=== PATIENT | male | born 1940 | race Caucasian/White ===

== ENCOUNTER 2017-06-02 14:05 | Inpatient (IN) | payer MEDICARE, BC ==
[2017-06-02] MEDS ORDERED: IPRATROPIUM-ALBUTEROL 3 ML NEB INHALATION STA (14:31)
--- NOTE | 2017-06-02 14:36 | ED ---
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 He is also noted have a blood pressure 226 /102 upon arrival. Chest tightness exertional dyspnea he does have a history of an additional COPD A. fib. Complaint: chest pain, other - Related Data Home Medications Medication Instructions Recorded Confirmed Albuterol Inhaler [Ventolin Hfa 2 puff INHALATION RT-QID PRN 06/02/17 06/02/17 Inhaler] Aspirin 81 mg PO DAILY 06/02/17 06/02/17 Budesonide-Formot 160-4.5 Mcg 2 puff INHALATION RT-BID 06/02/17 06/02/17 [Symbicort 160-4.5 Mcg Inhaler] Cholecalciferol (Vitamin D3) 2,000 unit PO DAILY 06/02/17 06/02/17 [Vitamin D3] Furosemide [Lasix] 20 mg PO DAILY 06/02/17 06/02/17 HYDROcodone/APAP 5-325MG [[place] 1 tab PO Q6HR PRN 06/02/17 06/02/17 5-325] Ipratropium-Albuterol Nebulize 3 ml INHALATION RT-TID 06/02/17 06/02/17 [Duoneb 0.5 mg-3 mg/3 ml Soln] Meclizine [Antivert] 12.5 mg PO TID PRN 06/02/17 06/02/17 Metoprolol Tartrate [Lopressor] 50 mg PO BID 06/02/17 06/02/17 Multivit-Min/FA/Lycopen/Lutein 1 tab PO DAILY 06/02/17 06/02/17 [Centrum Silver Tablet] Potassium Chloride [Klor-Con 10] 10 meq PO BID 06/02/17 06/02/17 Ranitidine HCl [Zantac] 150 mg PO BID 06/02/17 06/02/17 Simvastatin [Zocor] 10 mg PO HS 06/02/17 06/02/17 Tamsulosin [Flomax] 0.4 mg PO DAILY 06/02/17 06/02/17 Warfarin [Coumadin] 2 mg PO HS 06/02/17 06/02/17 Allergies Allergy/AdvReac Type Severity Reaction Status Date / Time codeine Allergy Rash/Hives Verified 06/02/17 14:50 Review of Systems ROS Statement: Those systems with pertinent positive or pertinent negative responses have been documented in the HPI. ROS Other: All systems not noted in ROS Statement are negative. Past Medical History Past Medical History: Atrial Fibrillation, COPD, Hyperlipidemia, Hypertension History of Any Multi-Drug Resistant Organisms: None Reported Past Surgical History: Coronary Bypass/CABG, Joint Replacement Additional Past Surgical History / Comment(s): AAA repair Past Psychological History: No Psychological Hx Reported Smoking Status: Former smoker Past Alcohol Use History: None Reported Past Drug Use History: None Reported General Exam - General Exam Comments Initial Comments: This is a well-developed well-nourished awake alert oriented 3 male Limitations: no limitations General appearance: alert, in no apparent distress Head exam: Present: atraumatic, normocephalic, normal inspection Eye exam: Present: normal appearance, PERRL, EOMI. Absent: scleral icterus, conjunctival injection, periorbital swelling ENT exam: Present: normal exam, mucous membranes moist Neck exam: Present: normal inspection. Absent: tenderness, meningismus, lymphadenopathy Respiratory exam: Present: wheezes, decreased breath sounds. Absent: respiratory distress, rales, rhonchi, stridor Cardiovascular Exam: Present: regular rate, normal rhythm, normal heart sounds. Absent: systolic murmur, diastolic murmur, rubs, gallop, clicks GI/Abdominal exam: Present: soft, normal bowel sounds. Absent: distended, tenderness, guarding, rebound, rigid Extremities exam: Present: normal inspection, full ROM, normal capillary refill. Absent: tenderness, pedal edema, joint swelling, calf tenderness Back exam: Present: normal inspection Neurological exam: Present: alert, oriented X3, CN II-XII intact Psychiatric exam: Present: normal affect, normal mood Skin exam: Present: warm, dry, intact, normal color. Absent: rash Course Vital Signs 06/02/17 06/02/17 14:07 14:54 Temperature 97.5 F L Pulse Rate 77 Respiratory 20 16 Rate Blood Pressure 176/86 O2 Sat by Pulse 97 Oximetry - Reevaluation(s) Reevaluation #1: 06/02/17 16:36 Patient is feeling somewhat better. He still is dyspneic however Chest Pain MDM - MDM I did review the imaging no definite acute findings. I did discuss findings with patient family and Dr. Watkins who did come see the patient patient will be admitted for COPD/bronchitis exacerbation. Disposition Clinical Impression: Chronic obstructive pulmonary disease (COPD), Bronchitis Disposition: ADMITTED IP TO THIS HOSP Condition: Stable Referrals: Rashmi Cruz MD [Primary Care Provider] - 1-2 days
[2017-06-02 14:56] LABS: Basophils % (A) 0 %; Eosinophils # (A) 0.1 k/uL (0-0.7); Eosinophils % (A) 2 %; HCT 38.2 % (39.0-53.0); HGB 12.6 gm/dL (13.0-17.5); Lymphocytes # (A) 0.7 k/uL (1.0-4.8); Lymphocytes % (A) 13 %; MCH 33.1 pg (25.0-35.0); MCV 100.4 fL (80.0-100.0); Mean Platelet Volume 7.4; Monocytes # (A) 0.3 k/uL (0-1.0); Monocytes % (A) 5 %; Neutrophils # (A) 4.2 k/uL (1.3-7.7); Neutrophils % (A) 78 %; Platelet Count 165 k/uL (150-450); RDW 13.3 % (11.5-15.5); WBC 5.5 k/uL (3.8-10.6)
[2017-06-02 15:03] LABS: ALT 43 U/L (21-72); AST 27 U/L (17-59); Albumin 3.7 g/dL (3.5-5.0); Alkaline Phosphatase 35 U/L (38-126); Amylase 46 U/L (30-110); Anion Gap 9 mmol/L; Blood Urea Nitrogen 26 mg/dL (9-20); Calcium 9.4 mg/dL (8.4-10.2); Carbon Dioxide 29 mmol/L (22-30); Chloride 104 mmol/L (98-107); Glucose 134 mg/dL (74-99); Lipase 55 U/L (23-300); Magnesium 1.8 mg/dL (1.6-2.3); Potassium 3.9 mmol/L (3.5-5.1); Sodium 142 mmol/L (137-145); Total Bilirubin 0.4 mg/dL (0.2-1.3)
[2017-06-02 15:08] LABS: D-Dimer 0.6 mg/L FEU (<0.60); Partial Thromboplastin Time 28.6 sec (22.0-30.0)
[2017-06-02 15:27] LABS: Creatine Kinase MB 2.1 ng/mL (0.0-2.4); Troponin I 0.013 ng/mL (0.000-0.034)
[2017-06-02] MEDS ORDERED: HYDROcodone/APAP 5-325MG 1 EACH TAB PO PRN (16:41)
[2017-06-02] MEDS ORDERED: MECLIZINE 12.5 MG TAB PO PRN (16:41)
[2017-06-02] MEDS: SODIUM CHLORIDE 0.9% 1,000 ML IV STA ×3 (17:23→18:11)
--- NOTE | 2017-06-02 17:43 | HP ---
HISTORY AND PHYSICAL DATE OF ADMISSION: June 02, 2017. PRESENTING COMPLAINT: Short of breath cough. HISTORY OF PRESENTING COMPLAINT: A very pleasant 77-year-old patient of Dr. Cruz. Chronic stable medical conditions include atrial fibrillation, hypertension, hyperlipidemia. The patient also has a known history of COPD and coronary artery disease, with prior bypass. For a few days patient has been worsening wheezing, short of breath. Decreased appetite, cough, yellow phlegm, also feeling chills, cold and the patient also having some left-sided chest pain. No obvious radiation. The patient's son and the at the bedside. The patient went to see Dr. Cruz in the office today and patient was sent down to the ER because of the chest pain component. The patient feels tired and run down. REVIEW OF SYSTEMS: Constitutional: Weak tired, low-grade fever. HEENT none. Respiratory as above. Cardiovascular as above. Gastrointestinal none. Genitourinary none. Musculoskeletal none. Dermatological none. Hematologic none. Lymphatics none. Psychiatry none. Neurological none. PAST MEDICAL HISTORY: Atrial fibrillation, hypertension, hyperlipidemia, coronary artery disease, COPD. PAST SURGICAL HISTORY: Coronary artery bypass, AAA repair, joint replacement. SOCIAL HISTORY: Patient smoked for about 30 years, stopped about 28 years ago. Lives with son. Does use a cane to get about. FAMILY HISTORY: Reviewed. Noncontributory to presentation. HOME MEDICATIONS: 1. Flomax 0.4 mg p.o. daily. 2. Zantac 150 mg p.o. b.i.d. 3. [place]ia 5 one tab q.6h p.r.n. 4. Zocor 10 mg q.h.s. 5. Antivert 12.5 p.o. t.i.d. p.r.n. 6. Vitamin D3 2000 units p.o. daily. 7. Potassium 20 mEq p.o. daily. 8. Centrum Silver 1 tab p.o. daily. 9. Lasix 20 mg p.o. daily. 10.Symbicort 160/4.5, 2 puffs b.i.d. 11.Lopressor 50 mg p.o. b.i.d. 12.DuoNeb 3 mL t.i.d. 13.Ventolin HFA 2 puffs q.i.d. p.r.n. 14.Coumadin 2 mg p.o. q.h.s. 15.Aspirin 81 mg p.o. daily. ALLERGIES: CODEINE. PHYSICAL EXAMINATION: Temperature 97.5, pulse 77, respiration 20, blood pressure 177/86, pulse ox 97% on 2 L. GENERAL APPEARANCE: Well built. BMI 33.1. Lying in bed. Tired appearing. EYES: Pupils equal. Conjunctivae normal. HEENT: Oral cavity normal. Neck is JVD unable to assess. Mass not palpable. RESPIRATORY: Effort increased. LUNGS: Diminished breath sounds. Prolonged expiration and some wheezing. Cardiovascular, HEART: Sounds irregular. No edema. ABDOMEN: Soft, nontender. Liver and spleen not palpable. Lymphatics: No lymph nodes palpable in the neck or axillae. PSYCHIATRY: Alert and oriented times three. Mood and affect normal. Neurological pupils equal. Cranial nerves are grossly intact. Power and sensation grossly intact. INVESTIGATIONS: White count 5.5, hemoglobin 12.6, INR 3.0, potassium 3.9, BUN 20, creatinine 0.95. EKG shows some ST-segment changes including depression. ASSESSMENT: 1. Possible unstable angina in a patient with known coronary artery disease, having some chest pain with some ST-segment changes. I am adding a stat troponin, spoke to Dr. Costa from the ER. Showed the EKG to Dr. Canales from Cardiology. 2. Acute chronic obstructive pulmonary disease exacerbation with possible acute bronchitis in an ex-smoker. 3. Paroxysmal atrial fibrillation. Patient currently sinus rhythm chronically on Coumadin. 4. Essential hypertension. 5. Hyperlipidemia. 6. Coronary artery disease with prior history of coronary artery bypass. PLAN: The patient is put on IV Solu-Medrol. Home medications are resumed. The patient is already on aspirin. Cardiology is being contacted through the ER for the EKG. The patient on nebulized bronchodilators. As patient INR is already therapeutic, we will hold off any IV heparin. Care was discussed with the patient and family at the bedside. Copy to Dr. Cruz. FERNANDO / ELSA: [id number] /
[2017-06-02] MEDS: methylPREDNISolone SOD SUCCI 125 MG/2 ML VIAL IV SCH ×2 (18:11→23:16)
[2017-06-02 18:13] VITALS: BMI 31.0
[2017-06-02] MEDS: SODIUM CHLORIDE 0.9% 1,000 ML IV SCH (18:20)
[2017-06-02] MEDS: NITROGLYCERIN OINT 1 INCH/GM PACKET TOPICAL SCH ×2 (19:27→23:16)
[2017-06-02 19:43] LABS: Troponin I 0.021 ng/mL (0.000-0.034)
[2017-06-02] MEDS ORDERED: IPRATROPIUM-ALBUTEROL 3 ML NEB INHALATION SCH (20:00)
[2017-06-02] MEDS ORDERED: ACETAMINOPHEN TAB 325 MG TAB PO PRN (21:54)
[2017-06-02] MEDS: POTASSIUM CHLORIDE ER 10 MEQ TAB.ER.PRT PO SCH (22:11)
[2017-06-02] MEDS: ATORVASTATIN 10 MG TAB PO SCH (22:12)
[2017-06-02] MEDS: METOPROLOL TARTRATE 50 MG TAB PO SCH (22:12)
[2017-06-02] MEDS: WARFARIN 2 MG TAB PO SCH (22:12)
[2017-06-02] MEDS: FAMOTIDINE 20 MG TAB PO SCH (22:12)
[2017-06-02] MEDS ORDERED: IPRATROPIUM-ALBUTEROL 3 ML NEB INHALATION PRN (22:16)
[2017-06-03] MEDS: ALPRAZolam 0.25 MG TAB PO PRN ×2 (01:58→21:22)
[2017-06-03 03:42] LABS: Creatine Kinase MB 1.8 ng/mL (0.0-2.4); Troponin I 0.014 ng/mL (0.000-0.034)
[2017-06-03] MEDS: methylPREDNISolone SOD SUCCI 125 MG/2 ML VIAL IV SCH ×2 (05:12→11:55)
[2017-06-03] MEDS: NITROGLYCERIN OINT 1 INCH/GM PACKET TOPICAL SCH ×2 (05:13→12:01)
[2017-06-03] MEDS: IPRATROPIUM-ALBUTEROL 3 ML NEB INHALATION SCH ×4 (07:18→21:02)
[2017-06-03] MEDS: ASPIRIN 81 MG PO SCH (08:50)
[2017-06-03] MEDS: TAMSULOSIN 0.4 MG CAP.ER.24H PO SCH (08:50)
[2017-06-03] MEDS: FUROSEMIDE 20 MG TAB PO SCH (08:51)
[2017-06-03] MEDS: METOPROLOL TARTRATE 50 MG TAB PO SCH ×2 (08:51→20:24)
[2017-06-03] MEDS: FAMOTIDINE 20 MG TAB PO SCH ×2 (08:51→20:25)
[2017-06-03] MEDS: POTASSIUM CHLORIDE ER 10 MEQ TAB.ER.PRT PO SCH ×2 (08:51→20:24)
[2017-06-03] MEDS ORDERED: LEVOFLOXACIN 500 MG TAB PO SCH (09:00)
[2017-06-03] MEDS: CHOLECALCIFEROL 1,000 UNIT TAB PO SCH (11:55)
[2017-06-03] MEDS: MULTIVITAMINS, THERA 1 EACH TAB PO SCH (11:55)
--- NOTE | 2017-06-03 13:50 | P.CNPUL ---
History of Present Illness Consult date: 06/03/17 Reason for consult: dyspnea, COPD History of present illness: This is a 77-year-old male patient with known history of COPD whereas been followed up in our office regarding his COPD. Patient had a spirometry last year and her FEV1 was in the order of 93% of predicted. The patient is also known to have a history of thoracic aortic aneurysm that has been repaired back in 2003. The patient has also history of chronic atrial fibrillation, hypertension, and vitamin D deficiency. The patient came into the hospital because of worsening shortness of breath and some chest pain. The patient was seen in our office on 06/02/2016 complaining of one-week history of intermittent left-sided chest pain mostly over the anterior chest and sometimes lasting for hours and almost the whole day. Does not seem to be positional and does not seem to be related to any exercise or activity. The patient was also having intermittent cough, some wheezing, no fever or chills, no hemoptysis and no chest pain. He reported no diaphoresis. 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 The patient had a chest x-ray in the office that showed no acute evidence of any pneumonia. The patient had some chest wall tenderness. He also was found to have some expiratory wheezing. The patient was given a Depo-Medrol shot 80 mg IM. The patient was asked to continue the bronchodilators at the usual dose and continue with the prednisone and she is 5 mg alternating with 2.5 mg. Nevertheless, the patient continued to have the same symptoms and he admitted to the hospital for the same complaints. Cardiac enzymes are not elevated and the patient will have a cardiology evaluation. EKG is not showing any acute ST segment elevations. Review of Systems Constitutional: Denies weight loss, denies fatigue, no night sweats, no fever, no chills. Cardiovascular: Denies palpitations, denied chest pain or chest pressure, denies any edema. GI: Denies nausea vomiting abdominal pain diarrhea or constipation. Genitourinary: Denies dysuria, frequency, or urgency. Neurologic: Denies weakness, confusion, dizziness, or numbness. Musculoskeletal: Denies weakness arthralgia or myalgia Skin: Denies any skin lesions or rashes. Endocrine: No polydipsia, no polyuria, no heat or cold sensitivity. Pulmonary: Refer to HPI, Hematologic: Patient is on Coumadin for atrial fibrillation, no bleeding, no history of anemia, no history of blood clots. Psychiatric: No symptoms to suggest depression. Screening Past Medical History Past Medical History: Atrial Fibrillation, COPD, Hyperlipidemia, Hypertension History of Any Multi-Drug Resistant Organisms: None Reported Past Surgical History: Coronary Bypass/CABG, Joint Replacement Additional Past Surgical History / Comment(s): AAA repair 2 knees and right hip and shoulders Past Anesthesia/Blood Transfusion Reactions: No Reported Reaction Past Psychological History: No Psychological Hx Reported Smoking Status: Former smoker Past Alcohol Use History: None Reported Past Drug Use History: None Reported Medications and Allergies Home Medications Medication Instructions Recorded Confirmed Type Albuterol Inhaler [Ventolin Hfa 2 puff INHALATION RT-QID PRN 06/02/17 06/02/17 History Inhaler] Aspirin 81 mg PO DAILY 06/02/17 06/02/17 History Budesonide-Formot 160-4.5 Mcg 2 puff INHALATION RT-BID 06/02/17 06/02/17 History [Symbicort 160-4.5 Mcg Inhaler] Cholecalciferol (Vitamin D3) 2,000 unit PO DAILY 06/02/17 06/02/17 History [Vitamin D3] Furosemide [Lasix] 20 mg PO DAILY 06/02/17 06/02/17 History HYDROcodone/APAP 5-325MG [[place] 1 tab PO Q6HR PRN 06/02/17 06/02/17 History 5-325] Ipratropium-Albuterol Nebulize 3 ml INHALATION RT-TID 06/02/17 06/02/17 History [Duoneb 0.5 mg-3 mg/3 ml Soln] Meclizine [Antivert] 12.5 mg PO TID PRN 06/02/17 06/02/17 History Metoprolol Tartrate [Lopressor] 50 mg PO BID 06/02/17 06/02/17 History Multivit-Min/FA/Lycopen/Lutein 1 tab PO DAILY 06/02/17 06/02/17 History [Centrum Silver Tablet] Potassium Chloride [Klor-Con 10] 10 meq PO BID 06/02/17 06/02/17 History Ranitidine HCl [Zantac] 150 mg PO BID 06/02/17 06/02/17 History Simvastatin [Zocor] 10 mg PO HS 06/02/17 06/02/17 History Tamsulosin [Flomax] 0.4 mg PO DAILY 06/02/17 06/02/17 History Warfarin [Coumadin] 2 mg PO HS 06/02/17 06/02/17 History Allergies Allergy/AdvReac Type Severity Reaction Status Date / Time codeine Allergy Rash/Hives Verified 06/02/17 14:50 Physical Exam Vitals: Vital Signs Temp Pulse Pulse Resp BP BP Pulse Ox 06/03/17 11:23 76 06/03/17 11:08 72 06/03/17 08:00 78 24 06/03/17 07:30 76 06/03/17 07:18 76 95 06/03/17 07:00 97.4 F L 78 24 136/74 98 06/02/17 22:19 97.5 F L 83 17 128/79 98 06/02/17 19:52 80 06/02/17 19:37 76 06/02/17 19:20 74 191/107 98 06/02/17 18:08 97.5 F L 68 18 143/81 97 06/02/17 17:25 95.9 F L 71 16 136/79 96 06/02/17 16:56 68 06/02/17 16:49 67 06/02/17 14:54 16 06/02/17 14:07 97.5 F L 77 20 176/86 97 Intake and Output 06/02/17 06/03/17 06/03/17 22:59 06:59 14:59 Intake Total 640 Output Total 200 600 Balance -200 40 Intake: IV 160 Sodium Chloride 0.9% 1, 160 000 ml @ 20 mls/hr IV . Q24H [facility] Rx#:[id number] Oral 480 Output: Urine 200 600 Other: Voiding Method Urinal Urinal Urinal # Voids 2 2 Weight 92.5 kg 92.5 kg 92.5 kg Patient Weight 06/04/17 06:59 Weight 92.5 kg physical exam revealed a 76-year-old white male in no distress. HEENT: Anicteric sclerae, pink and moist conjunctivae. Extraocular movements intact, pupils are reactive to light they are round and equal. External inspection of ears and nose showed normal mucosa. Oral mucosa, soft and hard palate tongue and posterior pharynx are intact. Neck: Supple no neck masses, no JVD, no thyroid enlargement, no adenopathy. Lungs: Symmetrical expansion,wheezing on forced expiratory maneuver, tenderness over the anterior lateral chest wall noted. CVS: Irregular irregular rhythm, normal S1 and S2, no gallops, no murmur, no rubs. Abdomen: Soft, nontender, no megaly, no rebound, no guarding, positive bowel sounds. Extremities: No clubbing, no edema, no cyanosis, 2+ pulses in upper and lower extremities. Musculoskeletal: Muscle strength and tone normal. Neurologic: Alert and oriented 3, normal affect, no focal neurologic deficits. Results - Laboratory Findings CBC and BMP: 06/02/17 14:44 06/02/17 14:44 PT/INR, D-dimer PT 27.0 sec (9.0-12.0) H 06/02/17 14:44 INR 3.0 (<1.2) H 06/02/17 14:44 D-Dimer 0.60 mg/L FEU (<0.60) H 06/02/17 14:44 Abnormal lab findings: Abnormal Labs 06/02/17 06/02/17 06/02/17 14:44 14:44 14:44 RBC 3.80 L Hgb 12.6 L Hct 38.2 L MCV 100.4 H Lymphocytes # 0.7 L PT 27.0 H INR 3.0 H D-Dimer 0.60 H BUN 26 H Glucose 134 H Alkaline Phosphatase 35 L Total Creatine Kinase Total Protein 6.0 L 06/03/17 02:54 RBC Hgb Hct MCV Lymphocytes # PT INR D-Dimer BUN Glucose Alkaline Phosphatase Total Creatine Kinase 45 L Total Protein - Diagnostic Findings Chest x-ray: image reviewed Assessment and Plan Plan: Assessment 1 atypical chest pain, under investigation. EKG is not showing any acute abnormalities and a cardiac enzymes are nonelevated. 2 severe chronic obstructive pulmonary disease, with a component of mild COPD exacerbation. Chest x-ray is free of any acute pulmonary infiltrates. 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 Plan Agree on the current COPD management plan. Consult cardiology. Continue bronchodilators. Continue steroids. Continue anticoagulation. We'll follow.
--- NOTE | 2017-06-03 16:23 | ECHOF ---
Referral Reason:as MEASUREMENTS -------- HEIGHT: 172.7 cm WEIGHT: 92.1 kg BP: 136/74 RVIDd: 2.6 cm (< 3.3) IVSd: 0.9 cm (0.6 - 1.1) LVIDd: 4.9 cm (3.9 - 5.3) LVPWd: 1.0 cm (0.6 - 1.1) LAESV Index (A-L): 32.45 ml/m Ao Diam: 3.0 cm (2.0 - 3.7) AV Cusp: 0.7 cm (1.5 - 2.6) LA Diam: 3.9 cm (2.7 - 3.8) MV E David: 1.15 m/s MV DecT: 270 ms MV A David: 1.43 m/s MV E/A Ratio: 0.80 AV maxP.85 mmHg AV meanP.25 mmHg AR PHT: 754 ms RAP: 5.00 mmHg RVSP: 36.74 mmHg FINDINGS -------- Sinus rhythm. This was a technically difficult study with suboptimal views. The left ventricular size is normal. Left ventricular wall thickness is normal. Overall left vent ricular systolic function is mildly impaired with, an EF between 45 - 50 %. The right ventricle is normal in size and function. LA is midly dilated 29-33ml/m2. The right atrium is normal in size. 1.5mg of Definity was utilized for enhancement of images There is mild aortic valve sclerosis. There is mild aortic regurgitation. The aortic pressure amilcar f-time by doppler is 754ms. There is mild aortic stenosis present. Peak/mean gradient across the Aortic Valve is 27.85mmHg / 13.25mmHg. The mitral valve leaflets are mildly thickened. Mild mitral regurgitation is present. Mild tricuspid regurgitation present. There is mild pulmonary hypertension. Trace/mild (physiologic) pulmonic regurgitation. The aortic root size is normal. Normal inferior vena cava with normal inspiratory collapse consistent with estimated right atrial pre ssure of 5 mmHg. There is no pericardial effusion. CONCLUSIONS -------- 1. Sinus rhythm. 2. This was a technically difficult study with suboptimal views. 3. Left ventricular wall thickness is normal. 4. Overall left ventricular systolic function is mildly impaired with, an EF between 45 - 50 %. 5. LA is midly dilated 29-33ml/m2. 6. 1.5mg of Definity was utilized for enhancement of images 7. There is mild aortic valve sclerosis. 8. There is mild aortic regurgitation. 9. There is mild aortic stenosis present. 10. Peak/mean gradient across the Aortic Valve is 27.85mmHg / 13.25mmHg. 11. The mitral valve leaflets are mildly thickened. 12. Mild mitral regurgitation is present. 13. Mild tricuspid regurgitation present. 14. There is mild pulmonary hypertension. 15. Trace/mild (physiologic) pulmonic regurgitation. 16. The aortic root size is normal. 17. There is no pericardial effusion. MANAGER OF HOSPITAL: Jhonny Hui RDCS
--- NOTE | 2017-06-03 17:29 | P.PN ---
Progress Note - Text Progress Note Date: 06/03/17 DATE OF SERVICE: 06/03/2017 PRESENTING COMPLAINT: Short of breath, cough. HISTORY OF PRESENT ILLNESS: 77-year-old male who presented with worsening wheezing and shortness of breath decreased appetite cough with yellow phlegm feeling chills cold left-sided chest pain. No obvious radiation. Saw Dr. Beckham in the office was sent down to the emergency department for evaluation because of the chest pain complaint.. Complains of feeling tired and rundown. Admitted for these symptoms. INTERVAL HISTORY: 06/03/2017 Patient sitting up at the bedside states he feels better no further chest pains reported. Continues to have a cough with sputum. Afebrile, is ambulatory with some assistance requiring oxygen to perform activities. Tolerating his diet eating about 50% of each meal, last BM prior to admission. REVIEW OF SYSTEMS: Done for constitutional ,cardiovascular, GI, pulmonary with relevant findings as above. CURRENT MEDICATIONS Tylenol, Cameron, DuoNeb, Xanax, aspirin, Lipitor, famotidine, Antivert, Solu- Medrol 40 mg every 8 hours IV, Lopressor 51 by mouth twice a day, calcium, Flomax, Coumadin. PHYSICAL EXAM VITAL SIGNS: Temperature 97.4, pulse 78, respiratory rate 24, blood pressure 136/74, oxygen saturation 98% on 4 L. GENERAL APPEARANCE: Sitting up on the edge of the bed, not in distress. EYES: Pupils equal. Conjunctiva normal. NECK: JVD not raised. Mass not palpable. RESPIRATORY: Respiratory effort increased. Lungs prolonged expiration with some wheezing and diminished to auscultation. CARDIOVASCULAR: First and second sounds irregular. No edema. ABDOMEN: Soft. Liver and spleen not palpable. No tenderness. No mass palpable. PSYCHIATRY: Alert and oriented x3. Mood and affect normal. INVESTIGATIONS: LABS: None new Echocardiogram: Sinus rhythm, mild aortic valve sclerosis, mild aortic regurgitation, mild aortic stenosis present, mild mitral regurgitation, mild tricuspid regurgitation, mild pulmonary hypertension. EF between 45 and 50%. ASSESSMENT: -Unstable angina in a patient with known coronary artery disease presented with chest pain ST segment changes, troponin negative. -Acute chronic obstructive pulmonary disease exacerbation with possible acute bronchitis in an ex-smoker. -Paroxysmal atrial fibrillation, patient is currently in sinus rhythm chronically on Coumadin. -Essential hypertension. -Hyperlipidemia. -Coronary artery disease with prior history of coronary artery bypass. PLAN: Await additional input from cardiology, continue bronchodilators steroids and anticoagulation. Plan of care discussed with the patient the bedside we will follow closely. GRANULATOR TENDER statement: Patient was seen and examined by nurse practitioner Loraine Kelly and all elements of the case discussed with attending Dr. Watkins
--- NOTE | 2017-06-03 17:56 | PN ---
PROGRESS NOTE DATE OF SERVICE: 06/03/17 ATTENDING NOTE: Patient seen examined by me. I discussed with nurse practitioner, Robin. Patient admitted with some chest pain and short of breath. Pulmonary and cardiology was consulted. Breathing is better. Did tolerate some diet. PHYSICAL EXAMINATION: LUNGS: Decreased breath sounds. Mild wheezing. Cardiovascular first and second sounds normal. Troponins are 0.013, 0.021, 0.014. 2D echo shows EF of 45-50%. ASSESSMENT: 1. Exacerbation with possible acute bronchitis in an ex-smoker. 2. Paroxysmal atrial fibrillation chronically on Coumadin. 3. Coronary artery disease, prior history of coronary artery bypass. PLAN: Continue current medication and treatment plan including bronchodilators and IV Solu- Medrol. We will DC Fede. Await input from Cardiology. Follow. MMRIZWANL / IJN: [id number] /
[2017-06-03] MEDS: WARFARIN 2 MG TAB PO SCH (20:23)
[2017-06-03] MEDS: ATORVASTATIN 10 MG TAB PO SCH (20:24)
--- NOTE | 2017-06-03 20:47 | CONS ---
CONSULTATION Mr. Obando is a 77-year-old male who is followed by Dr. Cruz as well as Dr. Copeland who presented with symptoms of progressive dyspnea and chest discomfort. The patient has a known history of severe chronic obstructive lung disease. He also has a history of thoracic aortic aneurysm that has been repaired in 2003, as well as paroxysmal atrial fibrillation. He has been complaining of progressive dyspnea with chest discomfort, worse when he takes a deep breath and when he coughs. He denies any fever or chills. He has no diaphoresis. He has no significant peripheral edema. No PND and no orthopnea. His coronary risk factors are positive for hyperlipidemia and hypertension. He is nonsmoker at this time. MEDICATIONS: Include aspirin, Coumadin, albuterol, ipratropium, metoprolol tartrate 50 mg twice a day, Symbicort, Lasix 20 mg daily, potassium, vitamin D, Antivert, simvastatin 10 mg daily in addition to Flomax and Zantac. REVIEW OF SYSTEMS: RESPIRATORY SYSTEM: He has significant dyspnea on exertion with chronic obstructive lung disease. GI system: No recent GI bleed. No peptic ulcer disease. system: No dysuria or hematuria. Nervous system: No stroke or seizure. PHYSICAL EXAMINATION: He is a 77-year-old male, alert and oriented, no apparent distress. Blood pressure 136/70 with a heart rate in the 70s. HEAD: Normocephalic. Eyes sclerae nonicteric. Neck good upstroke. No bruit. No jugular venous distention. Lungs clear to auscultation. Lungs with severe decrease in exchange. No wheezes. HEART: Regular rate and rhythm, S1, S2 with systolic murmur 3/6 heard at the base ejection type. No diastolic murmur. No rub. ABDOMEN: Soft, nontender. Positive bowel sounds. No organomegaly. EXTREMITIES: No edema. LAB DATA: EKG revealed a sinus mechanism, borderline left axis deviation, evidence of left ventricular hypertrophy with intraventricular conduction delay and poor R wave progression cannot exclude anteroapical myocardial infarction. There is no evolution on his EKGs. Lab data revealed troponin 0.013, 0.021, 0.014. NT proBNP of 381, BUN and creatinine 26 and 0.95. INR of 3, hemoglobin of 12.6. IMPRESSION: 1. Chest discomfort, atypical for ischemic heart disease, appears to be musculoskeletal in etiology. 2. History of significant chronic obstructive lung disease with mild exacerbation. 3. Aortic valve murmur. 4. Paroxysmal atrial fibrillation. 5. Status post thoracic aortic aneurysm repair. 6. Hypertension. 7. Hyperlipidemia. RECOMMENDATION: From the cardiac standpoint, I will obtain echocardiogram with Doppler. Continue rest of his medical regimen. I see no evidence to suggest active ischemic heart disease at this time. The patient has been evaluated by Dr. Kelley regarding his lung status. Depending on his progress, further recommendation will be made. Thank you for this consult. We will follow with you. MMODL / IJN: [id number] /
[2017-06-03] MEDS: methylPREDNISolone SOD SUCCI 40 MG/ML 1 ML VIAL IV SCH (23:16)
[2017-06-04] MEDS: SODIUM CHLORIDE 0.9% 1,000 ML IV SCH (05:56)
[2017-06-04] MEDS: IPRATROPIUM-ALBUTEROL 3 ML NEB INHALATION SCH ×2 (07:45→11:25)
[2017-06-04] MEDS: ASPIRIN 81 MG PO SCH (08:19)
[2017-06-04] MEDS: METOPROLOL TARTRATE 50 MG TAB PO SCH (08:20)
[2017-06-04] MEDS: TAMSULOSIN 0.4 MG CAP.ER.24H PO SCH (08:20)
[2017-06-04] MEDS: FUROSEMIDE 20 MG TAB PO SCH (08:20)
[2017-06-04] MEDS: FAMOTIDINE 20 MG TAB PO SCH (08:20)
[2017-06-04] MEDS: POTASSIUM CHLORIDE ER 10 MEQ TAB.ER.PRT PO SCH (08:20)
[2017-06-04] MEDS: methylPREDNISolone SOD SUCCI 40 MG/ML 1 ML VIAL IV SCH (08:21)
[2017-06-04 08:23] VITALS: BP 175/89; RESP 20; TEMP 98
[2017-06-04 08:31] LABS: Anion Gap 8 mmol/L; Blood Urea Nitrogen 23 mg/dL (9-20); Calcium 9.4 mg/dL (8.4-10.2); Carbon Dioxide 27 mmol/L (22-30); Chloride 106 mmol/L (98-107); Glucose 107 mg/dL (74-99); Potassium 4.2 mmol/L (3.5-5.1); Sodium 141 mmol/L (137-145)
[2017-06-04 08:37] LABS: Prothrombin Time 26.5 sec (9.0-12.0)
[2017-06-04 11:32] VITALS: PULSE 80
[2017-06-04] MEDS: CHOLECALCIFEROL 1,000 UNIT TAB PO SCH (13:18)
[2017-06-04] MEDS: MULTIVITAMINS, THERA 1 EACH TAB PO SCH (13:22)
--- NOTE | 2017-06-04 15:07 | P.PN ---
Subjective Progress Note Date: 06/04/17 This is a 77-year-old male patient with known history of COPD whereas been followed up in our office regarding his COPD. Patient had a spirometry last year and her FEV1 was in the order of 93% of predicted. The patient is also known to have a history of thoracic aortic aneurysm that has been repaired back in 2003. The patient has also history of chronic atrial fibrillation, hypertension, and vitamin D deficiency. The patient came into the hospital because of worsening shortness of breath and some chest pain. The patient was seen in our office on 06/02/2016 complaining of one-week history of intermittent left-sided chest pain mostly over the anterior chest and sometimes lasting for hours and almost the whole day. Does not seem to be positional and does not seem to be related to any exercise or activity. The patient was also having intermittent cough, some wheezing, no fever or chills, no hemoptysis and no chest pain. He reported no diaphoresis. 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 The patient had a chest x-ray in the office that showed no acute evidence of any pneumonia. The patient had some chest wall tenderness. He also was found to have some expiratory wheezing. The patient was given a Depo-Medrol shot 80 mg IM. The patient was asked to continue the bronchodilators at the usual dose and continue with the prednisone and she is 5 mg alternating with 2.5 mg. Nevertheless, the patient continued to have the same symptoms and he admitted to the hospital for the same complaints. Cardiac enzymes are not elevated and the patient will have a cardiology evaluation. EKG is not showing any acute ST segment elevations. On 06/04/2017 the patient is being seen for a follow-up. The patient is doing well and the patient has no new complaints and his been ambulating without any major difficulties. He seems to have had significant improvement in his acute COPD exacerbation and for now were contemplating discharge. No fever. No chills. No angina. No falls. No altered mentation. Objective - Vital Signs Vital signs: Vital Signs Temp 98 F 06/04/17 07:00 Pulse 80 06/04/17 11:31 Resp 20 06/04/17 07:00 BP 175/89 06/04/17 07:00 Pulse Ox 99 06/04/17 07:00 Intake & Output 01/11/1306/04/17 06/04/17 18:59 06:59 18:59 Intake Total 60 Output Total 400 550 Balance -340 -550 Weight 92.5 kg 92.5 kg Intake: IV 60 Sodium Chloride 0.9% 1, 60 000 ml @ 20 mls/hr IV . Q24H JESSICA Rx#:[id number] Output: Urine 400 550 Other: Voiding Method Urinal Urinal # Voids 2 2 - Exam HEENT: Anicteric sclerae, pink and moist conjunctivae. Extraocular movements intact, pupils are reactive to light they are round and equal. External inspection of ears and nose showed normal mucosa. Oral mucosa, soft and hard palate tongue and posterior pharynx are intact. Neck: Supple no neck masses, no JVD, no thyroid enlargement, no adenopathy. Lungs: Symmetrical expansion,wheezing on forced expiratory maneuver, tenderness over the anterior lateral chest wall noted. CVS: Irregular irregular rhythm, normal S1 and S2, no gallops, no murmur, no rubs. Abdomen: Soft, nontender, no megaly, no rebound, no guarding, positive bowel sounds. Extremities: No clubbing, no edema, no cyanosis, 2+ pulses in upper and lower extremities. Musculoskeletal: Muscle strength and tone normal. Neurologic: Alert and oriented 3, normal affect, no focal neurologic deficits. - Labs CBC & Chem 7: 06/02/17 14:44 06/04/17 07:39 Labs: Abnormal Lab Results - Last 24 Hours (Table) 06/04/17 06/04/17 Range/Units 07:39 07:39 PT 26.5 H (9.0-12.0) sec INR 3.0 H (<1.2) BUN 23 H (9-20) mg/dL Glucose 107 H (74-99) mg/dL Assessment and Plan Plan: Assessment 1 atypical chest pain, under investigation. EKG is not showing any acute abnormalities and a cardiac enzymes are nonelevated. 2 severe chronic obstructive pulmonary disease, with a component of mild COPD exacerbation. Chest x-ray is free of any acute pulmonary infiltrates. 3 history of pneumonia 4 vitamin D deficiency 5 hypertensive disorder 6 paroxysmal atrial fibrillation 7 thoracic aortic aneurysm that has been repaired surgically at [facility] 8 degenerative arthritis 9 abnormal EKG with old anteroseptal infarct, rule out underlying coronary artery disease. Plan Patient can be discharged home today to be followed up on outpatient basis. His condition is stable. Is ambulating. No hypoxemia.
--- NOTE | 2017-06-04 19:44 | P.DS ---
Providers Date of admission: 06/02/17 16:38 Expected date of discharge: 06/04/17 Attending physician: Maurice Watkins Consults: 06/02/17 17:07 Consult Physician Urgent Consulting Provider: Ezra Canales Consult Reason/Comments: EKG changes, chest pain Do you want consulting provider notified?: Yes Primary care physician: [facility] Course: FINAL DIAGNOSES: -Unstable angina in a patient with known coronary artery disease presented with chest pain ST segment changes, troponin negative. -Acute chronic obstructive pulmonary disease exacerbation with possible acute bronchitis in an ex-smoker. -Paroxysmal atrial fibrillation, patient is currently in sinus rhythm chronically on Coumadin. -Essential hypertension. -Hyperlipidemia. -Coronary artery disease with prior history of coronary artery bypass. HOSPTIAL COURSE: 77-year-old male who presented with worsening wheezing and shortness of breath decreased appetite cough and yellow phlegm feeling chills cold and left-sided chest pain. With no obvious radiation. Was seen by Dr. Beckham in the office was sent down to the emergency department for evaluation for chest pain complaint. Home medications reordered, cardiology consulted and pulmonology consulted area. Cardiology evaluated the patient and there is no evidence to suggest active ischemic heart disease at the present time. Pulmonology saw the patient and recommended nebulized bronchodilators, IV steroid. Patient's symptoms improved. Patient ambulatory in the hallways, tolerating his diet eating 100% of his meals, moved his bowels shortness of breath improved. No further episodes of chest pain. Consultants agree patient's condition is improved and is stabilized he is appropriate for discharge. PHYSICAL EXAM: CARDIOVASCULAR: First and second sound noted no edema RESPIRATORY: Respiratory effort normal, lung sounds diminished bilaterally to the bases transient expiratory wheezing noted GI: Abdomen soft nontender liver and spleen not palpable. Patient was seen and examined by nurse practitioner Loraine Kelly in all elements of the case discussed with attending Dr. Watkins DISPOSITION: Discharge home, should follow-up with cardiology and pulmonology outpatient. Patient Condition at Discharge: Stable Plan - Discharge Summary Discharge Rx Participant: No New Discharge Prescriptions: New predniSONE 10 mg PO DAILY #30 tab Continue Tamsulosin [Flomax] 0.4 mg PO DAILY Ranitidine HCl [Zantac] 150 mg PO BID HYDROcodone/APAP 5-325MG [[place] 5-325] 1 tab PO Q6HR PRN PRN Reason: Pain Simvastatin [Zocor] 10 mg PO HS Cholecalciferol (Vitamin D3) [Vitamin D3] 2,000 unit PO DAILY Potassium Chloride [Klor-Con 10] 10 meq PO BID Multivit-Min/FA/Lycopen/Lutein [Centrum Silver Tablet] 1 tab PO DAILY Furosemide [Lasix] 20 mg PO DAILY Budesonide-Formot 160-4.5 Mcg [Symbicort 160-4.5 Mcg Inhaler] 2 puff INHALATION RT-BID Metoprolol Tartrate [Lopressor] 50 mg PO BID Ipratropium-Albuterol Nebulize [Duoneb 0.5 mg-3 mg/3 ml Soln] 3 ml INHALATION RT-TID Albuterol Inhaler [Ventolin Hfa Inhaler] 2 puff INHALATION RT-QID PRN PRN Reason: Shortness Of Breath Warfarin [Coumadin] 2 mg PO HS Aspirin 81 mg PO DAILY Discontinued Meclizine [Antivert] 12.5 mg PO TID PRN PRN Reason: Vertigo Discharge Medication List Albuterol Inhaler [Ventolin Hfa Inhaler] 2 puff INHALATION RT-QID PRN 06/02/17 [ History] Aspirin 81 mg PO DAILY 06/02/17 [History] Budesonide-Formot 160-4.5 Mcg [Symbicort 160-4.5 Mcg Inhaler] 2 puff INHALATION RT-BID 06/02/17 [History] Cholecalciferol (Vitamin D3) [Vitamin D3] 2,000 unit PO DAILY 06/02/17 [History] Furosemide [Lasix] 20 mg PO DAILY 06/02/17 [History] HYDROcodone/APAP 5-325MG [[place] 5-325] 1 tab PO Q6HR PRN 06/02/17 [History] Ipratropium-Albuterol Nebulize [Duoneb 0.5 mg-3 mg/3 ml Soln] 3 ml INHALATION RT -TID 06/02/17 [History] Metoprolol Tartrate [Lopressor] 50 mg PO BID 06/02/17 [History] Multivit-Min/FA/Lycopen/Lutein [Centrum Silver Tablet] 1 tab PO DAILY 06/02/17 [ History] Potassium Chloride [Klor-Con 10] 10 meq PO BID 06/02/17 [History] Ranitidine HCl [Zantac] 150 mg PO BID 06/02/17 [History] Simvastatin [Zocor] 10 mg PO HS 06/02/17 [History] Tamsulosin [Flomax] 0.4 mg PO DAILY 06/02/17 [History] Warfarin [Coumadin] 2 mg PO HS 06/02/17 [History] predniSONE 10 mg PO DAILY #30 tab 06/04/17 [Rx] Follow up Appointment(s)/Referral(s): Rashmi Cruz MD [Primary Care Provider] - 3 Days (Patient to call Dr. Cruz's office Monday to schedule follow up appointment. The office is closed at time of discharge. ) Dustin Copeland MD [STAFF PHYSICIAN] - 1 Week (Patient to call Dr. Copeland's office Monday to schedule follow up appointment. The office is closed at time of discharge.) Patient Instructions/Handouts: Prednisone (By mouth), COPD (Chronic Obstructive Pulmonary Disease) (DC), Chronic Bronchitis (DC) Discharge Disposition: HOME SELF-CARE
--- NOTE | 2017-06-05 12:34 | DS ---
DISCHARGE SUMMARY DATE OF ADMISSION: 06/02/17. DATE OF DISCHARGE: 06/04/17. FINAL DIAGNOSES: 1. Acute chronic obstructive pulmonary disease exacerbation, acute bronchitis in an ex- smoker. 2. Anterior chest wall pain could be musculoskeletal versus possible angina. HOSPITAL COURSE: Patient presented with chronic obstructive pulmonary disease exacerbation, had some left-sided chest pain. Troponins were negative. The patient was seen by Dr. Virgen from Cardiology, who felt this is more of musculoskeletal hence no further workup. By the time of discharge, the patient is feeling much better. On examination, lungs improved air entry. Cardiovascular first and second sounds normal. The patient's INR is 3.0. Care was discussed in detail with the patient and was also discussed including the consultation by Dr. Virgen. 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 Discussion and discharge planning: More than 35 minutes. FERNANDO / ELSA: [id number] /
--- NOTE | 2017-06-24 09:26 | HP ---
HISTORY AND PHYSICAL CHIEF COMPLAINT: Shortness of breath. HISTORY OF PRESENT ILLNESS: This 77-year-old gentleman with a past medical history of multiple medical problems including COPD, history of atrial fibrillation, history of GERD, hypertension, hyperlipidemia, history of DJD being followed by Dr. Cruz in the outpatient setting, was complaining of significant shortness of breath. The patient was admitted with significant shortness of breath. The patient improved significantly. Patient went home. Apparently, according to the family, the patient then took turn for the worse, otherwise, patient developed bilateral leg edema and the patient came to [facility] from where the patient is directly transferred to [facility] for further evaluation and treatment. Anxiety was also suspected. There is no history of fever, rigors. No headache, loss of consciousness, seizures. Sputum was also noted. PAST MEDICAL HISTORY: Atrial fibrillation, COPD, GERD, hypertension, hyperlipidemia, history of DJD and renal disease. MEDICATIONS: Prior to admission home medications are: 1. Prednisone 10 mg p.r.n. as before. 2. Coumadin 2 mg p.o. q.h.s. 3. Flomax 0.4 daily. 4. Zocor 10 mg q.h.s. 5. Zantac 150 mg p.o. b.i.d. 6. Klor-Con 10 mg p.o. b.i.d. 7. Multivitamins 1 p.o. daily. 8. Lopressor 250 mg b.i.d. 9. DuoNeb q.i.d. and p.r.n. 10.[place] 5 mg q.6h p.r.n. 11.Lasix 20 mg. 12.Vitamin D 3000 daily. 13.Symbicort 160/4.5 two puffs b.i.d. 14.Oxacillin Augmentin 1 p.o. b.i.d. 15.Albuterol inhaler 2 puffs q.i.d. p.r.n. 16.Aspirin 81 mg p.o. daily. ALLERGIES: CODEINE. FAMILY HISTORY: No history of heart disease or strokes in the family. SOCIAL HISTORY: Previous history of smoking. No current smoking or alcohol intake. REVIEW OF SYSTEMS: ENT: Diminished hearing or vision. CARDIOVASCULAR: As mentioned. RESPIRATORY: As mentioned. GI: No nausea. : No dysuria. NERVOUS SYSTEM: As mentioned. ALLERGY/IMMUNOLOGY No history of asthma. MUSCULOSKELETAL: As mentioned earlier. HEMATOLOGY: No history of anemia. ENDOCRINE: No history of diabetes or hypothyroidism. CONSTITUTIONAL: As mentioned earlier. DERMATOLOGY: Negative. RHEUMATOLOGY: Negative. PSYCHIATRY: As mentioned earlier. PHYSICAL EXAMINATION: Patient is alert and oriented x3. Pulse 77, blood pressure 193/96, respiration 22, temperature 97.4, pulse ox 97% on 2 L. HEENT: Conjunctivae normal. Oral mucosa moist. NECK: No jugular venous distention. No carotid bruit. No lymph node enlargement. CARDIOVASCULAR: S1, S2. No S3, no S4. RESPIRATORY: Breath sounds diminished in the bases. Bilateral scattered rhonchi and crackles. Expiratory wheezing also present. ABDOMEN: Soft, nontender. No mass palpable. LEGS: Bilateral leg edema. NERVOUS SYSTEM: Higher functions as mentioned earlier, moves all 4 limbs, no focal motor sensory deficits. LYMPHATICS: No lymphadenopathy in the neck, axillae, groin. SKIN: No ulcer, rashes or bleeding. LAB STUDIES: At this time shows WBC 8.2, hemoglobin 12.8. The rest of the labs are pending. ASSESSMENT: 1. Chronic obstructive pulmonary disease exacerbation with acute purulent tracheobronchitis. 2. Bilateral leg edema secondary to acute on chronic cor pulmonale. 3. History atrial fibrillation. 4. History of chronic obstructive pulmonary disease. 5. History of gastroesophageal reflux disease. 6. Hyperlipidemia. 7. Hypertension. 8. Degenerative joint disease. 9. Renal disease. 10.History of cholecystectomy. 11.History of abdominal aortic aneurysm and coaptation repair. 12.History of degenerative joint disease. RECOMMENDATIONS AND DISCUSSION: This 77-year-old gentleman who presented with multiple complex medical issues, will monitor the patient closely. Continue the current medications and symptomatic treatment. I would recommend extensive bronchodilator treatment. I would also recommend IV steroids and Accu-Cheks a.c. and at bedtime also. Otherwise a small dose of Lasix. Consult Cardiology and pulmonology. DVT prophylaxis. Guarded prognosis because of multiple complex medical issues. Further recommendations to follow. Copy of dictation forwarded to Dr. Cruz, who is the primary physician. MMODL / IJN: [id number] /
== END 2017-06-04 14:05 | disposition home or self-care (01) | DRG 191 ==
LOC: EC 14:05 → 5MS5E 16:38
PROVIDERS: ADMIT Hospitalist; ATTEND Hospitalist
DX: J44.1 Chronic obstructive pulmonary disease with (acute) exacerbation (principal); I25.110 Atherosclerotic heart disease of native coronary artery with unstable angina pectoris; I48.0 Paroxysmal atrial fibrillation; I35.8 Other nonrheumatic aortic valve disorders; J44.0 Chronic obstructive pulmonary disease with (acute) lower respiratory infection; I25.2 Old myocardial infarction; J20.9 Acute bronchitis, unspecified; E55.9 Vitamin D deficiency, unspecified; E78.5 Hyperlipidemia, unspecified; I10 Essential (primary) hypertension; I48.2 Chronic atrial fibrillation; M19.90 Unspecified osteoarthritis, unspecified site; Z79.01 Long term (current) use of anticoagulants; Z79.51 Long term (current) use of inhaled steroids; Z79.82 Long term (current) use of aspirin; Z79.899 Other long term (current) drug therapy; Z86.79 Personal history of other diseases of the circulatory system; Z87.01 Personal history of pneumonia (recurrent); Z87.891 Personal history of nicotine dependence; Z95.1 Presence of aortocoronary bypass graft; Z88.5 Allergy status to narcotic agent; Z96.60 Presence of unspecified orthopedic joint implant
CPT/HCPCS: 36415; 71046; 80048; 80053; 82150; 82550; 82553; 83690; 83735; 83880; 84484; 85025; 85379; 85610; 85730; 93005; 93306; 94640; 94760; 96372; 99214; 99285

== ENCOUNTER 2017-06-15 10:01 | Inpatient (IN) | payer MEDICARE, BC ==
[2017-06-15] MEDS ORDERED: IPRATROPIUM 0.5 MG/2.5 ML NEBU INHALATION STA (10:15)
[2017-06-15] MEDS ORDERED: SODIUM CHLORIDE 0.9% 1,000 ML IV STA ×2 (10:15)
[2017-06-15] MEDS ORDERED: ALBUTEROL NEBULIZED 2.5 MG/3 ML INHALATION STA (10:15)
[2017-06-15] MEDS ORDERED: methylPREDNISolone SOD SUCCI 125 MG/2 ML VIAL IV STA (10:15)
--- NOTE | 2017-06-15 10:22 | ED ---
General Adult HPI - General Chief complaint: Shortness of Breath Stated complaint: Vomiting/Cough Time Seen by Provider: 06/15/17 10:15 Source: patient, RN notes reviewed, old records reviewed Mode of arrival: wheelchair Limitations: no limitations - History of Present Illness Initial comments: This is a 69-year-old male to the ER for evaluation of shortness of breath, increasing shortness of breath cough congestion patient also notes fever. Patient does have recent hospital admission for COPD. Patient discharged home on steroids no antibiotics. Denies any pain is does not feel well. He states the shortness of breath has been increasing for about a week much worse over the last 2 days he developed fever he thinks last night. No nausea vomiting or diarrhea. No significant complaints of bodyaches - Related Data Home Medications Medication Instructions Recorded Confirmed Albuterol Inhaler [Ventolin Hfa 2 puff INHALATION RT-QID PRN 06/02/17 06/15/17 Inhaler] Aspirin 81 mg PO DAILY 06/02/17 06/15/17 Budesonide-Formot 160-4.5 Mcg 2 puff INHALATION RT-BID 06/02/17 06/15/17 [Symbicort 160-4.5 Mcg Inhaler] Cholecalciferol (Vitamin D3) 2,000 unit PO DAILY 06/02/17 06/15/17 [Vitamin D3] Furosemide [Lasix] 20 mg PO DAILY 06/02/17 06/15/17 HYDROcodone/APAP 5-325MG [[place] 1 tab PO Q6HR PRN 06/02/17 06/15/17 5-325] Ipratropium-Albuterol Nebulize 3 ml INHALATION RT-TID 06/02/17 06/15/17 [Duoneb 0.5 mg-3 mg/3 ml Soln] Metoprolol Tartrate [Lopressor] 50 mg PO BID 06/02/17 06/15/17 Multivit-Min/FA/Lycopen/Lutein 1 tab PO DAILY 06/02/17 06/15/17 [Centrum Silver Tablet] Potassium Chloride [Klor-Con 10] 10 meq PO BID 06/02/17 06/15/17 Ranitidine HCl [Zantac] 150 mg PO BID 06/02/17 06/15/17 Simvastatin [Zocor] 10 mg PO HS 06/02/17 06/15/17 Tamsulosin [Flomax] 0.4 mg PO DAILY 06/02/17 06/15/17 Warfarin [Coumadin] 2 mg PO HS 06/02/17 06/15/17 predniSONE See Taper PO DAILY 06/15/17 06/15/17 Allergies Allergy/AdvReac Type Severity Reaction Status Date / Time codeine Allergy Rash/Hives Verified 06/15/17 10:36 Review of Systems ROS Statement: Those systems with pertinent positive or pertinent negative responses have been documented in the HPI. ROS Other: All systems not noted in ROS Statement are negative. Past Medical History Past Medical History: Atrial Fibrillation, COPD, Hyperlipidemia, Hypertension History of Any Multi-Drug Resistant Organisms: None Reported Past Surgical History: Coronary Bypass/CABG, Joint Replacement Additional Past Surgical History / Comment(s): AAA repair 2 knees and right hip and shoulders Past Anesthesia/Blood Transfusion Reactions: No Reported Reaction Past Psychological History: No Psychological Hx Reported Smoking Status: Former smoker Past Alcohol Use History: None Reported Past Drug Use History: None Reported General Exam Limitations: no limitations General appearance: alert, anxious, in distress Head exam: Present: atraumatic, normocephalic, normal inspection Eye exam: Present: normal appearance, PERRL, EOMI. Absent: scleral icterus, conjunctival injection, periorbital swelling ENT exam: Present: normal exam, mucous membranes moist Neck exam: Present: normal inspection. Absent: tenderness, meningismus, lymphadenopathy Respiratory exam: Present: respiratory distress, wheezes, accessory muscle use, decreased breath sounds, prolonged expiratory. Absent: rales, rhonchi, stridor Cardiovascular Exam: Present: normal rhythm, tachycardia, normal heart sounds. Absent: systolic murmur, diastolic murmur, rubs, gallop, clicks GI/Abdominal exam: Present: soft, normal bowel sounds. Absent: distended, tenderness, guarding, rebound, rigid Extremities exam: Present: normal inspection, full ROM, normal capillary refill. Absent: tenderness, pedal edema, joint swelling, calf tenderness Back exam: Present: normal inspection Neurological exam: Present: alert, oriented X3, CN II-XII intact Psychiatric exam: Present: normal affect, normal mood Skin exam: Present: warm, dry, intact, normal color. Absent: rash Course Vital Signs 06/15/17 06/15/17 10:10 10:32 Temperature 101.4 F H Pulse Rate 80 Respiratory 26 H 24 Rate Blood Pressure 106/53 O2 Sat by Pulse 93 L Oximetry - Reevaluation(s) Reevaluation #1: 06/15/17 10:47 Patient initially hypoxic with shortness of breath and improving with respiratory treatment, patient's fever and vital signs also improved with fever control Medical Decision Making - Medical Decision Making 69 male the ER for evaluation of cough congestion shortness of breath fever, positive pneumonia, nosocomial pneumonia, patient be admitted IV antibiotics and cardiopulmonary support - Radiology Data Radiology results: report reviewed (Chest x-ray is positive for pneumonia), image reviewed Critical Care Time Critical Care Time: Yes Total Critical Care Time: 31 Disposition Clinical Impression: Chronic obstructive pulmonary disease (COPD), Acute exacerbation of chronic obstructive airways disease, Nosocomial pneumonia Disposition: ADMITTED IP TO THIS [facility] Condition: Serious Referrals: None,Stated [Primary Care Provider] - 1-2 days
[2017-06-15] MEDS ORDERED: IBUPROFEN 800 MG TAB PO STA (10:32)
[2017-06-15] MEDS ORDERED: ACETAMINOPHEN TAB 500 MG TAB PO STA (10:32)
[2017-06-15 10:44] LABS: Basophils % (A) 0 %; Eosinophils # (A) 0.1 k/uL (0-0.7); Eosinophils % (A) 0 %; HCT 42.9 % (39.0-53.0); Lymphocytes # (A) 0.8 k/uL (1.0-4.8); Lymphocytes % (A) 5 %; MCHC 32.6 g/dL (31.0-37.0); MCV 101.2 fL (80.0-100.0); Macrocytosis Slight; Mean Platelet Volume 7.1; Monocytes # (A) 0.6 k/uL (0-1.0); Monocytes % (A) 4 %; Neutrophils # (A) 14.9 k/uL (1.3-7.7); Neutrophils % (A) 90 %; Platelet Count 191 k/uL (150-450); RBC 4.24 m/uL (4.30-5.90); RDW 13.2 % (11.5-15.5); WBC 16.5 k/uL (3.8-10.6)
[2017-06-15] MEDS ORDERED: PIPERACILLIN-TAZOBACTAM 3.375 GM in DEXTROSE/WATER 1 50ML.BAG IVPB STA (10:44)
[2017-06-15] MEDS ORDERED: PNEUMONIA PROTOCOL UTILIZED 1 EACH MISC PO PRN (10:44)
[2017-06-15] MEDS ORDERED: LEVOFLOXACIN 750MG-D5W PMX 750 MG in DEXTROSE/WATER 1 150ML.BAG IVPB STA (10:44)
--- NOTE | 2017-06-15 10:44 | XR ---
EXAMINATION TYPE: XR chest 1V portable DATE OF EXAM: 06/15/2017 COMPARISON: 06/02/2017 HISTORY: Shortness of breath TECHNIQUE: Single frontal view of the chest is obtained. FINDINGS: Right basilar infiltrate and small effusion. There is prominence of the thoracic aorta is suspicious for aneurysm. Underlying COPD noted. Arthropathy of the shoulders. Previous surgery involving the left shoulder and cervical spine suggested. Surgical clips overlying the mediastinum noted. Chronic rib cage deformity of the left suggests previous surgery. IMPRESSION: 1. Right lower lobe infiltrate and small effusion. 2. Marked prominence of the left hilum suspicious for aneurysm or mass. 2. Correlate for COPD
[2017-06-15 10:46] LABS: ALT 41 U/L (21-72); AST 19 U/L (17-59); Albumin 3.5 g/dL (3.5-5.0); Alkaline Phosphatase 49 U/L (38-126); Anion Gap 7 mmol/L; Blood Urea Nitrogen 32 mg/dL (9-20); Calcium 9.5 mg/dL (8.4-10.2); Carbon Dioxide 32 mmol/L (22-30); Chloride 99 mmol/L (98-107); Glucose 108 mg/dL (74-99); Magnesium 1.8 mg/dL (1.6-2.3); Potassium 4.4 mmol/L (3.5-5.1); Sodium 138 mmol/L (137-145); Total Bilirubin 0.6 mg/dL (0.2-1.3)
[2017-06-15 10:48] LABS: Partial Thromboplastin Time 26.1 sec (22.0-30.0); Prothrombin Time 27.3 sec (9.0-12.0)
[2017-06-15 11:14] LABS: Troponin I 0.045 ng/mL (0.000-0.034)
[2017-06-15] MEDS ORDERED: SODIUM CHLORIDE 0.9% 2,000 ML IV ONE (11:35)
[2017-06-15] MEDS ORDERED: HYDROcodone/APAP 5-325MG 1 EACH TAB PO PRN (14:53)
[2017-06-15] MEDS: BUDESONIDE 1 MG/2 ML NEBU INHALATION SCH ×2 (15:12→19:53)
[2017-06-15] MEDS: IPRATROPIUM-ALBUTEROL 3 ML NEB INHALATION SCH ×4 (15:12→23:51)
--- NOTE | 2017-06-15 15:38 | HP ---
HISTORY AND PHYSICAL DATE OF ADMISSION: 06/15/2017 PRESENTING COMPLAINT: Cough, short of breath, wheezing. HISTORY OF PRESENTING COMPLAINT: This is a 77-year-old patient of Dr. Rodas. Chronic stable medical conditions include atrial fibrillation, hypertension, hyperlipidemia, coronary artery disease. Patient lives with his son. Patient's son and daughter are at the bedside. For over 1 week patient has been having increasing shortness of breath, cough, sputum production, yellow-green, very short of breath. Patient is requiring a BiPAP, maybe fever. His appetite was good until a few days ago, no feeling weak, tired and totally rundown, short of breath at rest. REVIEW OF SYSTEMS: CONSTITUTIONAL: Weak, tired, fevers. HEENT: None. RESPIRATORY: As above. CARDIOVASCULAR: None. GASTROINTESTINAL: None. GENITOURINARY: None. MUSCULOSKELETAL: None. DERMATOLOGICAL: None. HEMATOLOGICAL: None. LYMPHATIC: None. PSYCHIATRY: None. NEUROLOGICAL: None. PAST MEDICAL HISTORY: Atrial fibrillation, hypertension, hyperlipidemia, coronary artery disease, COPD. PAST SURGICAL HISTORY: Coronary artery bypass, AAA repair, joint replacement. SOCIAL HISTORY: Smoked for 30 years, stopped over 28 years ago. Lives with his son. Does use a cane to get about. FAMILY HISTORY: Reviewed, noncontributory to presentation. HOME MEDICATIONS: 1. Prednisone taper. 2. Coumadin 2 mg q.h.s. 3. Flomax 0.4 mg a day. 4. Zocor 10 mg q.h.s. 5. Zantac 150 mg p.o. b.i.d. 6. Potassium 10 mEq b.i.d. 7. Centrum Silver 1 tablet p.o. daily. 8. Lopressor 50 mg b.i.d. 9. DuoNeb 3 mL t.i.d. 10.[place] 5 one tablet q.6 p.r.n. 11.Lasix 20 mg a day. 12.Vitamin D3 two thousand units p.o. daily. 13.Symbicort 160/4.5 two puffs b.i.d. 14.Ventolin HFA 2 puffs q.i.d. p.r.n. ALLERGIES: CODEINE. PHYSICAL EXAMINATION: Vital signs on presentation, temperature 101.4, pulse 80, respiratory 26, blood pressure 106/53, pulse ox 93% on room air. GENERAL APPEARANCE: Well built, BMI 32.4, lying in bed on the BiPAP, very short of breath at rest. EYES: Pupils equal, conjunctivae normal. HEENT: Oral cavity dry mucous membrane. NECK: JVD not raised. Mass not palpable. RESPIRATORY: Effort increased, accessory muscles are working. Not able to speak in full sentences. LUNGS: Decreased breath sounds. Prolonged expiration and scattered crackles. CARDIOVASCULAR: First and second sounds normal. No edema. ABDOMEN: Soft, nontender. Liver and spleen not palpable. LYMPHATIC: No lymph node palpable in neck or axillae. PSYCHIATRY: Alert and oriented x3. Mood and affect anxious-appearing. NEUROLOGICAL: Pupils equal. Cranial nerves grossly intact. Power and sensation grossly intact. INVESTIGATIONS: White count 16.5, hemoglobin 14, INR 3, potassium 4.4, BUN 32, creatinine 1.0, troponin 0.045. Influenza negative. Chest x-ray, right lower lobe infiltrate. ASSESSMENT: 1. Right lower lobe pneumonia, suspect gram-negative organism causing sepsis, present on admission. 2. Acute chronic obstructive pulmonary disease exacerbation in an ex-smoker, present on admission. 3. Paroxysmal atrial fibrillation, chronically on Coumadin. 4. Coumadin monitoring. 5. Essential hypertension. 6. Hyperlipidemia. 7. Coronary artery disease with prior history of coronary artery bypass. 8. Troponin leak, likely from hemodynamic mismatch. There is no acute coronary syndrome symptoms. PLAN: Patient is put on IV Zosyn. Will add Mucinex and a sputum for Gram stain culture. Patient put on bronchodilators, IV steroids, inhaled steroids. Other home medications resumed. The patient's INR will be closely followed. Care was discussed with the son and daughter at the bedside. Questions were answered. Consultation to Pulmonary is being done. MMODL / IJN: [id number] /
[2017-06-15] MEDS ORDERED: IPRATROPIUM-ALBUTEROL 3 ML NEB INHALATION SCH (16:00)
[2017-06-15] MEDS: SODIUM CHLORIDE 0.9% 1,000 ML IV SCH (16:15)
[2017-06-15] MEDS: ASPIRIN 81 MG PO SCH (16:17)
[2017-06-15] MEDS: TAMSULOSIN 0.4 MG CAP.ER.24H PO SCH (16:17)
[2017-06-15] MEDS: methylPREDNISolone SOD SUCCI 40 MG/ML 1 ML VIAL IV SCH (16:17)
[2017-06-15] MEDS: guaiFENesin 600 MG TABLET.ER PO SCH ×2 (16:17→19:40)
[2017-06-15 16:53] LABS: Glucose,Whole Blood 167 mg/dL (75-99)
[2017-06-15] MEDS: WARFARIN 2 MG TAB PO SCH (17:12)
[2017-06-15] MEDS: INSULIN ASPART 100 UNIT/ML 1 ML 10 ML VIAL SQ SCH (17:12)
[2017-06-15] MEDS ORDERED: PIPERACILLIN-TAZOBACTAM 3.375 GM in DEXTROSE/WATER 1 50ML.BAG IVPB SCH (18:00)
--- NOTE | 2017-06-15 18:13 | P.CNPUL ---
History of Present Illness Consult date: 06/15/17 Requesting physician: Maurice Watkins Reason for consult: dyspnea, cough, abnormal CXR/CT Chief complaint: Shortness of breath, chest congestion, cough, fever History of present illness: Lee is a 77-year-old white male patient who sees Dr. Beckham in our office for his history of mild COPD with FEV1 of 93%, who was recently discharged from this hospital on 06/04/2017 after being treated for COPD exacerbation, presented to the emergency department today on 06/15/2017 at 10:00 in the morning with complaints of increasing shortness of breath, chest congestion, fever, cough. His symptoms started last , got increasingly worse over the last week, and last night he started having fevers. Denied any body aches, denied any nausea vomiting or diarrhea. Chest x-ray taken in the ED on 2017 showed right lower lobe infiltrate and small effusion and marked prominence of the left hilum. Lab work shows leukocytosis with W BC of 16.5, hemoglobin was 14, INR is 3.0, patient is on Coumadin for atrial fibrillation, carbon dioxide of 32, BUN of 32, creatinine is 1, troponin is positive at 0.045 , proBNP was 1020, plasma lactic acid was 1.1, influenza screen was negative. Patient was febrile with a temp of 101.4F, he was hypotensive with a systolic of 81/48, he was given 2 L of 0.9 normal saline IV bolus, and maintenance IV of 0.9 normal saline at 100 ML per hour was started. Subsequently his breathing became increasingly labored in the course of his stay in the emergency room, and patient was placed on BiPAP support with pressure of 12 and 5 and FiO2 of 40 %. He was started on Zosyn and Levaquin, IV Solu-Medrol, nebulized treatments, and admitted for further management. Review of Systems All systems: negative Constitutional: Denies chills, Denies fever Eyes: denies blurred vision, denies pain Ears, nose, mouth and throat: Denies headache, Denies sore throat Cardiovascular: Denies chest pain, Denies shortness of breath Respiratory: Denies cough Gastrointestinal: Denies abdominal pain, Denies diarrhea, Denies nausea, Denies vomiting Musculoskeletal: Denies myalgias Integumentary: Denies pruritus, Denies rash Neurological: Denies numbness, Denies weakness Psychiatric: Denies anxiety, Denies depression Endocrine: Denies fatigue, Denies weight change Past Medical History Past Medical History: Atrial Fibrillation, Cancer, COPD, GERD/Reflux, Hyperlipidemia, Hypertension, Osteoarthritis (OA), Renal Disease Additional Past Medical History / Comment(s): Pt recently admitted 06/02/17 with acute COPD and chest pain thought to be muscular. Other hx: Paroxysmal A fib , thoracic aortic aneurysm with repair/aorta coarctation repair, hiatal hernia, skin cancer with removal, nephrolithiasis with surgery, arthritis multiple joints bilaterally. History of Any Multi-Drug Resistant Organisms: None Reported Past Surgical History: Cholecystectomy, Heart Catheterization, Hernia Repair, Joint Replacement Additional Past Surgical History / Comment(s): AAA/Aortic coarctation repair, bilateral total knee arthroplasties, R total hip arthroplasty, bilateral shoulder rotator cuff repairs, R inguinal hernia repair, skin cancer removed from nose, lithotripsy, colonoscopy Past Anesthesia/Blood Transfusion Reactions: No Reported Reaction Smoking Status: Former smoker - Past Family History Mother Family Medical History: No Reported History Additional Family Medical History / Comment(s): Pt reluctant to speak about mother's hx. Father Family Medical History: Myocardial Infarction (HI) Additional Family Medical History / Comment(s): Father had a HI at the age of 65yrs. Medications and Allergies Home Medications Medication Instructions Recorded Confirmed Type Albuterol Inhaler [Ventolin Hfa 2 puff INHALATION RT-QID PRN 06/02/17 06/15/17 History Inhaler] Aspirin 81 mg PO DAILY 06/02/17 06/15/17 History Budesonide-Formot 160-4.5 Mcg 2 puff INHALATION RT-BID 06/02/17 06/15/17 History [Symbicort 160-4.5 Mcg Inhaler] Cholecalciferol (Vitamin D3) 2,000 unit PO DAILY 06/02/17 06/15/17 History [Vitamin D3] Furosemide [Lasix] 20 mg PO DAILY 06/02/17 06/15/17 History HYDROcodone/APAP 5-325MG [[place] 1 tab PO Q6HR PRN 06/02/17 06/15/17 History 5-325] Ipratropium-Albuterol Nebulize 3 ml INHALATION RT-TID 06/02/17 06/15/17 History [Duoneb 0.5 mg-3 mg/3 ml Soln] Metoprolol Tartrate [Lopressor] 50 mg PO BID 06/02/17 06/15/17 History Multivit-Min/FA/Lycopen/Lutein 1 tab PO DAILY 06/02/17 06/15/17 History [Centrum Silver Tablet] Potassium Chloride [Klor-Con 10] 10 meq PO BID 06/02/17 06/15/17 History Ranitidine HCl [Zantac] 150 mg PO BID 06/02/17 06/15/17 History Simvastatin [Zocor] 10 mg PO HS 06/02/17 06/15/17 History Tamsulosin [Flomax] 0.4 mg PO DAILY 06/02/17 06/15/17 History Warfarin [Coumadin] 2 mg PO HS 06/02/17 06/15/17 History predniSONE See Taper PO DAILY 06/15/17 06/15/17 History Allergies Allergy/AdvReac Type Severity Reaction Status Date / Time codeine Allergy Rash/Hives Verified 06/15/17 10:36 Physical Exam Vitals: Vital Signs Temp Pulse Pulse Resp BP BP Pulse Ox 06/15/17 16:54 97 06/15/17 16:41 97.1 F L 80 20 132/73 98 06/15/17 14:57 80 18 104/65 98 06/15/17 13:45 84 18 108/68 99 06/15/17 13:31 83 18 99/60 97 06/15/17 13:15 88 18 86/53 97 06/15/17 13:00 90 18 95/61 97 06/15/17 12:34 99 20 92/67 100 06/15/17 12:22 101 H 20 86/56 97 06/15/17 12:05 103 H 22 84/48 96 06/15/17 12:01 24 06/15/17 11:45 103 H 24 79/45 98 06/15/17 11:30 98 22 81/55 98 06/15/17 11:20 86 22 81/48 2 L 06/15/17 11:15 88 06/15/17 11:00 84 06/15/17 10:43 75 06/15/17 10:32 24 06/15/17 10:10 101.4 F H 80 26 H 106/53 93 L Intake and Output 06/15/17 06/15/17 06/15/17 06:59 14:59 22:59 Other: Voiding Method Toilet Urinal Weight 96.615 kg Patient Weight 06/16/17 06:59 Weight 96.615 kg GENERAL EXAM: Alert, active, currently fairly comfortable on BiPAP support with pressures of 12 and 5, and 40% FiO2 HEAD: Normocephalic/atraumatic. EYES: Normal reaction of pupils, equal size. Conjunctiva pink, sclera white. NOSE: Clear with pink turbinates. THROAT: No erythema or exudates. NECK: No masses, no JVD, no thyroid enlargement, no adenopathy. CHEST: No chest wall deformity. Symmetrical expansion. LUNGS: Equal air entry with scattered crackles, no wheeze. CVS: Regular rate and rhythm, normal S1 and S2, no gallops, no murmurs, no rubs ABDOMEN: Soft, nontender. No hepatosplenomegaly, normal bowel sounds, no guarding or rigidity. EXTREMITIES: No clubbing, no edema, no cyanosis, 2+ pulses and upper and lower extremities. MUSCULOSKELETAL: Muscle strength and tone normal. SPINE: No scoliosis or deformity SKIN: No rashes CENTRAL NERVOUS SYSTEM: Alert and oriented -3. No focal deficits, tone is normal in all 4 extremities. PSYCHIATRIC: Alert and oriented -3. Appropriate affect. Intact judgment and insight. Results - Laboratory Findings CBC and BMP: 06/15/17 10:25 06/15/17 10:25 PT/INR, D-dimer PT 27.3 sec (9.0-12.0) H 06/15/17 10:25 INR 3.0 (<1.2) H 06/15/17 10:25 Abnormal lab findings: Abnormal Labs 06/15/17 06/15/17 06/15/17 10:25 10:25 10:25 WBC 16.5 H RBC 4.24 L MCV 101.2 H Neutrophils # 14.9 H Lymphocytes # 0.8 L PT INR Carbon Dioxide 32 H BUN 32 H Glucose 108 H POC Glucose (mg/dL) Total Creatine Kinase 33 L Troponin I 0.045 H* Total Protein 6.0 L 06/15/17 06/15/17 10:25 16:20 WBC RBC MCV Neutrophils # Lymphocytes # PT 27.3 H INR 3.0 H Carbon Dioxide BUN Glucose POC Glucose (mg/dL) 167 H Total Creatine Kinase Troponin I Total Protein - Diagnostic Findings Chest x-ray: report reviewed Assessment and Plan Plan: Assessment: #1. Acute hypoxic respiratory failure secondary to right lower lobe pneumonia #2. Acute sepsis secondary to the above. Patient presented with a febrile illness, hypotension, hypoxemia, leukocytosis. Patient was fluid resuscitated with 2 L of 0.9 normal saline #3. Recent admission for COPD exacerbation, improved, discharged home on 2017 #4.Troponin leak, possibly due to sepsis #5. Paroxysmal atrial fibrillation, anticoagulated on Coumadin #6. Hypertension, hyperlipidemia #7. History of coronary artery disease #8. History of thoracic aortic aneurysm, status post surgical repair in 2003 #9. Degenerative arthritis Plan: Continue present medical management, continue Zosyn, IV steroids, nebulized treatments. GI/DVT prophylaxis. Agree with sputum and blood cultures. Repeat chest x-ray in the morning, lab work. I performed a history & physical examination of the patient and discussed their management with my nurse practitioner, Jelly Reynoso. I reviewed the nurse practitioner's note and agree with the documented findings and plan of care. Lung sounds are positive for scattered crackles. The findings and the impression was discussed with the patient. I attest to the documentation by the nurse practitioner. Time with Patient: Greater than 30
[2017-06-15] MEDS: ATORVASTATIN 10 MG TAB PO SCH (19:40)
[2017-06-15] MEDS: FAMOTIDINE 20 MG TAB PO SCH (19:40)
[2017-06-15] MEDS: METOPROLOL TARTRATE 50 MG TAB PO SCH (19:40)
[2017-06-15 21:19] LABS: Glucose,Whole Blood 236 mg/dL (75-99)
[2017-06-16] MEDS: SODIUM CHLORIDE 0.9% 1,000 ML IV SCH ×3 (00:20→16:14)
[2017-06-16] MEDS: PIPERACILLIN-TAZOBACTAM 3.375 GM in DEXTROSE/WATER 1 50ML.BAG IVPB SCH ×4 (00:21→22:30)
[2017-06-16] MEDS: INSULIN ASPART 100 UNIT/ML 1 ML 10 ML VIAL SQ SCH ×5 (00:46→22:07)
[2017-06-16] MEDS: methylPREDNISolone SOD SUCCI 40 MG/ML 1 ML VIAL IV SCH ×3 (00:47→15:56)
[2017-06-16 01:26] LABS: Hemoglobin A1C 5.7 % (4.0-6.0)
[2017-06-16] MEDS: IPRATROPIUM-ALBUTEROL 3 ML NEB INHALATION SCH ×6 (04:08→19:59)
[2017-06-16 05:51] LABS: Glucose,Whole Blood 109 mg/dL (75-99)
[2017-06-16 06:35] LABS: INR 2.8 (<1.2); Prothrombin Time 25.5 sec (9.0-12.0)
[2017-06-16 07:38] LABS: Basophils % (A) 0 %; Eosinophils % (A) 0 %; HCT 38.4 % (39.0-53.0); HGB 11.9 gm/dL (13.0-17.5); Lymphocytes # (A) 0.3 k/uL (1.0-4.8); Lymphocytes % (A) 2 %; MCH 32.6 pg (25.0-35.0); MCV 105.2 fL (80.0-100.0); Macrocytosis Moderate; Mean Platelet Volume 7.9; Monocytes # (A) 0.3 k/uL (0-1.0); Monocytes % (A) 2 %; Neutrophils % (A) 95 %; Platelet Count 153 k/uL (150-450); RBC 3.65 m/uL (4.30-5.90); RDW 14.2 % (11.5-15.5); WBC 13.6 k/uL (3.8-10.6)
[2017-06-16 07:48] LABS: Anion Gap 8 mmol/L; Blood Urea Nitrogen 30 mg/dL (9-20); Calcium 8.7 mg/dL (8.4-10.2); Carbon Dioxide 25 mmol/L (22-30); Chloride 109 mmol/L (98-107); Glucose 103 mg/dL (74-99); Potassium 4.3 mmol/L (3.5-5.1); Sodium 142 mmol/L (137-145)
[2017-06-16] MEDS: FAMOTIDINE 20 MG TAB PO SCH ×2 (08:00→22:07)
[2017-06-16] MEDS: ASPIRIN 81 MG PO SCH (08:00)
[2017-06-16] MEDS: TAMSULOSIN 0.4 MG CAP.ER.24H PO SCH (08:00)
[2017-06-16] MEDS: METOPROLOL TARTRATE 50 MG TAB PO SCH ×2 (08:00→22:08)
[2017-06-16] MEDS: guaiFENesin 600 MG TABLET.ER PO SCH ×2 (08:00→22:07)
[2017-06-16] MEDS: FORMOTEROL FUMARATE 20 MCG/2 ML NEBU INHALATION SCH ×2 (08:19→19:37)
[2017-06-16] MEDS: BUDESONIDE 1 MG/2 ML NEBU INHALATION SCH ×2 (08:19→19:37)
[2017-06-16] MEDS ORDERED: ENOXAPARIN 40 MG/0.4 ML SYRINGE SQ SCH (09:00)
--- NOTE | 2017-06-16 10:02 | XR ---
EXAMINATION TYPE: XR chest 2V DATE OF EXAM: 06/16/2017 COMPARISON: 06/15/2017 TECHNIQUE: PA and lateral views submitted. HISTORY: COPD FINDINGS: The lungs are clear and there is no pneumothorax, pleural effusion, or focal pneumonia. Arthropathy of the shoulders and diffuse osteopenia. Postsurgical change of prominence of the thoracic aorta aga in noted. Previous surgery involving the cervical spine, left shoulder and mediastinum. Diffuse interstitial pattern with bilateral infiltrate and small effusion. Heart size prominent but s table. Rib cage deformity in the left suggest previous surgery. IMPRESSION: 1. Bilateral infiltrate small effusion stable. Correlate for underlying COPD and mild venous congesti on.
[2017-06-16] MEDS ORDERED: LEVOFLOXACIN 750MG-D5W PMX 750 MG in DEXTROSE/WATER 1 150ML.BAG IVPB SCH (11:00)
[2017-06-16 12:05] VITALS: BMI 32.8
[2017-06-16 12:20] LABS: Glucose,Whole Blood 144 mg/dL (75-99)
--- NOTE | 2017-06-16 13:40 | P.PN ---
Subjective Progress Note Date: 06/16/17 Principal diagnosis: Acute hypoxic respiratory failure secondary to right lower lobe pneumonia Lee is a 77-year-old white male patient who sees Dr. Beckham in our office for his history of mild COPD with FEV1 of 93%, who was recently discharged from this hospital on 06/04/2017 after being treated for COPD exacerbation, presented to the emergency department today on 06/15/2017 at 10:00 in the morning with complaints of increasing shortness of breath, chest congestion, fever, cough. His symptoms started last , got increasingly worse over the last week, and last night he started having fevers. Denied any body aches, denied any nausea vomiting or diarrhea. Chest x-ray taken in the ED on 2017 showed right lower lobe infiltrate and small effusion and marked prominence of the left hilum. Lab work shows leukocytosis with W BC of 16.5, hemoglobin was 14, INR is 3.0, patient is on Coumadin for atrial fibrillation, carbon dioxide of 32, BUN of 32, creatinine is 1, troponin is positive at 0.045 , proBNP was 1020, plasma lactic acid was 1.1, influenza screen was negative. Patient was febrile with a temp of 101.4F, he was hypotensive with a systolic of 81/48, he was given 2 L of 0.9 normal saline IV bolus, and maintenance IV of 0.9 normal saline at 100 ML per hour was started. Subsequently his breathing became increasingly labored in the course of his stay in the emergency room, and patient was placed on BiPAP support with pressure of 12 and 5 and FiO2 of 40 %. He was started on Zosyn and Levaquin, IV Solu-Medrol, nebulized treatments, and admitted for further management. On 06/16/2017 patient seen in follow-up on selective care unit. He was taken off the BiPAP support yesterday evening, is currently down to 2 L of oxygen per nasal cannula with O2 sat 99%. He looks much better, in no respiratory distress. Awake, alert, denies any worsening shortness of breath. Productive cough continues with production of yellow sputum. Afebrile today, hemodynamically stable. Blood cultures are negative. Lab work has been reviewed, WBCs down to 13.6, hemoglobin is 11.9, INR is 2.8, renal function is stable, no electrolyte abnormality. Repeat chest x-ray shows bilateral infiltrate and small effusion. Clinically patient continues to improve. Continue the current course of treatment. Objective - Vital Signs Vital signs: Vital Signs Temp 97.3 F L 06/16/17 12:33 Pulse 74 06/16/17 12:33 Resp 18 06/16/17 12:33 BP 161/84 06/16/17 12:33 Pulse Ox 99 06/16/17 12:33 Intake & Output 06/15/17 06/16/17 06/16/17 18:59 06:59 18:59 Intake Total 410 Output Total 175 Balance -175 410 Weight 96.615 kg 98 kg 98 kg Intake: Intake, IV Titration 50 Amount Piperacillin-Tazobactam 3 50 .375 gm In Dextrose/Water 1 50ml.bag @ 12.5 mls/hr IVPB Q8H [facility] Rx#: [id number] Oral 360 Output: Urine 175 Other: Voiding Method Toilet Toilet Toilet Urinal Urinal Urinal - Exam GENERAL EXAM: Alert, active, in no distress, on 2 L per nasal cannula HEAD: Normocephalic/atraumatic. EYES: Normal reaction of pupils, equal size. Conjunctiva pink, sclera white. NOSE: Clear with pink turbinates. THROAT: No erythema or exudates. NECK: No masses, no JVD, no thyroid enlargement, no adenopathy. CHEST: No chest wall deformity. Symmetrical expansion. LUNGS: Equal air entry with scattered crackles, no wheeze. CVS: Regular rate and rhythm, normal S1 and S2, no gallops, no murmurs, no rubs ABDOMEN: Soft, nontender. No hepatosplenomegaly, normal bowel sounds, no guarding or rigidity. EXTREMITIES: No clubbing, no edema, no cyanosis, 2+ pulses and upper and lower extremities. MUSCULOSKELETAL: Muscle strength and tone normal. SPINE: No scoliosis or deformity SKIN: No rashes CENTRAL NERVOUS SYSTEM: Alert and oriented -3. No focal deficits, tone is normal in all 4 extremities. PSYCHIATRIC: Alert and oriented -3. Appropriate affect. Intact judgment and insight. - Labs CBC & Chem 7: 06/16/17 07:04 06/16/17 07:04 Labs: Abnormal Lab Results - Last 24 Hours (Table) 01/18/18 01/18/18 01/19/18 Range/Units 16:20 21:17 05:50 WBC (3.8-10.6) k/uL RBC (4.30-5.90) m/uL Hgb (13.0-17.5) gm/dL Hct (39.0-53.0) % MCV (80.0-100.0) fL Neutrophils # (1.3-7.7) k/uL Lymphocytes # (1.0-4.8) k/uL PT (9.0-12.0) sec INR (<1.2) Chloride (98-107) mmol/L BUN (9-20) mg/dL Glucose (74-99) mg/dL POC Glucose (mg/dL) 167 H 236 H 109 H (75-99) mg/dL 06/16/17 06/16/17 06/16/17 Range/Units 05:53 07:04 07:04 WBC 13.6 H (3.8-10.6) k/uL RBC 3.65 L (4.30-5.90) m/uL Hgb 11.9 L (13.0-17.5) gm/dL Hct 38.4 L (39.0-53.0) % MCV 105.2 H (80.0-100.0) fL Neutrophils # 13.0 H (1.3-7.7) k/uL Lymphocytes # 0.3 L (1.0-4.8) k/uL PT 25.5 H (9.0-12.0) sec INR 2.8 H (<1.2) Chloride 109 H (98-107) mmol/L BUN 30 H (9-20) mg/dL Glucose 103 H (74-99) mg/dL POC Glucose (mg/dL) (75-99) mg/dL 06/16/17 Range/Units 11:39 WBC (3.8-10.6) k/uL RBC (4.30-5.90) m/uL Hgb (13.0-17.5) gm/dL Hct (39.0-53.0) % MCV (80.0-100.0) fL Neutrophils # (1.3-7.7) k/uL Lymphocytes # (1.0-4.8) k/uL PT (9.0-12.0) sec INR (<1.2) Chloride (98-107) mmol/L BUN (9-20) mg/dL Glucose (74-99) mg/dL POC Glucose (mg/dL) 144 H (75-99) mg/dL Microbiology - Last 24 Hours (Table) 06/15/17 10:25 Blood Culture - Preliminary Blood No Growth after 24 hours Assessment and Plan Plan: Assessment: #1. Acute hypoxic respiratory failure secondary to right lower lobe pneumonia, improved, currently off BiPAP support, 2 L per nasal cannula #2. Acute sepsis secondary to the above. Patient presented with a febrile illness, hypotension, hypoxemia, leukocytosis. Patient was fluid resuscitated with 2 L of 0.9 normal saline #3. Recent admission for COPD exacerbation, improved, discharged home on 2017 #4.Troponin leak, possibly due to sepsis #5. Paroxysmal atrial fibrillation, anticoagulated on Coumadin #6. Hypertension, hyperlipidemia #7. History of coronary artery disease #8. History of thoracic aortic aneurysm, status post surgical repair in 2003 #9. Degenerative arthritis Plan: Continue present medical management, continue Zosyn, IV steroids, nebulized treatments. GI/DVT prophylaxis. Agree with sputum and blood cultures. Patient is improving. Await the results of final sputum and blood cultures. I performed a history & physical examination of the patient and discussed their management with my nurse practitioner, Jelly Reynoso. I reviewed the nurse practitioner's note and agree with the documented findings and plan of care. Lung sounds are positive for scattered crackles. The findings and the impression was discussed with the patient. I attest to the documentation by the nurse practitioner. Time with Patient: Less than 30
[2017-06-16] MEDS: WARFARIN 2 MG TAB PO SCH (17:07)
[2017-06-16 17:08] LABS: Glucose,Whole Blood 162 mg/dL (75-99)
--- NOTE | 2017-06-16 17:27 | P.PN ---
Progress Note - Text Progress Note Date: 06/16/17 DATE OF SERVICE: 06/16/2017 PRESENTING COMPLAINT: Increasing shortness of breath, cough, wheezing. HISTORY OF PRESENT ILLNESS: 77-year-old male who began having increasing shortness of breath cough sputum production yellow-green sputum very short of breath about a week ago. Diagnostics and imaging revealed right lower lobe pneumonia causing sepsis admitted for the same. INTERVAL HISTORY: 06/16/2017: Lying in bed appears comfortable. Currently on nasal cannula. Afebrile, no acute overnight events. Breathing improved, no however requiring the BiPAP, but does continue to have conversational dyspnea and is short of breath with minimal exertion. Appetite is slowly improving in between 20 and 30% of his meals, ambulatory with assistance for only short distances. Last BM prior to admission. REVIEW OF SYSTEMS: Done for constitutional ,cardiovascular, GI, pulmonary with relevant findings as above. CURRENT MEDICATIONS [place], aspirin, Lipitor, Pulmicort, Pepcid, Perforomist, Mucinex, insulin, Medrol, Lopressor, Zosyn, Flomax, warfarin. PHYSICAL EXAM VITAL SIGNS: Temperature 97.3, pulse 74, respirations 18, blood pressure 161/84, oxygen saturation 99% on 2 L. GENERAL APPEARANCE: Lying in bed, mildly anxious appearing. HENT: Normocephalic, JVD not raised. Mass not palpable. Oral cavity normal, external appearance of ears and nose normal. EYES:Pupils equal. Conjunctiva normal. RESPIRATORY: Respiratory effort increased. Lungs diminished with expiratory wheezing to auscultation. CARDIOVASCULAR: First and second sounds normal. Mild edema. ABDOMEN: Soft. Liver and spleen not palpable. No tenderness. No mass palpable. PSYCHIATRY: Alert and oriented x3. Mood and affect mildly anxious. INVESTIGATIONS: Labs: White blood cell count 13.6, hemoglobin 11.9, chloride 109, BUN 30, creatinine 0.70, Accu-Cheks noted. Chest x-ray: Bilateral infiltrates small effusion stable. Correlate for underlying COPD and mild venous congestion. ASSESSMENT: -Right lower lobe pneumonia, suspect gram-negative organism, causing sepsis, present on admission. -Acute chronic obstructive pulmonary disease exacerbation and an ex-smoker, present on admission. -Paroxysmal atrial fibrillation, chronically on Coumadin. -Coumadin monitoring. -Essential hypertension. -Hyperlipidemia. -Coronary artery disease with prior history of coronary artery bypass. -Troponin leak, likely from hemodynamic mismatch. There is no acute coronary syndrome symptoms present. PLAN: Continue IV Zosyn ,Mucinex and sputum for Gram stain and culture was sent await results. Continue bronchodilators IV steroids and inhaled steroids. Monitor INR and adjust Coumadin accordingly. Plan of care discussed with the patient the bedside he is in agreement. We will follow closely. TIRE CARE MANAGER statement: Patient was seen and examined by nurse practitioner Loraine Kelly and all elements of the case discussed with attending Dr. Watkins
[2017-06-16] MEDS ORDERED: IPRATROPIUM-ALBUTEROL 3 ML NEB INHALATION PRN (19:50)
[2017-06-16 21:16] LABS: Glucose,Whole Blood 238 mg/dL (75-99)
[2017-06-16] MEDS: ATORVASTATIN 10 MG TAB PO SCH (22:07)
[2017-06-16] MEDS: ALPRAZolam 0.25 MG TAB PO PRN (22:08)
[2017-06-17] MEDS: methylPREDNISolone SOD SUCCI 40 MG/ML 1 ML VIAL IV SCH ×3 (00:51→17:48)
[2017-06-17 06:22] LABS: Basophils % (A) 0 %; Eosinophils % (A) 0 %; HGB 11.5 gm/dL (13.0-17.5); Lymphocytes # (A) 0.4 k/uL (1.0-4.8); Lymphocytes % (A) 2 %; MCH 33.5 pg (25.0-35.0); MCHC 32.1 g/dL (31.0-37.0); MCV 104.5 fL (80.0-100.0); Macrocytosis Slight; Mean Platelet Volume 7.8; Monocytes # (A) 0.5 k/uL (0-1.0); Monocytes % (A) 3 %; Neutrophils # (A) 16.2 k/uL (1.3-7.7); Neutrophils % (A) 94 %; Platelet Count 160 k/uL (150-450); RBC 3.44 m/uL (4.30-5.90); RDW 14.2 % (11.5-15.5); WBC 17.2 k/uL (3.8-10.6)
[2017-06-17 06:28] LABS: Glucose,Whole Blood 130 mg/dL (75-99)
[2017-06-17 06:30] LABS: Anion Gap 7 mmol/L; Blood Urea Nitrogen 28 mg/dL (9-20); Carbon Dioxide 27 mmol/L (22-30); Chloride 107 mmol/L (98-107); Glucose 113 mg/dL (74-99); Potassium 4.4 mmol/L (3.5-5.1); Sodium 141 mmol/L (137-145)
[2017-06-17 06:33] LABS: INR 3.3 (<1.2); Prothrombin Time 29.3 sec (9.0-12.0)
[2017-06-17] MEDS: PIPERACILLIN-TAZOBACTAM 3.375 GM in DEXTROSE/WATER 1 50ML.BAG IVPB SCH ×2 (06:38→14:36)
[2017-06-17] MEDS: INSULIN ASPART 100 UNIT/ML 1 ML 10 ML VIAL SQ SCH ×4 (08:41→21:52)
[2017-06-17] MEDS: FAMOTIDINE 20 MG TAB PO SCH ×2 (08:43→21:51)
[2017-06-17] MEDS: ASPIRIN 81 MG PO SCH (08:43)
[2017-06-17] MEDS: METOPROLOL TARTRATE 50 MG TAB PO SCH ×2 (08:44→21:52)
[2017-06-17] MEDS: TAMSULOSIN 0.4 MG CAP.ER.24H PO SCH (08:44)
[2017-06-17] MEDS: guaiFENesin 600 MG TABLET.ER PO SCH ×2 (08:44→21:51)
[2017-06-17] MEDS: IPRATROPIUM-ALBUTEROL 3 ML NEB INHALATION SCH ×4 (09:42→19:32)
[2017-06-17] MEDS: FORMOTEROL FUMARATE 20 MCG/2 ML NEBU INHALATION SCH ×2 (09:43→19:32)
[2017-06-17] MEDS: BUDESONIDE 1 MG/2 ML NEBU INHALATION SCH ×2 (09:43→19:33)
[2017-06-17 12:17] LABS: Glucose,Whole Blood 117 mg/dL (75-99)
[2017-06-17] MEDS ORDERED: guaiFENesin SYRUP 100MG/5ML 200 MG/10 ML CUP PO PRN (13:44)
--- NOTE | 2017-06-17 14:06 | P.PN ---
Subjective Progress Note Date: 06/17/17 Principal diagnosis: Acute hypoxic respiratory failure secondary to a right lower lobe pneumonia. Lee is a 77-year-old white male patient who sees Dr. Beckham in our office for his history of mild COPD with FEV1 of 93%, who was recently discharged from this hospital on 06/04/2017 after being treated for COPD exacerbation, presented to the emergency department today on 06/15/2017 at 10:00 in the morning with complaints of increasing shortness of breath, chest congestion, fever, cough. His symptoms started last , got increasingly worse over the last week, and last night he started having fevers. Denied any body aches, denied any nausea vomiting or diarrhea. Chest x-ray taken in the ED on 2017 showed right lower lobe infiltrate and small effusion and marked prominence of the left hilum. Lab work shows leukocytosis with W BC of 16.5, hemoglobin was 14, INR is 3.0, patient is on Coumadin for atrial fibrillation, carbon dioxide of 32, BUN of 32, creatinine is 1, troponin is positive at 0.045 , proBNP was 1020, plasma lactic acid was 1.1, influenza screen was negative. Patient was febrile with a temp of 101.4F, he was hypotensive with a systolic of 81/48, he was given 2 L of 0.9 normal saline IV bolus, and maintenance IV of 0.9 normal saline at 100 ML per hour was started. Subsequently his breathing became increasingly labored in the course of his stay in the emergency room, and patient was placed on BiPAP support with pressure of 12 and 5 and FiO2 of 40 %. He was started on Zosyn and Levaquin, IV Solu-Medrol, nebulized treatments, and admitted for further management. On 06/16/2017 patient seen in follow-up on selective care unit. He was taken off the BiPAP support yesterday evening, is currently down to 2 L of oxygen per nasal cannula with O2 sat 99%. He looks much better, in no respiratory distress. Awake, alert, denies any worsening shortness of breath. Productive cough continues with production of yellow sputum. Afebrile today, hemodynamically stable. Blood cultures are negative. Lab work has been reviewed, WBCs down to 13.6, hemoglobin is 11.9, INR is 2.8, renal function is stable, no electrolyte abnormality. Repeat chest x-ray shows bilateral infiltrate and small effusion. Clinically patient continues to improve. Continue the current course of treatment. The patient is seen again today 06/17/2017 in follow-up on the selective care unit. He is currently sitting up in bed. He is awake and alert in no acute distress. He denies any worsening shortness of breath. He does have a productive cough of yellow sputum. He has been afebrile. Maintaining good O2 saturations in the 90s on 2 L/m per nasal cannula. Blood culture reveals no growth. White count 17.2, hemoglobin 11.5, creatinine 0.80. INR 3.3. . Remains on Zosyn. Blood cultures reveal no growth to date. Sputum cultures pending. Objective - Vital Signs Vital signs: Vital Signs Temp 97.0 F L 06/17/17 11:17 Pulse 90 06/17/17 12:06 Resp 22 06/17/17 11:18 BP 153/91 06/17/17 11:17 Pulse Ox 98 06/17/17 08:00 Intake & Output 06/16/17 06/17/17 06/17/17 18:59 06:59 18:59 Intake Total 950 200 Output Total 875 Balance 950 -875 200 Weight 98 kg 98.5 kg Intake: IV 20 Invasive Line 1 20 Intake, IV Titration 50 Amount Piperacillin-Tazobactam 3 50 .375 gm In Dextrose/Water 1 50ml.bag @ 12.5 mls/hr IVPB Q8H [facility] Rx#: [id number] Oral 900 180 Output: Urine 875 Other: Voiding Method Toilet Toilet Urinal Urinal Urinal # Voids 2 - Exam GENERAL EXAM: Alert, active, in no distress, on 2 L per nasal cannula HEAD: Normocephalic/atraumatic. EYES: Normal reaction of pupils, equal size. Conjunctiva pink, sclera white. NOSE: Clear with pink turbinates. THROAT: No erythema or exudates. NECK: No masses, no JVD, no thyroid enlargement, no adenopathy. CHEST: No chest wall deformity. Symmetrical expansion. LUNGS: Equal air entry with scattered crackles, no wheeze. CVS: Regular rate and rhythm, normal S1 and S2, no gallops, no murmurs, no rubs ABDOMEN: Soft, nontender. No hepatosplenomegaly, normal bowel sounds, no guarding or rigidity. EXTREMITIES: No clubbing, no edema, no cyanosis, 2+ pulses and upper and lower extremities. MUSCULOSKELETAL: Muscle strength and tone normal. SPINE: No scoliosis or deformity SKIN: No rashes CENTRAL NERVOUS SYSTEM: Alert and oriented -3. No focal deficits, tone is normal in all 4 extremities. PSYCHIATRIC: Alert and oriented -3. Appropriate affect. Intact judgment and insight. - Labs CBC & Chem 7: 06/17/17 05:30 06/17/17 05:30 Labs: Abnormal Lab Results - Last 24 Hours (Table) 06/16/17 06/16/17 06/17/17 Range/Units 16:42 21:04 05:30 WBC 17.2 H (3.8-10.6) k/uL RBC 3.44 L (4.30-5.90) m/uL Hgb 11.5 L (13.0-17.5) gm/dL Hct 36.0 L (39.0-53.0) % MCV 104.5 H (80.0-100.0) fL Neutrophils # 16.2 H (1.3-7.7) k/uL Lymphocytes # 0.4 L (1.0-4.8) k/uL PT (9.0-12.0) sec INR (<1.2) BUN (9-20) mg/dL Glucose (74-99) mg/dL POC Glucose (mg/dL) 162 H 238 H (75-99) mg/dL 06/17/17 06/17/17 06/17/17 Range/Units 05:30 05:30 06:18 WBC (3.8-10.6) k/uL RBC (4.30-5.90) m/uL Hgb (13.0-17.5) gm/dL Hct (39.0-53.0) % MCV (80.0-100.0) fL Neutrophils # (1.3-7.7) k/uL Lymphocytes # (1.0-4.8) k/uL PT 29.3 H (9.0-12.0) sec INR 3.3 H (<1.2) BUN 28 H (9-20) mg/dL Glucose 113 H (74-99) mg/dL POC Glucose (mg/dL) 130 H (75-99) mg/dL 06/17/17 Range/Units 11:42 WBC (3.8-10.6) k/uL RBC (4.30-5.90) m/uL Hgb (13.0-17.5) gm/dL Hct (39.0-53.0) % MCV (80.0-100.0) fL Neutrophils # (1.3-7.7) k/uL Lymphocytes # (1.0-4.8) k/uL PT (9.0-12.0) sec INR (<1.2) BUN (9-20) mg/dL Glucose (74-99) mg/dL POC Glucose (mg/dL) 117 H (75-99) mg/dL Microbiology - Last 24 Hours (Table) 06/15/17 10:25 Blood Culture - Preliminary Blood No Growth after 48 hours 06/17/17 09:30 Gram Stain - Preliminary Sputum Sputum Culture - Preliminary Assessment and Plan Assessment: Assessment: #1. Acute hypoxic respiratory failure secondary to right lower lobe pneumonia, improved, currently off BiPAP support, 2 L per nasal cannula #2. Acute sepsis secondary to the above. Patient presented with a febrile illness, hypotension, hypoxemia, leukocytosis. Patient was fluid resuscitated with 2 L of 0.9 normal saline #3. Recent admission for COPD exacerbation, improved, discharged home on 2017 #4.Troponin leak, possibly due to sepsis #5. Paroxysmal atrial fibrillation, anticoagulated on Coumadin #6. Hypertension, hyperlipidemia #7. History of coronary artery disease #8. History of thoracic aortic aneurysm, status post surgical repair in 2003 #9. Degenerative arthritis Plan: The patient has been seen and evaluated by Dr. Bay. He is improved today as compared to yesterday. We'll continue with his current treatment plan. We'll increase his activity as tolerated. We'll continue to follow. I, the cosigning physician, performed a history & physical examination of the patient. Lungs sounds have few scattered rhonchi, crackles in the right posterior base. Diminished.. Maintaining good O2 saturations in the 90s on 2 L /m per nasal cannular. I discussed the assessment and plan of care with my nurse practitioner, Nancy Ruby. I attest to the above note as dictated by her.
[2017-06-17] MEDS: DOCUSATE 100 MG CAP PO SCH (14:33)
[2017-06-17] MEDS: SODIUM CHLORIDE 0.9% 1,000 ML IV SCH (14:37)
[2017-06-17 16:52] LABS: Glucose,Whole Blood 133 mg/dL (75-99)
--- NOTE | 2017-06-17 17:31 | P.PN ---
Subjective Progress Note Date: 06/17/17 Principal diagnosis: Right lower lobe pneumonia PRESENTING COMPLAINT: Increasing shortness of breath, cough, wheezing. HISTORY OF PRESENT ILLNESS: Mr. Obando is a 77-year-old male who began having increasing shortness of breath cough sputum production yellow-green sputum very short of breath about a week ago. Diagnostics and imaging revealed right lower lobe pneumonia causing sepsis and so admitted. INTERVAL HISTORY: 06/16/2017: Lying in bed appears comfortable. Currently on nasal cannula. Afebrile, no acute overnight events. Breathing improved, no however requiring the BiPAP, but does continue to have conversational dyspnea and is short of breath with minimal exertion. Appetite is slowly improving in between 20 and 30% of his meals, ambulatory with assistance for only short distances. Last BM prior to admission. On 06/17/2017: Sitting in a chair by the bedside and having his dinner. He denies having any active complaints overnight. Patient is on BiPAP at night. He states his difficulty in breathing has improved since the time of admission but still had shortness of breath with minimal exertion. He has been getting in and out of the bed by himself but has shortness of breath even walking to the restroom. REVIEW OF SYSTEMS: NEURO:No c/o weakness of the extremties, No facial droop, No speech abnormalities. HEMATOLOGIC: No history of easy bleeding and bruising . No recent infections . RESPIRATORY: No cough, No SOB, No chest discomfort. : No dysuria or hematuria CARDIAC: No chest pain Objective - Vital Signs Vital signs: Vital Signs Temp 97.0 F L 06/17/17 11:17 Pulse 89 06/17/17 15:28 Resp 20 06/17/17 15:05 BP 190/97 06/17/17 14:59 Pulse Ox 95 06/17/17 14:59 Intake & Output 06/16/17 06/17/17 06/17/17 18:59 06:59 18:59 Intake Total 950 1190 Output Total 875 Balance 950 -875 1190 Weight 98 kg 98.5 kg Intake: IV 20 Invasive Line 1 20 Intake, IV Titration 50 130 Amount Piperacillin-Tazobactam 3 50 50 .375 gm In Dextrose/Water 1 50ml.bag @ 12.5 mls/hr IVPB Q8H [facility] Rx#: [id number] Sodium Chloride 0.9% 1, 80 000 ml @ 20 mls/hr IV . Q24H [facility] Rx#:[id number] Oral 900 1040 Output: Urine 875 Other: Voiding Method Toilet Toilet Urinal Urinal Urinal # Voids 2 - Exam GENERAL APPEARANCE: Sitting in a chair by bedside, mildly anxious appearing. Chronically ill appearing. HENT: Normocephalic, JVD not raised. Mass not palpable. Oral cavity normal, external appearance of ears and nose normal. EYES:Pupils equal. Conjunctiva normal. RESPIRATORY: Respiratory effort increased. Lungs diminished breath sounds with expiratory wheezing to auscultation. CARDIOVASCULAR: First and second sounds normal. Mild edema. ABDOMEN: Soft. Liver and spleen not palpable. No tenderness. No mass palpable. PSYCHIATRY: Alert and oriented x3. Mood and affect mildly anxious. - Labs CBC & Chem 7: 06/17/17 05:30 06/17/17 05:30 Labs: Abnormal Lab Results - Last 24 Hours (Table) 06/16/17 06/17/17 06/17/17 Range/Units 21:04 05:30 05:30 WBC 17.2 H (3.8-10.6) k/uL RBC 3.44 L (4.30-5.90) m/uL Hgb 11.5 L (13.0-17.5) gm/dL Hct 36.0 L (39.0-53.0) % MCV 104.5 H (80.0-100.0) fL Neutrophils # 16.2 H (1.3-7.7) k/uL Lymphocytes # 0.4 L (1.0-4.8) k/uL PT 29.3 H (9.0-12.0) sec INR 3.3 H (<1.2) BUN (9-20) mg/dL Glucose (74-99) mg/dL POC Glucose (mg/dL) 238 H (75-99) mg/dL 06/17/17 06/17/17 06/17/17 Range/Units 05:30 06:18 11:42 WBC (3.8-10.6) k/uL RBC (4.30-5.90) m/uL Hgb (13.0-17.5) gm/dL Hct (39.0-53.0) % MCV (80.0-100.0) fL Neutrophils # (1.3-7.7) k/uL Lymphocytes # (1.0-4.8) k/uL PT (9.0-12.0) sec INR (<1.2) BUN 28 H (9-20) mg/dL Glucose 113 H (74-99) mg/dL POC Glucose (mg/dL) 130 H 117 H (75-99) mg/dL 06/17/17 Range/Units 16:38 WBC (3.8-10.6) k/uL RBC (4.30-5.90) m/uL Hgb (13.0-17.5) gm/dL Hct (39.0-53.0) % MCV (80.0-100.0) fL Neutrophils # (1.3-7.7) k/uL Lymphocytes # (1.0-4.8) k/uL PT (9.0-12.0) sec INR (<1.2) BUN (9-20) mg/dL Glucose (74-99) mg/dL POC Glucose (mg/dL) 133 H (75-99) mg/dL Microbiology - Last 24 Hours (Table) 06/17/17 09:30 Gram Stain - Final Sputum Sputum Culture - Final 06/15/17 10:25 Blood Culture - Preliminary Blood No Growth after 48 hours Assessment and Plan Assessment: -Right lower lobe pneumonia, suspect gram-negative organism, causing sepsis, present on admission. -Acute chronic obstructive pulmonary disease exacerbation and an ex-smoker, present on admission. -Paroxysmal atrial fibrillation, chronically on Coumadin. -Coumadin monitoring. -Essential hypertension. -Hyperlipidemia. -Coronary artery disease with prior history of coronary artery bypass. -Troponin leak, likely from hemodynamic mismatch. There is no acute coronary syndrome symptoms present. -Leukocytosis - Elevated INR PLAN: Continue IV Zosyn ,Mucinex and sputum for Gram stain and culture was sent await results. Continue bronchodilators IV steroids and inhaled steroids. Monitor INR and adjust Coumadin accordingly. As the patient INR is elevated at 3.3 we will hold off his Coumadin dose for today . We will follow closely.
[2017-06-17 21:10] LABS: Glucose,Whole Blood 246 mg/dL (75-99)
[2017-06-17] MEDS: ATORVASTATIN 10 MG TAB PO SCH (21:51)
[2017-06-17] MEDS: ALPRAZolam 0.25 MG TAB PO PRN (21:52)
[2017-06-18] MEDS: PIPERACILLIN-TAZOBACTAM 3.375 GM in DEXTROSE/WATER 1 50ML.BAG IVPB SCH ×4 (00:05→21:55)
[2017-06-18] MEDS: methylPREDNISolone SOD SUCCI 40 MG/ML 1 ML VIAL IV SCH ×2 (00:05→08:43)
[2017-06-18] MEDS: METOPROLOL TARTRATE 50 MG TAB PO SCH ×2 (06:24→21:38)
[2017-06-18 06:25] LABS: Glucose,Whole Blood 112 mg/dL (75-99)
[2017-06-18 06:58] LABS: Basophils % (A) 0 %; Eosinophils % (A) 0 %; HGB 11.5 gm/dL (13.0-17.5); Lymphocytes # (A) 0.4 k/uL (1.0-4.8); Lymphocytes % (A) 4 %; MCH 32.6 pg (25.0-35.0); Macrocytosis Slight; Mean Platelet Volume 7.9; Monocytes # (A) 0.4 k/uL (0-1.0); Monocytes % (A) 4 %; Neutrophils # (A) 10.2 k/uL (1.3-7.7); Neutrophils % (A) 92 %; Platelet Count 169 k/uL (150-450); RBC 3.53 m/uL (4.30-5.90); RDW 13.7 % (11.5-15.5)
[2017-06-18 07:09] LABS: Anion Gap 5 mmol/L; Blood Urea Nitrogen 26 mg/dL (9-20); Calcium 9.1 mg/dL (8.4-10.2); Carbon Dioxide 29 mmol/L (22-30); Chloride 105 mmol/L (98-107); Glucose 104 mg/dL (74-99); Potassium 4.4 mmol/L (3.5-5.1); Sodium 139 mmol/L (137-145)
[2017-06-18] MEDS: BUDESONIDE 1 MG/2 ML NEBU INHALATION SCH (08:01)
[2017-06-18] MEDS: IPRATROPIUM-ALBUTEROL 3 ML NEB INHALATION SCH ×4 (08:01→19:37)
[2017-06-18] MEDS: FORMOTEROL FUMARATE 20 MCG/2 ML NEBU INHALATION SCH (08:01)
[2017-06-18] MEDS: INSULIN ASPART 100 UNIT/ML 1 ML 10 ML VIAL SQ SCH ×4 (08:40→21:37)
[2017-06-18] MEDS: guaiFENesin 600 MG TABLET.ER PO SCH ×2 (08:42→21:38)
[2017-06-18] MEDS: TAMSULOSIN 0.4 MG CAP.ER.24H PO SCH (08:42)
[2017-06-18] MEDS: FAMOTIDINE 20 MG TAB PO SCH ×2 (08:42→21:39)
[2017-06-18] MEDS: ASPIRIN 81 MG PO SCH (08:43)
[2017-06-18 09:23] LABS: INR 2.9 (<1.2); Prothrombin Time 25.9 sec (9.0-12.0)
[2017-06-18 12:33] LABS: Glucose,Whole Blood 94 mg/dL (75-99)
--- NOTE | 2017-06-18 13:17 | PN ---
PROGRESS NOTE DATE OF SERVICE: 06/16/17 ATTENDING NOTE: Patient seen and examined by me on June 16, 2017. Discussed with my nurse practitioner, Robin. The patient is feeling somewhat better/less short of breath. Did eat a small amount. More responsive clinically. PHYSICAL EXAMINATION: On examination, temperature 97, pulse 66, respiratory rate 22, blood pressure 150/91. On examination, respiratory effort increased. Lungs decreased breath sounds. Expiratory wheezing. Cardiovascular 1st and 2nd sounds normal. INVESTIGATIONS: White count 13.6, hemoglobin 11.9, potassium 4.3, INR 2.8. ASSESSMENT: 1. Right lower lobe pneumonia suspect gram-negative organism causing sepsis present on admission with acute chronic obstructive pulmonary disease exacerbation, slow to respond. 2. The patient to continue with IV antibiotics and IV steroids. Continue treatment plan. MMODL / IJN: [id number] /
--- NOTE | 2017-06-18 14:26 | P.PN ---
Subjective Progress Note Date: 06/18/17 Principal diagnosis: COPD exacerbation Progress note dated 06/18/2017 This is a 77-year-old male with a history of acute hypoxemic respiratory failure , secondary to right lower lobe pneumonia. In addition, he has a history of chronic COPD, atrial fibrillation, hypertension, hyperlipidemia, CAD, thoracic aortic aneurysm, and degenerative joint disease. The patient's admission was also complicated by an acute sepsis picture which required fluid resuscitation of 2 L of saline. Currently the patient stable. His respiratory status is stabilized. The patient's medications are reviewed. Labs and x-rays are reviewed. The patient is definitely improving and moving in the right direction. The patient still complains of shortness of breath chest congestion cough. He's very short of breath with any activity. He certainly is improved though. Objective - Vital Signs Vital signs: Vital Signs Temp 97.5 F L 06/18/17 11:36 Pulse 64 06/18/17 11:36 Resp 20 06/18/17 11:36 BP 157/95 06/18/17 11:36 Pulse Ox 95 06/18/17 11:36 Intake & Output 06/17/17 06/18/17 06/18/17 18:59 06:59 18:59 Intake Total 1370 336 Output Total 700 1000 175 Balance 670 -1000 161 Weight 101 kg Intake: IV 20 Invasive Line 1 20 Intake, IV Titration 130 Amount Piperacillin-Tazobactam 3 50 .375 gm In Dextrose/Water 1 50ml.bag @ 12.5 mls/hr IVPB Q8H [facility] Rx#: [id number] Sodium Chloride 0.9% 1, 80 000 ml @ 20 mls/hr IV . Q24H [facility] Rx#:[id number] Oral 1220 336 Output: Urine 700 1000 175 Other: Voiding Method Urinal Urinal # Voids 2 2 # Bowel Movements 1 - Exam No acute distress, oriented 3. Nasal O2 in place. HEENT examination is grossly unremarkable. Mucous membranes are moist. No oral lesions. Neck supple. Full range of motion. No adenopathy thyromegaly or neck vein distention. Cardiovascular examination reveals a mostly regular rhythm rate. A few scattered extra systoles are noted. S1-S2 normal. No S3 or S4. No discernible murmur noted. Lungs reveal scattered rhonchi. Breath sounds are diminished. No wheezes. Slight prolongation on forced maneuver.. Abdomen soft bowel sounds are heard. No masses or tenderness. Extremities are intact. No cyanosis clubbing or edema. Skin is without rash or lesion. Neurologic examination is brief but nonfocal. - Labs CBC & Chem 7: 06/18/17 06:23 06/18/17 06:23 Labs: Abnormal Lab Results - Last 24 Hours (Table) 06/17/17 06/17/17 06/18/17 Range/Units 16:38 21:03 06:23 WBC 11.0 H (3.8-10.6) k/uL RBC 3.53 L (4.30-5.90) m/uL Hgb 11.5 L (13.0-17.5) gm/dL Hct 36.0 L (39.0-53.0) % MCV 102.0 H (80.0-100.0) fL Neutrophils # 10.2 H (1.3-7.7) k/uL Lymphocytes # 0.4 L (1.0-4.8) k/uL PT (9.0-12.0) sec INR (<1.2) BUN (9-20) mg/dL Glucose (74-99) mg/dL POC Glucose (mg/dL) 133 H 246 H (75-99) mg/dL 06/18/17 06/18/17 06/18/17 Range/Units 06:23 06:23 06:38 WBC (3.8-10.6) k/uL RBC (4.30-5.90) m/uL Hgb (13.0-17.5) gm/dL Hct (39.0-53.0) % MCV (80.0-100.0) fL Neutrophils # (1.3-7.7) k/uL Lymphocytes # (1.0-4.8) k/uL PT 25.9 H (9.0-12.0) sec INR 2.9 H (<1.2) BUN 26 H (9-20) mg/dL Glucose 104 H (74-99) mg/dL POC Glucose (mg/dL) 112 H (75-99) mg/dL Microbiology - Last 24 Hours (Table) 06/15/17 10:25 Blood Culture - Preliminary Blood No Growth after 72 hours 06/17/17 09:30 Gram Stain - Final Sputum Sputum Culture - Final Assessment and Plan Assessment: Assessment Acute hypoxemic respiratory failure secondary to right lower lobe pneumonia Sepsis, resolved Recent admission for COPD exacerbation with recent discharge on 06/04/2017 Mild troponin leak Paroxysmal atrial fibrillation Hypertension Hyperlipidemia History of CAD Thoracic aortic aneurysm, status post repair Degenerative joint disease Plan: Plan dated 06/18/2017 The patient does seem to be doing better. We'll continue to follow. Labs x- rays a medications are reviewed. No additional recommendations are made. Hopeful discharge in the next 44-48 hours. Time with Patient: Less than 30
[2017-06-18] MEDS: DOCUSATE 100 MG CAP PO SCH (16:09)
[2017-06-18 17:14] LABS: Glucose,Whole Blood 130 mg/dL (75-99)
[2017-06-18] MEDS: SODIUM CHLORIDE 0.9% 1,000 ML IV SCH (17:35)
[2017-06-18] MEDS: SYMBICORT 160-4.5 MCG INHALER INHALATION SCH (19:37)
[2017-06-18] MEDS: WARFARIN 2 MG TAB PO SCH (19:37)
[2017-06-18 20:00] LABS: Glucose,Whole Blood 240 mg/dL (75-99)
[2017-06-18] MEDS: ATORVASTATIN 10 MG TAB PO SCH (21:38)
[2017-06-18] MEDS: ALPRAZolam 0.25 MG TAB PO PRN (23:57)
[2017-06-19 04:28] LABS: Glucose,Whole Blood 74 mg/dL (75-99)
[2017-06-19] MEDS ORDERED: hydrALAZINE HCL 20 MG/ML 1 ML VIAL IVP PRN (04:38)
[2017-06-19] MEDS ORDERED: amLODIPine 10 MG TAB PO STA (04:38)
[2017-06-19] MEDS: PIPERACILLIN-TAZOBACTAM 3.375 GM in DEXTROSE/WATER 1 50ML.BAG IVPB SCH ×3 (05:55→22:36)
[2017-06-19 07:16] LABS: Glucose,Whole Blood 81 mg/dL (75-99)
--- NOTE | 2017-06-19 07:25 | XR ---
EXAMINATION TYPE: XR chest 2V DATE OF EXAM: 06/19/2017 COMPARISON: Prior chest x-ray 06/16/2017 HISTORY: Pneumonia TECHNIQUE: Frontal and lateral views of the chest are obtained. FINDINGS: Cardiomediastinal silhouette, pulmonary vascularity and bridgette are stable accounting for dif ferences in technique. No evident pneumothorax or sizable effusion. Patchy basilar density persists. Prominent lung volumes compatible with underlying COPD. Postop changes again noted. IMPRESSION: Correlate for pneumonia versus basilar edema or atelectasis.
[2017-06-19] MEDS: INSULIN ASPART 100 UNIT/ML 1 ML 10 ML VIAL SQ SCH ×4 (07:33→21:54)
[2017-06-19] MEDS: DOCUSATE 100 MG CAP PO SCH (07:34)
[2017-06-19] MEDS: FAMOTIDINE 20 MG TAB PO SCH ×2 (07:34→22:36)
[2017-06-19] MEDS: ASPIRIN 81 MG PO SCH (07:34)
[2017-06-19] MEDS: guaiFENesin 600 MG TABLET.ER PO SCH ×2 (07:34→22:35)
[2017-06-19] MEDS: TAMSULOSIN 0.4 MG CAP.ER.24H PO SCH (07:35)
[2017-06-19] MEDS: predniSONE 10 MG TAB PO SCH (07:35)
[2017-06-19] MEDS: METOPROLOL TARTRATE 50 MG TAB PO SCH ×2 (07:35→22:36)
[2017-06-19 07:41] LABS: INR 3.3 (<1.2); Prothrombin Time 29.7 sec (9.0-12.0)
[2017-06-19] MEDS: SYMBICORT 160-4.5 MCG INHALER INHALATION SCH ×2 (08:18→19:56)
[2017-06-19] MEDS: IPRATROPIUM-ALBUTEROL 3 ML NEB INHALATION SCH ×4 (08:19→19:57)
[2017-06-19 11:15] LABS: Glucose,Whole Blood 100 mg/dL (75-99)
[2017-06-19] MEDS: WARFARIN 2 MG TAB PO SCH (14:16)
--- NOTE | 2017-06-19 15:11 | P.PN ---
Subjective Progress Note Date: 06/19/17 Principal diagnosis: Acute hypoxic respiratory failure secondary to right lower lobe pneumonia Lee is a 77-year-old white male patient who sees Dr. Beckham in our office for his history of mild COPD with FEV1 of 93%, who was recently discharged from this hospital on 06/04/2017 after being treated for COPD exacerbation, presented to the emergency department today on 06/15/2017 at 10:00 in the morning with complaints of increasing shortness of breath, chest congestion, fever, cough. His symptoms started last , got increasingly worse over the last week, and last night he started having fevers. Denied any body aches, denied any nausea vomiting or diarrhea. Chest x-ray taken in the ED on 2017 showed right lower lobe infiltrate and small effusion and marked prominence of the left hilum. Lab work shows leukocytosis with W BC of 16.5, hemoglobin was 14, INR is 3.0, patient is on Coumadin for atrial fibrillation, carbon dioxide of 32, BUN of 32, creatinine is 1, troponin is positive at 0.045 , proBNP was 1020, plasma lactic acid was 1.1, influenza screen was negative. Patient was febrile with a temp of 101.4F, he was hypotensive with a systolic of 81/48, he was given 2 L of 0.9 normal saline IV bolus, and maintenance IV of 0.9 normal saline at 100 ML per hour was started. Subsequently his breathing became increasingly labored in the course of his stay in the emergency room, and patient was placed on BiPAP support with pressure of 12 and 5 and FiO2 of 40 %. He was started on Zosyn and Levaquin, IV Solu-Medrol, nebulized treatments, and admitted for further management. On 06/16/2017 patient seen in follow-up on selective care unit. He was taken off the BiPAP support yesterday evening, is currently down to 2 L of oxygen per nasal cannula with O2 sat 99%. He looks much better, in no respiratory distress. Awake, alert, denies any worsening shortness of breath. Productive cough continues with production of yellow sputum. Afebrile today, hemodynamically stable. Blood cultures are negative. Lab work has been reviewed, WBCs down to 13.6, hemoglobin is 11.9, INR is 2.8, renal function is stable, no electrolyte abnormality. Repeat chest x-ray shows bilateral infiltrate and small effusion. Clinically patient continues to improve. Continue the current course of treatment. Progress note dated 06/18/2017 This is a 77-year-old male with a history of acute hypoxemic respiratory failure , secondary to right lower lobe pneumonia. In addition, he has a history of chronic COPD, atrial fibrillation, hypertension, hyperlipidemia, CAD, thoracic aortic aneurysm, and degenerative joint disease. The patient's admission was also complicated by an acute sepsis picture which required fluid resuscitation of 2 L of saline. Currently the patient stable. His respiratory status is stabilized. The patient's medications are reviewed. Labs and x-rays are reviewed. The patient is definitely improving and moving in the right direction. The patient still complains of shortness of breath chest congestion cough. He's very short of breath with any activity. He certainly is improved though. On 06/19/2017, patient seen in follow-up on medical surgical floor. Very well, in no acute distress, on room air, O2 sat 95%. Afebrile, vital signs are stable , chest x-ray from this morning he has been reviewed and shows patchy basilar intensity. Clinically patient continues to improve. Increase activity as tolerated, from pulmonary standpoint can be discharged home Objective - Vital Signs Vital signs: Vital Signs Temp 97.5 F L 06/19/17 07:00 Pulse 72 06/19/17 12:53 Resp 18 06/19/17 07:00 BP 135/83 06/19/17 07:00 Pulse Ox 95 06/19/17 07:00 Intake & Output 06/18/17 06/19/17 06/19/17 18:59 06:59 18:59 Intake Total 566 700 Output Total 575 850 450 Balance -9 -850 250 Weight 101 kg 101 kg Intake: Intake, IV Titration 290 Amount Piperacillin-Tazobactam 3 50 .375 gm In Dextrose/Water 1 50ml.bag @ 12.5 mls/hr IVPB Q8H JESSICA Rx#: [id number] Sodium Chloride 0.9% 1, 240 000 ml @ 20 mls/hr IV . Q24H JESSICA Rx#:[id number] Oral [id number] 410 Output: Urine 575 850 450 Other: Voiding Method Toilet Toilet Urinal # Voids 1 4 # Bowel Movements 1 2 - Exam GENERAL EXAM: Alert, active, in no distress, on room air. HEAD: Normocephalic/atraumatic. EYES: Normal reaction of pupils, equal size. Conjunctiva pink, sclera white. NOSE: Clear with pink turbinates. THROAT: No erythema or exudates. NECK: No masses, no JVD, no thyroid enlargement, no adenopathy. CHEST: No chest wall deformity. Symmetrical expansion. LUNGS: Equal air entry with scattered crackles, no wheeze. CVS: Regular rate and rhythm, normal S1 and S2, no gallops, no murmurs, no rubs ABDOMEN: Soft, nontender. No hepatosplenomegaly, normal bowel sounds, no guarding or rigidity. EXTREMITIES: No clubbing, no edema, no cyanosis, 2+ pulses and upper and lower extremities. MUSCULOSKELETAL: Muscle strength and tone normal. SPINE: No scoliosis or deformity SKIN: No rashes CENTRAL NERVOUS SYSTEM: Alert and oriented -3. No focal deficits, tone is normal in all 4 extremities. PSYCHIATRIC: Alert and oriented -3. Appropriate affect. Intact judgment and insight. - Labs CBC & Chem 7: 06/18/17 06:23 06/18/17 06:23 Labs: Abnormal Lab Results - Last 24 Hours (Table) 06/18/17 06/18/17 06/19/17 Range/Units 17:11 19:57 04:26 PT (9.0-12.0) sec INR (<1.2) POC Glucose (mg/dL) 130 H 240 H 74 L (75-99) mg/dL 06/19/17 06/19/17 Range/Units 07:21 11:11 PT 29.7 H (9.0-12.0) sec INR 3.3 H (<1.2) POC Glucose (mg/dL) 100 H (75-99) mg/dL Microbiology - Last 24 Hours (Table) 06/15/17 10:25 Blood Culture - Preliminary Blood No Growth after 96 hours Assessment and Plan Plan: Assessment: #1. Acute hypoxic respiratory failure secondary to right lower lobe pneumonia, improved, currently off BiPAP support, on room air #2. Acute sepsis secondary to the above. Patient presented with a febrile illness, hypotension, hypoxemia, leukocytosis. Patient was fluid resuscitated with 2 L of 0.9 normal saline, now maintaining normal blood pressures, afebrile. Blood cultures and sputum cultures negative so far. #3. Recent admission for COPD exacerbation, improved, discharged home on 2017 #4.Troponin leak, possibly due to sepsis #5. Paroxysmal atrial fibrillation, anticoagulated on Coumadin #6. Hypertension, hyperlipidemia #7. History of coronary artery disease #8. History of thoracic aortic aneurysm, status post surgical repair in 2003 #9. Degenerative arthritis Plan: Continue current treatment, patient is doing well, no acute distress, continue increasing activity as tolerated. No acute events overnight, continue antibiotics, tumors, nebulized treatments. Anticipate discharge in next 24 hours. I performed a history & physical examination of the patient and discussed their management with my nurse practitioner, Jelly Reynoso. I reviewed the nurse practitioner's note and agree with the documented findings and plan of care. Lung sounds are positive for a few crackles at the left lower dose. The findings and the impression was discussed with the patient. I attest to the documentation by the nurse practitioner. Time with Patient: Less than 30
[2017-06-19 17:16] LABS: Glucose,Whole Blood 156 mg/dL (75-99)
[2017-06-19] MEDS: SODIUM CHLORIDE 0.9% 1,000 ML IV SCH (17:30)
--- NOTE | 2017-06-19 17:39 | P.PN ---
Subjective Progress Note Date: 06/19/17 Principal diagnosis: Right lower lobe pneumonia PRESENTING COMPLAINT: Increasing shortness of breath, cough, wheezing. HISTORY OF PRESENT ILLNESS: Mr. Obando is a 77-year-old male who began having increasing shortness of breath cough sputum production yellow-green sputum very short of breath about a week ago. Diagnostics and imaging revealed right lower lobe pneumonia causing sepsis and so admitted. INTERVAL HISTORY: 06/16/2017: Lying in bed appears comfortable. Currently on nasal cannula. Afebrile, no acute overnight events. Breathing improved, no however requiring the BiPAP, but does continue to have conversational dyspnea and is short of breath with minimal exertion. Appetite is slowly improving in between 20 and 30% of his meals, ambulatory with assistance for only short distances. Last BM prior to admission. On 06/17/2017: Sitting in a chair by the bedside and having his dinner. He denies having any active complaints overnight. Patient is on BiPAP at night. He states his difficulty in breathing has improved since the time of admission but still had shortness of breath with minimal exertion. He has been getting in and out of the bed by himself but has shortness of breath even walking to the restroom. On 06/18/17 : Lying in bed comfortably . He denies having any active complaints overnight. Patient was on BiPAP at night. He states his difficulty in breathing has improved since the time of admission . He has been getting in and out of the bed by himself and also able to take few steps in the corridor. On 06/19/17: Patient denies having any active complaints overnight. Patient's difficulty in breathing has improved. As per the nursing staff he was made to walk through the hallways and he did well. REVIEW OF SYSTEMS: NEURO:No c/o weakness of the extremties, No facial droop, No speech abnormalities. HEMATOLOGIC: No history of easy bleeding and bruising . No recent infections . RESPIRATORY: No cough, No increased SOB, No chest discomfort. : No dysuria or hematuria CARDIAC: No chest pain Objective - Vital Signs Vital signs: Vital Signs Temp 97.5 F L 06/19/17 07:00 Pulse 72 06/19/17 12:53 Resp 18 06/19/17 07:00 BP 135/83 06/19/17 07:00 Pulse Ox 95 06/19/17 07:00 Intake & Output 06/18/17 06/19/17 06/19/17 18:59 06:59 18:59 Intake Total 566 700 Output Total 575 850 450 Balance -9 -850 250 Weight 101 kg 101 kg Intake: Intake, IV Titration 290 Amount Piperacillin-Tazobactam 3 50 .375 gm In Dextrose/Water 1 50ml.bag @ 12.5 mls/hr IVPB Q8H JESSICA Rx#: [id number] Sodium Chloride 0.9% 1, 240 000 ml @ 20 mls/hr IV . Q24H JESSICA Rx#:[id number] Oral [id number] 410 Output: Urine 575 850 450 Other: Voiding Method Toilet Toilet Urinal # Voids 1 4 # Bowel Movements 1 2 - Exam GENERAL APPEARANCE: Sitting in a chair by bedside, mildly anxious appearing. Chronically ill appearing. HENT: Normocephalic, JVD not raised. Mass not palpable. Oral cavity normal, external appearance of ears and nose normal. EYES:Pupils equal. Conjunctiva normal. RESPIRATORY: Breath sounds are clear bilaterally. No wheezing. CARDIOVASCULAR: First and second sounds normal. Mild edema. ABDOMEN: Soft. Liver and spleen not palpable. No tenderness. No mass palpable. PSYCHIATRY: Alert and oriented x3. Mood and affect mildly anxious. - Labs CBC & Chem 7: 06/18/17 06:23 06/18/17 06:23 Labs: Abnormal Lab Results - Last 24 Hours (Table) 06/18/17 06/18/17 06/19/17 Range/Units 17:11 19:57 04:26 PT (9.0-12.0) sec INR (<1.2) POC Glucose (mg/dL) 130 H 240 H 74 L (75-99) mg/dL 06/19/17 06/19/17 Range/Units 07:21 11:11 PT 29.7 H (9.0-12.0) sec INR 3.3 H (<1.2) POC Glucose (mg/dL) 100 H (75-99) mg/dL Microbiology - Last 24 Hours (Table) 06/15/17 10:25 Blood Culture - Preliminary Blood No Growth after 96 hours Assessment and Plan Assessment: -Right lower lobe pneumonia, suspect gram-negative organism, causing sepsis, present on admission. -Acute chronic obstructive pulmonary disease exacerbation and an ex-smoker, present on admission. -Paroxysmal atrial fibrillation, chronically on Coumadin. -Coumadin monitoring. -Essential hypertension. -Hyperlipidemia. -Coronary artery disease with prior history of coronary artery bypass. -Troponin leak, likely from hemodynamic mismatch. There is no acute coronary syndrome symptoms present. -Leukocytosis - Elevated INR PLAN: Continue IV Zosyn ,Mucinex and sputum for Gram stain and culture was sent await results. Continue bronchodilators IV steroids and inhaled steroids. Monitor INR and adjust Coumadin accordingly. As the patient INR is elevated at 3.3 today,will hold off Coumadin dose for today. We will follow closely. Anticipate discharge in 24 hrs.
--- NOTE | 2017-06-19 17:39 | P.PN ---
Subjective Progress Note Date: 06/18/17 Principal diagnosis: Right lower lobe pneumonia PRESENTING COMPLAINT: Increasing shortness of breath, cough, wheezing. HISTORY OF PRESENT ILLNESS: Mr. Obando is a 77-year-old male who began having increasing shortness of breath cough sputum production yellow-green sputum very short of breath about a week ago. Diagnostics and imaging revealed right lower lobe pneumonia causing sepsis and so admitted. INTERVAL HISTORY: 06/16/2017: Lying in bed appears comfortable. Currently on nasal cannula. Afebrile, no acute overnight events. Breathing improved, no however requiring the BiPAP, but does continue to have conversational dyspnea and is short of breath with minimal exertion. Appetite is slowly improving in between 20 and 30% of his meals, ambulatory with assistance for only short distances. Last BM prior to admission. On 06/17/2017: Sitting in a chair by the bedside and having his dinner. He denies having any active complaints overnight. Patient is on BiPAP at night. He states his difficulty in breathing has improved since the time of admission but still had shortness of breath with minimal exertion. He has been getting in and out of the bed by himself but has shortness of breath even walking to the restroom. On 06/18/17 : Lying in bed comfortably . He denies having any active complaints overnight. Patient was on BiPAP at night. He states his difficulty in breathing has improved since the time of admission . He has been getting in and out of the bed by himself and also able to take few steps in the corridor. REVIEW OF SYSTEMS: NEURO:No c/o weakness of the extremties, No facial droop, No speech abnormalities. HEMATOLOGIC: No history of easy bleeding and bruising . No recent infections . RESPIRATORY: No cough, No increased SOB, No chest discomfort. : No dysuria or hematuria CARDIAC: No chest pain Objective - Vital Signs Vital signs: Vital Signs Temp 98.1 F 06/18/17 20:00 Pulse 76 06/18/17 20:00 Resp 16 06/18/17 20:00 BP 163/93 06/18/17 20:00 Pulse Ox 94 L 06/18/17 20:00 Intake & Output 06/18/17 06/18/17 06/19/17 06:59 18:59 06:59 Intake Total 566 Output Total 1000 575 Balance -1000 -9 Weight 101 kg Intake: Oral 566 Output: Urine 1000 575 Other: Voiding Method Urinal # Voids 2 # Bowel Movements 1 - Exam GENERAL APPEARANCE: Sitting in a chair by bedside, mildly anxious appearing. Chronically ill appearing. HENT: Normocephalic, JVD not raised. Mass not palpable. Oral cavity normal, external appearance of ears and nose normal. EYES:Pupils equal. Conjunctiva normal. RESPIRATORY: Respiratory effort increased. Lungs diminished breath sounds with expiratory wheezing to auscultation CARDIOVASCULAR: First and second sounds normal. Mild edema. ABDOMEN: Soft. Liver and spleen not palpable. No tenderness. No mass palpable. PSYCHIATRY: Alert and oriented x3. Mood and affect mildly anxious. - Labs CBC & Chem 7: 06/18/17 06:23 06/18/17 06:23 Labs: Abnormal Lab Results - Last 24 Hours (Table) 06/18/17 06/18/17 06/18/17 Range/Units 06:23 06:23 06:23 WBC 11.0 H (3.8-10.6) k/uL RBC 3.53 L (4.30-5.90) m/uL Hgb 11.5 L (13.0-17.5) gm/dL Hct 36.0 L (39.0-53.0) % MCV 102.0 H (80.0-100.0) fL Neutrophils # 10.2 H (1.3-7.7) k/uL Lymphocytes # 0.4 L (1.0-4.8) k/uL PT (9.0-12.0) sec INR (<1.2) BUN 26 H (9-20) mg/dL Glucose 104 H (74-99) mg/dL POC Glucose (mg/dL) 112 H (75-99) mg/dL 06/18/17 06/18/17 06/18/17 Range/Units 06:38 17:11 19:57 WBC (3.8-10.6) k/uL RBC (4.30-5.90) m/uL Hgb (13.0-17.5) gm/dL Hct (39.0-53.0) % MCV (80.0-100.0) fL Neutrophils # (1.3-7.7) k/uL Lymphocytes # (1.0-4.8) k/uL PT 25.9 H (9.0-12.0) sec INR 2.9 H (<1.2) BUN (9-20) mg/dL Glucose (74-99) mg/dL POC Glucose (mg/dL) 130 H 240 H (75-99) mg/dL Microbiology - Last 24 Hours (Table) 06/15/17 10:25 Blood Culture - Preliminary Blood No Growth after 72 hours Assessment and Plan Assessment: -Right lower lobe pneumonia, suspect gram-negative organism, causing sepsis, present on admission. -Acute chronic obstructive pulmonary disease exacerbation and an ex-smoker, present on admission. -Paroxysmal atrial fibrillation, chronically on Coumadin. -Coumadin monitoring. -Essential hypertension. -Hyperlipidemia. -Coronary artery disease with prior history of coronary artery bypass. -Troponin leak, likely from hemodynamic mismatch. There is no acute coronary syndrome symptoms present. -Leukocytosis - Elevated INR PLAN: Continue IV Zosyn ,Mucinex and sputum for Gram stain and culture was sent await results. Continue bronchodilators IV steroids and inhaled steroids. Monitor INR and adjust Coumadin accordingly. As the patient INR is elevated at 3.3 yesterday , so Coumadin dose was held. Today INR was 2.9 and so will resume his home dose. We will follow closely. Anticipate discharge in 24- 48 hrs.
[2017-06-19 20:29] LABS: Glucose,Whole Blood 124 mg/dL (75-99)
[2017-06-19] MEDS: ALPRAZolam 0.25 MG TAB PO PRN (22:35)
[2017-06-19] MEDS: ATORVASTATIN 10 MG TAB PO SCH (22:35)
[2017-06-20] MEDS: PIPERACILLIN-TAZOBACTAM 3.375 GM in DEXTROSE/WATER 1 50ML.BAG IVPB SCH (05:48)
[2017-06-20] MEDS: SYMBICORT 160-4.5 MCG INHALER INHALATION SCH (07:40)
[2017-06-20] MEDS: IPRATROPIUM-ALBUTEROL 3 ML NEB INHALATION SCH ×2 (07:40→12:04)
[2017-06-20 07:42] LABS: Glucose,Whole Blood 93 mg/dL (75-99)
[2017-06-20] MEDS: INSULIN ASPART 100 UNIT/ML 1 ML 10 ML VIAL SQ SCH ×2 (07:51→12:01)
[2017-06-20 08:01] VITALS: RESP 18; TEMP 97.8
[2017-06-20] MEDS: predniSONE 10 MG TAB PO SCH (08:51)
[2017-06-20] MEDS: guaiFENesin 600 MG TABLET.ER PO SCH (08:51)
[2017-06-20] MEDS: DOCUSATE 100 MG CAP PO SCH (08:52)
[2017-06-20] MEDS: METOPROLOL TARTRATE 50 MG TAB PO SCH (08:52)
[2017-06-20] MEDS: ASPIRIN 81 MG PO SCH (08:52)
[2017-06-20] MEDS: FAMOTIDINE 20 MG TAB PO SCH (08:52)
[2017-06-20] MEDS: TAMSULOSIN 0.4 MG CAP.ER.24H PO SCH (08:53)
[2017-06-20 11:33] LABS: Glucose,Whole Blood 90 mg/dL (75-99)
[2017-06-20 11:55] VITALS: BP 154/89
[2017-06-20 12:16] VITALS: PULSE 68
--- NOTE | 2017-06-20 13:16 | P.PN ---
Subjective Progress Note Date: 06/20/17 Principal diagnosis: Acute hypoxic respiratory failure secondary to right lower lobe pneumonia Lee is a 77-year-old white male patient who sees Dr. Beckham in our office for his history of mild COPD with FEV1 of 93%, who was recently discharged from this hospital on 06/04/2017 after being treated for COPD exacerbation, presented to the emergency department today on 06/15/2017 at 10:00 in the morning with complaints of increasing shortness of breath, chest congestion, fever, cough. His symptoms started last , got increasingly worse over the last week, and last night he started having fevers. Denied any body aches, denied any nausea vomiting or diarrhea. Chest x-ray taken in the ED on 2017 showed right lower lobe infiltrate and small effusion and marked prominence of the left hilum. Lab work shows leukocytosis with W BC of 16.5, hemoglobin was 14, INR is 3.0, patient is on Coumadin for atrial fibrillation, carbon dioxide of 32, BUN of 32, creatinine is 1, troponin is positive at 0.045 , proBNP was 1020, plasma lactic acid was 1.1, influenza screen was negative. Patient was febrile with a temp of 101.4F, he was hypotensive with a systolic of 81/48, he was given 2 L of 0.9 normal saline IV bolus, and maintenance IV of 0.9 normal saline at 100 ML per hour was started. Subsequently his breathing became increasingly labored in the course of his stay in the emergency room, and patient was placed on BiPAP support with pressure of 12 and 5 and FiO2 of 40 %. He was started on Zosyn and Levaquin, IV Solu-Medrol, nebulized treatments, and admitted for further management. On 06/16/2017 patient seen in follow-up on selective care unit. He was taken off the BiPAP support yesterday evening, is currently down to 2 L of oxygen per nasal cannula with O2 sat 99%. He looks much better, in no respiratory distress. Awake, alert, denies any worsening shortness of breath. Productive cough continues with production of yellow sputum. Afebrile today, hemodynamically stable. Blood cultures are negative. Lab work has been reviewed, WBCs down to 13.6, hemoglobin is 11.9, INR is 2.8, renal function is stable, no electrolyte abnormality. Repeat chest x-ray shows bilateral infiltrate and small effusion. Clinically patient continues to improve. Continue the current course of treatment. Progress note dated 06/18/2017 This is a 77-year-old male with a history of acute hypoxemic respiratory failure , secondary to right lower lobe pneumonia. In addition, he has a history of chronic COPD, atrial fibrillation, hypertension, hyperlipidemia, CAD, thoracic aortic aneurysm, and degenerative joint disease. The patient's admission was also complicated by an acute sepsis picture which required fluid resuscitation of 2 L of saline. Currently the patient stable. His respiratory status is stabilized. The patient's medications are reviewed. Labs and x-rays are reviewed. The patient is definitely improving and moving in the right direction. The patient still complains of shortness of breath chest congestion cough. He's very short of breath with any activity. He certainly is improved though. On 06/19/2017, patient seen in follow-up on medical surgical floor. Very well, in no acute distress, on room air, O2 sat 95%. Afebrile, vital signs are stable , chest x-ray from this morning he has been reviewed and shows patchy basilar intensity. Clinically patient continues to improve. Increase activity as tolerated, from pulmonary standpoint can be discharged home. On 06/20/2017 patient seen in the lower. He is currently ambulating in the hallway, tolerating it well, no signs of respiratory distress. He is on room air. Doesn't stable, afebrile. Lung sounds are clear, no rhonchi or wheezes noted. Sputum blood culture show no growth. A pulmonary standpoint patient is able for discharge home on prednisone taper, and Augmentin Objective - Vital Signs Vital signs: Vital Signs Temp 97.8 F 06/20/17 07:00 Pulse 68 06/20/17 12:16 Resp 18 06/20/17 07:00 BP 154/89 06/20/17 11:55 Pulse Ox 96 06/20/17 07:42 Intake & Output 06/19/17 06/20/17 06/20/17 18:59 06:59 18:59 Intake Total 700 50 Output Total 900 200 Balance -200 50 -200 Weight 101 kg Intake: Intake, IV Titration 290 50 Amount Piperacillin-Tazobactam 3 50 50 .375 gm In Dextrose/Water 1 50ml.bag @ 12.5 mls/hr IVPB Q8H [facility] Rx#: [id number] Sodium Chloride 0.9% 1, 240 000 ml @ 20 mls/hr IV . Q24H [facility] Rx#:[id number] Oral 410 Output: Urine 900 200 Other: Voiding Method Toilet Toilet Toilet # Voids 4 2 # Bowel Movements 2 - Exam GENERAL EXAM: Alert, active, in no distress, on room air. HEAD: Normocephalic/atraumatic. EYES: Normal reaction of pupils, equal size. Conjunctiva pink, sclera white. NOSE: Clear with pink turbinates. THROAT: No erythema or exudates. NECK: No masses, no JVD, no thyroid enlargement, no adenopathy. CHEST: No chest wall deformity. Symmetrical expansion. LUNGS: Equal air entry, with no crackles, no wheezing or rhonchi CVS: Regular rate and rhythm, normal S1 and S2, no gallops, no murmurs, no rubs ABDOMEN: Soft, nontender. No hepatosplenomegaly, normal bowel sounds, no guarding or rigidity. EXTREMITIES: No clubbing, no edema, no cyanosis, 2+ pulses and upper and lower extremities. MUSCULOSKELETAL: Muscle strength and tone normal. SPINE: No scoliosis or deformity SKIN: No rashes CENTRAL NERVOUS SYSTEM: Alert and oriented -3. No focal deficits, tone is normal in all 4 extremities. PSYCHIATRIC: Alert and oriented -3. Appropriate affect. Intact judgment and insight. - Labs CBC & Chem 7: 06/18/17 06:23 06/18/17 06:23 Labs: Abnormal Lab Results - Last 24 Hours (Table) 06/19/17 06/19/17 Range/Units 17:14 20:28 POC Glucose (mg/dL) 156 H 124 H (75-99) mg/dL Microbiology - Last 24 Hours (Table) 06/15/17 10:25 Blood Culture - Preliminary Blood No Growth after 120 hours Assessment and Plan Plan: Assessment: #1. Acute hypoxic respiratory failure secondary to right lower lobe pneumonia, improved, currently off BiPAP support, on room air #2. Acute sepsis secondary to the above. Patient presented with a febrile illness, hypotension, hypoxemia, leukocytosis. Patient was fluid resuscitated with 2 L of 0.9 normal saline, now maintaining normal blood pressures, afebrile. Blood cultures and sputum cultures negative so far. #3. Recent admission for COPD exacerbation, improved, discharged home on 2017 #4.Troponin leak, possibly due to sepsis #5. Paroxysmal atrial fibrillation, anticoagulated on Coumadin #6. Hypertension, hyperlipidemia #7. History of coronary artery disease #8. History of thoracic aortic aneurysm, status post surgical repair in 2003 #9. Degenerative arthritis Plan: Continue current treatment, patient is doing well, no acute distress, continue increasing activity as tolerated. No acute events overnight, continue antibiotics, tumors, nebulized treatments. Pulmonary standpoint patient is stable for discharge home today on prednisone taper, maintenance inhalers and nebulizers, and Augmentin antibiotic for 5 more days. I performed a history & physical examination of the patient and discussed their management with my nurse practitioner, Jelly Reynoso. I reviewed the nurse practitioner's note and agree with the documented findings and plan of care. Lung sounds are clear. The findings and the impression was discussed with the patient. I attest to the documentation by the nurse practitioner. Time with Patient: Less than 30
[2017-06-20 13:27] LABS: INR 2.6 (<1.2); Prothrombin Time 23.6 sec (9.0-12.0)
--- NOTE | 2017-07-09 18:06 | DS ---
DISCHARGE SUMMARY DATE OF ADMISSION: 06/15/2017. DISCHARGE DATE: 06/20/2017. ADMISSION DIAGNOSES: 1. Right lower lobe pneumonia. 2. Acute exacerbation chronic obstructive pulmonary disease. 3. Paroxysmal atrial fibrillation. 4. Coumadin monitoring. 5. Essential hypertension. 6. Hyperlipidemia. 7. Coronary artery disease. 8. Likely hemodynamics mismatch. PAST MEDICAL HISTORY: Significant for history of atrial fibrillation, hypertension, hyperlipidemia, coronary artery disease, COPD, sleep apnea requiring BiPAP. HOME MEDICATIONS: 1. Prednisone taper. 2. Coumadin 2 mg q.h.s. 3. Flomax 0.4 mg daily. 4. Zocor 10 mg q.h.s. 5. Zantac 150 mg p.o. b.i.d. 6. Potassium 10 mEq b.i.d. 7. Centrum Silver 1 p.o. daily. 8. Lopressor 50 mg b.i.d. 9. DuoNeb 3 mL t.i.d. 10.[place] 5 mg 1 tablet q.6 hours p.r.n. 11.Lasix 20 mg daily. 12.Vitamin D daily. 13.Symbicort 2 puffs b.i.d. 14.Ventolin inhaler 2 puffs b.i.d. PHYSICAL EXAMINATION: Patient's vital signs: Temperature of 101.4, pulse 80, respiration 26, blood pressure of 106/53. HEENT: Atraumatic, normocephalic. Pupils equal and reactive to light. Extraocular movements intact. Buccal mucosa moist. NECK: JVD is negative. No carotid bruit heard. LUNGS: Diffuse bilateral wheezes and rhonchi and rales both lower lung west. HEART: Regular rate and rhythm without murmur or gallop rhythm. ABDOMEN: Soft, nontender, nondistended. Bowel sounds positive. EXTREMITIES: No edema, clubbing, cyanosis. NEUROLOGICAL: Cranial nerves 2-12 grossly intact. No gross motor or sensory deficit. LAB DATA: Done on admission: CBC; white blood count of 16.5, hemoglobin 14, INR of 3. Chemical profile; potassium 4.4, BUN 32, creatinine 1, troponin of 0.045. Influenza was negative. Chest x-ray shows right lower lobe pneumonia. BRIEF HOSPITAL COURSE: Patient was admitted to the monitored floor, was started on IV Zosyn. Blood cultures and sputum culture were obtained. The patient was started on bronchodilator treatment with nebulizer and inhaled and IV steroids. Home medications were continued. The patient's INR was monitored closely. Pulmonary consultation was done. The patient did show marked improvement to above treatment. Breathing improved. Patient was weaned off of the BiPAP. Oxygen levels improved markedly and did not have any further breathing difficulties. He was then discharged home in stable condition with a plan to continue oral antibiotics and to follow the treatment. Continue home medications. Discharge medications are Augmentin 875 mg 1 q.12 hours for 7 days, Symbicort 2 puffs b.i.d., prednisone 10 mg taper as directed, Ventolin inhaler 2 puffs q.i.d., aspirin 81 mg daily. Symbicort 2 puffs b.i.d., vitamin D3 2000 units daily, Lasix 20 mg daily, [place] 1 p.o. q.6 hours p.r.n., albuterol 2 inhalations q.i.d., metoprolol 50 mg b.i.d., multivitamin 1 p.o. daily, potassium chloride 10 mEq b.i.d., Zantac 150 mg b.i.d., Zocor 10 mg p.o. q.h.s., Flomax 0.4 mg daily, Coumadin 2 mg p.o. q.h.s. Followup with Pulmonary as an outpatient. Continue with her steroid taper and patient should continue on discharge antibiotics until all completed. MMODL / IJN: [id number] / MTDD
== END 2017-06-20 14:14 | disposition home health service (06) | DRG 871 ==
LOC: EC 10:01 → 4MS4W 10:44 → 6SEL 15:22 → 5MS5E 06-18 17:01
PROVIDERS: ADMIT Hospitalist; ATTEND Hospitalist
DX: A41.9 Sepsis, unspecified organism (principal); J18.9 Pneumonia, unspecified organism; J96.01 Acute respiratory failure with hypoxia; I48.0 Paroxysmal atrial fibrillation; I71.2 Thoracic aortic aneurysm, without rupture; J44.0 Chronic obstructive pulmonary disease with (acute) lower respiratory infection; J44.1 Chronic obstructive pulmonary disease with (acute) exacerbation; E78.5 Hyperlipidemia, unspecified; I10 Essential (primary) hypertension; I25.10 Atherosclerotic heart disease of native coronary artery without angina pectoris; K21.9 Gastro-esophageal reflux disease without esophagitis; M19.90 Unspecified osteoarthritis, unspecified site; R79.1 Abnormal coagulation profile; Z96.653 Presence of artificial knee joint, bilateral; Y95 Nosocomial condition; Z96.641 Presence of right artificial hip joint; Z79.01 Long term (current) use of anticoagulants; Z79.51 Long term (current) use of inhaled steroids; Z79.82 Long term (current) use of aspirin; Z79.899 Other long term (current) drug therapy; Z82.49 Family history of ischemic heart disease and other diseases of the circulatory system; Z85.828 Personal history of other malignant neoplasm of skin; Z86.79 Personal history of other diseases of the circulatory system; Z87.442 Personal history of urinary calculi; Z87.891 Personal history of nicotine dependence; Z95.1 Presence of aortocoronary bypass graft; Z88.5 Allergy status to narcotic agent
CPT/HCPCS: 36415; 71045; 71046; 80048; 80053; 82550; 82553; 83036; 83605; 83735; 83880; 84484; 85025; 85610; 85730; 87040; 87070; 87205; 87502; 94640; 94644; 94660; 94760; 96365; 96366; 96367; 96375; 99291

== ENCOUNTER 2017-07-20 20:33 | Inpatient (IN) | payer MEDICARE, BC ==
[2017-07-20] MEDS ORDERED: HYDROcodone/APAP 5-325MG 1 EACH TAB PO PRN (22:59)
[2017-07-21] MEDS: BUDESONIDE 1 MG/2 ML NEBU INHALATION SCH ×2 (07:25→20:41)
[2017-07-21] MEDS: IPRATROPIUM-ALBUTEROL 3 ML NEB INHALATION SCH ×4 (07:25→20:41)
[2017-07-21 07:41] LABS: Glucose,Whole Blood 209 mg/dL (75-99)
[2017-07-21] MEDS: HEPARIN SODIUM,PORCINE 5,000 UNIT/ML 1 ML VIAL SQ SCH ×2 (08:01→21:25)
[2017-07-21] MEDS: METOPROLOL TARTRATE 50 MG TAB PO SCH ×2 (08:03→21:27)
[2017-07-21] MEDS: INSULIN ASPART 100 UNIT/ML 1 ML 10 ML VIAL SQ SCH ×4 (08:04→21:26)
[2017-07-21 08:43] LABS: HCT 27.7 % (39.0-53.0); Hypochromasia Slight; MCH 31.9 pg (25.0-35.0); MCHC 31.6 g/dL (31.0-37.0); Macrocytosis Slight; Mean Platelet Volume 7.6; Platelet Count 175 k/uL (150-450); RBC 2.74 m/uL (4.30-5.90); RDW 13.8 % (11.5-15.5); WBC 2.6 k/uL (3.8-10.6)
[2017-07-21 08:46] LABS: HGB 8.7 gm/dL (13.0-17.5)
[2017-07-21 08:52] LABS: Anion Gap 10 mmol/L; Blood Urea Nitrogen 23 mg/dL (9-20); Calcium 8.8 mg/dL (8.4-10.2); Carbon Dioxide 28 mmol/L (22-30); Chloride 104 mmol/L (98-107); Glucose 192 mg/dL (74-99); Sodium 142 mmol/L (137-145)
[2017-07-21] MEDS: methylPREDNISolone SOD SUCCI 125 MG/2 ML VIAL IV SCH ×2 (08:59→20:04)
[2017-07-21] MEDS: cefTRIAXone IN SWFI 1,000 MG/10 ML SYRINGE IVP SCH (08:59)
--- NOTE | 2017-07-21 09:34 | XR ---
EXAMINATION TYPE: XR chest 2V DATE OF EXAM: 07/21/2017 COMPARISON: Prior chest x-ray 06/27/2017 and 07/11/2017 HISTORY: Shortness of breath TECHNIQUE: Frontal and lateral views of the chest are obtained. FINDINGS: Patient is rotated. Heart size is at the upper limit of normal. Postop changes are noted. There are overlying cardiac leads. Patchy basilar density is present bilaterally. No evident pneumoth orax or pleural effusion. Pulmonary vascularity and bridgette within normal limits. Prominent lung volumes compatible with underlying COPD. The aorta is dense. IMPRESSION: Probable basilar atelectasis, difficult to exclude small effusion. Accentuation of heart size may be at least partially technical.
[2017-07-21] MEDS: PANTOPRAZOLE 40 MG/10 ML VIAL IVP SCH (10:26)
[2017-07-21 11:11] LABS: Creatine Kinase MB 1.7 ng/mL (0.0-2.4); Troponin I 0.013 ng/mL (0.000-0.034)
[2017-07-21 12:07] LABS: Appearance,Urine Clear (Clear); Bilirubin,Urine Negative (Negative); Blood,Urine Negative (Negative); Color,Urine Yellow; Glucose,Urine (UA) Negative (Negative); Ketones,Urine 1+ (Negative); Leukocyte Esterase,Urine Negative (Negative); Nitrite,Urine Negative (Negative); PH, Urine 5.5 (5.0-8.0); Protein,Urine Trace (Negative); Specific Gravity,Urine 1.017 (1.001-1.035); Urobilinogen,Urine <2.0 mg/dL (<2.0)
[2017-07-21 12:15] LABS: Glucose,Whole Blood 174 mg/dL (75-99)
[2017-07-21] MEDS: ACETAMINOPHEN TAB 325 MG TAB PO PRN (14:51)
[2017-07-21] MEDS ORDERED: RX INFO: IV CONTRAST WAS GIVEN 1 EACH MISC MISCELLANE PRN (15:46)
[2017-07-21 16:06] LABS: INR 2.9 (<1.2); Prothrombin Time 26.2 sec (9.0-12.0)
[2017-07-21] MEDS: ALPRAZolam 0.25 MG TAB PO PRN (16:15)
--- NOTE | 2017-07-21 16:47 | P.CNPUL ---
History of Present Illness Consult date: 07/21/17 Requesting physician: Claudia Hyman Reason for consult: dyspnea, cough, COPD, hypoxemia, pneumonia, abnormal CXR/CT Chief complaint: Increasing cough, chest congestion, fatigue, hypoxia History of present illness: Lee is a 77-year-old white male patient well known to our practice from his previous admissions for COPD and pneumonia, was recently discharged from this hospital on 07/10/2017 after being hospitalized for acute COPD exacerbation and influenza A tracheobronchitis. He was treated with Tamiflu, Levaquin, steroids , nebulized treatments. He had clinically improved, and was discharged to the [facility] subacute rehab facility. Prior to that admission he was hospitalized with right lower lobe pneumonia and was discharged home on on 06/20/2017. Patient was still finishing his Levaquin at the shelter. He was seen by Dr. Beckham in the office on 07/11/2017 in follow-up, chest x-rays taken in the office showed resolution of the right lower lobe infiltrate, patient was noted to be clinically doing much better. At the shelter the staff noted increased shortness of breath, increased generalized weakness, hypoxia with O2 sat at 85% on room air. Patient is a very poor historian, but he was able to provide very limited information, and for the most part he could not understand why he was transferred to the hospital. He reports having chills, increased weakness, cough with production of yellow sputum and shortness of breath. He remembers having severe coughing spells. He was transferred to the [facility], where a blood gas was done and it showed pH is 7.45, pCO2 44, pO2 of 55, bicarb of 30, and O2 sat of 85% on room air. Patient was placed on supplemental oxygen. He was started on IV Rocephin, nebulized treatments, Pulmicort, IV steroids, and transferred to the [facility] for further evaluation and treatment. Chest x-ray from 07/21/2017 shows patchy basilar density bilaterally, probable basilar atelectasis, difficult to exclude small pleural effusion. Patient has been afebrile since admission, mildly short of breath with normal conversation, but in no acute distress. His pulse ox was 84% on room air, he is currently on 4 L per nasal cannula with a pulse ox at 98%. Review of Systems All systems: negative Constitutional: Denies chills, Denies fever Eyes: denies blurred vision, denies pain Ears, nose, mouth and throat: Denies headache, Denies sore throat Cardiovascular: Reports dyspnea on exertion, Reports edema, Denies chest pain, Denies shortness of breath Respiratory: Reports congestion, Reports cough with sputum, Reports dyspnea, Reports respiratory infections, Denies cough Gastrointestinal: Denies abdominal pain, Denies diarrhea, Denies nausea, Denies vomiting Musculoskeletal: Denies myalgias Integumentary: Denies pruritus, Denies rash Neurological: Denies numbness, Denies weakness Psychiatric: Denies anxiety, Denies depression Endocrine: Denies fatigue, Denies weight change Past Medical History Past Medical History: Atrial Fibrillation, Cancer, COPD, GERD/Reflux, Hyperlipidemia, Hypertension, Osteoarthritis (OA), Renal Disease Additional Past Medical History / Comment(s): COPD, paroxysmal atrial fibrillation, CHF with ejection fraction of 45%, recent hospitalization for a right lower lobe pneumonia and COPD exacerbation treated in the hospital and discharged on 06/20/2016, thoracic aortic aneurysm and previous repair and the patient also had a repair of a coarctation of the warts, hiatal hernia, nephrolithiasis, skin cancer that was resected, degenerative arthritis, COPD, acid reflux, hypertension, hyperlipidemia, History of Any Multi-Drug Resistant Organisms: None Reported Past Surgical History: Cholecystectomy, Heart Catheterization, Hernia Repair, Joint Replacement Additional Past Surgical History / Comment(s): AAA/Aortic coarctation repair, bilateral total knee arthroplasties, R total hip arthroplasty, bilateral shoulder rotator cuff repairs, R inguinal hernia repair, skin cancer removed from nose, lithotripsy, colonoscopy Past Anesthesia/Blood Transfusion Reactions: No Reported Reaction Past Psychological History: No Psychological Hx Reported Additional Psychological History / Comment(s): Pt and his son live together. Pt uses a cane prn. He has a walker which he used after his hip surgery. He drives. Smoking Status: Former smoker Past Alcohol Use History: None Reported Additional Past Alcohol Use History / Comment(s): Pt quit smoking cigarettes in 2 and quit smoking pipe in 1987. Past Drug Use History: None Reported - Past Family History Mother Family Medical History: No Reported History Additional Family Medical History / Comment(s): Pt reluctant to speak about mother's hx. Father Family Medical History: Myocardial Infarction (WA) Additional Family Medical History / Comment(s): Father had a [place] at the age of 65yrs. Medications and Allergies Home Medications Medication Instructions Recorded Confirmed Type Aspirin 81 mg PO DAILY 06/02/17 07/20/17 History HYDROcodone/APAP 5-325MG [[place] 1 tab PO Q6HR PRN 06/02/17 07/20/17 History 5-325] Metoprolol Tartrate [Lopressor] 50 mg PO BID 06/02/17 07/20/17 History Potassium Chloride [Klor-Con 10] 10 meq PO BID 06/02/17 07/20/17 History ALPRAZolam [Xanax] 0.25 mg PO Q12H PRN 07/20/17 07/20/17 History Fluticasone/Vilanterol [Breo 1 puff INHALATION RT-DAILY 07/20/17 07/20/17 History Ellipta 100-25 Mcg Inhaler] Allergies Allergy/AdvReac Type Severity Reaction Status Date / Time codeine Allergy Rash/Hives Verified 07/20/17 22:37 Physical Exam Vitals: Vital Signs Temp Pulse Pulse Resp BP Pulse Ox 07/21/17 11:32 96 07/21/17 11:19 92 07/21/17 09:56 91 21 07/21/17 08:41 97.8 F 07/21/17 07:39 92 07/21/17 07:38 91 21 121/84 98 07/21/17 07:37 84 L 07/21/17 07:26 96 07/20/17 22:34 97.9 F 95 20 106/62 96 Intake and Output 07/20/17 07/21/17 07/21/17 22:59 06:59 14:59 Intake Total 150 Balance 150 Intake: Oral 150 Other: Voiding Method Urinal Urinal Incontinent Incontinent # Voids 1 Weight 95.254 kg 95.254 kg GENERAL EXAM: Alert, pleasant, 77-year-old white male, mildly short of breath with conversation HEAD: Normocephalic/atraumatic. EYES: Normal reaction of pupils, equal size. Conjunctiva pink, sclera white. NOSE: Clear with pink turbinates. THROAT: No erythema or exudates. NECK: No masses, no JVD, no thyroid enlargement, no adenopathy. CHEST: No chest wall deformity. Symmetrical expansion. LUNGS: Lung sounds are positive for a few scattered rales, and expiratory wheezes, overall lung sounds are diminished, but no rhonchi CVS: Regular rate and rhythm, normal S1 and S2, no gallops, no murmurs, no rubs ABDOMEN: Soft, nontender. No hepatosplenomegaly, normal bowel sounds, no guarding or rigidity. EXTREMITIES: No clubbing, no cyanosis, 2+ pulses and upper and lower extremities. There is mild pedal edema noted MUSCULOSKELETAL: Muscle strength and tone normal. SPINE: No scoliosis or deformity SKIN: No rashes CENTRAL NERVOUS SYSTEM: Alert and oriented -3. No focal deficits, tone is normal in all 4 extremities. PSYCHIATRIC: Alert and oriented -3. Appropriate affect. Intact judgment and insight. Results - Laboratory Findings CBC and BMP: 07/21/17 07:38 07/21/17 07:38 Abnormal lab findings: Abnormal Labs 07/21/17 07/21/17 07/21/17 07:23 07:38 07:38 WBC 2.6 L RBC 2.74 L Hgb 8.7 L D Hct 27.7 L MCV 101.0 H BUN 23 H Glucose 192 H POC Glucose (mg/dL) 209 H Total Creatine Kinase Urine Protein Urine Ketones 07/21/17 07/21/17 07/21/17 10:05 11:30 12:10 WBC RBC Hgb Hct MCV BUN Glucose POC Glucose (mg/dL) 174 H Total Creatine Kinase 31 L Urine Protein Trace H Urine Ketones 1+ H - Diagnostic Findings Chest x-ray: report reviewed Assessment and Plan Plan: Assessment: #1. Acute hypoxic respiratory failure secondary to acute COPD exacerbation, chest x-ray from 07/21/2017 showed bibasilar density consistent with bibasilar atelectasis, no clear-cut evidence of pneumonia noted. #2. Leukopenia, of unclear etiology, possibly related to a protracted illness, multiple hospitalizations #3. Macrocytic anemia, hemoglobin on admission is 8.7, his previous hemoglobin from 06/28/2017 was 11.8 #4. Recent hospitalization for COPD exacerbation and influenza A tracheobronchitis, discharged to [facility] rehab on 07/10/2017. Prior to that hadn't hospitalization for right lower lobe pneumonia and was discharged home on 06/20/2017, and he was hospitalized for COPD exacerbation before that and discharged home on 06/04/2017 #5. Hyperlipidemia #6. Paroxysmal atrial fibrillation, patient was previously on Coumadin, however it does not appear on his home list now. We will investigate further #7. Hypertension #8. History of coronary artery disease #9. History of thoracic aortic aneurysm, status post surgical repair in 2003 #10. Degenerative arthritis #11. Mild impairment of the systolic function with an EF of 45%, proBNP from this admission is within normal limits for his age at 89. Troponin was negative 1. Plan: Patient's chest x-ray was reviewed, no clear evidence of pneumonia noted. Continue with IV Rocephin for now, continue Pulmicort and Formoterol, continue nebulized treatments, continue IV steroids. Troponins, cardiac profile, and proBNP were all within normal limits. We will recheck PT/INR, patient needs to be back on his Coumadin unless there is a contraindication for it. We will obtain CTA chest to rule out PE and further investigate the source of patient's ongoing pulmonary infections. I performed a history & physical examination of the patient and discussed their management with my nurse practitioner, Jelly Reynoso. I reviewed the nurse practitioner's note and agree with the documented findings and plan of care. Lung sounds are positive for scattered rhonchi. The findings and the impression was discussed with the patient. I attest to the documentation by the nurse practitioner. Time with Patient: Greater than 30
[2017-07-21 17:30] LABS: Glucose,Whole Blood 216 mg/dL (75-99)
--- NOTE | 2017-07-21 18:21 | CT ---
EXAMINATION TYPE: CT angio chest DATE OF EXAM: 07/21/2017 5:18 PM COMPARISON: NONE HISTORY: Patient poor historian. Difficulty breathing. CT DLP: 400.2 mGycm Automated exposure control for dose reduction was used. CONTRAST: CTA scan of the thorax is performed with IV Contrast, patient injected with 100 mL of Omnipaque 350, pulmonary embolism protocol. . FINDINGS: LUNGS: The lungs infiltrate multifocal small opacities, both groundglass and consolidative,. The georgina farhat is nonspecific but clinical exclusion of a focal bronchopneumonia is requested. There is no depen dent groundglass opacity to suggest pulmonary edema. The pleural spaces are negative MEDIASTINUM: There is satisfactory enhancement of the pulmonary artery and its branches, there is no CT evidence for pulmonary embolism. There is no cardiomegaly, but prominent three-vessel coronary joan cifications are noted. Pericardial spaces negative. The thoracic aorta is prominently tortuous. No ad enopathy. SKELETAL STRUCTURES: No focal lesions. IMPRESSION: 1. NEGATIVE FOR PULMONARY EMBOLISM. 2. MULTIFOCAL SCATTERED PULMONARY OPACITIES NOTED. 3. PROMINENT CORONARY CALCIFICATIONS.
--- NOTE | 2017-07-21 18:48 | HP ---
HISTORY AND PHYSICAL DATE OF SERVICE: 07/20/2017. CHIEF COMPLAINT: Dyspnea, cough. BRIEF HISTORY: This patient is a 77-year-old male patient who sees Cristal Nascimento as an outpatient, presents to the ED with acute exacerbation of chronic obstructive pulmonary disease. Patient was recently discharged on 07/10/2017 for acute exacerbation of COPD and influenza A, tracheobronchitis at which time he was treated with Tamiflu, Levaquin, steroids and nebulizer treatments. The patient was admitted to the hospital for healthcare associated pneumonia, was treated with antibiotics and was discharged home on 06/20/2017. The patient was transferred to an extended care facility. Patient was still finishing his Levaquin. [facility] staff noticed increased shortness of breath and generalized weakness. His O2 saturation was at 85%. He was transferred to ED. Patient was transferred initially to [facility] where ABGs were done, which showed a pCO2 of 44 and PO2 of 55, O2 saturation of 85. Patient was started on IV Rocephin, nebulizer treatment, Pulmicort, and IV steroids and transferred to [facility] for further treatment. The patient is somewhat confused and is not able to provide any of this history so most of it is obtained from the chart. PAST MEDICAL HISTORY: 1. Significant for atrial fibrillation. 2. COPD. 3. GERD/reflux. 4. Hyperlipidemia. 5. Hypertension. 6. Osteoarthritis. 7. Coronary artery disease/CHF. 8. History of nephrolithiasis. 9. Hypertension. PAST SURGICAL HISTORY: 1. Significant for cholecystectomy. 2. Heart catheterization. 3. Hernia repair. 4. Joint right total hip arthroplasty. 5. Bilateral shoulder rotator cuff repair. 6. Right inguinal hernia repair. 7. Colonoscopy and lithotripsy. The patient is a long time smoker but he quit smoking a long time ago in 1962 and quit smoking pipe in 1987. No history of alcohol abuse or drug abuse. The patient resides at an extended care facility where he was discharged recently for rehab. FAMILY HISTORY: Significant for history of [place] in father. REVIEW OF SYSTEMS: CONSTITUTIONAL: Denies fevers, chills. HEENT: Denies headache, sore throat. No blurred vision. CARDIOVASCULAR: Denies dyspnea on exertion. No chest pain. RESPIRATORY SYSTEM: Denies congestion, cough and sputum. GI: No nausea, vomiting, diarrhea. MUSCULOSKELETAL: Denies myalgias. INTEGUMENTARY: Denies rashes or pigmentation. NEUROLOGICAL: No numbness or weakness. PSYCHIATRIC: No anxiety or depression. ENDOCRINE: No polyuria, polydipsia. GENITOURINARY: No hematuria or dysuria. The rest of 14-point review of system is unremarkable. ALLERGIES: He is ALLERGIC TO CODEINE. MEDICATIONS: Patient is on aspirin 81 mg daily, hydrocodone 5 mg 1 q.6 hours p.r.n., Lopressor 50 mg b.i.d., potassium chloride 10 mEq p.o. b.i.d., Xanax 0.25 mg p.o. q.12 hours, Breo 1 puff daily, Ellipta 10/25 mcg inhaler once a day. PHYSICAL EXAMINATION: Patient is awake and alert to person. VITAL SIGNS: Temperature 97.8, pulse 91, respiration 21, O2 saturation 98%, blood pressure 121/84. GENERAL EXAM: The patient is in mild shortness of breath with conversation. He is awake and alert. HEENT: Atraumatic, normocephalic. Pupils equal and reactive to light. Extraocular movements intact. Buccal mucosa is fair. NECK: Supple. No goiter or lymphadenopathy. JVD is negative. No carotid bruit heard. LUNGS: Decreased breath sounds with scattered wheezing, rales and rhonchi. HEART: Regular rate and rhythm without murmurs or gallop rhythm. ABDOMEN: Soft, nontender, nondistended. Bowel sounds positive. EXTREMITIES: No edema, clubbing or cyanosis. Pulses are palpable 2+. MUSCULOSKELETAL: Patient has fair strength and tone in all 4 extremities. SKIN: No rashes or pigmentation. NERVOUS: Patient is awake and alert and oriented to place and person. No gross motor or sensory deficit. No cranial nerves 2-12 grossly intact. PSYCHIATRIC EXAMINATION: The patient is appropriate affect. LABS: CBC: White blood count of 2.6, hemoglobin 8.7, hematocrit 27.7, platelet count 175. Chemical profile: Sodium 142, potassium 4.2, chloride 104, bicarb 28, BUN 23, creatinine 0.6, glucose 192. ASSESSMENT: 1. Acute hypoxemic respiratory failure. 2. Acute exacerbation chronic obstructive pulmonary disease. 3. Pneumonia. 4. Neutropenia. 5. Macrocytic anemia. 6. Recurrent hospitalizations for chronic obstructive pulmonary disease exacerbation. 7. Hyperlipidemia. 8. Paroxysmal atrial fibrillation. The patient was on Coumadin at previous admission, but not included on current home medications. 9. Hypertension. 10.Coronary artery disease. PLAN: Continue patient on IV Rocephin. Continue with Pulmicort and formoterol and nebulizer treatments. Continue with IV steroids. Monitor troponins and BNP. PT/INR will be monitored. Pulmonary consultation is done and recommending CT of the chest to rule out PE. Will resume all current home medications. MMODL / IJN: [id number] /
[2017-07-21 20:41] LABS: Glucose,Whole Blood 162 mg/dL (75-99)
[2017-07-21] MEDS: FORMOTEROL FUMARATE 20 MCG/2 ML NEBU INHALATION SCH (20:41)
[2017-07-22 07:32] LABS: Glucose,Whole Blood 172 mg/dL (75-99)
[2017-07-22] MEDS: HEPARIN SODIUM,PORCINE 5,000 UNIT/ML 1 ML VIAL SQ SCH ×2 (07:59→21:08)
[2017-07-22] MEDS: methylPREDNISolone SOD SUCCI 125 MG/2 ML VIAL IV SCH ×2 (07:59→21:08)
[2017-07-22] MEDS: METOPROLOL TARTRATE 50 MG TAB PO SCH ×2 (07:59→21:08)
[2017-07-22] MEDS: cefTRIAXone IN SWFI 1,000 MG/10 ML SYRINGE IVP SCH (08:00)
[2017-07-22] MEDS: PANTOPRAZOLE 40 MG/10 ML VIAL IVP SCH (08:00)
[2017-07-22] MEDS: INSULIN ASPART 100 UNIT/ML 1 ML 10 ML VIAL SQ SCH ×4 (08:11→21:08)
[2017-07-22] MEDS: IPRATROPIUM-ALBUTEROL 3 ML NEB INHALATION SCH ×4 (08:13→20:47)
[2017-07-22] MEDS: BUDESONIDE 1 MG/2 ML NEBU INHALATION SCH ×2 (08:13→20:46)
[2017-07-22] MEDS: FORMOTEROL FUMARATE 20 MCG/2 ML NEBU INHALATION SCH ×2 (08:13→20:47)
[2017-07-22 11:59] LABS: Glucose,Whole Blood 195 mg/dL (75-99)
--- NOTE | 2017-07-22 14:07 | P.PN ---
Subjective Progress Note Date: 07/22/17 Principal diagnosis: Acute hypoxic respiratory failure secondary to COPD and possible pneumonitis, noted on CT of the chest. Lee is a 77-year-old white male patient well known to our practice from his previous admissions for COPD and pneumonia, was recently discharged from this hospital on 07/10/2017 after being hospitalized for acute COPD exacerbation and influenza A tracheobronchitis. He was treated with Tamiflu, Levaquin, steroids , nebulized treatments. He had clinically improved, and was discharged to the [facility] subacute rehab facility. Prior to that admission he was hospitalized with right lower lobe pneumonia and was discharged home on on 06/20/2017. [facility]. He was seen by Dr. Beckham in the office on 07/11/2017 in follow-up, chest x-rays taken in the office showed resolution of the right lower lobe infiltrate, patient was noted to be clinically doing much better. At the [facility] the staff noted increased shortness of breath, increased generalized weakness, hypoxia with O2 sat at 85% on room air. Patient is a very poor historian, but he was able to provide very limited information, and for the most part he could not understand why he was transferred to the hospital. He reports having chills, increased weakness, cough with production of yellow sputum and shortness of breath. He remembers having severe coughing spells. He was transferred to the [facility], where a blood gas was done and it showed pH is 7.45, pCO2 44, pO2 of 55, bicarb of 30, and O2 sat of 85% on room air. Patient was placed on supplemental oxygen. He was started on IV Rocephin, nebulized treatments, Pulmicort, IV steroids, and transferred to the [facility] for further evaluation and treatment. Chest x-ray from 07/21/2017 shows patchy basilar density bilaterally, probable basilar atelectasis, difficult to exclude small pleural effusion. Patient has been afebrile since admission, mildly short of breath with normal conversation, but in no acute distress. His pulse ox was 84% on room air, he is currently on 4 L per nasal cannula with a pulse ox at 98%. Reevaluated today on 05/17/2018, patient is feeling a bit better, but continues to have intermittent cough wheezing shortness of breath. CT of the chest was reviewed, it is negative for pulmonary embolism, however it did show nonspecific multifocal scattered pulmonary opacities could be focal areas of bronchopneumonia. I honestly believe the findings are very nonspecific, and the clinical presentation is not a clinical presentation of pneumonia. Objective - Vital Signs Vital signs: Vital Signs Temp 97.5 F L 07/22/17 07:00 Pulse 86 07/22/17 12:04 Resp 18 07/22/17 07:00 BP 171/81 07/22/17 07:00 Pulse Ox 98 07/22/17 08:22 Intake & Output 07/21/17 07/22/17 07/22/17 18:59 06:59 18:59 Intake Total 150 400 Output Total 250 250 Balance 150 -250 150 Weight 95.254 kg 95.254 kg Intake: Oral 150 400 Output: Urine 250 250 Other: Voiding Method Urinal Bedside Commode Bedside Commode Incontinent Urinal Urinal Incontinent Incontinent # Voids 1 1 2 - Exam GENERAL EXAM: Alert, pleasant, 77-year-old white male, mildly short of breath with conversation HEAD: Normocephalic/atraumatic. EYES: Normal reaction of pupils, equal size. Conjunctiva pink, sclera white. NOSE: Clear with pink turbinates. THROAT: No erythema or exudates. NECK: No masses, no JVD, no thyroid enlargement, no adenopathy. CHEST: No chest wall deformity. Symmetrical expansion. LUNGS: Lung sounds are positive for a few crackles at the bases, some wheezing on forced expiratory maneuver noted. CVS: Regular rate and rhythm, normal S1 and S2, no gallops, no murmurs, no rubs ABDOMEN: Soft, nontender. No hepatosplenomegaly, normal bowel sounds, no guarding or rigidity. EXTREMITIES: No clubbing, no cyanosis, 2+ pulses and upper and lower extremities. There is mild pedal edema noted MUSCULOSKELETAL: Muscle strength and tone normal. SPINE: No scoliosis or deformity SKIN: No rashes CENTRAL NERVOUS SYSTEM: Alert and oriented -3. No focal deficits, tone is normal in all 4 extremities. PSYCHIATRIC: Alert and oriented -3. Appropriate affect. Intact judgment and insight. - Labs CBC & Chem 7: 07/21/17 07:38 07/21/17 07:38 Labs: Abnormal Lab Results - Last 24 Hours (Table) 07/21/17 07/21/17 07/21/17 Range/Units 08:58 17:17 20:39 PT 26.2 H (9.0-12.0) sec INR 2.9 H (<1.2) POC Glucose (mg/dL) 216 H 162 H (75-99) mg/dL 07/22/17 07/22/17 Range/Units 07:15 11:48 PT (9.0-12.0) sec INR (<1.2) POC Glucose (mg/dL) 172 H 195 H (75-99) mg/dL Microbiology - Last 24 Hours (Table) 07/21/17 10:14 Blood Culture - Preliminary Blood No Growth after 24 hours 07/21/17 10:05 Blood Culture - Preliminary Blood No Growth after 24 hours 07/21/17 11:30 Urine Culture - Preliminary Urine,Clean Catch Assessment and Plan Assessment: #1. Acute hypoxic respiratory failure secondary to acute COPD exacerbation, chest x-ray from 07/21/2017 showed bibasilar density consistent with bibasilar atelectasis, no clear-cut evidence of pneumonia noted. On the chest x-ray, however the CT of the chest is showing some nonspecific opacities could be consistent with pneumonitis. Clinically however I believe the findings are nonspecific, and I strongly doubt pneumonia. #2. Leukopenia, of unclear etiology, possibly related to a protracted illness, multiple hospitalizations #3. Macrocytic anemia, hemoglobin on admission is 8.7, his previous hemoglobin from 06/28/2017 was 11.8 #4. Recent hospitalization for COPD exacerbation and influenza A tracheobronchitis, discharged to [facility] subacute rehab on 07/10/2017. Prior to that hadn't hospitalization for right lower lobe pneumonia and was discharged home on 06/20/2017, and he was hospitalized for COPD exacerbation before that and discharged home on 06/04/2017 #5. Hyperlipidemia #6. Paroxysmal atrial fibrillation, patient was previously on Coumadin, however it does not appear on his home list now. We will investigate further #7. Hypertension #8. History of coronary artery disease #9. History of thoracic aortic aneurysm, status post surgical repair in 2003 #10. Degenerative arthritis #11. Mild impairment of the systolic function with an EF of 45%, proBNP from this admission is within normal limits for his age at 89. Troponin was negative 1. Recommendation: Continue present treatment plan including bronchodilators, antibiotics, diuretics, steroids, consider discharge planning in the next 2 days. Time with Patient: Less than 30
[2017-07-22 17:51] LABS: Glucose,Whole Blood 154 mg/dL (75-99)
--- NOTE | 2017-07-22 19:01 | PN ---
PROGRESS NOTE DATE OF SERVICE: 07/22/2017 Patient admitted with acute hypoxemic respiratory failure secondary to chronic obstructive pulmonary disease and possible pneumonitis. The patient is seen in the room. Family at bedside and have numerous questions about patient's recurrent admissions. Claims they have spoken to Dr. Cruz, but continued to have questions about the clinical course post discharge. The patient's vital signs: Temperature 97.5, pulse 86, respiration 18, blood pressure 171/81, pulse ox of 98%. HEENT: Atraumatic, normocephalic. Pupils equal and react to light. Extraocular movements intact. Buccal mucosa is fair. Neck is supple. No goiter or lymphadenopathy. JVD is negative. No carotid bruit. LUNGS: Decreased breath sounds with scattered crackles at the bases and wheezing and expiratory wheezes. Heart is regular rate and rhythm without any murmurs or gallop rhythm. Abdomen is soft, nontender, nondistended. Bowel sounds positive. EXTREMITIES: No edema, clubbing or cyanosis. Pulses are palpable 2+. MUSCULOSKELETAL: Normal muscular tone. SKIN: No rashes and pigmentation. CENTRAL NERVOUS SYSTEM: Alert, oriented x3. No gross motor or sensory deficit. LABS: White blood count 2.6, hemoglobin 8.7, hematocrit 27.7, platelet count of 175. Sodium 142, potassium 4.2, chloride 104, bicarb 28, BUN 23, creatinine 0.6, glucose 192. ASSESSMENT: 1. Acute hypoxemic respiratory failure. 2. Acute exacerbation chronic obstructive pulmonary disease. 3. Bibasilar pneumonia. 4. Neutropenia, possibly secondary to protracted illness and multiple hospitalizations. 5. Macrocytic anemia. Hemoglobin is stable at this point. 6. Acute exacerbation chronic obstructive pulmonary disease. 7. Hyperlipidemia. 8. Paroxysmal atrial fibrillation. 9. Hypertension. 10.Coronary artery disease. The patient is continued on bronchodilators, antibiotics, diuretics, inhaled and IV steroids. Pulmonary service is following the patient is responding well to above treatment. The patient's family's questions were answered to satisfaction. They are still concerned about patient's post hospital course and Pulmonary is recommending possible discharge in next 24-48 hours. We will continue the same medications. Continue with all home medications and discharge patient once cleared by the Pulmonary service. MMODL / IJN: [id number] /
[2017-07-22 20:36] LABS: Glucose,Whole Blood 218 mg/dL (75-99)
[2017-07-22] MEDS: ALPRAZolam 0.25 MG TAB PO PRN (21:07)
[2017-07-23 07:32] LABS: Glucose,Whole Blood 153 mg/dL (75-99)
[2017-07-23 07:41] LABS: Basophils % (A) 0 %; Eosinophils % (A) 0 %; HCT 27.8 % (39.0-53.0); HGB 8.8 gm/dL (13.0-17.5); Hypochromasia Slight; Lymphocytes # (A) 0.5 k/uL (1.0-4.8); Lymphocytes % (A) 5 %; MCH 32.1 pg (25.0-35.0); MCHC 31.6 g/dL (31.0-37.0); MCV 101.6 fL (80.0-100.0); Macrocytosis Slight; Monocytes # (A) 0.3 k/uL (0-1.0); Monocytes % (A) 3 %; Neutrophils # (A) 9.1 k/uL (1.3-7.7); Neutrophils % (A) 92 %; Platelet Count 252 k/uL (150-450); Poikilocytosis Slight; RBC 2.74 m/uL (4.30-5.90); RDW 13.9 % (11.5-15.5)
[2017-07-23] MEDS: BUDESONIDE 1 MG/2 ML NEBU INHALATION SCH ×2 (08:00→19:34)
[2017-07-23] MEDS: FORMOTEROL FUMARATE 20 MCG/2 ML NEBU INHALATION SCH ×2 (08:00→19:34)
[2017-07-23] MEDS: IPRATROPIUM-ALBUTEROL 3 ML NEB INHALATION SCH ×4 (08:00→19:34)
[2017-07-23 08:04] LABS: Anion Gap 7 mmol/L; Blood Urea Nitrogen 29 mg/dL (9-20); Calcium 9.5 mg/dL (8.4-10.2); Carbon Dioxide 27 mmol/L (22-30); Chloride 104 mmol/L (98-107); Glucose 136 mg/dL (74-99); Potassium 4.5 mmol/L (3.5-5.1); Sodium 138 mmol/L (137-145)
[2017-07-23] MEDS: methylPREDNISolone SOD SUCCI 125 MG/2 ML VIAL IV SCH ×2 (08:08→20:17)
[2017-07-23] MEDS: METOPROLOL TARTRATE 50 MG TAB PO SCH ×2 (08:09→20:17)
[2017-07-23] MEDS: HEPARIN SODIUM,PORCINE 5,000 UNIT/ML 1 ML VIAL SQ SCH ×2 (08:09→20:17)
[2017-07-23] MEDS: INSULIN ASPART 100 UNIT/ML 1 ML 10 ML VIAL SQ SCH ×4 (08:09→20:17)
[2017-07-23] MEDS: cefTRIAXone IN SWFI 1,000 MG/10 ML SYRINGE IVP SCH (08:09)
[2017-07-23] MEDS: PANTOPRAZOLE 40 MG TABLET PO SCH (08:09)
[2017-07-23 11:34] LABS: Glucose,Whole Blood 198 mg/dL (75-99)
--- NOTE | 2017-07-23 13:28 | P.PN ---
Subjective Progress Note Date: 07/23/17 Principal diagnosis: Acute hypoxic respiratory failure secondary to COPD and possible pneumonitis, noted on CT of the chestSonia Howard is a 77-year-old white male patient well known to our practice from his previous admissions for COPD and pneumonia, was recently discharged from this hospital on 07/10/2017 after being hospitalized for acute COPD exacerbation and influenza A tracheobronchitis. He was treated with Tamiflu, Levaquin, steroids , nebulized treatments. He had clinically improved, and was discharged to the [facility] subacute rehab facility. Prior to that admission he was hospitalized with right lower lobe pneumonia and was discharged home on on 06/20/2017. Patient was still finishing his Levaquin at the halfway. He was seen by Dr. Beckham in the office on 07/11/2017 in follow-up, chest x-rays taken in the office showed resolution of the right lower lobe infiltrate, patient was noted to be clinically doing much better. At the halfway the staff noted increased shortness of breath, increased generalized weakness, hypoxia with O2 sat at 85% on room air. Patient is a very poor historian, but he was able to provide very limited information, and for the most part he could not understand why he was transferred to the hospital. He reports having chills, increased weakness, cough with production of yellow sputum and shortness of breath. He remembers having severe coughing spells. He was transferred to the [facility], where a blood gas was done and it showed pH is 7.45, pCO2 44, pO2 of 55, bicarb of 30, and O2 sat of 85% on room air. Patient was placed on supplemental oxygen. He was started on IV Rocephin, nebulized treatments, Pulmicort, IV steroids, and transferred to the [facility] for further evaluation and treatment. Chest x-ray from 07/21/2017 shows patchy basilar density bilaterally, probable basilar atelectasis, difficult to exclude small pleural effusion. Patient has been afebrile since admission, mildly short of breath with normal conversation, but in no acute distress. His pulse ox was 84% on room air, he is currently on 4 L per nasal cannula with a pulse ox at 98%. Reevaluated today on 05/17/2018, patient is feeling a bit better, but continues to have intermittent cough wheezing shortness of breath. CT of the chest was reviewed, it is negative for pulmonary embolism, however it did show nonspecific multifocal scattered pulmonary opacities could be focal areas of bronchopneumonia. I honestly believe the findings are very nonspecific, and the clinical presentation is not a clinical presentation of pneumonia. Reevaluated today on 07/23/2017, feeling better, breathing easier, hardly any cough no wheezing no shortness of breath no chest pain. Labs were reviewed, WBC count is 10 hemoglobin is 8.8 electrolytes are normal renal profile is relatively normal. CT of the chest was reviewed again. And discussed findings with the family at bedside. Objective - Vital Signs Vital signs: Vital Signs Temp 97.6 F 07/23/17 07:00 Pulse 82 07/23/17 11:54 Resp 18 07/23/17 07:00 BP 173/88 07/23/17 07:00 Pulse Ox 93 L 07/23/17 08:03 Intake & Output 07/22/17 07/23/17 07/23/17 18:59 06:59 18:59 Intake Total 400 25 Output Total 550 125 125 Balance -150 -100 -125 Weight 95.254 kg 95.254 kg Intake: Oral 400 25 Output: Urine 550 125 125 Other: Voiding Method Bedside Commode Bedside Commode Urinal Urinal Urinal Incontinent Incontinent # Voids 2 1 1 - Exam GENERAL EXAM: Alert, pleasant, 77-year-old white male, mildly short of breath with conversation HEAD: Normocephalic/atraumatic. EYES: Normal reaction of pupils, equal size. Conjunctiva pink, sclera white. NOSE: Clear with pink turbinates. THROAT: No erythema or exudates. NECK: No masses, no JVD, no thyroid enlargement, no adenopathy. CHEST: No chest wall deformity. Symmetrical expansion. LUNGS: Lung sounds are positive for a few crackles at the bases, no wheezing noted today. CVS: Regular rate and rhythm, normal S1 and S2, no gallops, no murmurs, no rubs ABDOMEN: Soft, nontender. No hepatosplenomegaly, normal bowel sounds, no guarding or rigidity. EXTREMITIES: No clubbing, no cyanosis, 2+ pulses and upper and lower extremities. There is mild pedal edema noted MUSCULOSKELETAL: Muscle strength and tone normal. SPINE: No scoliosis or deformity SKIN: No rashes CENTRAL NERVOUS SYSTEM: Alert and oriented -3. No focal deficits, tone is normal in all 4 extremities. PSYCHIATRIC: Alert and oriented -3. Appropriate affect. Intact judgment and insight. - Labs CBC & Chem 7: 07/23/17 06:51 07/23/17 06:51 Labs: Abnormal Lab Results - Last 24 Hours (Table) 07/22/17 07/22/17 07/23/17 Range/Units 17:45 20:35 06:51 RBC 2.74 L (4.30-5.90) m/uL Hgb 8.8 L (13.0-17.5) gm/dL Hct 27.8 L (39.0-53.0) % MCV 101.6 H (80.0-100.0) fL Neutrophils # 9.1 H (1.3-7.7) k/uL Lymphocytes # 0.5 L (1.0-4.8) k/uL BUN (9-20) mg/dL Creatinine (0.66-1.25) mg/dL Glucose (74-99) mg/dL POC Glucose (mg/dL) 154 H 218 H (75-99) mg/dL 07/23/17 07/23/17 07/23/17 Range/Units 06:51 07:28 11:31 RBC (4.30-5.90) m/uL Hgb (13.0-17.5) gm/dL Hct (39.0-53.0) % MCV (80.0-100.0) fL Neutrophils # (1.3-7.7) k/uL Lymphocytes # (1.0-4.8) k/uL BUN 29 H (9-20) mg/dL Creatinine 0.65 L (0.66-1.25) mg/dL Glucose 136 H (74-99) mg/dL POC Glucose (mg/dL) 153 H 198 H (75-99) mg/dL Microbiology - Last 24 Hours (Table) 07/21/17 10:14 Blood Culture - Preliminary Blood No Growth after 48 hours 07/21/17 10:05 Blood Culture - Preliminary Blood No Growth after 48 hours Assessment and Plan Assessment: #1. Acute hypoxic respiratory failure secondary to acute COPD exacerbation, chest x-ray from 07/21/2017 showed bibasilar density consistent with bibasilar atelectasis, no clear-cut evidence of pneumonia noted. On the chest x-ray, however the CT of the chest is showing some nonspecific opacities could be consistent with pneumonitis. Clinically however I believe the findings are nonspecific, and I strongly doubt pneumonia. #2. Leukopenia, of unclear etiology, possibly related to a protracted illness, multiple hospitalizations #3. Macrocytic anemia, hemoglobin on admission is 8.7, his previous hemoglobin from 06/28/2017 was 11.8 #4. Recent hospitalization for COPD exacerbation and influenza A tracheobronchitis, discharged to [facility] rehab on 07/10/2017. Prior to that hadn't hospitalization for right lower lobe pneumonia and was discharged home on 06/20/2017, and he was hospitalized for COPD exacerbation before that and discharged home on 06/04/2017 #5. Hyperlipidemia #6. Paroxysmal atrial fibrillation, patient was previously on Coumadin, however it does not appear on his home list now. We will investigate further #7. Hypertension #8. History of coronary artery disease #9. History of thoracic aortic aneurysm, status post surgical repair in 2003 #10. Degenerative arthritis #11. Mild impairment of the systolic function with an EF of 45%, proBNP from this admission is within normal limits for his age at 89. Troponin was negative 1. Recommendation: Continue present treatment plan including bronchodilators, antibiotics, diuretics, steroids, consider discharge planning in the next 24 hours and follow-up on outpatient basis Time with Patient: Less than 30
[2017-07-23 17:33] LABS: Glucose,Whole Blood 176 mg/dL (75-99)
[2017-07-23 20:06] LABS: Glucose,Whole Blood 233 mg/dL (75-99)
--- NOTE | 2017-07-23 20:09 | PN ---
PROGRESS NOTE DATE OF SERVICE: 07/23/2017 Patient is seen at bedside. Claims he is feeling better. No family is at bedside. Today vital signs: Temperature 97.6, pulse 82, respiration 18, blood pressure 173/88, O2 saturation 97%. HEENT: Atraumatic, normocephalic. Pupils equal and react to light. Extraocular movements intact. Buccal mucosa is fair. Neck is supple without lymphadenopathy. JVD is negative. No carotid bruit heard. Lungs are markedly decreased breath sounds and crackles at the bases. No wheezing. Heart is regular rate and rhythm without any murmurs or gallop rhythm. Abdomen is soft, nontender, nondistended. Bowel sounds positive. Extremities no edema, clubbing or cyanosis. Pulses are palpable. Central nervous system cranial nerves 2-12 grossly intact. No gross motor or sensory deficit. Psychiatric: Patient has fair judgment and affect. LAB: CBC white blood count 10, hemoglobin 8.8, hematocrit 27.8, platelet count of 258. Sodium 138, potassium 4.5, chloride 107, bicarb 25, BUN 29, creatinine 1.6, and glucose 136. ASSESSMENT: 1. Acute hypoxemic respiratory failure. 2. Acute exacerbation chronic obstructive pulmonary disease. 3. Pneumonia. 4. Neutropenia, etiology unclear, possibly secondary to multiple hospitalizations and protracted course of illness. 5. Anemia. 6. Hyperlipidemia. 7. Paroxysmal atrial fibrillation. 8. Hypertension. 9. Coronary artery disease. PLAN: To continue the patient on bronchodilators, antibiotics and diuretics, oral and nebulizers and steroids. Pulmonary is following. They are planning to start discharge planning possibly over next 24-48 hours. The patient is aware of the plan and is agreeable. Patient was originally transferred from skilled rehab and does agree to be transferred back to skilled rehab upon discharge. MMODL / IJN: [id number] /
[2017-07-24] MEDS ORDERED: VANCOMYCIN IV PER PHARMACY 1 EACH MISC MISCELLANE PRN (06:14)
[2017-07-24 07:42] LABS: Glucose,Whole Blood 144 mg/dL (75-99)
[2017-07-24 07:59] LABS: INR 1.8 (<1.2); Prothrombin Time 16.8 sec (9.0-12.0)
[2017-07-24 08:06] LABS: Basophils % (A) 0 %; Eosinophils % (A) 0 %; HCT 31.2 % (39.0-53.0); HGB 9.9 gm/dL (13.0-17.5); Hypochromasia Slight; Lymphocytes # (A) 0.6 k/uL (1.0-4.8); Lymphocytes % (A) 6 %; MCH 31.6 pg (25.0-35.0); MCHC 31.8 g/dL (31.0-37.0); MCV 99.3 fL (80.0-100.0); Mean Platelet Volume 7.4; Monocytes # (A) 0.3 k/uL (0-1.0); Monocytes % (A) 3 %; Neutrophils # (A) 9.2 k/uL (1.3-7.7); Neutrophils % (A) 90 %; Platelet Count 290 k/uL (150-450); Poikilocytosis Slight; RBC 3.14 m/uL (4.30-5.90); RDW 13.9 % (11.5-15.5); WBC 10.2 k/uL (3.8-10.6)
[2017-07-24 08:22] LABS: Anion Gap 7 mmol/L; Blood Urea Nitrogen 32 mg/dL (9-20); Calcium 9.5 mg/dL (8.4-10.2); Carbon Dioxide 30 mmol/L (22-30); Chloride 102 mmol/L (98-107); Glucose 131 mg/dL (74-99); Potassium 4.6 mmol/L (3.5-5.1); Sodium 139 mmol/L (137-145)
[2017-07-24] MEDS: FORMOTEROL FUMARATE 20 MCG/2 ML NEBU INHALATION SCH ×2 (09:00→20:37)
[2017-07-24] MEDS: BUDESONIDE 1 MG/2 ML NEBU INHALATION SCH ×2 (09:00→20:37)
[2017-07-24] MEDS: IPRATROPIUM-ALBUTEROL 3 ML NEB INHALATION SCH ×4 (09:00→20:38)
[2017-07-24 09:08] VITALS: RESP 18
[2017-07-24] MEDS: VANCOMYCIN 1,500 MG in SODIUM CHLORIDE 0.9% 250 ML IVPB SCH ×2 (09:23→17:59)
[2017-07-24] MEDS: cefTRIAXone IN SWFI 1,000 MG/10 ML SYRINGE IVP SCH (09:23)
[2017-07-24] MEDS: methylPREDNISolone SOD SUCCI 125 MG/2 ML VIAL IV SCH (09:24)
[2017-07-24] MEDS: HEPARIN SODIUM,PORCINE 5,000 UNIT/ML 1 ML VIAL SQ SCH ×2 (09:24→20:25)
[2017-07-24] MEDS: PANTOPRAZOLE 40 MG TABLET PO SCH (09:25)
[2017-07-24] MEDS: METOPROLOL TARTRATE 50 MG TAB PO SCH ×2 (09:25→20:25)
[2017-07-24] MEDS: INSULIN ASPART 100 UNIT/ML 1 ML 10 ML VIAL SQ SCH ×4 (09:28→21:27)
--- NOTE | 2017-07-24 10:04 | CDI ---
No clear evidence of pneumonia. The clinical findings were nonspecific and compatible with COPD exacerbation. Documentation Clarification Form Date: 07/24/2017 9:44:00 AM From: Clara Lawton RN, CCDS Admit Date: 07/20/2017 10:19:00 PM Patient Nme: Lee Obando Visit Number: [id number] ATTENTION: The Clinical Documentation Specialists (CDI) and [facility] Coding Staff appreciate your assistance in clarifying documentation. Please respond to the clarification below the line at the bottom and electronically sign. The CDI & [facility] Coding staff will review the response and follow-up if needed. Please note: Queries are made part of the Legal Health Record. If you have any questions, please contact the author of this message via ITS. Dr. Kelley/Jelly Reynoso CNP Pneumonia was documented in your notes and requires further specificity. History/Risk Factors: COPD, ex-smoker, GERD, pt was D/C 07/16 for a Exacerbation COPD and Influenza A, from [facility] Clinical Indicators: WBC: 2.6/10/10.2 Left shift: 9.2 CXR: "Probable basilar atelectasis, difficult to exclude small effusion." 07/23 Pulmonary Lung/Breathing assessment: Lung sounds are positive for a few crackles at the bases, no wheezing." Treatment: Antibiotics: Rocephin 1000mg IVP Q 24 hrs, Vanco 1500 mg IVPB Q 12 hrs O2: 2-4 L NC Breathing TX: Duoneb INH QID, Pulmicort 1mg BID In order to capture the severity of condition, please clarify if the condition signifies and you are treating for: Aspiration Pneumonia, identify if: Due to solids or liquids Bacterial Pneumonia, specify causal organism (if known) Gram Negative Pneumonia Due to Strep Due to Staph Due to E. coli Other bacteria (please specify) Viral Pneumonia, specify casual organism (if known) Other, please specify Unable to determine Please continue to document in your progress notes and discharge summary in order to capture severity of illness and risk of mortality. Include clinical findings that support your diagnosis. \\ Bacterial Pneumonia, specify causal organism unknown MTDD
--- NOTE | 2017-07-24 10:17 | CDI ---
Last Revision, April 2017 Documentation Clarification Form Date: 07/24/2017 10:05:00 AM From: Clara Lawton RN, CCDS Admit Date: 07/20/2017 10:19:00 PM Patient Name: Lee Obando Visit Number: [id number] ATTENTION: The Clinical Documentation Specialists (CDI) and [facility] Coding Staff appreciate your assistance in clarifying documentation. Please respond to the clarification below the line at the bottom and electronically sign. The CDI & [facility] Coding staff will review the response and follow-up if needed. Please note: Queries are made part of the Legal Health Record. If you have any questions, please contact the author of this message via ITS. Dr. Hyman History/Risk Factors: AF, CAD, CHF, HTN, COPD Clinical Indicators: 07/21 Pulmonary Consult: "Mild impairment of the systolic function with an EF of 45%, proBNP from this admission is within normal limits for his age at 89." VS/Pulse OX: Temp 97.9, hr 95, RR 20, B/P 106/62, spo2 96% 4l NC BNP: 552 06/03/17 Echocardiogram Results: 45-50%, mild mitral regurg, tricuspid regurg, pulmonic regurg 07/21/17 Chest X Ray: "Probable basilar atelectasis, difficult to exclude small effusion." Treatment: Lopressor 50 mg PO BID In your professional opinion, can you please clarify the acuity and type of CHF if known? Chronic Systolic Heart Failure: Chronic Diastolic Heart Failure: Chronic Systolic & Diastolic Heart Failure: Unable to Determine Other, please specify Please continue to document in your progress notes and discharge summary in order to capture severity of illness and risk of mortality. Include clinical findings that support your diagnosis. Chronic Systolic Heart Failure: MTDD
[2017-07-24 11:41] LABS: Glucose,Whole Blood 150 mg/dL (75-99)
[2017-07-24] MEDS: ALPRAZolam 0.25 MG TAB PO PRN (13:46)
--- NOTE | 2017-07-24 14:04 | P.PN ---
Subjective Progress Note Date: 07/24/17 Principal diagnosis: Acute hypoxic respiratory failure secondary to acute COPD exacerbation, no clear evidence of pneumonia Lee is a 77-year-old white male patient well known to our practice from his previous admissions for COPD and pneumonia, was recently discharged from this hospital on 07/10/2017 after being hospitalized for acute COPD exacerbation and influenza A tracheobronchitis. He was treated with Tamiflu, Levaquin, steroids , nebulized treatments. He had clinically improved, and was discharged to the [facility] rehab facility. Prior to that admission he was hospitalized with right lower lobe pneumonia and was discharged home on on 06/20/2017. Patient was still finishing his Levaquin at the skilled nursing. He was seen by Dr. Beckham in the office on 07/11/2017 in follow-up, chest x-rays taken in the office showed resolution of the right lower lobe infiltrate, patient was noted to be clinically doing much better. At the skilled nursing the staff noted increased shortness of breath, increased generalized weakness, hypoxia with O2 sat at 85% on room air. Patient is a very poor historian, but he was able to provide very limited information, and for the most part he could not understand why he was transferred to the hospital. He reports having chills, increased weakness, cough with production of yellow sputum and shortness of breath. He remembers having severe coughing spells. He was transferred to the [facility], where a blood gas was done and it showed pH is 7.45, pCO2 44, pO2 of 55, bicarb of 30, and O2 sat of 85% on room air. Patient was placed on supplemental oxygen. He was started on IV Rocephin, nebulized treatments, Pulmicort, IV steroids, and transferred to the [facility] for further evaluation and treatment. Chest x-ray from 07/21/2017 shows patchy basilar density bilaterally, probable basilar atelectasis, difficult to exclude small pleural effusion. Patient has been afebrile since admission, mildly short of breath with normal conversation, but in no acute distress. His pulse ox was 84% on room air, he is currently on 4 L per nasal cannula with a pulse ox at 98%. Reevaluated today on 05/17/2018, patient is feeling a bit better, but continues to have intermittent cough wheezing shortness of breath. CT of the chest was reviewed, it is negative for pulmonary embolism, however it did show nonspecific multifocal scattered pulmonary opacities could be focal areas of bronchopneumonia. I honestly believe the findings are very nonspecific, and the clinical presentation is not a clinical presentation of pneumonia. Reevaluated today on 07/23/2017, feeling better, breathing easier, hardly any cough no wheezing no shortness of breath no chest pain. Labs were reviewed, WBC count is 10 hemoglobin is 8.8 electrolytes are normal renal profile is relatively normal. CT of the chest was reviewed again. And discussed findings with the family at bedside. On 07/24/2017 patient continues to improve, denies any acute distress. He is sitting up in the chair, tolerating activity well. Remains on 3 L per nasal cannula with O2 sat at 93%. Sarah afebrile, hemodynamically stable. Lung sounds are negative for any rhonchi or wheezes, diminished lung sounds overall. Urine culture was found to be positive for MRSA, patient was initiated on IV vancomycin. He remains stable from pulmonary standpoint. [facility], pending the placement of a PICC line for infusions of vancomycin at the skilled nursing. Objective - Vital Signs Vital signs: Vital Signs Temp 97 F L 07/24/17 07:00 Pulse 84 07/24/17 12:51 Resp 18 07/24/17 07:00 BP 153/99 07/24/17 07:00 Pulse Ox 93 L 07/24/17 07:00 Intake & Output 07/23/17 07/24/17 07/24/17 18:59 06:59 18:59 Intake Total 450 590 Output Total 475 Balance -25 590 Weight 95.254 kg Intake: Oral 450 590 Output: Urine 475 Other: Voiding Method Urinal Urinal # Voids 4 2 - Exam GENERAL EXAM: Alert, pleasant, 77-year-old white male, in no acute distress. HEAD: Normocephalic/atraumatic. EYES: Normal reaction of pupils, equal size. Conjunctiva pink, sclera white. NOSE: Clear with pink turbinates. THROAT: No erythema or exudates. NECK: No masses, no JVD, no thyroid enlargement, no adenopathy. CHEST: No chest wall deformity. Symmetrical expansion. LUNGS: Lung sounds are generally diminished, no rhonchi, no rales or wheezes noted CVS: Regular rate and rhythm, normal S1 and S2, no gallops, no murmurs, no rubs ABDOMEN: Soft, nontender. No hepatosplenomegaly, normal bowel sounds, no guarding or rigidity. EXTREMITIES: No clubbing, no cyanosis, 2+ pulses and upper and lower extremities. There is mild pedal edema noted MUSCULOSKELETAL: Muscle strength and tone normal. SPINE: No scoliosis or deformity SKIN: No rashes CENTRAL NERVOUS SYSTEM: Alert and oriented -3. No focal deficits, tone is normal in all 4 extremities. PSYCHIATRIC: Alert and oriented -3. Appropriate affect. Intact judgment and insight. - Labs CBC & Chem 7: 07/24/17 07:24 07/24/17 07:24 Labs: Abnormal Lab Results - Last 24 Hours (Table) 07/23/17 07/23/17 07/24/17 Range/Units 17:23 20:00 07:24 RBC (4.30-5.90) m/uL Hgb (13.0-17.5) gm/dL Hct (39.0-53.0) % Neutrophils # (1.3-7.7) k/uL Lymphocytes # (1.0-4.8) k/uL PT 16.8 H (9.0-12.0) sec INR 1.8 H (<1.2) BUN (9-20) mg/dL Glucose (74-99) mg/dL POC Glucose (mg/dL) 176 H 233 H (75-99) mg/dL 07/24/17 07/24/17 07/24/17 Range/Units 07:24 07:24 07:29 RBC 3.14 L (4.30-5.90) m/uL Hgb 9.9 L (13.0-17.5) gm/dL Hct 31.2 L (39.0-53.0) % Neutrophils # 9.2 H (1.3-7.7) k/uL Lymphocytes # 0.6 L (1.0-4.8) k/uL PT (9.0-12.0) sec INR (<1.2) BUN 32 H (9-20) mg/dL Glucose 131 H (74-99) mg/dL POC Glucose (mg/dL) 144 H (75-99) mg/dL 02/26/18 Range/Units 11:34 RBC (4.30-5.90) m/uL Hgb (13.0-17.5) gm/dL Hct (39.0-53.0) % Neutrophils # (1.3-7.7) k/uL Lymphocytes # (1.0-4.8) k/uL PT (9.0-12.0) sec INR (<1.2) BUN (9-20) mg/dL Glucose (74-99) mg/dL POC Glucose (mg/dL) 150 H (75-99) mg/dL Microbiology - Last 24 Hours (Table) 07/21/17 10:14 Blood Culture - Preliminary Blood No Growth after 72 hours 07/21/17 10:05 Blood Culture - Preliminary Blood No Growth after 72 hours 07/21/17 11:30 Urine Culture - Final Urine,Clean Catch Methicillin resist S. aureus Assessment and Plan Plan: Assessment: #1. Acute hypoxic respiratory failure secondary to acute COPD exacerbation, chest x-ray from 07/21/2017 showed bibasilar density consistent with bibasilar atelectasis, no clear-cut evidence of pneumonia noted. The CT of the chest is showing some nonspecific opacities that could be consistent with pneumonitis. Clinically however the findings are nonspecific, and I strongly doubt pneumonia. #2. Leukopenia, of unclear etiology, possibly related to a protracted illness, multiple hospitalizations #3. Macrocytic anemia, hemoglobin on admission is 8.7, his previous hemoglobin from 06/28/2017 was 11.8 #4. Recent hospitalization for COPD exacerbation and influenza A tracheobronchitis, discharged to [facility] subacute rehab on 07/10/2017. Prior to that hadn't hospitalization for right lower lobe pneumonia and was discharged home on 06/20/2017, and he was hospitalized for COPD exacerbation before that and discharged home on 06/04/2017 #5. Hyperlipidemia #6. Paroxysmal atrial fibrillation, patient was previously on Coumadin, however it does not appear on his home list now. We will investigate further #7. Hypertension #8. History of coronary artery disease #9. History of thoracic aortic aneurysm, status post surgical repair in 2003 #10. Degenerative arthritis #11. Mild impairment of the systolic function with an EF of 45%, proBNP from this admission is within normal limits for his age at 89. Troponin was negative 1. Plan: Patient denies any acute dyspnea, chest congestion or sputum production. Denies any fever, chills or night sweats. He was started on vancomycin for the evidence of MRSA in the urine culture. We will request interventional radiology to place PICC line central venous catheter for outpatient infusions of vancomycin. Patient will probably need 7-10 day course of IV vancomycin. Continue nebulized treatments, we will switch his IV steroids to oral prednisone 40 mg daily. Continue Rocephin, continue Pulmicort and Perforomist. Patient can be discharged back to the [facility] once a PICC line is in place. I performed a history & physical examination of the patient and discussed their management with my nurse practitioner, Jelly Reynoso. I reviewed the nurse practitioner's note and agree with the documented findings and plan of care. Lung sounds are diminished, negative for any rhonchi or wheezing. The findings and the impression was discussed with the patient. I attest to the documentation by the nurse practitioner. Time with Patient: Less than 30
[2017-07-24] MEDS ORDERED: LIDOCAINE 2% INJ 20 MG/ML SQ ONE (14:35)
[2017-07-24] MEDS: ACETAMINOPHEN TAB 325 MG TAB PO PRN (15:43)
[2017-07-24 17:17] LABS: Glucose,Whole Blood 159 mg/dL (75-99)
[2017-07-24 20:58] LABS: Glucose,Whole Blood 176 mg/dL (75-99)
[2017-07-25 07:19] LABS: Glucose,Whole Blood 107 mg/dL (75-99)
[2017-07-25 07:42] VITALS: BP 162/91; TEMP 97.1
[2017-07-25 08:13] LABS: Anion Gap 8 mmol/L; Blood Urea Nitrogen 34 mg/dL (9-20); Calcium 8.9 mg/dL (8.4-10.2); Carbon Dioxide 27 mmol/L (22-30); Chloride 101 mmol/L (98-107); Glucose 94 mg/dL (74-99); Potassium 4.6 mmol/L (3.5-5.1); Sodium 136 mmol/L (137-145)
[2017-07-25] MEDS: cefTRIAXone IN SWFI 1,000 MG/10 ML SYRINGE IVP SCH (08:16)
[2017-07-25] MEDS: VANCOMYCIN 1,500 MG in SODIUM CHLORIDE 0.9% 250 ML IVPB SCH (08:17)
[2017-07-25] MEDS: HEPARIN SODIUM,PORCINE 5,000 UNIT/ML 1 ML VIAL SQ SCH (08:29)
[2017-07-25] MEDS: METOPROLOL TARTRATE 50 MG TAB PO SCH (08:31)
[2017-07-25] MEDS: PANTOPRAZOLE 40 MG TABLET PO SCH (08:32)
[2017-07-25] MEDS: FORMOTEROL FUMARATE 20 MCG/2 ML NEBU INHALATION SCH (08:42)
[2017-07-25] MEDS: IPRATROPIUM-ALBUTEROL 3 ML NEB INHALATION SCH ×2 (08:42→11:47)
[2017-07-25] MEDS: BUDESONIDE 1 MG/2 ML NEBU INHALATION SCH (08:42)
[2017-07-25] MEDS ORDERED: predniSONE 20 MG TAB PO SCH (09:00)
[2017-07-25] MEDS: ACETAMINOPHEN TAB 325 MG TAB PO PRN (09:08)
[2017-07-25] MEDS: INSULIN ASPART 100 UNIT/ML 1 ML 10 ML VIAL SQ SCH ×2 (09:08→12:49)
--- NOTE | 2017-07-25 10:14 | P.PN ---
Subjective Progress Note Date: 07/25/17 Principal diagnosis: Acute hypoxic respiratory failure secondary to acute COPD exacerbation, no clear evidence of pneumonia Lee is a 77-year-old white male patient well known to our practice from his previous admissions for COPD and pneumonia, was recently discharged from this hospital on 07/10/2017 after being hospitalized for acute COPD exacerbation and influenza A tracheobronchitis. He was treated with Tamiflu, Levaquin, steroids , nebulized treatments. He had clinically improved, and was discharged to the [facility] rehab facility. Prior to that admission he was hospitalized with right lower lobe pneumonia and was discharged home on on 06/20/2017. Patient was still finishing his Levaquin at the care home. He was seen by Dr. Beckham in the office on 07/11/2017 in follow-up, chest x-rays taken in the office showed resolution of the right lower lobe infiltrate, patient was noted to be clinically doing much better. At the care home the staff noted increased shortness of breath, increased generalized weakness, hypoxia with O2 sat at 85% on room air. Patient is a very poor historian, but he was able to provide very limited information, and for the most part he could not understand why he was transferred to the hospital. He reports having chills, increased weakness, cough with production of yellow sputum and shortness of breath. He remembers having severe coughing spells. He was transferred to the [facility], where a blood gas was done and it showed pH is 7.45, pCO2 44, pO2 of 55, bicarb of 30, and O2 sat of 85% on room air. Patient was placed on supplemental oxygen. He was started on IV Rocephin, nebulized treatments, Pulmicort, IV steroids, and transferred to the [facility] for further evaluation and treatment. Chest x-ray from 07/21/2017 shows patchy basilar density bilaterally, probable basilar atelectasis, difficult to exclude small pleural effusion. Patient has been afebrile since admission, mildly short of breath with normal conversation, but in no acute distress. His pulse ox was 84% on room air, he is currently on 4 L per nasal cannula with a pulse ox at 98%. Reevaluated today on 05/17/2018, patient is feeling a bit better, but continues to have intermittent cough wheezing shortness of breath. CT of the chest was reviewed, it is negative for pulmonary embolism, however it did show nonspecific multifocal scattered pulmonary opacities could be focal areas of bronchopneumonia. I honestly believe the findings are very nonspecific, and the clinical presentation is not a clinical presentation of pneumonia. Reevaluated today on 07/23/2017, feeling better, breathing easier, hardly any cough no wheezing no shortness of breath no chest pain. Labs were reviewed, WBC count is 10 hemoglobin is 8.8 electrolytes are normal renal profile is relatively normal. CT of the chest was reviewed again. And discussed findings with the family at bedside. On 07/24/2017 patient continues to improve, denies any acute distress. He is sitting up in the chair, tolerating activity well. Remains on 3 L per nasal cannula with O2 sat at 93%. Sarah afebrile, hemodynamically stable. Lung sounds are negative for any rhonchi or wheezes, diminished lung sounds overall. Urine culture was found to be positive for MRSA, patient was initiated on IV vancomycin. He remains stable from pulmonary standpoint. Could be discharged back to the [facility] today, pending the placement of a PICC line for infusions of vancomycin at the care home. On 07/25/2017 patient is seen in follow-up. He is sitting up in the chair, denies any acute distress. Lung sounds are diminished, there are no rhonchi or wheezes noted. Remains on 3 L per nasal cannula with O2 sat at 99%. He is afebrile. Respirations are even and nonlabored. He did receive his PICC line yesterday, and his left antecubital area. He is receiving infusions of vancomycin antibiotics, and Rocephin. He continues on oral prednisone, nebulized treatments, Pulmicort, and Perforomist. From pulmonary standpoint patient is clear for discharge back to the [facility] today Objective - Vital Signs Vital signs: Vital Signs Temp 97.1 F L 07/25/17 07:00 Pulse 64 07/25/17 09:38 Resp 18 07/25/17 09:38 BP 162/91 07/25/17 07:00 Pulse Ox 99 07/25/17 07:00 Intake & Output 07/24/17 07/25/17 07/25/17 18:59 06:59 18:59 Intake Total 360 250 Output Total 550 275 50 Balance -190 -25 -50 Weight 98 kg Intake: IV 250 Vancomycin 1,500 mg In 250 Sodium Chloride 0.9% 250 ml @ 125 mls/hr IVPB Q12H [facility] Rx#:[id number] Oral 360 Output: Urine 550 275 50 Other: Voiding Method Urinal Urinal Urinal Incontinent Incontinent # Voids 2 - Exam GENERAL EXAM: Alert, pleasant, 77-year-old white male, in no acute distress. HEAD: Normocephalic/atraumatic. EYES: Normal reaction of pupils, equal size. Conjunctiva pink, sclera white. NOSE: Clear with pink turbinates. THROAT: No erythema or exudates. NECK: No masses, no JVD, no thyroid enlargement, no adenopathy. CHEST: No chest wall deformity. Symmetrical expansion. LUNGS: Lung sounds are generally diminished, no rhonchi, no rales or wheezes noted CVS: Regular rate and rhythm, normal S1 and S2, no gallops, no murmurs, no rubs ABDOMEN: Soft, nontender. No hepatosplenomegaly, normal bowel sounds, no guarding or rigidity. EXTREMITIES: No clubbing, no cyanosis, 2+ pulses and upper and lower extremities. There is mild pedal edema noted MUSCULOSKELETAL: Muscle strength and tone normal. SPINE: No scoliosis or deformity SKIN: No rashes CENTRAL NERVOUS SYSTEM: Alert and oriented -3. No focal deficits, tone is normal in all 4 extremities. PSYCHIATRIC: Alert and oriented -3. Appropriate affect. Intact judgment and insight. - Labs CBC & Chem 7: 07/24/17 07:24 07/25/17 07:18 Labs: Abnormal Lab Results - Last 24 Hours (Table) 07/24/17 07/24/17 07/24/17 Range/Units 11:34 17:09 20:57 Sodium (137-145) mmol/L BUN (9-20) mg/dL Creatinine (0.66-1.25) mg/dL POC Glucose (mg/dL) 150 H 159 H 176 H (75-99) mg/dL 07/25/17 07/25/17 Range/Units 07:17 07:18 Sodium 136 L (137-145) mmol/L BUN 34 H (9-20) mg/dL Creatinine 0.65 L (0.66-1.25) mg/dL POC Glucose (mg/dL) 107 H (75-99) mg/dL Microbiology - Last 24 Hours (Table) 07/21/17 10:14 Blood Culture - Preliminary Blood No Growth after 72 hours 07/21/17 10:05 Blood Culture - Preliminary Blood No Growth after 72 hours Assessment and Plan Plan: Assessment: #1. Acute hypoxic respiratory failure secondary to acute COPD exacerbation, chest x-ray from 07/21/2017 showed bibasilar density consistent with bibasilar atelectasis, no clear-cut evidence of pneumonia noted. The CT of the chest is showing some nonspecific opacities that could be consistent with pneumonitis. Clinically however the findings are nonspecific, and I strongly doubt pneumonia. #2. Leukopenia, resolved #3. Macrocytic anemia, hemoglobin on admission is 8.7, his previous hemoglobin from 06/28/2017 was 11.8 #4. Recent hospitalization for COPD exacerbation and influenza A tracheobronchitis, discharged to [facility] subacute rehab on 07/10/2017. Prior to that hadn't hospitalization for right lower lobe pneumonia and was discharged home on 06/20/2017, and he was hospitalized for COPD exacerbation before that and discharged home on 06/04/2017 #5. Hyperlipidemia #6. Paroxysmal atrial fibrillation, patient was previously on Coumadin, however it does not appear on his home list now. We will investigate further #7. Hypertension #8. History of coronary artery disease #9. History of thoracic aortic aneurysm, status post surgical repair in 2003 #10. Degenerative arthritis #11. Mild impairment of the systolic function with an EF of 45%, proBNP from this admission is within normal limits for his age at 89. Troponin was negative 1. Plan: Patient had a PICC line placed in his left arm for outpatient vancomycin infusions. Remains stable from pulmonary standpoint, afebrile, denies any acute dyspnea. We will obtain room air pulse ox at rest, and with ambulation for evaluation of his home oxygen need. He is clear for discharge back to the [facility] facility today, we will need 7-10 days of vancomycin infusions for the MRSA in his urine, he can continue on prednisone taper, and 2 more days of oral Ceftin. I performed a history & physical examination of the patient and discussed their management with my nurse practitioner, Jelly Reynoso. I reviewed the nurse practitioner's note and agree with the documented findings and plan of care. Lung sounds are diminished, negative for any rhonchi or wheezing. The findings and the impression was discussed with the patient. I attest to the documentation by the nurse practitioner. Time with Patient: Less than 30
[2017-07-25 11:32] LABS: Glucose,Whole Blood 131 mg/dL (75-99)
[2017-07-25 11:50] VITALS: PULSE 81
--- NOTE | 2017-07-25 12:05 | P.DS ---
Providers Date of admission: 07/20/17 22:19 Expected date of discharge: 07/25/17 Attending physician: Claudia Hyman Consults: 07/21/17 00:22 Consult Physician Routine Consulting Provider: Rashmi Cruz Consult Reason/Comments: pneumonia Do you want consulting provider notified?: Yes Primary care physician: Stated None [place] [facility] Course: Final Diagnoses: 1. Acute hypoxemic respiratory failure 2. Acute COPD exacerbation 3. Neutropenia, etiology unclear possibly secondary to multiple hospitalizations Patient Condition at Discharge: Stable Plan - Discharge Summary New Discharge Prescriptions: New Cefuroxime [Ceftin] 500 mg PO BID #8 tab INSULIN LISPRO (HumaLOG) [humaLOG] 0 unit SQ ACHS #1 vial Ipratropium-Albuterol Nebulize [Duoneb 0.5 mg-3 mg/3 ml Soln] 3 ml INHALATION RT-QID ampul.neb Pantoprazole [Protonix] 40 mg PO DAILY tablet. predniSONE 10 mg PO DIRECTED #30 tab Vancomycin 1,500 mg IVPB Q12H 10 Days vial Warfarin Sodium [Coumadin] 2 mg PO DAILY #1 tablet Continue Potassium Chloride [Klor-Con 10] 10 meq PO BID Metoprolol Tartrate [Lopressor] 50 mg PO BID Aspirin 81 mg PO DAILY Fluticasone/Vilanterol [Breo Ellipta 100-25 Mcg Inhaler] 1 puff INHALATION RT -DAILY ALPRAZolam [Xanax] 0.25 mg PO Q12H PRN #20 tab PRN Reason: Anxiety HYDROcodone/APAP 5-325MG [Corolla 5-325] 1 tab PO Q6HR PRN #20 tab PRN Reason: Pain Discharge Medication List Aspirin 81 mg PO DAILY 06/02/17 [History] Metoprolol Tartrate [Lopressor] 50 mg PO BID 06/02/17 [History] Potassium Chloride [Klor-Con 10] 10 meq PO BID 06/02/17 [History] Fluticasone/Vilanterol [Breo Ellipta 100-25 Mcg Inhaler] 1 puff INHALATION RT- DAILY 07/20/17 [History] ALPRAZolam [Xanax] 0.25 mg PO Q12H PRN #20 tab 07/25/17 [Rx] Cefuroxime [Ceftin] 500 mg PO BID #8 tab 07/25/17 [Rx] HYDROcodone/APAP 5-325MG [Corolla 5-325] 1 tab PO Q6HR PRN #20 tab 07/25/17 [Rx] INSULIN LISPRO (HumaLOG) [humaLOG] 0 unit SQ ACHS #1 vial 07/25/17 [Rx] Ipratropium-Albuterol Nebulize [Duoneb 0.5 mg-3 mg/3 ml Soln] 3 ml INHALATION RT -QID ampul.neb 07/25/17 [Rx] Pantoprazole [Protonix] 40 mg PO DAILY tablet. 07/25/17 [Rx] Vancomycin 1,500 mg IVPB Q12H 10 Days vial 07/25/17 [Rx] Warfarin Sodium [Coumadin] 2 mg PO DAILY #1 tablet 07/25/17 [Rx] predniSONE 10 mg PO DIRECTED #30 tab 07/25/17 [Rx] Follow up Appointment(s)/Referral(s): Scott Bay DO [Doctor of Osteopathic Medicine] - 2 Weeks Isai Temple MD [REFERRING] - 3 Days (While at [facility]) Activity/Diet/Wound Care/Special Instructions: [facility] Daily PT/INR CBC, BMP in 3 days Diet: Consistent carb," Coumadin diet" Activity: As tolerated
--- NOTE | 2017-07-25 12:20 | P.DS ---
Providers Date of admission: 07/20/17 22:19 Expected date of discharge: 07/25/17 Attending physician: Claudia Hyman Consults: 07/21/17 00:22 Consult Physician Routine Consulting Provider: Rashmi Cruz Consult Reason/Comments: pneumonia Do you want consulting provider notified?: Yes Primary care physician: Stated None [place] Hospital Course: Final Diagnoses: 1. Acute hypoxic respiratory failure secondary to acute COPD exacerbation. 2. Acute UTI with MRSA 3. neutropenia, etiology unclear 4. Anemia, macrocytic, 5. Hyperlipidemia 6. Proximal atrial fibrillation 7. Hypertension 8. CAD This is a 77-year-old gentleman admitted with acute hypoxemic respiratory failure, acute COPD, pneumonia doubtful as per pulmonary, neutropenia, anemia, proximal atrial fibrillation, acute UTI and multiple other medical issues. Urine culture positive for MRSA. Evaluated by pulmonary. Maintained on nebulized bronchodilators, antibiotics. PICC line placed for IV antibiotic therapy. Significant clinical improvement. Patient has been cleared for discharge by pulmonary. Patient will be discharged to [facility] subacute rehab in a stable condition with guarded prognosis. Physical Exam:VSS, A & O X3, no acute distress.CV: Regular S1 and S2, LUNGS: Diminished. ABD: Soft, nontender, positive bowel sounds. NEURO: No focal deficits. Microbiology 07/21/17 10:14 Blood Blood Culture - Preliminary No Growth after 72 hours 07/21/17 10:05 Blood Blood Culture - Preliminary No Growth after 72 hours 07/21/17 11:30 Urine,Clean Catch Urine Culture - Final Methicillin resist S. aureus The impression and plan of care has been dictated as directed. : I performed a history and examination of this patient, discussed the same with the dictator. I agree with the dictator's note ,documented as a scribe. Any additional findings or plans will be noted. Time taken: 35 minutes Patient Condition at Discharge: Stable Plan - Discharge Summary New Discharge Prescriptions: New Cefuroxime [Ceftin] 500 mg PO BID #8 tab INSULIN LISPRO (HumaLOG) [humaLOG] 0 unit SQ ACHS #1 vial Ipratropium-Albuterol Nebulize [Duoneb 0.5 mg-3 mg/3 ml Soln] 3 ml INHALATION RT-QID ampul.josh Pantoprazole [Protonix] 40 mg PO DAILY tablet. predniSONE 10 mg PO DIRECTED #30 tab Vancomycin 1,500 mg IVPB Q12H 10 Days vial Warfarin Sodium [Coumadin] 2 mg PO DAILY #1 tablet Continue Potassium Chloride [Klor-Con 10] 10 meq PO BID Metoprolol Tartrate [Lopressor] 50 mg PO BID Aspirin 81 mg PO DAILY Fluticasone/Vilanterol [Breo Ellipta 100-25 Mcg Inhaler] 1 puff INHALATION RT -DAILY ALPRAZolam [Xanax] 0.25 mg PO Q12H PRN #20 tab PRN Reason: Anxiety HYDROcodone/APAP 5-325MG [[place] 5-325] 1 tab PO Q6HR PRN #20 tab PRN Reason: Pain Discharge Medication List Aspirin 81 mg PO DAILY 06/02/17 [History] Metoprolol Tartrate [Lopressor] 50 mg PO BID 06/02/17 [History] Potassium Chloride [Klor-Con 10] 10 meq PO BID 06/02/17 [History] Fluticasone/Vilanterol [Breo Ellipta 100-25 Mcg Inhaler] 1 puff INHALATION RT- DAILY 07/20/17 [History] ALPRAZolam [Xanax] 0.25 mg PO Q12H PRN #20 tab 07/25/17 [Rx] Cefuroxime [Ceftin] 500 mg PO BID #8 tab 07/25/17 [Rx] HYDROcodone/APAP 5-325MG [[place] 5-325] 1 tab PO Q6HR PRN #20 tab 07/25/17 [Rx] INSULIN LISPRO (HumaLOG) [humaLOG] 0 unit SQ ACHS #1 vial 07/25/17 [Rx] Ipratropium-Albuterol Nebulize [Duoneb 0.5 mg-3 mg/3 ml Soln] 3 ml INHALATION RT -QID ampul.neb 07/25/17 [Rx] Pantoprazole [Protonix] 40 mg PO DAILY tablet. 07/25/17 [Rx] Vancomycin 1,500 mg IVPB Q12H 10 Days vial 07/25/17 [Rx] Warfarin Sodium [Coumadin] 2 mg PO DAILY #1 tablet 07/25/17 [Rx] predniSONE 10 mg PO DIRECTED #30 tab 07/25/17 [Rx] Follow up Appointment(s)/Referral(s): Scott Bay DO [Doctor of Osteopathic Medicine] - 2 Weeks Syriac,Isai, MD [REFERRING] - 3 Days (While at [facility]) Cristal Garcia NPC [REFERRING] - 1 Week (After discharge from subacute rehab) Activity/Diet/Wound Care/Special Instructions: Shannon [facility] Daily PT/INR CBC, BMP in 3 days Diet: Consistent carb," Coumadin diet" Activity: As tolerated
--- NOTE | 2017-07-25 18:02 | P.PN ---
Subjective Progress Note Date: 07/24/17 Progress note being dictated for Dr. Hyman. Interval history:This is a 77-year-old gentleman admitted with acute hypoxemic respiratory failure, acute COPD, pneumonia doubtful as per pulmonary, neutropenia, anemia, proximal atrial fibrillation, acute UTI and multiple other medical issues. Urine culture positive for MRSA. Maintained on rocephin, vancomycin nebulized bronchodilators, antibiotics. Significant clinical improvement. PICC line placement pending. Objective - Vital Signs Vital signs: Vital Signs Temp 97.9 F 07/24/17 15:00 Pulse 86 07/24/17 16:19 Resp 18 07/24/17 15:00 BP 127/78 07/24/17 15:00 Pulse Ox 97 07/24/17 16:11 Intake & Output 07/24/17 07/24/17 07/25/17 06:59 18:59 06:59 Intake Total 590 360 Output Total 550 Balance 590 -190 Intake: Oral 590 360 Output: Urine 550 Other: Voiding Method Urinal Urinal # Voids 2 - Exam PHYSICAL EXAM: VITAL SIGNS: [As above] GENERAL: Sitting up in bed, no acute distress HEENT: Conjunctivae normal. eyes normal. Oral mucosa moist NECK: No JVD. No thyroid enlargement. No LNs CARDIOVASCULAR: S1, S2 muffled. No murmur RESPIRATION: Breath sounds diminished in the bases. No rhonchi or crackles. No wheezing ABDOMEN: Soft, nontender . No guarding. no masses palpable.Bowel sounds heard. LEGS: mild edema. PSYCHIATRY: Alert and oriented -3, mood and affect normal. NERVOUS SYSTEM: Cranial N 2-12 grossly normal. Moves all 4 limbs. Diffuse weakness No focal deficits. Skin: no rash Lymphatic system. No LN neck axilla or groin. - Labs CBC & Chem 7: 07/24/17 07:24 07/25/17 07:18 Labs: Abnormal Lab Results - Last 24 Hours (Table) 07/23/17 07/24/17 07/24/17 Range/Units 20:00 07:24 07:24 RBC 3.14 L (4.30-5.90) m/uL Hgb 9.9 L (13.0-17.5) gm/dL Hct 31.2 L (39.0-53.0) % Neutrophils # 9.2 H (1.3-7.7) k/uL Lymphocytes # 0.6 L (1.0-4.8) k/uL PT 16.8 H (9.0-12.0) sec INR 1.8 H (<1.2) BUN (9-20) mg/dL Glucose (74-99) mg/dL POC Glucose (mg/dL) 233 H (75-99) mg/dL 07/24/17 07/24/17 07/24/17 Range/Units 07:24 07:29 11:34 RBC (4.30-5.90) m/uL Hgb (13.0-17.5) gm/dL Hct (39.0-53.0) % Neutrophils # (1.3-7.7) k/uL Lymphocytes # (1.0-4.8) k/uL PT (9.0-12.0) sec INR (<1.2) BUN 32 H (9-20) mg/dL Glucose 131 H (74-99) mg/dL POC Glucose (mg/dL) 144 H 150 H (75-99) mg/dL 07/24/17 Range/Units 17:09 RBC (4.30-5.90) m/uL Hgb (13.0-17.5) gm/dL Hct (39.0-53.0) % Neutrophils # (1.3-7.7) k/uL Lymphocytes # (1.0-4.8) k/uL PT (9.0-12.0) sec INR (<1.2) BUN (9-20) mg/dL Glucose (74-99) mg/dL POC Glucose (mg/dL) 159 H (75-99) mg/dL Microbiology - Last 24 Hours (Table) 07/21/17 10:14 Blood Culture - Preliminary Blood No Growth after 72 hours 07/21/17 10:05 Blood Culture - Preliminary Blood No Growth after 72 hours 07/21/17 11:30 Urine Culture - Final Urine,Clean Catch Methicillin resist S. aureus Assessment and Plan Assessment: 1. Acute hypoxic respiratory failure secondary to acute COPD exacerbation. 2. Acute UTI with MRSA 3. neutropenia, etiology unclear 4. Anemia, macrocytic, 5. Hyperlipidemia 6. Proximal atrial fibrillation 7. Hypertension 8. CAD Plan: Continue on current medication regime ,monitoring and symptomatic treatment. Maintain nebulized bronchodilators, steroids, antibiotics. PICC line ordered. Discharge planning in progress for [facility] tomorrow. The impression and plan of care has been dictated as directed. : I performed a history and examination of this patient, discussed the same with the dictator. I agree with the dictator's note ,documented as a scribe. Any additional findings or plans will be noted.
[2017-07-25] MEDS ORDERED: CEFUROXIME 250 MG TAB PO SCH (21:00)
[2017-07-26] MEDS ORDERED: VANCOMYCIN TROUGH DUE 1 EACH MISC MISCELLANE ONE (06:00)
--- NOTE | 2017-07-26 07:54 | IR ---
EXAMINATION TYPE: IR cvc insert >=5 years DATE OF EXAM: 07/25/2017 COMPARISON: NONE CLINICAL HISTORY: Infection Needs long-term intravenous access for antibiotics. PROCEDURE: After informed consent, the skin overlying the upper extremity vein was localized with ultrasound and noted to be compressible and patent. An ultrasound image was obtained and submitted on the patient's chart. The overlying skin was prepped and draped and Lidocaine was used for local anesthesia. A skin raji was made with a scalpel. Access was gained to the vein under ultrasound guidance with a 21 gauge needle and a 0.018 inch wire was advanced. Access site was dilated with Peel-Away sheath and catheter tailored to the appropriate length and advanced such that the distal tip is at the cavoatrial junction. Spot image was obtained verifying placement. Catheter was fixed to the skin and a sterile dressing was placed following hemostasis. Catheter was aspirated and flushed with saline. Patient was discharged in stable condition without complication.Maximal barrier technique is utilized. Ultrasound image is documented on the chart. Ultrasound used with sterile technique. Fluoro time and fluoroscopic images submitted to document procedure: 120 intraoperative images, 1.1 minutes fluoroscopy time IMPRESSION: STATUS POST ULTRASOUND AND FLUOROSCOPIC GUIDED PICC LINE PLACEMENT, READY FOR USE. THIS PROCEDURE WAS PERFORMED BY THE UNDERSIGNED. JESE
== END 2017-07-25 14:30 | DRG 190 ==
LOC: 5MS5E 22:19
PROVIDERS: ADMIT Hospitalist; ATTEND Hospitalist
PROC: 02HV33Z Insertion of Infusion Device into Superior Vena Cava, Percutaneous Approach (ICD-10-PCS; principal; 2017-07-25)
DX: J44.1 Chronic obstructive pulmonary disease with (acute) exacerbation (principal); J96.01 Acute respiratory failure with hypoxia; J98.11 Atelectasis; N39.0 Urinary tract infection, site not specified; I50.9 Heart failure, unspecified; I11.0 Hypertensive heart disease with heart failure; D70.9 Neutropenia, unspecified; D53.9 Nutritional anemia, unspecified; I48.0 Paroxysmal atrial fibrillation; B95.62 Methicillin resistant Staphylococcus aureus infection as the cause of diseases classified elsewhere; E78.5 Hyperlipidemia, unspecified; I25.10 Atherosclerotic heart disease of native coronary artery without angina pectoris; K21.9 Gastro-esophageal reflux disease without esophagitis; M19.90 Unspecified osteoarthritis, unspecified site; Z79.82 Long term (current) use of aspirin; Z79.899 Other long term (current) drug therapy; Z82.49 Family history of ischemic heart disease and other diseases of the circulatory system; Z85.828 Personal history of other malignant neoplasm of skin; Z87.442 Personal history of urinary calculi; Z87.891 Personal history of nicotine dependence; Z96.641 Presence of right artificial hip joint; Z96.653 Presence of artificial knee joint, bilateral; Z88.5 Allergy status to narcotic agent
CPT/HCPCS: 36569; 71046; 71275; 76937; 77001; 80048; 81003; 82550; 82553; 83605; 83880; 84484; 85025; 85027; 85610; 87040; 87077; 87086; 87186; 87502; 94640; 94760

== ENCOUNTER 2017-11-29 04:17 | Inpatient (IN) | payer MEDICARE, BC ==
[2017-11-29] MEDS ORDERED: NAFCILLIN 2 GM in DEXTROSE 5% IN WATER 50 ML IVPB STA ×2 (05:12)
--- NOTE | 2017-11-29 05:16 | ED ---
General Adult HPI - General Chief complaint: Back Pain/Injury Stated complaint: BACK INJURY Time Seen by Provider: 11/29/17 04:57 Source: EMS Mode of arrival: EMS Limitations: no limitations - History of Present Illness Initial comments: This patient is 77-year-old man transferred from outside hospital. Patient states that around 1 in the afternoon he had developed nausea and had an episode of vomiting, and also felt like he was having a fever. Onset/Timin -: hour(s) Consistency: constant Improves with: none Worsens with: none Associated Symptoms: fever/chills, nausea/vomiting Treatments Prior to Arrival: none - Related Data Home Medications Medication Instructions Recorded Confirmed Aspirin 81 mg PO DAILY 06/02/17 11/29/17 Metoprolol Tartrate [Lopressor] 50 mg PO BID 06/02/17 11/29/17 Acetaminophen [Acetaminophen ER] 650 mg PO Q4HR PRN 11/29/17 11/29/17 Albuterol Sulfate [Proair Hfa] 1 - 2 puff INHALATION Q6HR PRN 11/29/17 11/29/17 Amiodarone HCl [Pacerone] 200 mg PO DAILY 11/29/17 11/29/17 Atorvastatin Calcium [Lipitor] 20 mg PO HS 11/29/17 11/29/17 Azithromycin [Zithromax Z-pack] 0 mg PO DIRECTED 11/29/17 11/29/17 Bisacodyl 5 mg PO 11/29/17 Budesonide/Formoterol Fumarate 1 puff INHALATION BID 11/29/17 11/29/17 [Symbicort 80-4.5 Mcg Inhaler] Calcium Carbonate [Calcium] 600 mg PO 11/29/17 Cholecalciferol (Vitamin D3) 2,000 unit PO 11/29/17 [Vitamin D3] Ferrous Sulfate [Iron] 325 mg PO 11/29/17 Furosemide [Lasix] 40 mg PO BID 11/29/17 11/29/17 HYDROcodone/APAP 5-325MG [[place] 1 tab PO Q4HR PRN 11/29/17 11/29/17 5-325] Ipratropium-Albuterol Nebulize 3 ml INHALATION 11/29/17 [Duoneb 0.5 mg-3 mg/3 ml Soln] Lactulose [Cephulac] 30 ml PO DAILY 11/29/17 11/29/17 Lisinopril [Prinivil] 5 mg PO 11/29/17 Magnesium Hydroxide [Milk of 400 mg PO 11/29/17 Magnesia] Magnesium Oxide 400 mg PO 11/29/17 Meclizine HCl 12.5 mg PO TID 11/29/17 11/29/17 Midodrine HCl [ProAmatine] 10 mg PO 11/29/17 Multivitamin [Men's Multi-Vitamin] 1 each PO 11/29/17 Ondansetron [Zofran] 4 mg PO Q12HR PRN 11/29/17 11/29/17 Potassium Chloride [K-Tab ER] 20 meq PO 11/29/17 Ranitidine HCl [Zantac] 150 mg PO BID 11/29/17 11/29/17 Sennosides [Senna] 8.6 mg PO 11/29/17 Simvastatin [Zocor] 10 mg PO HS 11/29/17 11/29/17 Tamsulosin HCl [Flomax] 0.4 mg PO 11/29/17 Warfarin [Coumadin] 2.5 mg PO DAILY 11/29/17 11/29/17 Previous Rx's Medication Instructions Recorded INSULIN LISPRO (HumaLOG) [humaLOG] 0 unit SQ ACHS #1 vial 07/25/17 Allergies Allergy/AdvReac Type Severity Reaction Status Date / Time codeine Allergy Rash/Hives Verified 07/20/17 22:37 Review of Systems ROS Statement: Those systems with pertinent positive or pertinent negative responses have been documented in the HPI. ROS Other: All systems not noted in ROS Statement are negative. Constitutional: Reports: fever, chills Respiratory: Denies: cough, dyspnea Cardiovascular: Reports: edema. Denies: chest pain, palpitations Gastrointestinal: Reports: nausea, vomiting, constipation. Denies: abdominal pain, diarrhea Genitourinary: Denies: dysuria Musculoskeletal: Reports: back pain Skin: Denies: rash Neurological: Reports: weakness. Denies: headache Past Medical History Past Medical History: Atrial Fibrillation, Cancer, COPD, GERD/Reflux, Hyperlipidemia, Hypertension, Osteoarthritis (OA), Renal Disease Additional Past Medical History / Comment(s): COPD, paroxysmal atrial fibrillation, CHF with ejection fraction of 45%, recent hospitalization for a right lower lobe pneumonia and COPD exacerbation treated in the hospital and discharged on 06/20/2016, thoracic aortic aneurysm and previous repair and the patient also had a repair of a coarctation of the warts, hiatal hernia, nephrolithiasis, skin cancer that was resected, degenerative arthritis, COPD, acid reflux, hypertension, hyperlipidemia, History of Any Multi-Drug Resistant Organisms: MRSA Date of last positivie culture/infection: 07/21/17 MDRO Source:: URINE Past Surgical History: Cholecystectomy, Heart Catheterization, Hernia Repair, Joint Replacement Additional Past Surgical History / Comment(s): AAA/Aortic coarctation repair, bilateral total knee arthroplasties, R total hip arthroplasty, bilateral shoulder rotator cuff repairs, R inguinal hernia repair, skin cancer removed from nose, lithotripsy, colonoscopy Past Anesthesia/Blood Transfusion Reactions: No Reported Reaction Past Psychological History: No Psychological Hx Reported Smoking Status: Former smoker Past Alcohol Use History: None Reported Past Drug Use History: None Reported - Past Family History Mother Family Medical History: No Reported History Additional Family Medical History / Comment(s): Pt reluctant to speak about mother's hx. Father Family Medical History: Myocardial Infarction ([place]) Additional Family Medical History / Comment(s): Father had a [place] at the age of 65yrs. General Exam Limitations: no limitations General appearance: alert, in no apparent distress Head exam: Present: atraumatic, normocephalic Eye exam: Present: normal appearance. Absent: scleral icterus, conjunctival injection ENT exam: Present: mucous membranes dry Respiratory exam: Present: normal lung sounds bilaterally. Absent: respiratory distress, wheezes, rales, rhonchi, stridor Cardiovascular Exam: Present: regular rate, normal rhythm, systolic murmur (. 4 /6 systolic ejection murmur). Absent: diastolic murmur, rubs, gallop GI/Abdominal exam: Present: soft. Absent: distended, tenderness, guarding, rebound, mass, pulsatile mass, hernia Extremities exam: Present: normal capillary refill, pedal edema. Absent: calf tenderness Neurological exam: Present: alert, CN II-XII intact. Absent: oriented X3, motor sensory deficit Skin exam: Present: warm, dry, intact, erythema (Patient has cellulitis of the left lower leg, circumferential, from proximal tib-fib area down to the dorsum of the left foot). Absent: rash Course Vital Signs 11/29/17 04:21 Temperature 99.4 F Pulse Rate 71 Respiratory 20 Rate Blood Pressure 131/68 O2 Sat by Pulse 94 L Oximetry Disposition Clinical Impression: Cellulitis, Lumbar compression fracture Disposition: ADMITTED IP TO THIS HOSP Condition: Poor Is patient prescribed a controlled substance at d/c from ED?: No Referrals: Andrea Toro MD [Primary Care Provider] - 1-2 days
[2017-11-29] MEDS ORDERED: NALOXONE 0.4 MG/ML 1 ML VIAL IV PRN (06:48)
[2017-11-29] MEDS ORDERED: ONDANSETRON 4 MG/2 ML VIAL IVP PRN (06:48)
[2017-11-29] MEDS ORDERED: MORPHINE SULFATE 2 MG/ML SYRINGE IV PRN (06:48)
[2017-11-29] MEDS ORDERED: HYDROcodone/APAP 5-325MG 1 EACH TAB PO PRN (06:51)
[2017-11-29] MEDS: IPRATROPIUM-ALBUTEROL 3 ML NEB INHALATION SCH ×4 (08:21→19:07)
[2017-11-29] MEDS: SYMBICORT 80-4.5 MCG INHALER INHALATION SCH ×2 (08:21→19:07)
[2017-11-29 08:46] VITALS: BMI 28.2
[2017-11-29] MEDS ORDERED: METOPROLOL TARTRATE 50 MG TAB PO SCH (09:00)
[2017-11-29] MEDS ORDERED: FUROSEMIDE 40 MG TAB PO SCH (09:00)
[2017-11-29] MEDS ORDERED: HEPARIN SODIUM,PORCINE 5,000 UNIT/ML 1 ML VIAL SQ SCH (09:00)
[2017-11-29] MEDS ORDERED: POTASSIUM CHLORIDE ER 20 MEQ TAB.ER PO SCH (09:00)
[2017-11-29] MEDS ORDERED: NON-FORMULARY DRUG (Ranitidine Hcl [Zantac] 150 MG) PO SCH (09:00)
[2017-11-29] MEDS ORDERED: LISINOPRIL 5 MG TAB PO SCH (09:00)
[2017-11-29 09:34] LABS: INR 2.9 (<1.2); Prothrombin Time 25.9 sec (9.0-12.0)
[2017-11-29 09:44] LABS: Potassium 3.6 mmol/L (3.5-5.1)
[2017-11-29] MEDS: SODIUM CHLORIDE 0.9% 1,000 ML IV SCH (09:53)
[2017-11-29] MEDS: AMIODARONE 200 MG TAB PO SCH (09:54)
[2017-11-29] MEDS: ASPIRIN 81 MG PO SCH (09:54)
[2017-11-29] MEDS: LACTULOSE 20 GM/30 ML CUP PO SCH (09:54)
[2017-11-29] MEDS: MECLIZINE 12.5 MG TAB PO SCH ×3 (09:54→20:44)
[2017-11-29] MEDS: FAMOTIDINE 20 MG TAB PO SCH ×2 (09:55→20:44)
[2017-11-29] MEDS: MAGNESIUM OXIDE 400 MG TAB PO SCH (09:55)
--- NOTE | 2017-11-29 10:11 | US ---
EXAMINATION TYPE: US venous doppler duplex LE LT DATE OF EXAM: 11/29/2017 9:43 AM COMPARISON: NONE CLINICAL HISTORY: swelling. SIDE PERFORMED: Left TECHNIQUE: The lower extremity deep venous system is examined utilizing real time linear array sonog polly with graded compression, doppler sonography and color-flow sonography. VESSELS IMAGED: External Iliac Vein (EIV) Common Femoral Vein Deep Femoral Vein Greater Saphenous Vein * Femoral Vein Popliteal Vein Small Saphenous Vein * Proximal Calf Veins (* superficial vessels) Left Leg: Negative for DVT Stitcher Standard Machine unable to augment due to patient distance from chicken catcher while scanning. IMPRESSION: Grayscale, color doppler, spectral doppler imaging performed of the deep veins of the lo wer extremities. No evidence of deep venous thrombosis at or above the left knee.
[2017-11-29] MEDS: MAGNESIUM HYDROXIDE 2,400 MG/10 ML CUP PO SCH (10:14)
--- NOTE | 2017-11-29 12:06 | P.CNOR ---
History of Present Illness - HPI Consult date: 11/29/17 History of present illness: This is a 77 year-old male who is admitted for cellulitis. Orthopedics is consulted for L1 compression fracture. Patient's family present in the room states that he fell 2 weeks ago and is now complaining of lower back pain. Family states that the patient does walk around in his house and has been walking since he fell. Patient does admit to pain in the lower back, but denies numbness, weakness, tingling, radiuclar pain or weakness of the legs. Review of Systems See HPI. Past Medical History Past Medical History: Atrial Fibrillation, Cancer, COPD, GERD/Reflux, Hyperlipidemia, Hypertension, Osteoarthritis (OA), Renal Disease Additional Past Medical History / Comment(s): COPD, paroxysmal atrial fibrillation, CHF with ejection fraction of 45%, recent hospitalization for a right lower lobe pneumonia and COPD exacerbation treated in the hospital and discharged on 06/20/2016, thoracic aortic aneurysm and previous repair and the patient also had a repair of a coarctation of the warts, hiatal hernia, nephrolithiasis, skin cancer that was resected, degenerative arthritis, COPD, acid reflux, hypertension, hyperlipidemia, History of Any Multi-Drug Resistant Organisms: MRSA Year Discovered:: 07/21/17 MDRO Source:: URINE Past Surgical History: Cholecystectomy, Heart Catheterization, Hernia Repair, Joint Replacement Additional Past Surgical History / Comment(s): AAA/Aortic coarctation repair, bilateral total knee arthroplasties, R total hip arthroplasty, bilateral shoulder rotator cuff repairs, R inguinal hernia repair, skin cancer removed from nose, lithotripsy, colonoscopy Past Anesthesia/Blood Transfusion Reactions: No Reported Reaction Past Psychological History: No Psychological Hx Reported Additional Psychological History / Comment(s): Pt and his son live together. Pt uses a cane prn. He has a walker which he used after his hip surgery. He drives. Smoking Status: Former smoker Past Alcohol Use History: None Reported Additional Past Alcohol Use History / Comment(s): Pt quit smoking cigarettes in 2 and quit smoking pipe in 1987. Past Drug Use History: None Reported - Past Family History Mother Family Medical History: No Reported History Additional Family Medical History / Comment(s): Pt reluctant to speak about mother's hx. Father Family Medical History: Myocardial Infarction ([place]) Additional Family Medical History / Comment(s): Father had a [place] at the age of 65yrs. Medications and Allergies Home Medications Medication Instructions Recorded Confirmed Type ALPRAZolam [Xanax] 0.25 mg PO Q8HR 11/29/17 11/29/17 History Acetaminophen [Acetaminophen ER] 650 mg PO Q4HR PRN 11/29/17 11/29/17 History Amiodarone HCl [Pacerone] 200 mg PO DAILY 11/29/17 11/29/17 History Atorvastatin Calcium [Lipitor] 20 mg PO HS 11/29/17 11/29/17 History Bisacodyl 5 mg PO DAILY PRN 11/29/17 11/29/17 History Ferrous Sulfate [Iron] 325 mg PO DAILY 11/29/17 11/29/17 History Fluticasone/Vilanterol [Breo 1 puff INHALATION RT-DAILY 11/29/17 11/29/17 History Ellipta 100-25 Mcg Inhaler] Furosemide [Lasix] 40 mg PO BID 11/29/17 11/29/17 History HYDROcodone/APAP 5-325MG [[place] 1 tab PO Q6HR PRN 11/29/17 11/29/17 History 5-325] Ipratropium-Albuterol Nebulize 3 ml INHALATION RT-QID 11/29/17 11/29/17 History [Duoneb 0.5 mg-3 mg/3 ml Soln] Lactulose [Cephulac] 20 gm PO DAILY 11/29/17 11/29/17 History Lidocaine 5% Patch [Lidoderm] 1 patch TOPICAL DAILY 11/29/17 11/29/17 History Magnesium Hydroxide [Milk of 2,400 mg PO DAILY PRN 11/29/17 11/29/17 History Magnesia] Magnesium Oxide 400 mg PO DAILY 11/29/17 11/29/17 History Midodrine HCl [ProAmatine] 10 mg PO Q8HR 11/29/17 11/29/17 History Potassium Chloride [K-Tab ER] 20 meq PO TID 11/29/17 11/29/17 History Sennosides [Senna] 8.6 mg PO HS 11/29/17 11/29/17 History Tamsulosin HCl [Flomax] 0.4 mg PO HS 11/29/17 11/29/17 History Warfarin [Coumadin] 2 mg PO MOWEFR 11/29/17 11/29/17 History Warfarin [Coumadin] 3 mg PO SUTUTHSA 11/29/17 11/29/17 History Allergies Allergy/AdvReac Type Severity Reaction Status Date / Time codeine Allergy Rash/Hives Verified 11/29/17 10:40 Physical Examination On exam patient is alert and oriented and lying in bed in no acute distress. There is swelling of bilateral lower extremities. Patient has full range of motion of bilateral lower extremities. Sensation intact bilaterally. Patient has full foot and ankle motion without pain or difficulty. Capillary refill is normal at <2 seconds. On exam of the back there is no deformity or step off. There is mild tenderness to palpation over the lumbar spine. Skin is intact. There is no swelling, erythema or ecchymosis. Neurovascular status and circulatory status are intact. Results CT of the abdomen and pelvis shows L1 compression fracture. - Labs Labs: Abnormal Lab Results - Last 24 Hours (Table) 11/29/17 11/29/17 Range/Units 08:58 08:58 PT 25.9 H (9.0-12.0) sec INR 2.9 H (<1.2) BUN 30 H (9-20) mg/dL Creatinine 1.51 H (0.66-1.25) mg/dL Glucose 124 H (74-99) mg/dL Coagulation 11/29/17 Range/Units 08:58 INR 2.9 H (<1.2) Result Diagrams: 11/29/17 08:58 Assessment and Plan (1) Cellulitis Current Visit: Yes Status: Acute Code(s): L03.90 - CELLULITIS, UNSPECIFIED SNOMED Code(s): 296059932 (2) Lumbar compression fracture Current Visit: Yes Status: Acute Code(s): S32.000A - WEDGE COMPRESSION FRACTURE OF UNSP LUMBAR VERTEBRA, INIT SNOMED Code(s): 689887041 Plan: 1. Will obtain Spinomed TLSO to be worn at all times except while in bed or bathing. 2. No surgical intervention planned. Patient should follow up as an outpatient with [facility].
--- NOTE | 2017-11-29 14:42 | P.HPIM ---
History of Present Illness 71-year-old gentleman was a transfer from [facility] ER to [facility], he presents to [facility] with abdominal pain itches all completely patient had a CAT scan of the abdomen which did not show any significant abnormality except for compression fracture of L1 vertebrae, patient had some pain in the lower back. Patient denied any fever chills nausea vomiting there was a concern about left lower limb cellulitis upon exam I did not see any cellulitis although patient has bilateral swelling of bilateral lower extremities predominantly in the left lower extremity. Patient is on Coumadin for atrial fibrillation INR established Coumadin will be continued. Patient will need physical therapy evaluation and occupational therapy evaluation the other significant abnormality was able to appreciate is worsening kidney function creatinine of 1.5 baseline is around 0.8. Patient was recently treated for congestive heart failure mildly depressed ejection fraction of 45-50% patient is on lisinopril and Lasix both of which will be held patient blood pressure is in 90s systolic at this time. I do not have any x-ray available although patient clinically does not appear to be in CHF exacerbation patient does not have any JVD we'll obtain a BNP and a chest x-ray. Review of Systems REVIEW OF SYSTEMS: CONSTITUTIONAL: No fever, no malaise, no fatigue. HEENT: No recent visual problems or hearing problems. Denied any sore throat. CARDIOVASCULAR: No chest pain, orthopnea, PND, no palpitations, no syncope. PULMONARY: No shortness of breath, no cough, no hemoptysis. GASTROINTESTINAL: No diarrhea, no nausea, no vomiting, . Normoactive bowel sounds. NEUROLOGICAL: No headaches, no weakness, no numbness. HEMATOLOGICAL: Denies any bleeding or petechiae. GENITOURINARY: Denies any burning micturition, frequency, or urgency. MUSCULOSKELETAL/RHEUMATOLOGICAL: As mentioned in the interval history ENDOCRINE: Denies any polyuria or polydipsia. The rest of the 14-point review of systems is negative. Past Medical History Past Medical History: Atrial Fibrillation, Cancer, COPD, GERD/Reflux, Hyperlipidemia, Hypertension, Osteoarthritis (OA), Renal Disease Additional Past Medical History / Comment(s): COPD, paroxysmal atrial fibrillation, CHF with ejection fraction of 45%, recent hospitalization for a right lower lobe pneumonia and COPD exacerbation treated in the hospital and discharged on 06/20/2016, thoracic aortic aneurysm and previous repair and the patient also had a repair of a coarctation of the warts, hiatal hernia, nephrolithiasis, skin cancer that was resected, degenerative arthritis, COPD, acid reflux, hypertension, hyperlipidemia, History of Any Multi-Drug Resistant Organisms: MRSA Date of last positivie culture/infection: 07/21/17 MDRO Source:: URINE Past Surgical History: Cholecystectomy, Heart Catheterization, Hernia Repair, Joint Replacement Additional Past Surgical History / Comment(s): AAA/Aortic coarctation repair, bilateral total knee arthroplasties, R total hip arthroplasty, bilateral shoulder rotator cuff repairs, R inguinal hernia repair, skin cancer removed from nose, lithotripsy, colonoscopy Past Anesthesia/Blood Transfusion Reactions: No Reported Reaction Past Psychological History: No Psychological Hx Reported Additional Psychological History / Comment(s): Pt and his son live together. Pt uses a cane prn. He has a walker which he used after his hip surgery. He drives. Smoking Status: Former smoker Past Alcohol Use History: None Reported Additional Past Alcohol Use History / Comment(s): Pt quit smoking cigarettes in 1961 and quit smoking pipe in 1987. Past Drug Use History: None Reported - Past Family History Mother Family Medical History: No Reported History Additional Family Medical History / Comment(s): Pt reluctant to speak about mother's hx. Father Family Medical History: Myocardial Infarction ([place]) Additional Family Medical History / Comment(s): Father had a [place] at the age of 65yrs. Medications and Allergies Home Medications Medication Instructions Recorded Confirmed Type ALPRAZolam [Xanax] 0.25 mg PO Q8HR 11/29/17 11/29/17 History Acetaminophen [Acetaminophen ER] 650 mg PO Q4HR PRN 11/29/17 11/29/17 History Amiodarone HCl [Pacerone] 200 mg PO DAILY 11/29/17 11/29/17 History Atorvastatin Calcium [Lipitor] 20 mg PO HS 11/29/17 11/29/17 History Bisacodyl 5 mg PO DAILY PRN 11/29/17 11/29/17 History Ferrous Sulfate [Iron] 325 mg PO DAILY 11/29/17 11/29/17 History Fluticasone/Vilanterol [Breo 1 puff INHALATION RT-DAILY 11/29/17 11/29/17 History Ellipta 100-25 Mcg Inhaler] Furosemide [Lasix] 40 mg PO BID 11/29/17 11/29/17 History HYDROcodone/APAP 5-325MG [[place] 1 tab PO Q6HR PRN 11/29/17 11/29/17 History 5-325] Ipratropium-Albuterol Nebulize 3 ml INHALATION RT-QID 11/29/17 11/29/17 History [Duoneb 0.5 mg-3 mg/3 ml Soln] Lactulose [Cephulac] 20 gm PO DAILY 11/29/17 11/29/17 History Lidocaine 5% Patch [Lidoderm] 1 patch TOPICAL DAILY 11/29/17 11/29/17 History Magnesium Hydroxide [Milk of 2,400 mg PO DAILY PRN 11/29/17 11/29/17 History Magnesia] Magnesium Oxide 400 mg PO DAILY 11/29/17 11/29/17 History Midodrine HCl [ProAmatine] 10 mg PO Q8HR 11/29/17 11/29/17 History Potassium Chloride [K-Tab ER] 20 meq PO TID 11/29/17 11/29/17 History Sennosides [Senna] 8.6 mg PO HS 11/29/17 11/29/17 History Tamsulosin HCl [Flomax] 0.4 mg PO HS 11/29/17 11/29/17 History Warfarin [Coumadin] 2 mg PO MOWEFR 11/29/17 11/29/17 History Warfarin [Coumadin] 3 mg PO SUTUTHSA 11/29/17 11/29/17 History Allergies Allergy/AdvReac Type Severity Reaction Status Date / Time codeine Allergy Rash/Hives Verified 11/29/17 10:40 Physical Exam Vitals: Vital Signs Temp Pulse Pulse Resp BP BP Pulse Ox 11/29/17 12:12 64 11/29/17 11:58 60 11/29/17 10:14 98.4 F 66 16 116/68 99 11/29/17 08:34 60 11/29/17 08:21 60 11/29/17 07:23 99.4 F 72 18 95/56 96 11/29/17 06:58 72 18 95/56 96 11/29/17 04:21 99.4 F 71 20 131/68 94 L Intake and Output 11/28/17 11/29/17 11/29/17 22:59 06:59 14:59 Other: Voiding Method Urinal Weight 86.636 kg 86.636 kg PHYSICAL EXAMINATION: GENERAL: The patient is alert and oriented x3, not in any acute distress. Well developed, well nourished. HEENT: Pupils are round and equally reacting to light. EOMI. No scleral icterus. No conjunctival pallor. Normocephalic, atraumatic. No pharyngeal erythema. No thyromegaly. CARDIOVASCULAR: S1 and S2 present. No rubs, or gallops. And has systolic murmur and diuretic area PULMONARY: Chest is clear to auscultation, no wheezing or crackles. ABDOMEN: Soft, nontender, nondistended, normoactive bowel sounds. No palpable organomegaly. MUSCULOSKELETAL: No joint swelling or deformity. EXTREMITIES: No cyanosis, clubbing, he does have mild bilateral pedal edema although nonpitting, I do not believe patient has cellulitis. NEUROLOGICAL: Gross neurological examination did not reveal any focal deficits. SKIN: No rashes. Results CBC & Chem 7: 11/29/17 08:58 Labs: Abnormal Lab Results - Last 24 Hours (Table) 11/29/17 11/29/17 Range/Units 08:58 08:58 PT 25.9 H (9.0-12.0) sec INR 2.9 H (<1.2) BUN 30 H (9-20) mg/dL Creatinine 1.51 H (0.66-1.25) mg/dL Glucose 124 H (74-99) mg/dL Thrombosis Risk Factor Assmnt - Choose All That Apply Each Factor Represents 1 point: Abnormal pulmonary function (COPD), Heart failure (<1month), Obesity (BMI >25) Each Risk Factor Represents 3 Points: Age 75 years or older Thrombosis Risk Factor Assessment Total Risk Factor Score: 6 Thrombosis Risk Factor Assessment Level: High Risk Assessment and Plan Plan: -Compression fracture: Patient will need a DLCO place PT and OT evaluation possibility of discharge to subacute rehabilitation -Acute renal failure: Secondary to excessive diuretic therapy, and hypotension lisinopril will be discontinued diuretic therapy will be held and patient will be monitored. -Atrial fibrillation, may be paroxysmal patient has mild sinus bradycardia will cut down the dose of the beta helena patient will be continued on anticoagulation patient is therapy can INR repeat INR tomorrow -Abdominal pain: Etiology unknown probably gastritis symptoms resolved patient is on famotidine which will be continued -Hyperlipidemia -Congestive heart failure chronic systolic dysfunction without any acute examination patient is actually hypovolemic -COPD without any acute exacerbation -Gastroesophageal reflux disease -Hypertension patient is actually hypotensive now
[2017-11-29] MEDS: ACETAMINOPHEN TAB 325 MG TAB PO PRN ×2 (14:56→20:43)
--- NOTE | 2017-11-29 14:58 | XR ---
EXAMINATION TYPE: XR chest 1V DATE OF EXAM: 11/29/2017 COMPARISON: Prior chest x-ray 07/21/2017 HISTORY: Bilateral lower leg swelling TECHNIQUE: Single frontal view of the chest is obtained. FINDINGS: Patient is rotated. Postop changes are noted in the cervical spine. Heart is enlarged. No pneumothorax or pleural effusion. Patchy basilar density is present. The right shoulder may be high r iding suggesting chronic rotator cuff tear. Prominent lung volume could be indicative of underlying C OPD. Question some perihilar vascular indistinctness. IMPRESSION: Findings are similar. There is cardiomegaly. May be basilar atelectasis. Correlate to ex clude pulmonary venous hypertension and interstitial edema. Postop changes.
[2017-11-29] MEDS ORDERED: WARFARIN 2.5 MG TAB PO SCH (18:00)
[2017-11-29] MEDS: ATORVASTATIN 10 MG TAB PO SCH (20:43)
[2017-11-29] MEDS: METOPROLOL TARTRATE 25 MG TAB PO SCH (20:44)
[2017-11-30 06:58] LABS: Anisocytosis Slight; Basophils % (A) 0 %; Eosinophils # (A) 0.2 k/uL (0-0.7); Eosinophils % (A) 6 %; HCT 31.1 % (39.0-53.0); HGB 9.9 gm/dL (13.0-17.5); Lymphocytes % (A) 29 %; MCH 30.2 pg (25.0-35.0); MCHC 31.7 g/dL (31.0-37.0); MCV 95.4 fL (80.0-100.0); Mean Platelet Volume 7.3; Monocytes # (A) 0.2 k/uL (0-1.0); Monocytes % (A) 6 %; Neutrophils # (A) 1.9 k/uL (1.3-7.7); Neutrophils % (A) 54 %; Platelet Count 174 k/uL (150-450); RBC 3.26 m/uL (4.30-5.90); WBC 3.5 k/uL (3.8-10.6)
[2017-11-30 06:59] LABS: INR 3.3 (<1.2); Prothrombin Time 29.5 sec (9.0-12.0)
[2017-11-30] MEDS: IPRATROPIUM-ALBUTEROL 3 ML NEB INHALATION SCH ×4 (06:59→19:33)
[2017-11-30] MEDS: SYMBICORT 80-4.5 MCG INHALER INHALATION SCH ×2 (06:59→19:34)
[2017-11-30 07:15] LABS: Albumin 2.9 g/dL (3.5-5.0); Potassium 3.8 mmol/L (3.5-5.1); Total Bilirubin 0.3 mg/dL (0.2-1.3)
[2017-11-30] MEDS: ACETAMINOPHEN TAB 325 MG TAB PO PRN ×3 (08:04→20:22)
[2017-11-30] MEDS: ASPIRIN 81 MG PO SCH (08:05)
[2017-11-30] MEDS: AMIODARONE 200 MG TAB PO SCH (08:05)
[2017-11-30] MEDS: MECLIZINE 12.5 MG TAB PO SCH ×3 (08:06→21:33)
[2017-11-30] MEDS: LACTULOSE 20 GM/30 ML CUP PO SCH (08:06)
[2017-11-30] MEDS: MAGNESIUM OXIDE 400 MG TAB PO SCH (08:06)
[2017-11-30] MEDS: METOPROLOL TARTRATE 25 MG TAB PO SCH ×2 (08:06→20:22)
[2017-11-30] MEDS: FAMOTIDINE 20 MG TAB PO SCH (08:06)
[2017-11-30] MEDS: MAGNESIUM HYDROXIDE 2,400 MG/10 ML CUP PO SCH (08:21)
--- NOTE | 2017-11-30 08:21 | P.PN ---
Subjective Progress Note Date: 11/30/17 Principal diagnosis: Lumbar compression fracture Following patient for L1 compression fractures. Patient has no new complaints today. Objective - Vital Signs Vital signs: Vital Signs Temp 97.3 F L 11/30/17 07:29 Pulse 59 L 11/30/17 07:29 Resp 18 11/30/17 07:29 BP 133/62 11/30/17 07:29 Pulse Ox 98 11/30/17 07:29 Intake & Output 11/29/17 11/30/17 11/30/17 18:59 06:59 18:59 Intake Total 70 Output Total 400 Balance -330 Weight 86.636 kg Intake: Intake, IV Titration 70 Amount Sodium Chloride 0.9% 1, 70 000 ml @ 20 mls/hr IV . Q24H [facility] Rx#:[id number] Output: Urine 400 Other: Voiding Method Urinal Urinal # Voids 3 2 - Exam Alert and orientated to person, place, and time. Sitting up in bed, in no acute distress. Not wearing brace. Full movement and sensation of lower extremities bilaterally. - Labs CBC & Chem 7: 11/30/17 06:21 11/30/17 06:21 Labs: Abnormal Lab Results - Last 24 Hours (Table) 11/29/17 11/29/17 11/30/17 Range/Units 08:58 08:58 06:21 WBC 3.5 L (3.8-10.6) k/uL RBC 3.26 L (4.30-5.90) m/uL Hgb 9.9 L (13.0-17.5) gm/dL Hct 31.1 L (39.0-53.0) % RDW 17.0 H (11.5-15.5) % PT 25.9 H (9.0-12.0) sec INR 2.9 H (<1.2) BUN 30 H (9-20) mg/dL Creatinine 1.51 H (0.66-1.25) mg/dL Glucose 124 H (74-99) mg/dL Total Protein (6.3-8.2) g/dL Albumin (3.5-5.0) g/dL 11/30/17 11/30/17 Range/Units 06:21 06:21 WBC (3.8-10.6) k/uL RBC (4.30-5.90) m/uL Hgb (13.0-17.5) gm/dL Hct (39.0-53.0) % RDW (11.5-15.5) % PT 29.5 H (9.0-12.0) sec INR 3.3 H (<1.2) BUN 26 H (9-20) mg/dL Creatinine 1.34 H (0.66-1.25) mg/dL Glucose (74-99) mg/dL Total Protein 5.0 L (6.3-8.2) g/dL Albumin 2.9 L (3.5-5.0) g/dL Assessment and Plan (1) Lumbar compression fracture Current Visit: Yes Status: Acute Code(s): S32.000A - WEDGE COMPRESSION FRACTURE OF UNSP LUMBAR VERTEBRA, INIT SNOMED Code(s): 315559369 Plan: Awaiting brace. May discharge from orthopedic standpoint when brace fitting complete. Follow up with Dr. Wisdom in office in 2 weeks.
[2017-11-30] MEDS: SODIUM CHLORIDE 0.9% 1,000 ML IV SCH (08:46)
--- NOTE | 2017-11-30 16:20 | P.PN ---
Subjective Progress Note Date: 11/30/17 Progress note being dictated for Dr. Treviño History of Present Illness 71-year-old gentleman was a transfer from [facility] ER to [place], he presents to [facility] with abdominal pain itches all completely patient had a CAT scan of the abdomen which did not show any significant abnormality except for compression fracture of L1 vertebrae, patient had some pain in the lower back. Patient denied any fever chills nausea vomiting there was a concern about left lower limb cellulitis upon exam I did not see any cellulitis although patient has bilateral swelling of bilateral lower extremities predominantly in the left lower extremity. Patient is on Coumadin for atrial fibrillation INR established Coumadin will be continued. Patient will need physical therapy evaluation and occupational therapy evaluation the other significant abnormality was able to appreciate is worsening kidney function creatinine of 1.5 baseline is around 0.8. Patient was recently treated for congestive heart failure mildly depressed ejection fraction of 45-50% patient is on lisinopril and Lasix both of which will be held patient blood pressure is in 90s systolic at this time. I do not have any x-ray available although patient clinically does not appear to be in CHF exacerbation patient does not have any JVD we'll obtain a BNP and a chest x-ray. Review of Systems REVIEW OF SYSTEMS: CONSTITUTIONAL: No fever, no malaise, no fatigue. HEENT: No recent visual problems or hearing problems. Denied any sore throat. CARDIOVASCULAR: No chest pain, orthopnea, PND, no palpitations, no syncope. PULMONARY: No shortness of breath, no cough, no hemoptysis. GASTROINTESTINAL: No diarrhea, no nausea, no vomiting, . Normoactive bowel sounds. NEUROLOGICAL: No headaches, no weakness, no numbness. HEMATOLOGICAL: Denies any bleeding or petechiae. GENITOURINARY: Denies any burning micturition, frequency, or urgency. MUSCULOSKELETAL/RHEUMATOLOGICAL: As mentioned in the interval history ENDOCRINE: Denies any polyuria or polydipsia. The rest of the 14-point review of systems is negative. 11/30/2017 currently hypotensive, systolic in the high 90s. Receiving gentle IV fluid hydration with creatinine improving, currently down to 1.34. Anticoagulated on Coumadin, INR 3.3. Family attempting to locate brace from 2017. Objective - Vital Signs Vital signs: Vital Signs Temp 96.5 F L 11/30/17 14:09 Pulse 66 07/05/18 15:47 Resp 16 11/30/17 14:09 BP 98/53 11/30/17 14:09 Pulse Ox 97 11/30/17 14:09 Intake & Output 11/29/17 11/30/17 11/30/17 18:59 06:59 18:59 Intake Total 70 380 Output Total 400 250 Balance -330 130 Weight 86.636 kg Intake: Intake, IV Titration 70 160 Amount Sodium Chloride 0.9% 1, 70 160 000 ml @ 20 mls/hr IV . Q24H [facility] Rx#:[id number] Oral 220 Output: Urine 400 250 Other: Voiding Method Urinal Urinal # Voids 3 2 2 - Exam GENERAL: The patient is alert and oriented x3, not in any acute distress. Well developed, well nourished. HEENT: Pupils are round and equally reacting to light. EOMI. No scleral icterus. No conjunctival pallor. Normocephalic, atraumatic. No pharyngeal erythema. No thyromegaly. CARDIOVASCULAR: S1 and S2 present. No rubs, or gallops. And has systolic murmur and diuretic area PULMONARY: Chest is clear to auscultation, no wheezing or crackles. ABDOMEN: Soft, nontender, nondistended, normoactive bowel sounds. No palpable organomegaly. MUSCULOSKELETAL: No joint swelling or deformity. EXTREMITIES: No cyanosis, clubbing, he does have mild bilateral pedal edema although nonpitting, I do not believe patient has cellulitis. NEUROLOGICAL: Gross neurological examination did not reveal any focal deficits. SKIN: No rashes. - Labs CBC & Chem 7: 11/30/17 06:21 11/30/17 06:21 Labs: Abnormal Lab Results - Last 24 Hours (Table) 11/30/17 11/30/17 11/30/17 Range/Units 06:21 06:21 06:21 WBC 3.5 L (3.8-10.6) k/uL RBC 3.26 L (4.30-5.90) m/uL Hgb 9.9 L (13.0-17.5) gm/dL Hct 31.1 L (39.0-53.0) % RDW 17.0 H (11.5-15.5) % PT 29.5 H (9.0-12.0) sec INR 3.3 H (<1.2) BUN 26 H (9-20) mg/dL Creatinine 1.34 H (0.66-1.25) mg/dL Total Protein 5.0 L (6.3-8.2) g/dL Albumin 2.9 L (3.5-5.0) g/dL Assessment and Plan Assessment: -Compression fracture, unknown if pathologic or traumatic, brace pending -Acute renal failure: Secondary to excessive diuretic therapy, and hypotension lisinopril will be discontinued diuretic therapy will be held and patient will be monitored. -Atrial fibrillation, may be paroxysmal patient has mild sinus bradycardia will cut down the dose of the beta helena patient will be continued on anticoagulation -Abdominal pain: Etiology unknown probably gastritis symptoms resolved patient is on famotidine which will be continued -Hyperlipidemia -Congestive heart failure chronic systolic dysfunction without any acute examination patient is actually hypovolemic -COPD without any acute exacerbation -Gastroesophageal reflux disease -Hypertension patient is actually hypotensive now -Anemia of chronic disease Plan: Continue on current medication regime ,monitoring and symptomatic treatment. Patient does not have any more days left currently for subacute rehab, case management arranging home with home care. Insurance will not authorize another brace, family attempting to locate a similar brace that patient had used in 2017. Gentle IV fluid hydration, close monitoring of renal function and electrolytes with repeat labs ordered for a.m. daily PT INR.discharge planning in progress for tomorrow. The impression and plan of care has been dictated as directed. : I performed a history and examination of this patient, discussed the same with the dictator. I agree with the dictator's note ,documented as a scribe. Any additional findings or plans will be noted.
[2017-11-30] MEDS: ATORVASTATIN 10 MG TAB PO SCH (20:22)
[2017-12-01] MEDS: ACETAMINOPHEN TAB 325 MG TAB PO PRN ×3 (01:09→12:34)
[2017-12-01 06:47] LABS: INR 3.7 (<1.2); Prothrombin Time 33.2 sec (9.0-12.0)
[2017-12-01 06:48] LABS: Anisocytosis Slight; Basophils % (A) 0 %; Eosinophils # (A) 0.2 k/uL (0-0.7); Eosinophils % (A) 6 %; HGB 9.5 gm/dL (13.0-17.5); Lymphocytes # (A) 1.1 k/uL (1.0-4.8); Lymphocytes % (A) 26 %; MCH 30.4 pg (25.0-35.0); MCHC 31.8 g/dL (31.0-37.0); MCV 95.5 fL (80.0-100.0); Mean Platelet Volume 7.7; Monocytes # (A) 0.2 k/uL (0-1.0); Monocytes % (A) 5 %; Neutrophils # (A) 2.4 k/uL (1.3-7.7); Neutrophils % (A) 60 %; Platelet Count 152 k/uL (150-450); RBC 3.14 m/uL (4.30-5.90); RDW 16.9 % (11.5-15.5)
[2017-12-01 06:51] LABS: Calcium 8.8 mg/dL (8.4-10.2); Potassium 3.9 mmol/L (3.5-5.1)
[2017-12-01] MEDS: SYMBICORT 80-4.5 MCG INHALER INHALATION SCH (07:15)
[2017-12-01] MEDS: IPRATROPIUM-ALBUTEROL 3 ML NEB INHALATION SCH ×2 (07:15→11:06)
[2017-12-01 07:29] VITALS: BP 142/67; RESP 17; TEMP 97
[2017-12-01 07:58] VITALS: PULSE 60
--- NOTE | 2017-12-01 08:36 | P.PN ---
Subjective Progress Note Date: 12/01/17 This is a 77-year-old male admitted for cellulitis. Patient sustained an L1 compression fracture. Patient has received his back brace. Patient denies any new symptoms or complaints today. Patient denies any fever/chills, numbness, weakness, tingling, abdominal pain, shortness of breath or chest pain. Objective - Vital Signs Vital signs: Vital Signs Temp 97.0 F L 12/01/17 07:28 Pulse 56 L 12/01/17 07:28 Resp 17 12/01/17 07:28 BP 142/67 12/01/17 07:28 Pulse Ox 93 L 12/01/17 07:28 Intake & Output 11/30/17 12/01/17 12/01/17 18:59 06:59 18:59 Intake Total 617 160 Output Total 250 450 Balance 367 -290 Intake: Intake, IV Titration 160 160 Amount Sodium Chloride 0.9% 1, 160 160 000 ml @ 40 mls/hr IV . Q24H [facility] Rx#:[id number] Oral 457 Output: Urine 250 450 Other: Voiding Method Urinal # Voids 2 1 - Exam Patient is lying in bed in no acute distress and is alert and oriented. Patient has good range of motion of bilateral lower extremities without pain or difficulty. Neurovascular status and circulatory status are intact. - Labs CBC & Chem 7: 12/01/17 06:14 12/01/17 06:14 Labs: Abnormal Lab Results - Last 24 Hours (Table) 12/01/17 12/01/17 12/01/17 Range/Units 06:14 06:14 06:14 RBC 3.14 L (4.30-5.90) m/uL Hgb 9.5 L (13.0-17.5) gm/dL Hct 30.0 L (39.0-53.0) % RDW 16.9 H (11.5-15.5) % PT 33.2 H (9.0-12.0) sec INR 3.7 H (<1.2) BUN 23 H (9-20) mg/dL Assessment and Plan (1) Cellulitis Current Visit: Yes Status: Acute Code(s): L03.90 - CELLULITIS, UNSPECIFIED SNOMED Code(s): 834902149 (2) Lumbar compression fracture Current Visit: Yes Status: Acute Code(s): S32.000A - WEDGE COMPRESSION FRACTURE OF UNSP LUMBAR VERTEBRA, INIT SNOMED Code(s): 309673894 Plan: 1. LSO brace to be worn at all times except while in bed or bathing. Patient could not afford to purchase the TLSO brace as he already had an LSO brace. 2. No surgical intervention planned. Patient should follow up as an outpatient with [facility].
[2017-12-01] MEDS ORDERED: FAMOTIDINE 20 MG TAB PO SCH (09:00)
[2017-12-01] MEDS: SODIUM CHLORIDE 0.9% 1,000 ML IV SCH (09:08)
[2017-12-01] MEDS: MAGNESIUM HYDROXIDE 2,400 MG/10 ML CUP PO SCH (09:13)
[2017-12-01] MEDS: ASPIRIN 81 MG PO SCH (09:13)
[2017-12-01] MEDS: AMIODARONE 200 MG TAB PO SCH (09:13)
[2017-12-01] MEDS: MAGNESIUM OXIDE 400 MG TAB PO SCH (09:13)
[2017-12-01] MEDS: LACTULOSE 20 GM/30 ML CUP PO SCH (09:13)
[2017-12-01] MEDS: METOPROLOL TARTRATE 25 MG TAB PO SCH (09:14)
[2017-12-01] MEDS: MECLIZINE 12.5 MG TAB PO SCH (09:14)
--- NOTE | 2017-12-01 13:01 | XR ---
EXAMINATION TYPE: XR chest 1V portable DATE OF EXAM: 12/01/2017 Comparison: 11/29/2017 Clinical History: 77 year-old male shortness of breath, rule out CHF Findings: ACDF hardware. Surgical clips along the mediastinum. Heart mildly enlarged. Diffuse interstitial prom inence. Some patchy peripheral left basilar density is unchanged. No significant pleural effusion. Impression: Similar borderline to mild cardiomegaly. Interstitium is slightly more pronounced. If signs/symptoms of fluid overload, findings suggest pulmonary vascular congestion. Some patchy atelectasis or early i nfiltrate at the peripheral left base. No significant pleural effusion.
[2017-12-01] MEDS ORDERED: FUROSEMIDE 10 MG/ML 4 ML VIAL IV STA (13:09)
--- NOTE | 2017-12-01 16:33 | P.DS ---
Providers Date of admission: 11/29/17 06:48 Expected date of discharge: 12/01/17 Attending physician: Claudia Treviño Consults: 11/29/17 06:49 Consult Physician Routine Consulting Provider: Candi Wisdom Consult Reason/Comments: L1 compression fracture Do you want consulting provider notified?: Yes Primary care physician: Andrea Toro Hospital Course: Final Diagnoses: -Compression fracture, unknown if pathologic or traumatic, Brace at all times except in bed or bathing. -Acute renal failure: Secondary to excessive diuretic therapy, and hypotension. -Atrial fibrillation, may be paroxysmal patient has mild sinus bradycardia. Coumadin currently on hold, INR 3.7, recheck on Monday with dosing as per PCP -Abdominal pain: Etiology unknown probably gastritis symptoms resolved. -Hyperlipidemia -Congestive heart failure chronic systolic dysfunction without any acute examination patient is actually hypovolemic, improved. -COPD without any acute exacerbation -Gastroesophageal reflux disease -Hypertension patient is actually hypotensive now, improved. -Anemia of chronic disease Hospital course:71-year-old gentleman was a transfer from [facility] ER to hear, he presents to [facility] with abdominal pain itches all completely patient had a CAT scan of the abdomen which did not show any significant abnormality except for compression fracture of L1 vertebrae, patient had some pain in the lower back. Patient denied any fever chills nausea vomiting there was a concern about left lower limb cellulitis upon exam I did not see any cellulitis although patient has bilateral swelling of bilateral lower extremities predominantly in the left lower extremity. Patient is on Coumadin for atrial fibrillation INR established Coumadin will be continued. Patient will need physical therapy evaluation and occupational therapy evaluation the other significant abnormality was able to appreciate is worsening kidney function creatinine of 1.5 baseline is around 0.8. Patient was recently treated for congestive heart failure mildly depressed ejection fraction of 45-50% patient is on lisinopril and Lasix both of which will be held patient blood pressure is in 90s systolic at this time. I do not have any x-ray available although patient clinically does not appear to be in CHF exacerbation patient does not have any JVD we'll obtain a BNP and a chest x-ray. 11/30/2017 currently hypotensive, systolic in the high 90s. Receiving gentle IV fluid hydration with creatinine improving, currently down to 1.34. Anticoagulated on Coumadin, INR 3.3. Family attempting to locate brace from 2016. 12/01/2017 family brought in LSO brace, instructed to wear at all times except for in bed or bathing. No surgical intervention as per orthopedics. Patient has been cleared by [facility] for discharge. Significant clinical improvement. INR currently 3.7. Patient has been instructed to hold Coumadin, repeat INR on Monday and resume as per PCP's recommended dosing. Patient is being discharged home with son in a stable condition with guarded prognosis. Exam GENERAL: The patient is alert and oriented x3, not in any acute distress. CARDIOVASCULAR: S1 and S2 present. No rubs, or gallops. Positive systolic murmur PULMONARY: Chest is clear to auscultation, no wheezing or crackles. ABDOMEN: Soft, nontender, nondistended, normoactive bowel sounds. No palpable organomegaly. EXTREMITIES: No cyanosis, clubbing, he does have mild bilateral pedal edema although nonpitting, I do not believe patient has cellulitis. NEUROLOGICAL: Gross neurological examination did not reveal any focal deficits. The impression and plan of care has been dictated as directed. : I performed a history and examination of this patient, discussed the same with the dictator. I agree with the dictator's note ,documented as a scribe. Any additional findings or plans will be noted. Time taken: 35 minutes Patient Condition at Discharge: Stable Plan - Discharge Summary Discharge Rx Participant: No New Discharge Prescriptions: New Aspirin 81 mg PO DAILY chew Famotidine [Pepcid] 20 mg PO DAILY tab Meclizine [Antivert] 12.5 mg PO TID PRN #0 tab PRN Reason: Vertigo Metoprolol Tartrate [Lopressor] 25 mg PO BID #60 tab Continue HYDROcodone/APAP 5-325MG [[place] 5-325] 1 tab PO Q6HR PRN PRN Reason: Pain Lactulose [Cephulac] 20 gm PO DAILY Furosemide [Lasix] 40 mg PO BID Amiodarone HCl [Pacerone] 200 mg PO DAILY Acetaminophen [Acetaminophen ER] 650 mg PO Q4HR PRN PRN Reason: Pain Tamsulosin HCl [Flomax] 0.4 mg PO HS Sennosides [Senna] 8.6 mg PO HS Potassium Chloride [K-Tab ER] 20 meq PO TID Midodrine HCl [ProAmatine] 10 mg PO Q8HR Magnesium Oxide 400 mg PO DAILY Ipratropium-Albuterol Nebulize [Duoneb 0.5 mg-3 mg/3 ml Soln] 3 ml INHALATION RT-QID Ferrous Sulfate [Iron] 325 mg PO DAILY Bisacodyl 5 mg PO DAILY PRN PRN Reason: Constipation Magnesium Hydroxide [Milk of Magnesia] 2,400 mg PO DAILY PRN PRN Reason: Constipation Fluticasone/Vilanterol [Breo Ellipta 100-25 Mcg Inhaler] 1 puff INHALATION RT -DAILY Changed Atorvastatin Calcium [Lipitor] 10 mg PO HS #0 Discontinued Lidocaine 5% Patch [Lidoderm] 1 patch TOPICAL DAILY ALPRAZolam [Xanax] 0.25 mg PO Q8HR Warfarin [Coumadin] 3 mg PO SUTUTHSA Warfarin [Coumadin] 2 mg PO MOWEFR Discharge Medication List Acetaminophen [Acetaminophen ER] 650 mg PO Q4HR PRN 11/29/17 [History] Amiodarone HCl [Pacerone] 200 mg PO DAILY 11/29/17 [History] Bisacodyl 5 mg PO DAILY PRN 11/29/17 [History] Ferrous Sulfate [Iron] 325 mg PO DAILY 11/29/17 [History] Fluticasone/Vilanterol [Breo Ellipta 100-25 Mcg Inhaler] 1 puff INHALATION RT- DAILY 11/29/17 [History] Furosemide [Lasix] 40 mg PO BID 11/29/17 [History] HYDROcodone/APAP 5-325MG [[place] 5-325] 1 tab PO Q6HR PRN 11/29/17 [History] Ipratropium-Albuterol Nebulize [Duoneb 0.5 mg-3 mg/3 ml Soln] 3 ml INHALATION RT -QID 11/29/17 [History] Lactulose [Cephulac] 20 gm PO DAILY 11/29/17 [History] Magnesium Hydroxide [Milk of Magnesia] 2,400 mg PO DAILY PRN 11/29/17 [History] Magnesium Oxide 400 mg PO DAILY 11/29/17 [History] Midodrine HCl [ProAmatine] 10 mg PO Q8HR 11/29/17 [History] Potassium Chloride [K-Tab ER] 20 meq PO TID 11/29/17 [History] Sennosides [Senna] 8.6 mg PO HS 07/04/18 [History] Tamsulosin HCl [Flomax] 0.4 mg PO HS 11/29/17 [History] Aspirin 81 mg PO DAILY chew 12/01/17 [Rx] Atorvastatin Calcium [Lipitor] 10 mg PO HS #0 12/01/17 [Rx] Famotidine [Pepcid] 20 mg PO DAILY tab 12/01/17 [Rx] Meclizine [Antivert] 12.5 mg PO TID PRN #0 tab 12/01/17 [Rx] Metoprolol Tartrate [Lopressor] 25 mg PO BID #60 tab 12/01/17 [Rx] Follow up Appointment(s)/Referral(s): Candi Wisdom DO [Doctor of Osteopathic Medicine] - 12/15/17 1:00 pm Andrea Toro MD [Primary Care Provider] - 3 Days Ambulatory/Diagnostic Orders: Prothrombin Time INR [LAB.AMB] Time Frame: 12/04/17, Location: None Selected Activity/Diet/Wound Care/Special Instructions: Hold coumadin, PT/INR on monday, resume coumadin as per PCP dosing. [facility] - [phone] Brace to be worn at all times except while in bed or bathing. Discharge Disposition: HOME WITH HOME HEALTH SERVICES
[2017-12-01] MEDS ORDERED: WARFARIN 1.5 MG TAB PO SCH (18:00)
== END 2017-12-01 13:56 | disposition home health service (06) | DRG 543 ==
LOC: SUPCPDRO 04:17 → EC 04:17 → 3SUR 06:48
PROVIDERS: ADMIT Hospitalist; ATTEND Hospitalist
DX: M48.56XA Collapsed vertebra, not elsewhere classified, lumbar region, initial encounter for fracture (principal); L03.116 Cellulitis of left lower limb; I50.22 Chronic systolic (congestive) heart failure; N17.9 Acute kidney failure, unspecified; I48.0 Paroxysmal atrial fibrillation; I11.0 Hypertensive heart disease with heart failure; K29.70 Gastritis, unspecified, without bleeding; J44.9 Chronic obstructive pulmonary disease, unspecified; D63.8 Anemia in other chronic diseases classified elsewhere; E78.5 Hyperlipidemia, unspecified; K21.9 Gastro-esophageal reflux disease without esophagitis; Z96.653 Presence of artificial knee joint, bilateral; Z96.641 Presence of right artificial hip joint; W19.XXXA Unspecified fall, initial encounter; Z79.82 Long term (current) use of aspirin; Z82.49 Family history of ischemic heart disease and other diseases of the circulatory system; Z79.01 Long term (current) use of anticoagulants; Z87.442 Personal history of urinary calculi; Z86.14 Personal history of Methicillin resistant Staphylococcus aureus infection; Z85.828 Personal history of other malignant neoplasm of skin; Z87.891 Personal history of nicotine dependence; Z88.5 Allergy status to narcotic agent; Z79.899 Other long term (current) drug therapy
CPT/HCPCS: 71045; 80048; 80053; 83880; 85025; 85610; 94640; 94760; 96365; 99284

== ENCOUNTER → 2018-05-01 | Outpatient (CLI) | payer MEDICARE, BC ==
--- NOTE | 2018-05-01 08:19 | CT ---
EXAMINATION TYPE: CT abdomen wo con DATE OF EXAM: 05/01/2018 COMPARISON: CTA thoracic and abdominal aorta 06/18/2010 HISTORY: Rt renal mass CT DLP: 326.4 mGycm Examination of the solid and hollow viscera is limited given the lack of contrast. Unenhanced CT of the abdomen was performed. The lack of contrast does limit evaluation of the solid a bdominal viscera. FINDINGS: LUNG BASES: No evidence for nodule. No evidence for infiltrate. Linear basilar parenchymal scarring. Small hiatal hernia noted. LIVER/GB: The gallbladder surgically absent. Hypoattenuating lesion anterior segment right hepatic lo be measuring 1.7 cm is likely reflective of a cyst. PANCREAS: No pancreatic mass identified. No inflammatory process seen. SPLEEN: No evidence for splenomegaly. No intrasplenic lesions seen. ADRENALS: No adrenal nodules identified. No evidence for thickening. KIDNEYS: Multiple hypoattenuating lesions are seen of the kidneys likely reflective of cysts of the l ack of contrast does limit evaluation. There is a large lesion mid to lower pole left kidney measurin g 4.6 cm with Hounsfield unit of 15. Within the right kidney at the upper pole there is an exophytic hypoattenuating lesion seen medially measuring 1.3 cm and Hounsfield unit measurement of 10. There is an additional lower pole hypoattenuating lesion measuring 3 cm in greatest dimension with Hounsfield unit measurement of 15. Additional cortical midpole lesion noted to measure 1.4 cm with Hounsfield u nit measurement of 5. There is no evidence for hydronephrosis or nephrolithiasis. Urinary bladder is not imaged. BOWEL: Visualized bowel loops. A normal caliber. Lymph nodes: No evidence for adenopathy greater than 1 cm. Abdominal aorta: Atheromatous changes seen. No evidence for aneurysm. Other: Compression fracture of L1. Degenerative changes lumbar spine. IMPRESSION: 1. Probable renal cysts. 2. Probable hepatic cyst. 3. Small hiatal hernia.
== END | disposition home or self-care (01) ==
LOC: RADCTMAIN 07:04
PROVIDERS: ATTEND Urology
DX: D41.01 Neoplasm of uncertain behavior of right kidney (principal); K44.9 Diaphragmatic hernia without obstruction or gangrene; Z88.5 Allergy status to narcotic agent
CPT/HCPCS: 74150

== ENCOUNTER → 2019-05-13 | Outpatient (CLI) | payer MEDICARE, BC ==
--- NOTE | 2019-05-13 15:18 | US ---
EXAMINATION TYPE: US kidneys/renal and bladder DATE OF EXAM: 05/13/2019 COMPARISON: CT abdomen dated 05/01/2018 CLINICAL HISTORY: RENAL CYSTS D41.01. Renal cysts. EXAM MEASUREMENTS: Right Kidney: 9.9 x 4.5 x 3.7 cm Left Kidney: 10.3 x 5.1 x 4.3 cm Right Kidney: Cystic area lower pole 2.6 x 3.2 x 2.9 cm. Left Kidney: Cystic area lower pole 5.1 x 4.5 x 5.0 cm Bladder: wnl Bilateral Jets seen: No left only. There is no evidence for hydronephrosis at this point in time. No nephrolithiasis is seen. No suspi cious masses are identified. The urinary bladder is anechoic. Bilateral ureteral jets are seen. IMPRESSION: Bilateral renal cysts appear simple, (Bosniak type I) measuring up to 5.1 cm on the left and 2.6 cm on the right. Some of the smaller renal lesions that appeared cystic on the prior CT abdom en of 05/01/2018 are not seen on ultrasound.
== END | disposition home or self-care (01) ==
LOC: RADUSWWP 13:40
PROVIDERS: ATTEND Urology
DX: N28.1 Cyst of kidney, acquired (principal); D41.01 Neoplasm of uncertain behavior of right kidney; Z88.5 Allergy status to narcotic agent
CPT/HCPCS: 76770

== ENCOUNTER 2022-06-08 14:26 | Inpatient (IN) | payer MEDICARE, BC ==
--- NOTE | 2022-06-08 14:41 | ED ---
SOB HPI - General Source: patient, family (son), RN notes reviewed, old records reviewed Mode of arrival: ambulatory - History of Present Illness MD Complaint: cough -: days(s) (10) Known History Of: COPD, congestive heart failure <Margarito Dorantes - Last Filed: 06/08/22 14:36> <Nory Valero - Last Filed: 06/15/22 23:16> - General Chief Complaint: Shortness of Breath Stated Complaint: low oxygen Time Seen by Provider: 06/08/22 14:33 - History of Present Illness Initial Comments: 82-year-old male presents to the emergency room with complaints of cough since May 29. Multiple sick contacts in the home testing positive for coronavirus. Positive for Covid by home test on Monday05/30/22, tested negative on Monday. He did start a Z-Ren on Monday which he had at home prescribed by the doctor for when his cough/sputum changes related to COPD. Oxygen saturations reading in the 80s at home. Denies any chest pain. (Margarito Dorantes) 82-year-old male with past medical history of COPD on 3 L of home O2 only at night, A. fib, congestive heart failure who presents to the emergency department reporting a cough. Family members at bedside and provides majority of the history. They states that he has had a cough since May 29. There are multiple sick contacts in the home. They tested him for Covid on the first and it was positive. They done tested him again on the seventh and it was negative. He continues to have a nonproductive cough. They state that his oxygen at home was 82%. He denies any chest pain. No nausea or vomiting. No lower extremity edema. Has been taking his medications as directed. Denies being on a blood thinner. He follows with Dr. Cruz from pulmonology. No recent steroids. No other alleviating, precipitating or modifying factors (Nory Valero) - Related Data Home Medications Medication Instructions Recorded Confirmed Furosemide [Lasix] 40 mg PO DAILY 11/29/17 06/08/22 HYDROcodone/APAP 5-325MG [[place] 1 tab PO Q6HR PRN 11/29/17 06/08/22 5-325] Ipratropium-Albuterol Nebulize 3 ml INHALATION RT-QID 11/29/17 06/08/22 [Duoneb 0.5 mg-3 mg/3 ml Soln] Magnesium Oxide 400 mg PO DAILY 11/29/17 06/08/22 Tamsulosin HCl [Flomax] 0.4 mg PO DAILY 11/29/17 06/08/22 ALPRAZolam [Xanax] 0.25 mg PO DAILY PRN 06/25/19 06/08/22 Atorvastatin Calcium [Lipitor] 20 mg PO DAILY 06/25/19 06/08/22 L.acidoph,Paracasei, B.lactis 1 cap PO DAILY 06/25/19 06/08/22 [Probiotic] calcitrioL [Calcitriol] 0.25 mcg PO MOFR 06/25/19 06/08/22 Amiodarone HCl [Pacerone] 100 mg PO DAILY 06/08/22 06/08/22 Budesonide [Pulmicort] 0.5 mg INHALATION RT-BID 06/08/22 06/08/22 FLUoxetine HCL [PROzac] 10 mg PO DAILY 06/08/22 06/08/22 Famotidine [Pepcid] 20 mg PO BID 06/08/22 06/08/22 Folic Acid 1 mg PO DAILY 06/08/22 06/08/22 Lactulose 20 gm PO DAILY PRN 06/08/22 06/08/22 Linaclotide [Linzess] 145 mcg PO DAILY 06/08/22 06/08/22 Ondansetron [Zofran] 4 mg PO BID PRN 06/08/22 06/08/22 Potassium Chloride ER [K-Dur 10] 30 meq PO TID 06/08/22 06/08/22 Sennosides/Docusate Sodium 2 tab PO HS 06/08/22 06/08/22 [Senna-S 8.6-50 mg Tablet] predniSONE 10 mg PO DAILY 06/08/22 06/08/22 Previous Rx's Medication Instructions Recorded Meclizine [Antivert] 12.5 mg PO TID PRN #0 tab 12/01/17 Allergies Allergy/AdvReac Type Severity Reaction Status Date / Time codeine Allergy Rash/Hives Verified 06/08/22 17:22 Review of Systems ROS Other: All systems not noted in ROS Statement are negative. <Margarito Dorantes - Last Filed: 06/08/22 14:36> ROS Other: All systems not noted in ROS Statement are negative. <Nory Valero Ayla - Last Filed: 06/15/22 23:16> ROS Statement: Those systems with pertinent positive or pertinent negative responses have been documented in the HPI. Past Medical History Past Medical History: Atrial Fibrillation, Cancer, Heart Failure, COPD, GERD/Reflux, Hyperlipidemia, Hypertension, Osteoarthritis (OA), Pneumonia, Renal Disease Additional Past Medical History / Comment(s): thoracic aortic aneurysm and previous repair and the patient also had a repair of a coarctation of the warts, hiatal hernia, nephrolithiasis, skin cancer that was resected, degenerative arthritis. History of Any Multi-Drug Resistant Organisms: MRSA Date of last positivie culture/infection: 07/21/17 MDRO Source:: URINE Past Surgical History: Cholecystectomy, Heart Catheterization, Hernia Repair, Joint Replacement Additional Past Surgical History / Comment(s): AAA/Aortic coarctation repair, bilateral total knee arthroplasties, R total hip arthroplasty, bilateral shoulder rotator cuff repairs, R inguinal hernia repair, skin cancer removed from nose, lithotripsy, colonoscopy Past Anesthesia/Blood Transfusion Reactions: No Reported Reaction Past Psychological History: No Psychological Hx Reported Smoking Status: Former smoker - Past Family History Mother Family Medical History: No Reported History Additional Family Medical History / Comment(s): Pt reluctant to speak about mother's hx. Father Family Medical History: Myocardial Infarction ([place]) Additional Family Medical History / Comment(s): Father had a [place] at the age of 65yrs. <Margarito Dorantes - Last Filed: 06/08/22 14:36> General Exam Limitations: physical limitation ([place]) General appearance: alert, in no apparent distress Head exam: Present: atraumatic, normocephalic, normal inspection Eye exam: Present: normal appearance, PERRL, EOMI. Absent: scleral icterus, conjunctival injection, periorbital swelling ENT exam: Present: normal exam, mucous membranes dry Neck exam: Present: normal inspection. Absent: tenderness, meningismus, lymphadenopathy Respiratory exam: Present: rales, decreased breath sounds. Absent: respiratory distress, wheezes, rhonchi, stridor Cardiovascular Exam: Present: regular rate, normal rhythm, normal heart sounds. Absent: systolic murmur, diastolic murmur, rubs, gallop, clicks GI/Abdominal exam: Present: soft, normal bowel sounds. Absent: distended, tenderness, guarding, rebound, rigid Extremities exam: Present: normal inspection, full ROM, normal capillary refill. Absent: tenderness, pedal edema, joint swelling, calf tenderness Back exam: Present: normal inspection Neurological exam: Present: alert, oriented X3, CN II-XII intact Psychiatric exam: Present: normal affect, normal mood Skin exam: Present: warm, dry, intact, normal color. Absent: rash <Nory Valero - Last Filed: 06/15/22 23:16> Course Vital Signs 06/08/22 06/08/22 06/08/22 14:29 15:03 15:55 Temperature 99.5 F Pulse Rate 92 81 Respiratory 20 24 22 Rate Blood Pressure 109/50 137/83 O2 Sat by Pulse 94 L 94 L Oximetry 06/08/22 06/08/22 19:45 20:49 Temperature 97.7 F Pulse Rate 68 67 Respiratory 18 18 Rate Blood Pressure 131/85 151/82 O2 Sat by Pulse 95 96 Oximetry Medical Decision Making - Lab Data Result diagrams: 06/13/22 04:20 06/13/22 04:20 <Nory Valero - Last Filed: 06/15/22 23:16> - Medical Decision Making Was pt. sent in by a medical professional or institution? no Did you speak to anyone other than the patient for history? son Did you review nursing and triage notes? yes and I agree Were old charts reviewed? yes. previous hospitalizations Differential Diagnosis? MDM Differential Dyspnea: Coronary syndrome, arrhythmia, tamponade, asthma, COPD, pulmonary embolism, pneumonia, pneumothorax, pulmonary effusion, anaphylaxis, diabetic ketoacidosis, flailed chest, pulmonary contusion, diaphragmatic rupture, anemia, neuromu scular this is not meant to be an all-inclusive list. EKG interpreted by me (3pts min.)? yes X-rays interpreted by me (1pt min.)? yes CT interpreted by me (1pt min.)? yes U/S interpreted by me (1pt. min.)? no What testing was considered but not performed? (CT, X-rays, U/S, labs)? Why? none What meds were considered but not given? Why? none Did you discuss the management of the patient with other professionals? admitting physician Did you reconcile home meds? yes Was smoking cessation discussed for >3mins.? no Was critical care preformed (if so, how long)? no Were there social determinants of health that impacted care today? How? (Homelessness, low income, unemployed, alcoholism, drug addiction, martinez sportation, low edu. Level, literacy, decrease access to med. care, halfway, rehab)? none Was there de-escalation of care discussed even if they declined? (Discuss DNR or withdrawal of care, Hospice)? no What co-morbidities impacted this encounter? (DM, HTN, Smoking, COPD, CAD, Cancer, CVA, Hep., AIDS, mental health diagnosis, sleep apnea, morbid obesity)? CAD, htn, hld, afib, congestive heart failure, renal disease Was patient admitted / discharged? Upon arrival patient was placed into trauma 1. A thorough history and physical exam was performed. Patient placed on continuous pulse ox and cardiac monitoring. IV is established. Laboratory studies are conducted and reviewed. Laboratory studies demonstrate a markedly elevated d-dimer of 7.8. Creatinine 1.3. Troponin 0.086. He continues to test positive here in the emergency department. Chest x-ray demonstrates COPD with chronic changes of interstitial lung disease. I did CT the chest because of his elevated d-dimer. Demonstrates bilateral basilar infiltrates. No evidence of pulmonary embolism. He does have some rib fractures. I discussed these results with the patient and his son. I did recommend admission. I did order Decadron and albuterol treatments. I additionally place the patient on Rocephin and Zithromax to cover for typical pneumonia. Patient admitted to [facility]. Spoke with Ermelinda who took admission for the patient. Undiagnosed new problem with uncertain prognosis? yes Drug Therapy requiring intensive monitoring for toxicity (Heparin, Nitro, Insulin, Cardizem)? no Were any procedures done? no Diagnosis/symptom? acute resp insuff Acute, or Chronic, or Acute on Chronic? acute on chronic Uncomplicated (without systemic symptoms) or Complicated (systemic symptoms)? complicated Side effects of treatment? tachycardia Exacerbation, Progression, or Severe Exacerbation] exacerbation Poses a threat to life or bodily function? yes Diagnosis/symptom? acute covid infection Acute, or Chronic, or Acute on Chronic? subacute Uncomplicated (without systemic symptoms) or Complicated (systemic symptoms)? complicated Side effects of treatment? none Exacerbation, Progression, or Severe Exacerbation] no Poses a threat to life or bodily function? yes Diagnosis/symptom? acute rib fx Acute, or Chronic, or Acute on Chronic? acute Uncomplicated (without systemic symptoms) or Complicated (systemic symptoms)? uncomplicated Side effects of treatment? none Exacerbation, Progression, or Severe Exacerbation] no Poses a threat to life or bodily function? no (Nory Valero) - Lab Data Lab Results 06/08/22 06/08/22 06/08/22 Range/Units 14:32 15:07 15:07 WBC 12.0 H (3.8-10.6) k/uL RBC 3.28 L (4.30-5.90) m/uL Hgb 11.2 L (13.0-17.5) gm/dL Hct 33.6 L (39.0-53.0) % MCV 102.5 H (80.0-100.0) fL MCH 34.0 (25.0-35.0) pg MCHC 33.2 (31.0-37.0) g/dL RDW 13.3 (11.5-15.5) % Plt Count 113 L (150-450) k/uL MPV 8.1 Neutrophils % 90 % Lymphocytes % 5 % Monocytes % 3 % Eosinophils % 0 % Basophils % 0 % Neutrophils # 10.8 H (1.3-7.7) k/uL Lymphocytes # 0.6 L (1.0-4.8) k/uL Monocytes # 0.4 (0-1.0) k/uL Eosinophils # 0.0 (0-0.7) k/uL Basophils # 0.0 (0-0.2) k/uL Macrocytosis Slight PT 10.4 (9.0-12.0) sec INR 1.0 (<1.2) APTT 22.0 (22.0-30.0) sec D-Dimer 7.81 H (<0.60) mg/L FEU Sodium (137-145) mmol/L Potassium (3.5-5.1) mmol/L Chloride (98-107) mmol/L Carbon Dioxide (22-30) mmol/L Anion Gap mmol/L BUN (9-20) mg/dL Creatinine (0.66-1.25) mg/dL Est GFR (CKD-EPI)AfAm (>60 ml/min/1.73 sqM) Est GFR (CKD-EPI)NonAf (>60 ml/min/1.73 sqM) Glucose (74-99) mg/dL Plasma Lactic Acid Maans (0.7-2.0) mmol/L Calcium (8.4-10.2) mg/dL Magnesium (1.6-2.3) mg/dL Total Bilirubin (0.2-1.3) mg/dL AST (17-59) U/L ALT (4-49) U/L Alkaline Phosphatase (38-126) U/L Troponin I (0.000-0.034) ng/mL NT-Pro-B Natriuret Pep pg/mL Total Protein (6.3-8.2) g/dL Albumin (3.5-5.0) g/dL Coronavirus (PCR) (Not Detectd) Influenza Type A RNA Not Detected (Not Detectd) Influenza Type B (PCR) Not Detected (Not Detectd) 06/08/22 06/08/22 06/08/22 Range/Units 15:07 15:07 15:07 WBC (3.8-10.6) k/uL RBC (4.30-5.90) m/uL Hgb (13.0-17.5) gm/dL Hct (39.0-53.0) % MCV (80.0-100.0) fL MCH (25.0-35.0) pg MCHC (31.0-37.0) g/dL RDW (11.5-15.5) % Plt Count (150-450) k/uL MPV Neutrophils % % Lymphocytes % % Monocytes % % Eosinophils % % Basophils % % Neutrophils # (1.3-7.7) k/uL Lymphocytes # (1.0-4.8) k/uL Monocytes # (0-1.0) k/uL Eosinophils # (0-0.7) k/uL Basophils # (0-0.2) k/uL Macrocytosis PT (9.0-12.0) sec INR (<1.2) APTT (22.0-30.0) sec D-Dimer (<0.60) mg/L FEU Sodium 139 (137-145) mmol/L Potassium 4.8 (3.5-5.1) mmol/L Chloride 106 (98-107) mmol/L Carbon Dioxide 27 (22-30) mmol/L Anion Gap 6 mmol/L BUN 48 H (9-20) mg/dL Creatinine 1.38 H (0.66-1.25) mg/dL Est GFR (CKD-EPI)AfAm 54 (>60 ml/min/1.73 sqM) Est GFR (CKD-EPI)NonAf 47 (>60 ml/min/1.73 sqM) Glucose 122 H (74-99) mg/dL Plasma Lactic Acid Manas 1.8 (0.7-2.0) mmol/L Calcium 8.6 (8.4-10.2) mg/dL Magnesium 2.0 (1.6-2.3) mg/dL Total Bilirubin 0.6 (0.2-1.3) mg/dL AST 23 (17-59) U/L ALT 22 (4-49) U/L Alkaline Phosphatase 68 (38-126) U/L Troponin I 0.086 H* (0.000-0.034) ng/mL NT-Pro-B Natriuret Pep pg/mL Total Protein 5.7 L (6.3-8.2) g/dL Albumin 3.4 L (3.5-5.0) g/dL Coronavirus (PCR) (Not Detectd) Influenza Type A RNA (Not Detectd) Influenza Type B (PCR) (Not Detectd) 06/08/22 06/08/22 Range/Units 15:07 17:01 WBC (3.8-10.6) k/uL RBC (4.30-5.90) m/uL Hgb (13.0-17.5) gm/dL Hct (39.0-53.0) % MCV (80.0-100.0) fL MCH (25.0-35.0) pg MCHC (31.0-37.0) g/dL RDW (11.5-15.5) % Plt Count (150-450) k/uL MPV Neutrophils % % Lymphocytes % % Monocytes % % Eosinophils % % Basophils % % Neutrophils # (1.3-7.7) k/uL Lymphocytes # (1.0-4.8) k/uL Monocytes # (0-1.0) k/uL Eosinophils # (0-0.7) k/uL Basophils # (0-0.2) k/uL Macrocytosis PT (9.0-12.0) sec INR (<1.2) APTT (22.0-30.0) sec D-Dimer (<0.60) mg/L FEU Sodium (137-145) mmol/L Potassium (3.5-5.1) mmol/L Chloride (98-107) mmol/L Carbon Dioxide (22-30) mmol/L Anion Gap mmol/L BUN (9-20) mg/dL Creatinine (0.66-1.25) mg/dL Est GFR (CKD-EPI)AfAm (>60 ml/min/1.73 sqM) Est GFR (CKD-EPI)NonAf (>60 ml/min/1.73 sqM) Glucose (74-99) mg/dL Plasma Lactic Acid Manas (0.7-2.0) mmol/L Calcium (8.4-10.2) mg/dL Magnesium (1.6-2.3) mg/dL Total Bilirubin (0.2-1.3) mg/dL AST (17-59) U/L ALT (4-49) U/L Alkaline Phosphatase (38-126) U/L Troponin I (0.000-0.034) ng/mL NT-Pro-B Natriuret Pep 2820 pg/mL Total Protein (6.3-8.2) g/dL Albumin (3.5-5.0) g/dL Coronavirus (PCR) Detected A (Not Detectd) Influenza Type A RNA (Not Detectd) Influenza Type B (PCR) (Not Detectd) - EKG Data EKG Comments: EKG demonstrates sinus rhythm with rate of 87. [place] interval of 184. QRS 116. QTC of 410. There is a left bundle branch block. Negative for Sgarbossa cr iteria. (Nory Valero) Disposition <Margarito Dorantes - Last Filed: 06/08/22 14:36> <Nory Valero - Last Filed: 06/15/22 23:16> Clinical Impression: Chronic obstructive pulmonary disease (COPD), Nosocomial pneumonia Disposition: ADMITTED IP TO THIS HOSP Condition: Stable
[2022-06-08 15:25] LABS: Basophils % (A) 0 %; Eosinophils % (A) 0 %; HCT 33.6 % (39.0-53.0); HGB 11.2 gm/dL (13.0-17.5); Lymphocytes # (A) 0.6 k/uL (1.0-4.8); Lymphocytes % (A) 5 %; MCHC 33.2 g/dL (31.0-37.0); MCV 102.5 fL (80.0-100.0); Macrocytosis Slight; Mean Platelet Volume 8.1; Monocytes # (A) 0.4 k/uL (0-1.0); Monocytes % (A) 3 %; Neutrophils # (A) 10.8 k/uL (1.3-7.7); Neutrophils % (A) 90 %; Platelet Count 113 k/uL (150-450); RBC 3.28 m/uL (4.30-5.90); RDW 13.3 % (11.5-15.5)
--- NOTE | 2022-06-08 15:34 | XR ---
EXAMINATION TYPE: XR chest 2V DATE OF EXAM: 06/08/2022 COMPARISON: 12/11/2017 TECHNIQUE: PA and lateral views submitted. HISTORY: Shortness of breath FINDINGS: Arthropathy of the shoulders with postsurgical changes in the left. Postsurgical changes overlying th e cervical spine. There is no pneumothorax. Hyperinflation suggests COPD. Rib cage deformities sugges t prior surgery. There is no pleural effusion or interstitial edema. No pneumothorax. Mild endplate c ompression deformities within thoracolumbar junction. IMPRESSION: 1. COPD with chronic changes of interstitial lung disease. No definite acute infiltrate. Basilar hercules ges on the left favor atelectasis over pneumonia.
[2022-06-08 15:38] LABS: Albumin 3.4 g/dL (3.5-5.0); Calcium 8.6 mg/dL (8.4-10.2); Potassium 4.8 mmol/L (3.5-5.1); Total Bilirubin 0.6 mg/dL (0.2-1.3); Total Protein 5.7 g/dL (6.3-8.2)
[2022-06-08 15:47] LABS: Prothrombin Time 10.4 sec (9.0-12.0)
--- NOTE | 2022-06-08 17:02 | CT ---
EXAMINATION TYPE: CT chest angio for PE CT DLP: 411.6 mGycm, Automated exposure control for dose reduction was used. DATE OF EXAM: 06/08/2022 4:39 PM COMPARISON: Multiple CTs of the chest with most recent on 07/21/2017. CLINICAL INDICATION:Male, 82 years old with history of hypoxia, elevated d-dimer; elevated d-dimer, S OB TECHNIQUE/CONTRAST: CTA scan of the thorax is performed with IV Contrast, patient injected with 80cc mL of Isovue 370, pu lmonary embolism protocol. MIP images are created and reviewed these are created on a separate works tation.. FINDINGS: Pulmonary Artery: There is no evidence for a filling defect within the pulmonary vasculature to sugge st acute pulmonary embolism. The pulmonary artery is of normal size. Lungs/Pleura: Peripheral groundglass opacities are seen throughout the lungs. No focal consolidation or pneumothorax. Trace bilateral pleural effusions. There is thickening of ventricle. Airway: Large airways are patent. Heart: Heart is mildly enlarged for size. Moderate to severe coronary artery calcifications. Aortic v alve calcifications are present. Vasculature: No evidence of aortic aneurysm. Tortuous aorta. Irregular high signal seen within the a ortic wall most appreciated on the descending thoracic aorta and anterior aortic arch. These findings are similar back to 2018 and could represent postsurgical changes. Mediastinum: No gross evidence of adenopathy. Musculoskeletal: Cortical irregularity involving right rib 3 laterally suggestive of acute fracture./ Chronic change to left rib 4 and 5. Left rib #5 anterior fracture which appears subacute. Multilevel disc degeneration changes of the spine. Soft Tissues: Unremarkable. Lower neck: No significant findings. Upper Abdomen: No significant findings. IMPRESSION: 1. No evidence of pulmonary embolism. 2. Scattered groundglass opacities correlate for atypical pneumonia. 3. Cardiomegaly, trace bilateral pleural effusions. Correlate with serum BNP 4. Right lateral rib 3 cortical irregularity correlate with point tenderness for acute fracture. 5. Left subcutaneous rib 5 fracture anteriorly and posteriorly.
[2022-06-08] MEDS ORDERED: ACETAMINOPHEN TAB 325 MG TAB PO PRN (18:07)
[2022-06-08] MEDS ORDERED: NALOXONE 0.4 MG/ML 1 ML VIAL IV PRN (18:07)
[2022-06-08] MEDS ORDERED: AZITHROMYCIN 500 MG in SODIUM CHLORIDE 0.9% 250 ML IVPB STA (18:11)
[2022-06-08] MEDS ORDERED: PNEUMONIA PROTOCOL UTILIZED 1 EACH MISC PO PRN (18:11)
[2022-06-08] MEDS: DEXAMETHASONE SOD PHOSPHATE 10 MG/ML 1 ML VIAL IVP SCH (18:52)
[2022-06-08] MEDS: ALBUTEROL HFA INHALER INHALATION SCH (20:26)
[2022-06-08] MEDS: CHOLECALCIFEROL 25 MCG (1000 IU) TABLET PO SCH (21:24)
[2022-06-08] MEDS: ZINC SULFATE 220 MG CAP PO SCH (21:24)
[2022-06-08 21:29] LABS: Glucose,Whole Blood 168 mg/dL (70-110)
[2022-06-08 21:35] LABS: C Reactive Protein 8.7 mg/dL (<1.0)
[2022-06-08] MEDS: ENOXAPARIN 30 MG/0.3 ML SYRINGE SQ SCH (21:37)
[2022-06-08] MEDS ORDERED: ALPRAZolam 0.25 MG TAB PO PRN (22:12)
[2022-06-08] MEDS: ATORVASTATIN 20 MG TAB PO SCH (22:22)
[2022-06-09] MEDS: FLUTICASONE 110 MCG INHALER INHALATION SCH ×2 (08:37→21:42)
[2022-06-09] MEDS: ALBUTEROL HFA INHALER INHALATION SCH ×4 (08:37→21:42)
[2022-06-09] MEDS: ATORVASTATIN 20 MG TAB PO SCH (08:45)
[2022-06-09] MEDS: CHOLECALCIFEROL 25 MCG (1000 IU) TABLET PO SCH (08:45)
[2022-06-09] MEDS: AMIODARONE 100 MG TAB PO SCH (08:45)
[2022-06-09] MEDS: ENOXAPARIN 30 MG/0.3 ML SYRINGE SQ SCH (08:46)
[2022-06-09] MEDS: ZINC SULFATE 220 MG CAP PO SCH (08:46)
[2022-06-09] MEDS: DEXAMETHASONE SOD PHOSPHATE 10 MG/ML 1 ML VIAL IVP SCH (08:46)
[2022-06-09] MEDS ORDERED: FAMOTIDINE 20 MG TAB PO SCH (09:00)
--- NOTE | 2022-06-09 09:26 | XR ---
EXAMINATION TYPE: XR chest 1V portable DATE OF EXAM: 06/09/2022 Comparison: 06/08/2022 Clinical History: 82-year-old male pneumonia Findings: ACDF hardware. Extensive surgical clips along the left side of the mediastinum. Patchy nodular inters titial changes throughout the periphery of the left mid and lower lung are increasing. Heart remains borderline in size. Mild patchy right perihilar density also present. No sizable pleural effusion. Coombs spect full-thickness rotator cuff tears on both sides. Impression: Multiple surgical clips along the left side of the mediastinum/hilum. Patchy interstitial infiltrate throughout the periphery of the left mid and lower lung is increasing. Mild infiltrate right perihila r region also noted.
[2022-06-09 09:34] LABS: Basophils % (A) 0 %; Eosinophils % (A) 0 %; HCT 32.4 % (39.0-53.0); HGB 10.7 gm/dL (13.0-17.5); Lymphocytes # (A) 0.4 k/uL (1.0-4.8); Lymphocytes % (A) 7 %; MCV 102.9 fL (80.0-100.0); Macrocytosis Slight; Mean Platelet Volume 8.8; Monocytes # (A) 0.2 k/uL (0-1.0); Monocytes % (A) 4 %; Neutrophils # (A) 4.4 k/uL (1.3-7.7); Neutrophils % (A) 88 %; RBC 3.15 m/uL (4.30-5.90); RDW 13.3 % (11.5-15.5)
[2022-06-09 09:47] LABS: Calcium 8.3 mg/dL (8.4-10.2)
[2022-06-09 10:02] LABS: Potassium 4.9 mmol/L (3.5-5.1)
--- NOTE | 2022-06-09 10:05 | P.HPIM ---
History of Present Illness this is a pleasant 82 years oldatrial fibrillation not on anticoagulation, COPD, hypertension, hyperlipidemia, chronic kidney disease, GERD, thoracic aortic aneurysm status post repair. Patient presents because of fever and hypoxia, at home oxygen dropped to 82%. Patient looks very weak and poor historian, he is hard of hearing. He is complaining of from dyspnea and worsening coughing He denies chest pain but he complains from mild abdominal pain, no diarrhea or vomiting, no urinary complaints patient currently is saturating 97% on 2 L oxygen via nasal cannula, he is mildly tachypneic, F labs reviewed, patient has leukocytosis 12,000, hemoglobin 11.2, platelet 113. INR is 1.0, d-dimer elevated at 7.8 Creatinine 1.38, close to baseline. Rest of BMP and liver enzymes unremarkable. Mildly elevated troponin0.08 chest x-ray: COPD with chronic changes of interstitial lung disease. No de finite acute infiltrate. Vascular changes on the left favor atelectasis of her pneumonia. EKG showing sinus rhythm at [address]-T changes CTA of the chest: No pulmonary embolism, scattered groundglass opacities correlate for atypical pneumonia, possible right lateral rib 3 fracture for irregularity and left subcutaneous fifth rib fracture anteriorly and posteriorly Patient started on ceftriaxone and Zithromax 1 and emergency room. And dexamethasone Review of Systems CONSTITUTIONAL: No fever, no malaise, no fatigue. HEENT: No recent visual problems or hearing problems. Denied any sore throat. CARDIOVASCULAR: No orthopnea, PND, no palpitations, no syncope. PULMONARY: No chest wall tendernes, no hemoptysis. GASTROINTESTINAL: No diarrhea, no nausea, no vomiting, no abdominal pain. Normoactive bowel sounds. NEUROLOGICAL: No headaches, no weakness, no numbness. HEMATOLOGICAL: Denies any bleeding or petechiae. GENITOURINARY: Denies any burning micturition, frequency, or urgency. MUSCULOSKELETAL/RHEUMATOLOGICAL: Denies any joint pain, swelling, or any muscle pain. ENDOCRINE: Denies any polyuria or polydipsia. Past Medical History Past Medical History: Atrial Fibrillation, Cancer, Heart Failure, COPD, GERD/Reflux, Hyperlipidemia, Hypertension, Osteoarthritis (OA), Pneumonia, Renal Disease Additional Past Medical History / Comment(s): thoracic aortic aneurysm and previous repair and the patient also had a repair of a coarctation of the warts, hiatal hernia, nephrolithiasis, skin cancer that was resected, degenerative arthritis, radiation to skin cancer on nose 06/06/22 at [facility] History of Any Multi-Drug Resistant Organisms: MRSA Date of last positivie culture/infection: 07/21/17 MDRO Source:: URINE Past Surgical History: Cholecystectomy, Heart Catheterization, Hernia Repair, Joint Replacement Additional Past Surgical History / Comment(s): AAA/Aortic coarctation repair, bilateral total knee arthroplasties, R total hip arthroplasty, bilateral shoulder rotator cuff repairs, R inguinal hernia repair, skin cancer removed from nose, lithotripsy, colonoscopy Past Anesthesia/Blood Transfusion Reactions: No Reported Reaction Past Psychological History: No Psychological Hx Reported Additional Psychological History / Comment(s): Patient lives with son Igor. Pt uses a walker independently at home. Smoking Status: Former smoker Past Alcohol Use History: None Reported Additional Past Alcohol Use History / Comment(s): Pt quit smoking cigarettes in 1961 and quit smoking pipe in 1987. Past Drug Use History: None Reported - Past Family History Mother Family Medical History: No Reported History Additional Family Medical History / Comment(s): Pt reluctant to speak about mother's hx. Father Family Medical History: Myocardial Infarction (ME) Additional Family Medical History / Comment(s): Father had a ME at the age of 65yrs. Medications and Allergies Home Medications Medication Instructions Recorded Confirmed Type Furosemide [Lasix] 40 mg PO DAILY 11/29/17 06/08/22 History HYDROcodone/APAP 5-325MG [[place] 1 tab PO Q6HR PRN 11/29/17 06/08/22 History 5-325] Ipratropium-Albuterol Nebulize 3 ml INHALATION RT-QID 11/29/17 06/08/22 History [Duoneb 0.5 mg-3 mg/3 ml Soln] Magnesium Oxide 400 mg PO DAILY 11/29/17 06/08/22 History Midodrine HCl [ProAmatine] 10 mg PO TID 11/29/17 06/08/22 History Tamsulosin HCl [Flomax] 0.4 mg PO DAILY 11/29/17 06/08/22 History Meclizine [Antivert] 12.5 mg PO TID PRN #0 tab 12/01/17 06/08/22 Rx ALPRAZolam [Xanax] 0.25 mg PO DAILY PRN 06/25/19 06/08/22 History Atorvastatin Calcium [Lipitor] 20 mg PO DAILY 06/25/19 06/08/22 History L.acidoph,Paracasei, B.lactis 1 cap PO DAILY 06/25/19 06/08/22 History [Probiotic] calcitrioL [Calcitriol] 0.25 mcg PO MOFR 06/25/19 06/08/22 History Amiodarone HCl [Pacerone] 100 mg PO DAILY 06/08/22 06/08/22 History Budesonide [Pulmicort] 0.5 mg INHALATION RT-BID 06/08/22 06/08/22 History FLUoxetine HCL [PROzac] 10 mg PO DAILY 06/08/22 06/08/22 History Famotidine [Pepcid] 20 mg PO BID 06/08/22 06/08/22 History Folic Acid 1 mg PO DAILY 06/08/22 06/08/22 History Lactulose 20 gm PO DAILY PRN 06/08/22 06/08/22 History Linaclotide [Linzess] 145 mcg PO DAILY 06/08/22 06/08/22 History Ondansetron [Zofran] 4 mg PO BID PRN 06/08/22 06/08/22 History Potassium Chloride ER [K-Dur 10] 30 meq PO TID 06/08/22 06/08/22 History Sennosides/Docusate Sodium 2 tab PO HS 06/08/22 06/08/22 History [Senna-S 8.6-50 mg Tablet] predniSONE 10 mg PO DAILY 06/08/22 06/08/22 History Allergies Allergy/AdvReac Type Severity Reaction Status Date / Time codeine Allergy Rash/Hives Verified 06/08/22 17:22 Physical Exam Vitals: Vital Signs Temp Pulse Pulse Resp BP BP Pulse Ox 06/09/22 04:00 97.4 F L 62 20 148/76 97 06/09/22 02:00 64 20 06/09/22 00:00 97.5 F L 64 20 97 06/08/22 21:30 98.1 F 63 18 122/74 93 L 06/08/22 20:49 67 18 151/82 96 06/08/22 19:45 97.7 F 68 18 131/85 95 06/08/22 15:55 81 22 137/83 94 L 06/08/22 15:03 24 06/08/22 14:29 99.5 F 92 20 109/50 94 L Intake and Output 06/08/22 06/09/22 06/09/22 22:59 06:59 14:59 Other: Voiding Method Diaper Diaper Incontinent Incontinent # Voids 1 Weight 68.039 kg -GENERAL: The patient is alert and oriented x3, not in any acute distress. Well developed, well nourished. Generally weak, heart of hearing HEENT: Pupils are round and equally reacting to light. EOMI. No scleral icterus. No conjunctival pallor. Normocephalic, atraumatic. No pharyngeal erythema. No thyromegaly. CARDIOVASCULAR: S1 and S2 present. No murmurs, rubs, or gallops. -PULMONARY: Chest is clear to auscultation, no wheezing . Bilateral scattered crackles. ABDOMEN: Soft, nontender, nondistended, normoactive bowel sounds. No palpable organomegaly. MUSCULOSKELETAL: No joint swelling or deformity. EXTREMITIES: No cyanosis, clubbing, or pedal edema. NEUROLOGICAL: Gross neurological examination did not reveal any focal deficits. SKIN: No rashes. No petechiae Results CBC & Chem 7: 06/09/22 08:50 06/09/22 08:50 Labs: Abnormal Lab Results - Last 24 Hours (Table) 06/08/22 06/08/22 06/08/22 Range/Units 15:07 15:07 15:07 WBC 12.0 H (3.8-10.6) k/uL RBC 3.28 L (4.30-5.90) m/uL Hgb 11.2 L (13.0-17.5) gm/dL Hct 33.6 L (39.0-53.0) % MCV 102.5 H (80.0-100.0) fL Plt Count 113 L (150-450) k/uL Neutrophils # 10.8 H (1.3-7.7) k/uL Lymphocytes # 0.6 L (1.0-4.8) k/uL D-Dimer 7.81 H (<0.60) mg/L FEU BUN 48 H (9-20) mg/dL Creatinine 1.38 H (0.66-1.25) mg/dL Glucose 122 H (74-99) mg/dL POC Glucose (mg/dL) (70-110) mg/dL Troponin I (0.000-0.034) ng/mL C-Reactive Protein (<1.0) mg/dL Total Protein 5.7 L (6.3-8.2) g/dL Albumin 3.4 L (3.5-5.0) g/dL Coronavirus (PCR) (Not Detectd) 06/08/22 06/08/22 06/08/22 Range/Units 15:07 17:01 20:46 WBC (3.8-10.6) k/uL RBC (4.30-5.90) m/uL Hgb (13.0-17.5) gm/dL Hct (39.0-53.0) % MCV (80.0-100.0) fL Plt Count (150-450) k/uL Neutrophils # (1.3-7.7) k/uL Lymphocytes # (1.0-4.8) k/uL D-Dimer (<0.60) mg/L FEU BUN (9-20) mg/dL Creatinine (0.66-1.25) mg/dL Glucose (74-99) mg/dL POC Glucose (mg/dL) (70-110) mg/dL Troponin I 0.086 H* 0.084 H* (0.000-0.034) ng/mL C-Reactive Protein (<1.0) mg/dL Total Protein (6.3-8.2) g/dL Albumin (3.5-5.0) g/dL Coronavirus (PCR) Detected A (Not Detectd) 06/08/22 06/08/22 06/08/22 Range/Units 20:46 21:28 23:59 WBC (3.8-10.6) k/uL RBC (4.30-5.90) m/uL Hgb (13.0-17.5) gm/dL Hct (39.0-53.0) % MCV (80.0-100.0) fL Plt Count (150-450) k/uL Neutrophils # (1.3-7.7) k/uL Lymphocytes # (1.0-4.8) k/uL D-Dimer (<0.60) mg/L FEU BUN (9-20) mg/dL Creatinine (0.66-1.25) mg/dL Glucose (74-99) mg/dL POC Glucose (mg/dL) 168 H (70-110) mg/dL Troponin I 0.079 H* (0.000-0.034) ng/mL C-Reactive Protein 8.7 H (<1.0) mg/dL Total Protein (6.3-8.2) g/dL Albumin (3.5-5.0) g/dL Coronavirus (PCR) (Not Detectd) Thrombosis Risk Factor Assmnt - Choose All That Apply Each Factor Represents 1 point: Abnormal pulmonary function (COPD), Heart failure (<1month), Medical pt on bed rest, Serious lung disease incl. pneumonia (< 1month) Other Risk Factors: Yes Each Risk Factor Represents 2 Points: Patient confined to bed, Malignancy Each Risk Factor Represents 3 Points: Age 75 years or older Other congenital or acquired thrombophilia - If yes, enter type in comment: No Thrombosis Risk Factor Assessment Total Risk Factor Score: 11 Thrombosis Risk Factor Assessment Level: High Risk Assessment and Plan Assessment: bilateral Covid pneumonia, possibly acute tracheobronchitis Acute hypoxic respiratory failure elevated d-dimer, with no pulmonary embolism on CTA of the chest mildly elevated troponin, most likely secondary to covid infection Increased inflammatory markers chronic kidney disease, stage III with probable mild acute kidney injury left fifth rib fracture chronic Atrial Fibrillation,not on anticoagulation Chronic congestive Heart Failure hyperlipidemia Hypertension Chronic kidney disease History of GERD Plan: Continue with dexamethasone Continue with vitamin C, vitamin D and zinc Pulmonary consult cardiology consult Labs and medication were reviewed.. Continue same treatment. Continue with symptomatic treatment. Resume home medication. Monitor labs and vitals. DVT and GI prophylaxis. Further recommendations as per clinical course of the patient DVT prophylaxis: Subcutaneous Lovenox GI Prophylaxis: Pepcid PT/OT: Pending Prognosis is guarded
[2022-06-09 10:21] LABS: Platelet Count 91 k/uL (150-450)
--- NOTE | 2022-06-09 11:26 | P.CRDCN ---
History of Present Illness History of present illness: CHIEF COMPLAINT: Shortness of breath HISTORY OF PRESENT ILLNESS: This is a 82-year-old male with a past medical history significant for AAA/Aor tic coartation repair, atrial fibrillation, hypertension, hyperlipidemia, COPD, and former nicotine dependence. Patient follows in the office with Dr. Copeland. We have been asked to see the patient in consultation for abnormal troponins. Patient examined at the bedside. Patient presented to the hospital with a chief complaint of shortness of breath. Per ER documentation, the patients pulse ox at home was 82%. The patient was found to be positive for Covid. It is noted that he tested positive sometime earlier this month. The patient denies any chest pain or pressure. He currently reports shortness of breath. He also reports a frequent cough. * EKG reveals sinus mechanism with no signs of acute ischemia * Chest xray COPD with chronic changes of interstitial lung disease. No definite acute infiltrate. * Chest CTA: Negative for pulmonary embolism. Cardiomegaly and trace bilateral pleural effusions present. * Laboratory data: WBC 5.0. Hemoglobin 10.7. Platelet count 91. Sodium 140. Potassium 4.9. BUN 47. Creatinine 1.12. Troponin 0.086. 0.084. 0.079. * Current home cardiac medications include amiodarone 100 mg daily, Lasix 40 mg daily, Lipitor 20 mg daily * Most recent echocardiogram obtained in 2018 revealed ejection fraction 45-50%, mild aortic regurgitation, mild aortic stenosis, mild mitral regurgitation, mild tricuspid regurgitation REVIEW OF SYSTEMS: Thorough review of systems not completed secondary to limited evaluation/examination due to Covid19 PHYSICAL EXAM: Thorough physical exam not completed secondary to limited evaluation/examination due to Covid19 ASSESSMENT: Shortness of breath Covid 19 Acute hypoxic respiratory failure Abnormal troponins, flat, not suggestive of acute coronary syndrome, likely secondary to Covid Paroxysmal atrial fibrillation, not on anticoagulation secondary to history of recurrent falls History of AAA/Aortic coartation repair Hypertension Hyperlipidemia COPD Former nicotine dependence PLAN: Obtain 2-D limited echo Resume home cardiac medications Continue telemetry monitoring Further recommendations pending patient's course Nurse practitioner note has been reviewed by physician. Signing provider agrees with the documented findings, assessment, and plan of care. Past Medical History Past Medical History: Atrial Fibrillation, Cancer, Heart Failure, COPD, GERD/R eflux, Hyperlipidemia, Hypertension, Osteoarthritis (OA), Pneumonia, Renal Disease Additional Past Medical History / Comment(s): thoracic aortic aneurysm and previous repair and the patient also had a repair of a coarctation of the warts, hiatal hernia, nephrolithiasis, skin cancer that was resected, degenerative arthritis, radiation to skin cancer on nose 06/06/22 at [facility] History of Any Multi-Drug Resistant Organisms: MRSA Date of last positivie culture/infection: 07/21/17 MDRO Source:: URINE Past Surgical History: Cholecystectomy, Heart Catheterization, Hernia Repair, Joint Replacement Additional Past Surgical History / Comment(s): AAA/Aortic coarctation repair, bilateral total knee arthroplasties, R total hip arthroplasty, bilateral shoulder rotator cuff repairs, R inguinal hernia repair, skin cancer removed from nose, lithotripsy, colonoscopy Past Anesthesia/Blood Transfusion Reactions: No Reported Reaction Past Psychological History: No Psychological Hx Reported Additional Psychological History / Comment(s): Patient lives with son Igor. Pt uses a walker independently at home. Smoking Status: Former smoker Past Alcohol Use History: None Reported Additional Past Alcohol Use History / Comment(s): Pt quit smoking cigarettes in 1961 and quit smoking pipe in 1987. Past Drug Use History: None Reported - Past Family History Mother Family Medical History: No Reported History Additional Family Medical History / Comment(s): Pt reluctant to speak about mother's hx. Father Family Medical History: Myocardial Infarction (RI) Additional Family Medical History / Comment(s): Father had a RI at the age of 65yrs. Medications and Allergies Home Medications Medication Instructions Recorded Confirmed Type Furosemide [Lasix] 40 mg PO DAILY 11/29/17 06/08/22 History HYDROcodone/APAP 5-325MG [[place] 1 tab PO Q6HR PRN 11/29/17 06/08/22 History 5-325] Ipratropium-Albuterol Nebulize 3 ml INHALATION RT-QID 11/29/17 06/08/22 History [Duoneb 0.5 mg-3 mg/3 ml Soln] Magnesium Oxide 400 mg PO DAILY 11/29/17 06/08/22 History Midodrine HCl [ProAmatine] 10 mg PO TID 11/29/17 06/08/22 History Tamsulosin HCl [Flomax] 0.4 mg PO DAILY 11/29/17 06/08/22 History Meclizine [Antivert] 12.5 mg PO TID PRN #0 tab 12/01/17 06/08/22 Rx ALPRAZolam [Xanax] 0.25 mg PO DAILY PRN 06/25/19 06/08/22 History Atorvastatin Calcium [Lipitor] 20 mg PO DAILY 06/25/19 06/08/22 History L.acidoph,Paracasei, B.lactis 1 cap PO DAILY 06/25/19 06/08/22 History [Probiotic] calcitrioL [Calcitriol] 0.25 mcg PO MOFR 06/25/19 06/08/22 History Amiodarone HCl [Pacerone] 100 mg PO DAILY 06/08/22 06/08/22 History Budesonide [Pulmicort] 0.5 mg INHALATION RT-BID 06/08/22 06/08/22 History FLUoxetine HCL [PROzac] 10 mg PO DAILY 06/08/22 06/08/22 History Famotidine [Pepcid] 20 mg PO BID 06/08/22 06/08/22 History Folic Acid 1 mg PO DAILY 06/08/22 06/08/22 History Lactulose 20 gm PO DAILY PRN 06/08/22 06/08/22 History Linaclotide [Linzess] 145 mcg PO DAILY 06/08/22 06/08/22 History Ondansetron [Zofran] 4 mg PO BID PRN 06/08/22 06/08/22 History Potassium Chloride ER [K-Dur 10] 30 meq PO TID 06/08/22 06/08/22 History Sennosides/Docusate Sodium 2 tab PO HS 06/08/22 06/08/22 History [Senna-S 8.6-50 mg Tablet] predniSONE 10 mg PO DAILY 06/08/22 06/08/22 History Allergies Allergy/AdvReac Type Severity Reaction Status Date / Time codeine Allergy Rash/Hives Verified 06/08/22 17:22 Physical Exam Vitals: Vital Signs Temp Pulse Pulse Resp BP BP Pulse Ox 06/09/22 04:00 97.4 F L 62 20 148/76 97 06/09/22 02:00 64 20 06/09/22 00:00 97.5 F L 64 20 97 06/08/22 21:30 98.1 F 63 18 122/74 93 L 06/08/22 20:49 67 18 151/82 96 06/08/22 19:45 97.7 F 68 18 131/85 95 06/08/22 15:55 81 22 137/83 94 L 06/08/22 15:03 24 06/08/22 14:29 99.5 F 92 20 109/50 94 L Intake and Output 06/08/22 06/09/22 06/09/22 22:59 06:59 14:59 Other: Voiding Method Diaper Diaper Incontinent Incontinent # Voids 1 Weight 68.039 kg Results 06/09/22 08:50 06/09/22 08:50 Cardiac Enzymes 06/08/22 06/08/22 06/08/22 Range/Units 15:07 15:07 20:46 AST 23 (17-59) U/L Lactate Dehydrogenase (313-618) U/L Troponin I 0.086 H* 0.084 H* (0.000-0.034) ng/mL 06/08/22 06/08/22 Range/Units 20:46 23:59 AST (17-59) U/L Lactate Dehydrogenase 597 (313-618) U/L Troponin I 0.079 H* (0.000-0.034) ng/mL Coagulation 06/08/22 Range/Units 15:07 PT 10.4 (9.0-12.0) sec APTT 22.0 (22.0-30.0) sec CBC 06/08/22 Range/Units 15:07 WBC 12.0 H (3.8-10.6) k/uL RBC 3.28 L (4.30-5.90) m/uL Hgb 11.2 L (13.0-17.5) gm/dL Hct 33.6 L (39.0-53.0) % Plt Count 113 L (150-450) k/uL Comprehensive Metabolic Panel 06/08/22 Range/Units 15:07 Sodium 139 (137-145) mmol/L Potassium 4.8 (3.5-5.1) mmol/L Chloride 106 (98-107) mmol/L Carbon Dioxide 27 (22-30) mmol/L BUN 48 H (9-20) mg/dL Creatinine 1.38 H (0.66-1.25) mg/dL Glucose 122 H (74-99) mg/dL Calcium 8.6 (8.4-10.2) mg/dL AST 23 (17-59) U/L ALT 22 (4-49) U/L Alkaline Phosphatase 68 (38-126) U/L Total Protein 5.7 L (6.3-8.2) g/dL Albumin 3.4 L (3.5-5.0) g/dL Current Medications Generic Name Dose Route Start Last Admin Trade Name Freq PRN Reason Stop Dose Admin Acetaminophen 650 mg 06/08/22 18:07 Acetaminophen Tab 325 Mg Tab PO Q6HR PRN Mild Pain or Fever > 100.5 Albuterol Sulfate 2 puff 06/08/22 20:00 06/08/22 20:26 Albuterol Hfa Inhaler INHALATION 2 puff RT-QID EJSSICA Administration Alprazolam 0.25 mg 06/08/22 22:12 Alprazolam 0.25 Mg Tab PO DAILY PRN Anxiety Amiodarone HCl 100 mg 06/09/22 09:00 Amiodarone 100 Mg Tab PO DAILY [facility] Atorvastatin Calcium 20 mg 06/08/22 22:15 06/08/22 22:22 Atorvastatin 20 Mg Tab PO Not Given DAILY [facility] Cholecalciferol 50 mcg 06/08/22 20:30 06/08/22 21:24 Cholecalciferol 25 Mcg (1000 Iu) Tablet PO Not Given DAILY [facility] Dexamethasone Sodium Phosphate 6 mg 06/08/22 18:15 06/08/22 18:52 Dexamethasone Sod Phosphate 10 Mg/Ml 1 Ml Vial IVP 6 mg DAILY JESSICA Administration Enoxaparin Sodium 30 mg 06/08/22 20:30 06/08/22 21:37 Enoxaparin 30 Mg/0.3 Ml Syringe SQ 30 mg DAILY JESSICA Administration Famotidine 20 mg 06/09/22 09:00 Famotidine 20 Mg Tab PO BID [facility] Fluticasone Propionate 2 puff 06/09/22 08:00 Fluticasone 110 Mcg Inhaler INHALATION RT-BID [facility] Ceftriaxone Sodium 2 gm/ 50 mls @ 100 mls/hr 06/09/22 09:00 Sodium Chloride IVPB 06/12/22 09:29 Q24HR [facility] Protocol Miscellaneous Information 1 each 06/08/22 18:11 Pneumonia Protocol Utilized 1 Each Misc PO ONCE PRN Per Protocol Naloxone HCl 0.2 mg 06/08/22 18:07 Naloxone 0.4 Mg/Ml 1 Ml Vial IV Q2M PRN Opioid Reversal Zinc Sulfate 220 mg 06/08/22 20:30 06/08/22 21:24 Zinc Sulfate 220 Mg Cap PO Not Given DAILY JESSICA Intake and Output 06/08/22 06/09/22 06/09/22 22:59 06:59 14:59 Other: Voiding Method Diaper Diaper Incontinent Incontinent # Voids 1 Weight 68.039 kg 06/08/22 15:07 06/08/22 15:07
--- NOTE | 2022-06-09 13:18 | P.CNPUL ---
History of Present Illness Consult date: 06/09/22 Requesting physician: Anish E Ryder Reason for consult: COPD, hypoxemia Chief complaint: Shortness of breath, cough, congestion History of present illness: This is a 82-year-old male patient, poor historian. He has a history of atrial fibrillation, congestive heart failure, aortic aneurysm repair, chronic obstructive pulmonary disease, hyperlipidemia, hypertension, gastroesophageal reflux disease, former smoker, multiple orthopedic surgeries. Skin cancer of the nose with surgery and receiving radiation. He was brought in by his family yesterday with concerns regarding low oxygen levels. He does have home oxygen at 3 L but mostly wearing it at night. He did test positive on 05/30/2022. He was also started on a Z-Ren for cough and congestion. CT angiogram ruled out pulmonary embolism. There is scattered groundglass opacities correlate for typical atypical pneumonia. Cardiomegaly. Trace bilateral effusions. Right lateral ribs 3 and irregularity and left rib 5 subacute fracture anterior posteriorly. White count 5.0. Hemoglobin 10.7. Platelets 91,000. Sodium 140. Potassium 4.9. Bicarb 20. BUN 47. Creatinine 1.12. Glucose 147. He did test positive for coronavirus. C-reactive protein 8.7. LDH 597. Pro- calcitonin 0.20. He's been initiated on Decadron, vitamin supplements, Lovenox. Antibiotics in the form of ceftriaxone. He is seen today in the selective care unit. He is sitting up in bed. Awake and alert. Somewhat disoriented to time and place. Maintaining O2 saturations in the mid 90s on 2 L/m per nasal cannula. He's been afebrile. Hemodynamically stable. Chest x-ray reveals patchy interstitial infiltrates throughout the periphery bilaterally consistent with CoVID pneumonia. The patient has been vaccinated and boosted. Review of Systems REVIEW OF SYSTEMS: CONSTITUTIONAL: Denies any recent significant weight loss or weight gain. EYES: Denies change in vision. EARS, NOSE, MOUTH, THROAT: Denies headaches, denies sore throat. CARDIOVASCULAR: Denies chest pain, palpitations or syncopal episodes. RESPIRATORY: Positive for shortness of breath, cough, congestion no hemoptysis. GASTROINTESTINAL: Denies change in appetite, denies abdominal pain GENITOURINARY: Denies hematuria, denies infections. MUSKULOSKELETAL: Denies pain, denies swelling. INTEGUMENTARY: Denies rash, denies eczema. NEUROLOGICAL: Denies recent memory loss, no recent seizure activity. PSYCHIATRIC: Denies anxiety, denies depression. HEMATOLOGIC/LYMPHATIC: Denies anemia, denies enlarged lymph nodes. Past Medical History Past Medical History: Atrial Fibrillation, Cancer, Heart Failure, COPD, GERD/ Reflux, Hyperlipidemia, Hypertension, Osteoarthritis (OA), Pneumonia, Renal Disease Additional Past Medical History / Comment(s): thoracic aortic aneurysm and previous repair and the patient also had a repair of a coarctation of the warts, hiatal hernia, nephrolithiasis, skin cancer that was resected, degenerative arthritis, radiation to skin cancer on nose 06/06/22 at [facility] History of Any Multi-Drug Resistant Organisms: MRSA Date of last positivie culture/infection: 07/21/17 MDRO Source:: URINE Past Surgical History: Cholecystectomy, Heart Catheterization, Hernia Repair, Joint Replacement Additional Past Surgical History / Comment(s): AAA/Aortic coarctation repair, bilateral total knee arthroplasties, R total hip arthroplasty, bilateral shoulder rotator cuff repairs, R inguinal hernia repair, skin cancer removed from nose, lithotripsy, colonoscopy Past Anesthesia/Blood Transfusion Reactions: No Reported Reaction Past Psychological History: No Psychological Hx Reported Additional Psychological History / Comment(s): Patient lives with son Igor. Pt uses a walker independently at home. Smoking Status: Former smoker Past Alcohol Use History: None Reported Additional Past Alcohol Use History / Comment(s): Pt quit smoking cigarettes in 1961 and quit smoking pipe in 1987. Past Drug Use History: None Reported - Past Family History Mother Family Medical History: No Reported History Additional Family Medical History / Comment(s): Pt reluctant to speak about mother's hx. Father Family Medical History: Myocardial Infarction (MN) Additional Family Medical History / Comment(s): Father had a MN at the age of 65yrs. Medications and Allergies Home Medications Medication Instructions Recorded Confirmed Type Furosemide [Lasix] 40 mg PO DAILY 11/29/17 06/08/22 History HYDROcodone/APAP 5-325MG [[place] 1 tab PO Q6HR PRN 11/29/17 06/08/22 History 5-325] Ipratropium-Albuterol Nebulize 3 ml INHALATION RT-QID 11/29/17 06/08/22 History [Duoneb 0.5 mg-3 mg/3 ml Soln] Magnesium Oxide 400 mg PO DAILY 11/29/17 06/08/22 History Midodrine HCl [ProAmatine] 10 mg PO TID 11/29/17 06/08/22 History Tamsulosin HCl [Flomax] 0.4 mg PO DAILY 11/29/17 06/08/22 History Meclizine [Antivert] 12.5 mg PO TID PRN #0 tab 12/01/17 06/08/22 Rx ALPRAZolam [Xanax] 0.25 mg PO DAILY PRN 06/25/19 06/08/22 History Atorvastatin Calcium [Lipitor] 20 mg PO DAILY 06/25/19 06/08/22 History L.acidoph,Paracasei, B.lactis 1 cap PO DAILY 06/25/19 06/08/22 History [Probiotic] calcitrioL [Calcitriol] 0.25 mcg PO MOFR 06/25/19 06/08/22 History Amiodarone HCl [Pacerone] 100 mg PO DAILY 06/08/22 06/08/22 History Budesonide [Pulmicort] 0.5 mg INHALATION RT-BID 06/08/22 06/08/22 History FLUoxetine HCL [PROzac] 10 mg PO DAILY 06/08/22 06/08/22 History Famotidine [Pepcid] 20 mg PO BID 06/08/22 06/08/22 History Folic Acid 1 mg PO DAILY 06/08/22 06/08/22 History Lactulose 20 gm PO DAILY PRN 06/08/22 06/08/22 History Linaclotide [Linzess] 145 mcg PO DAILY 06/08/22 06/08/22 History Ondansetron [Zofran] 4 mg PO BID PRN 06/08/22 06/08/22 History Potassium Chloride ER [K-Dur 10] 30 meq PO TID 06/08/22 06/08/22 History Sennosides/Docusate Sodium 2 tab PO HS 06/08/22 06/08/22 History [Senna-S 8.6-50 mg Tablet] predniSONE 10 mg PO DAILY 06/08/22 06/08/22 History Allergies Allergy/AdvReac Type Severity Reaction Status Date / Time codeine Allergy Rash/Hives Verified 06/08/22 17:22 Physical Exam Vitals: Vital Signs Temp Pulse Pulse Resp BP BP Pulse Ox 06/09/22 11:40 97.7 F 62 18 142/72 97 06/09/22 08:15 97.5 F L 64 18 140/77 97 06/09/22 04:00 97.4 F L 62 20 148/76 97 06/09/22 02:00 64 20 06/09/22 00:00 97.5 F L 64 20 97 06/08/22 21:30 98.1 F 63 18 122/74 93 L 06/08/22 20:49 67 18 151/82 96 06/08/22 19:45 97.7 F 68 18 131/85 95 06/08/22 15:55 81 22 137/83 94 L 06/08/22 15:03 24 06/08/22 14:29 99.5 F 92 20 109/50 94 L Intake and Output 06/08/22 06/09/22 06/09/22 22:59 06:59 14:59 Output Total 450 Balance -450 Output: Urine 450 Other: Voiding Method Diaper Diaper Diaper Incontinent Incontinent Incontinent # Voids 1 Weight 68.039 kg GENERAL EXAM: Alert, poor historian, 82-year-old male, on 2 L nasal cannula, comfortable in no apparent distress. HEAD: Normocephalic. EYES: Normal reaction of pupils, equal size. NOSE: Clear with pink turbinates. THROAT: No erythema or exudates. NECK: No masses, no JVD. CHEST: No chest wall deformity. LUNGS: Equal air entry with few scattered rhonchi bilaterally. CVS: S1 and S2 normal with no audible murmur, regular rhythm. ABDOMEN: No hepatosplenomegaly, normal bowel sounds, no guarding or rigidity. SPINE: No scoliosis or deformity SKIN: No rashes CENTRAL NERVOUS SYSTEM: No focal deficits, tone is normal in all 4 extremities. EXTREMITIES: There is no peripheral edema. No clubbing, no cyanosis. Peripheral pulses are intact. Results - Laboratory Findings CBC and BMP: 06/09/22 08:50 06/09/22 08:50 PT/INR, D-dimer PT 10.4 sec (9.0-12.0) 06/08/22 15:07 INR 1.0 (<1.2) 06/08/22 15:07 D-Dimer 7.81 mg/L FEU (<0.60) H 06/08/22 15:07 Abnormal lab findings: Abnormal Labs 06/08/22 06/08/22 06/08/22 15:07 15:07 15:07 WBC 12.0 H RBC 3.28 L Hgb 11.2 L Hct 33.6 L MCV 102.5 H Plt Count 113 L Neutrophils # 10.8 H Lymphocytes # 0.6 L D-Dimer 7.81 H Chloride BUN 48 H Creatinine 1.38 H Glucose 122 H POC Glucose (mg/dL) Calcium Troponin I C-Reactive Protein Total Protein 5.7 L Albumin 3.4 L Procalcitonin Coronavirus (PCR) 06/08/22 06/08/22 06/08/22 15:07 17:01 20:46 WBC RBC Hgb Hct MCV Plt Count Neutrophils # Lymphocytes # D-Dimer Chloride BUN Creatinine Glucose POC Glucose (mg/dL) Calcium Troponin I 0.086 H* 0.084 H* C-Reactive Protein Total Protein Albumin Procalcitonin Coronavirus (PCR) Detected A 06/08/22 06/08/22 06/08/22 20:46 20:46 21:28 WBC RBC Hgb Hct MCV Plt Count Neutrophils # Lymphocytes # D-Dimer Chloride BUN Creatinine Glucose POC Glucose (mg/dL) 168 H Calcium Troponin I C-Reactive Protein 8.7 H Total Protein Albumin Procalcitonin 0.20 H Coronavirus (PCR) 06/08/22 06/09/22 06/09/22 23:59 08:50 08:50 WBC RBC 3.15 L Hgb 10.7 L Hct 32.4 L MCV 102.9 H Plt Count 91 L Neutrophils # Lymphocytes # 0.4 L D-Dimer Chloride 108 H BUN 47 H Creatinine Glucose 147 H POC Glucose (mg/dL) Calcium 8.3 L Troponin I 0.079 H* C-Reactive Protein Total Protein Albumin Procalcitonin Coronavirus (PCR) - Diagnostic Findings Chest x-ray: image reviewed CT scan - chest: image reviewed Assessment and Plan Assessment: Acute hypoxemic respiratory failure secondary to acute COVID-19 pneumonia with possible underlying bacterial pneumonia. Procalcitoni 0.2. Acute COVID-19 infection Mild troponin leak Thrombocytopenia Acute kidney failure Chronic anemia Chronic obstructive pulmonary disease, on oxygen at 2-3 L mainly at night time Hyperlipidemia Hypertension History of atrial fibrillation History of congestive heart failure History of abdominal aortic aneurysm repair Multiple orthopedic surgeries Former smoker Poor historian Poor overall functional performance based on the above-mentioned multiple comorbidities Plan: The patient was seen and evaluated CAT scan, chest x-ray, labs and medications reviewed Continue Decadron, Lovenox, vitamin supplements Continue ceftriaxone Titrate the FiO2 as tolerated We will continue to follow and make further recommendations based on his clinical status I have personally seen and examined the patient, performed the documentation and the assessment and plan as written. Number of minutes spent on the visit: 20.
[2022-06-09] MEDS: ASCORBIC ACID 500 MG TAB PO SCH (19:55)
[2022-06-09 22:30] LABS: Appearance,Urine Clear (Clear); Bilirubin,Urine Negative (Negative); Blood,Urine Negative (Negative); Color,Urine Light Yellow; Glucose,Urine (UA) Negative (Negative); Ketones,Urine Negative (Negative); Leukocyte Esterase,Urine Negative (Negative); Nitrite,Urine Negative (Negative); PH, Urine 5.5 (5.0-8.0); Protein,Urine Trace (Negative); Specific Gravity,Urine 1.026 (1.001-1.035); Urobilinogen,Urine <2.0 mg/dL (<2.0)
[2022-06-09] MEDS ORDERED: guaiFENesin-DM 100-10MG/5ML 10 ML CUP PO PRN (23:03)
[2022-06-10 08:19] LABS: Calcium 8.2 mg/dL (8.4-10.2)
[2022-06-10] MEDS: ASCORBIC ACID 500 MG TAB PO SCH ×2 (08:40→19:55)
[2022-06-10] MEDS: ATORVASTATIN 20 MG TAB PO SCH (08:40)
[2022-06-10] MEDS: ENOXAPARIN 40 MG/0.4 ML SYRINGE SQ SCH (08:40)
[2022-06-10] MEDS: DEXAMETHASONE SOD PHOSPHATE 10 MG/ML 1 ML VIAL IVP SCH (08:40)
[2022-06-10] MEDS: AMIODARONE 100 MG TAB PO SCH (08:40)
[2022-06-10] MEDS: ZINC SULFATE 220 MG CAP PO SCH (08:40)
[2022-06-10] MEDS: FAMOTIDINE 20 MG TAB PO SCH (08:40)
[2022-06-10] MEDS: CHOLECALCIFEROL 25 MCG (1000 IU) TABLET PO SCH (08:40)
[2022-06-10] MEDS: ALBUTEROL HFA INHALER INHALATION SCH ×4 (08:59→20:58)
[2022-06-10] MEDS: FLUTICASONE 110 MCG INHALER INHALATION SCH ×2 (08:59→20:58)
--- NOTE | 2022-06-10 09:53 | P.PN ---
Subjective Progress Note Date: 06/10/22 CHIEF COMPLAINT: Shortness of breath HISTORY OF PRESENT ILLNESS: This is a 82-year-old male with a past medical history significant for AAA/Aortic coartation repair, atrial fibrillation, hypertension, hyperlipidemia, COPD, and former nicotine dependence. Patient follows in the office with Dr. Copeland. We have been asked to see the patient in consultation for abnormal troponins. Patient examined at the bedside. Patient presented to the hospital with a chief complaint of shortness of breath. Per ER documentation, the patients pulse ox at home was 82%. The patient was found to be positive for Covid. It is noted that he tested positive sometime earlier this month. The patient denies any chest pain or pressure. He currently reports shortness of breath. He also reports a frequent cough. * EKG reveals sinus mechanism with no signs of acute ischemia * Chest xray COPD with chronic changes of interstitial lung disease. No definite acute infiltrate. * Chest CTA: Negative for pulmonary embolism. Cardiomegaly and trace bilateral pleural effusions present. * Laboratory data: WBC 5.0. Hemoglobin 10.7. Platelet count 91. Sodium 140. Potassium 4.9. BUN 47. Creatinine 1.12. Troponin 0.086. 0.084. 0.079. * Current home cardiac medications include amiodarone 100 mg daily, Lasix 40 mg daily, Lipitor 20 mg daily * Most recent echocardiogram obtained in 2018 revealed ejection fraction 45-50%, mild aortic regurgitation, mild aortic stenosis, mild mitral regurgitation, mild tricuspid regurgitation 06/10/2022 Patient examined this morning to bedside. Patient denies chest pain or pressure. He continues to report shortness of breath. He has a congested cough. Vital signs are stable. PHYSICAL EXAM: Thorough physical exam not completed secondary to limited evaluation/examination due to Covid19 ASSESSMENT: Shortness of breath Covid 19 Acute hypoxic respiratory failure Abnormal troponins, flat, not suggestive of acute coronary syndrome, likely secondary to Covid Paroxysmal atrial fibrillation, not on anticoagulation secondary to history of recurrent falls History of AAA/Aortic coartation repair Hypertension Hyperlipidemia COPD Former nicotine dependence PLAN: 2-D echo pending Continue current cardiac medications Continue telemetry monitoring Further recommendations pending patient's course Nurse practitioner note has been reviewed by physician. Signing provider agrees with the documented findings, assessment, and plan of care. Objective - Vital Signs Vital signs: Vital Signs Temp 97.9 F 06/10/22 08:36 Pulse 61 06/10/22 08:36 Resp 20 06/10/22 08:36 BP 126/63 06/10/22 08:36 Pulse Ox 97 06/10/22 09:00 FiO2 Intake & Output 06/09/22 06/10/22 06/10/22 18:59 06:59 18:59 Intake Total 836 Output Total 450 1550 Balance 386 -1550 Intake: Oral 836 Output: Urine 450 1150 Post Void Residual 400 Other: Voiding Method Diaper Diaper Diaper Incontinent Incontinent Incontinent External Catheter # Voids 0 # Bowel Movements 0 - Labs CBC & Chem 7: 06/09/22 08:50 06/10/22 07:31 Labs: Abnormal Lab Results - Last 24 Hours (Table) 06/09/22 06/09/22 06/09/22 Range/Units 08:50 08:50 19:00 Plt Count 91 L (150-450) k/uL Lymphocytes # 0.4 L (1.0-4.8) k/uL Sodium (137-145) mmol/L Chloride 108 H (98-107) mmol/L BUN 47 H (9-20) mg/dL Glucose 147 H (74-99) mg/dL Calcium 8.3 L (8.4-10.2) mg/dL Urine Protein Trace H (Negative) 06/10/22 Range/Units 07:31 Plt Count (150-450) k/uL Lymphocytes # (1.0-4.8) k/uL Sodium 136 L (137-145) mmol/L Chloride (98-107) mmol/L BUN 47 H (9-20) mg/dL Glucose (74-99) mg/dL Calcium 8.2 L (8.4-10.2) mg/dL Urine Protein (Negative) Microbiology - Last 24 Hours (Table) 06/08/22 18:50 Blood Culture - Preliminary Blood No Growth after 24 hours 06/08/22 18:35 Blood Culture - Preliminary Blood No Growth after 24 hours
--- NOTE | 2022-06-10 11:15 | CA ---
Transthoracic Echo Report Name: Lee Obando Age: 82 Gender: M : 1940 Exam Date: 06/10/2022 09:19 Exam Location: [facility] Ht (in): Wt (lb): Ordering Physician: Laney Sutherland Attending/Referring Phys: [id number], Koko Brand Mgr Karlene Maier, OCTAVIO Procedure CPT: Indications: LV function, elevated trops, + covid Cardiac Hx: Limited Study Pt is Covid Positive. Technical Quality: Contrast 1: Total Dose (mL): Contrast 2: Total Dose (mL): MEASUREMENTS (Male / Female) Normal Values DOPPLER AV Peak Velocity 309.4 cm/s AV Peak Gradient 38.3 mmHg AV Mean Velocity 198.7 cm/s AV Mean Gradient 18.0 mmHg AV Velocity Time Integral 67.8 cm LVOT Peak Velocity 105.7 cm/s LVOT Peak Gradient 4.5 mmHg TR Peak Velocity 254.8 cm/s TR Peak Gradient 26.0 mmHg Right Ventricular Systolic Press 31.0 mmHg FINDINGS Left Ventricle Left ventricular ejection fraction is estimated at35-40%. Apical hypokinesis. Right Ventricle Normal right ventricular size and function. Right ventricular systolic pressure within normal limits. Right Atrium Normal right atrial size. Left Atrium Normal left atrial size. Mitral Valve Structurally normal mitral valve. Mild mitral regurgitation. Aortic Valve Moderate aortic stenosis with a peak gradient of 38 mmHg and a mean gradient of 18mmHg. Tricuspid Valve Structurally normal tricuspid valve. Mild tricuspid regurgitation. Pulmonic Valve Structurally normal pulmonic valve. Pericardium Normal pericardium. Aorta Normal size aortic root and proximal ascending aorta. CONCLUSIONS Previewed by: Dr. Lindsey Washington MD (Electronically Signed) Final Date: 10 June 2022 11:14
--- NOTE | 2022-06-10 12:14 | P.PN ---
Subjective Progress Note Date: 06/10/22 This is a 82-year-old male patient, poor historian. He has a history of atrial fibrillation, congestive heart failure, aortic aneurysm repair, chronic obstructive pulmonary disease, hyperlipidemia, hypertension, gastroesophageal reflux disease, former smoker, multiple orthopedic surgeries. Skin cancer of the nose with surgery and receiving radiation. He was brought in by his family yesterday with concerns regarding low oxygen levels. He does have home oxygen at 3 L but mostly wearing it at night. He did test positive on 05/30/2022. He was also started on a Z-Ren for cough and congestion. CT angiogram ruled out pulmonary embolism. There is scattered groundglass opacities correlate for typical atypical pneumonia. Cardiomegaly. Trace bilateral effusions. Right lateral ribs 3 and irregularity and left rib 5 subacute fracture anterior posteriorly. White count 5.0. Hemoglobin 10.7. Platelets 91,000. Sodium 140. Potassium 4.9. Bicarb 20. BUN 47. Creatinine 1.12. Glucose 147. He did test positive for coronavirus. C-reactive protein 8.7. LDH 597. Pro- calcitonin 0.20. He's been initiated on Decadron, vitamin supplements, Lovenox. Antibiotics in the form of ceftriaxone. He is seen today in the selective care unit. He is sitting up in bed. Awake and alert. Somewhat disoriented to time and place. Maintaining O2 saturations in the mid 90s on 2 L/m per nasal cannula. He's been afebrile. Hemodynamically stable. Chest x-ray reveals patchy interstitial infiltrates throughout the periphery bilaterally consistent with CoVID pneumonia. The patient has been vaccinated and boosted. The patient is seen today 06/10/2022 in follow-up on the selective care unit. He is currently sitting up in a chair at the bedside. Awake and alert in no acute distress. Still with some confusion. He is maintaining good O2 saturations in the mid 90s on 2 L/m per nasal cannula. He's been afebrile. Hemodynamically stable. Blood cultures reveal no growth to date. Sodium 136. Potassium 4.0. Bicarb 29. BUN 47. Creatinine 1.10. Urinalysis clear. Currently in a -1.1 L balance. He is continued on Decadron, Lovenox, vitamin supplements. He remains on bronchodilators. Remains on antibiotics in the form of ceftriaxone. Initial pro-calcitonin 0.20. Objective - Vital Signs Vital signs: Vital Signs Temp 97.9 F 06/10/22 08:36 Pulse 59 L 06/10/22 11:39 Resp 22 06/10/22 11:39 BP 135/76 06/10/22 11:39 Pulse Ox 97 06/10/22 11:39 FiO2 Intake & Output 06/09/22 06/10/22 06/10/22 18:59 06:59 18:59 Intake Total 836 Output Total 450 1550 Balance 386 -1550 Intake: Oral 836 Output: Urine 450 1150 Post Void Residual 400 Other: Voiding Method Diaper Diaper Diaper Incontinent Incontinent Incontinent External Catheter # Voids 0 # Bowel Movements 0 - Exam GENERAL EXAM: Alert, 82-year-old male, up in a chair, on 2 L nasal cannula, comfortable in no apparent distress. HEAD: Normocephalic. EYES: Normal reaction of pupils, equal size. NOSE: Clear with pink turbinates. THROAT: No erythema or exudates. NECK: No masses, no JVD. CHEST: No chest wall deformity. LUNGS: Equal air entry with few scattered rhonchi bilaterally. CVS: S1 and S2 normal with no audible murmur, regular rhythm. ABDOMEN: No hepatosplenomegaly, normal bowel sounds, no guarding or rigidity. SPINE: No scoliosis or deformity SKIN: No rashes CENTRAL NERVOUS SYSTEM: No focal deficits, tone is normal in all 4 extremities. EXTREMITIES: There is no peripheral edema. No clubbing, no cyanosis. Peripheral pulses are intact. - Labs CBC & Chem 7: 06/09/22 08:50 06/10/22 07:31 Labs: Abnormal Lab Results - Last 24 Hours (Table) 06/09/22 06/10/22 Range/Units 19:00 07:31 Sodium 136 L (137-145) mmol/L BUN 47 H (9-20) mg/dL Calcium 8.2 L (8.4-10.2) mg/dL Urine Protein Trace H (Negative) Microbiology - Last 24 Hours (Table) 06/08/22 18:50 Blood Culture - Preliminary Blood No Growth after 24 hours 06/08/22 18:35 Blood Culture - Preliminary Blood No Growth after 24 hours Assessment and Plan Assessment: Acute hypoxemic respiratory failure secondary to acute COVID-19 pneumonia with possible underlying bacterial pneumonia. Procalcitoni 0.2. Currently on ceftriaxone. Acute COVID-19 infection, maintained on Lovenox, Decadron, vitamin supplements Mild troponin leak Thrombocytopenia Acute kidney failure Chronic anemia Chronic obstructive pulmonary disease, on oxygen at 2-3 L mainly at night time Hyperlipidemia Hypertension History of atrial fibrillation History of congestive heart failure History of abdominal aortic aneurysm repair Multiple orthopedic surgeries Former smoker Poor historian Poor overall functional performance based on the above-mentioned multiple comorbidities Plan: The patient was seen and evaluated Labs and medications reviewed Continue Decadron, Lovenox, vitamin supplements Continue ceftriaxone Titrate the FiO2 as tolerated We will continue to follow I have personally seen and examined the patient, performed the documentation and the assessment and plan as written. Number of minutes spent on the visit: 10.
--- NOTE | 2022-06-10 12:23 | P.PN ---
Subjective this is a pleasant 82 years oldatrial fibrillation not on anticoagulation, COPD, hypertension, hyperlipidemia, chronic kidney disease, GERD, thoracic aortic aneurysm status post repair. Patient presents because of fever and hypoxia, at home oxygen dropped to 82%. Patient looks very weak and poor historian, he is hard of hearing. He is complaining of from dyspnea and worsening coughing He denies chest pain but he complains from mild abdominal pain, no diarrhea or vomiting, no urinary complaints patient currently is saturating 97% on 2 L oxygen via nasal cannula, he is mildly tachypneic, F labs reviewed, patient has leukocytosis 12,000, hemoglobin 11.2, platelet 113. INR is 1.0, d-dimer elevated at 7.8 Creatinine 1.38, close to baseline. Rest of BMP and liver enzymes unremarkable. Mildly elevated troponin0.08 chest x-ray: COPD with chronic changes of interstitial lung disease. No definite acute infiltrate. Vascular changes on the left favor atelectasis of her pneumonia. EKG showing sinus rhythm at [address]-T changes CTA of the chest: No pulmonary embolism, scattered groundglass opacities correlate for atypical pneumonia, possible right lateral rib 3 fracture for irregularity and left subcutaneous fifth rib fracture anteriorly and posteriorly Patient started on ceftriaxone and Zithromax 1 and emergency room. And dexamethasone 06/14/2022 Patient is still short of breath and tachypneic and is still coughing a lot He still complaining from right-sided chest pain, worse with coughing, or going to order more pain medication for him like lidocaine patch He has decent appetite and finished more than 50% of his breakfast this morning, no diarrhea. He feels somewhat anxious. Vital signs stable and he is saturating 97% on 2 L, breathing rate around 18 breaths per minute Creatinine stable at 1.1. Ejection fraction showing slight worsening 35-40% compared to 45% on the echo in 2018, also this time he has moderate aortic stenosis. Remains on Zithromax and ceftriaxone and multiple vitamins Objective - Vital Signs Vital signs: Vital Signs Temp 97.9 F 06/10/22 08:36 Pulse 59 L 06/10/22 11:39 Resp 22 06/10/22 11:39 BP 135/76 06/10/22 11:39 Pulse Ox 97 06/10/22 11:39 FiO2 Intake & Output 06/09/22 06/10/22 06/10/22 18:59 06:59 18:59 Intake Total 836 Output Total 450 1550 Balance 386 -1550 Intake: Oral 836 Output: Urine 450 1150 Post Void Residual 400 Other: Voiding Method Diaper Diaper Diaper Incontinent Incontinent Incontinent External Catheter # Voids 0 # Bowel Movements 0 - Exam -GENERAL: The patient is alert and oriented x3, not in any acute distress. Well developed, well nourished. Generally weak, hard of hearing HEENT: Pupils are round and equally reacting to light. EOMI. No scleral icterus. No conjunctival pallor. Normocephalic, atraumatic. No pharyngeal erythema. No thyromegaly. CARDIOVASCULAR: S1 and S2 present. No murmurs, rubs, or gallops. -PULMONARY: Chest is clear to auscultation, no wheezing . Bilateral scattered crackles. ABDOMEN: Soft, nontender, nondistended, normoactive bowel sounds. No palpable organomegaly. MUSCULOSKELETAL: No joint swelling or deformity. EXTREMITIES: No cyanosis, clubbing, or pedal edema. NEUROLOGICAL: Gross neurological examination did not reveal any focal deficits. SKIN: No rashes. No petechiae - Labs CBC & Chem 7: 06/09/22 08:50 06/10/22 07:31 Labs: Abnormal Lab Results - Last 24 Hours (Table) 06/09/22 06/10/22 Range/Units 19:00 07:31 Sodium 136 L (137-145) mmol/L BUN 47 H (9-20) mg/dL Calcium 8.2 L (8.4-10.2) mg/dL Urine Protein Trace H (Negative) Microbiology - Last 24 Hours (Table) 06/08/22 18:50 Blood Culture - Preliminary Blood No Growth after 24 hours 06/08/22 18:35 Blood Culture - Preliminary Blood No Growth after 24 hours Assessment and Plan Assessment: bilateral Covid pneumonia, possibly acute tracheobronchitis Acute hypoxic respiratory failure elevated d-dimer, with no pulmonary embolism on CTA of the chest Moderate aortic stenosis Chronic systolic heart failure ejection fraction 35-40% mildly elevated troponin, most likely secondary to covid infection Increased inflammatory markers chronic kidney disease, stage III with probable mild acute kidney injury left fifth rib fracture chronic Atrial Fibrillation,not on anticoagulation Chronic congestive Heart Failure hyperlipidemia Hypertension Chronic kidney disease History of GERD Plan: Continue with dexamethasone Continue with vitamin C, vitamin D and zinc Pulmonary consult cardiology consult Labs and medication were reviewed.. Continue same treatment. Continue with symptomatic treatment. Resume home medication. Monitor labs and vitals. DVT and GI prophylaxis. Further recommendations as per clinical course of the patient DVT prophylaxis: Subcutaneous Lovenox GI Prophylaxis: Pepcid PT/OT: Pending Prognosis is guarded
[2022-06-10] MEDS: ALPRAZolam 0.5 MG TAB PO PRN ×2 (13:39→19:55)
[2022-06-10] MEDS: QUEtiapine 25 MG TAB PO SCH (21:27)
[2022-06-11] MEDS: FLUTICASONE 110 MCG INHALER INHALATION SCH ×2 (07:57→19:52)
[2022-06-11] MEDS: ALBUTEROL HFA INHALER INHALATION SCH ×4 (07:57→19:52)
[2022-06-11] MEDS: DEXAMETHASONE SOD PHOSPHATE 10 MG/ML 1 ML VIAL IVP SCH (09:25)
[2022-06-11] MEDS: ZINC SULFATE 220 MG CAP PO SCH (09:25)
[2022-06-11] MEDS: ENOXAPARIN 40 MG/0.4 ML SYRINGE SQ SCH (09:25)
[2022-06-11] MEDS: AMIODARONE 100 MG TAB PO SCH (09:25)
[2022-06-11] MEDS: ASCORBIC ACID 500 MG TAB PO SCH ×2 (09:25→20:14)
[2022-06-11] MEDS: CHOLECALCIFEROL 25 MCG (1000 IU) TABLET PO SCH (09:25)
[2022-06-11] MEDS: FAMOTIDINE 20 MG TAB PO SCH (09:25)
[2022-06-11] MEDS: ATORVASTATIN 20 MG TAB PO SCH (09:25)
--- NOTE | 2022-06-11 12:36 | P.PN ---
Subjective Progress Note Date: 06/11/22 Patient seen today resting comfortably in bed in no signs of acute distress patient is currently sleeping. Patient denies chest pain or chest pressure. He continues to have shortness of breath, he has cough and congestion. Vital signs are stable. 2-D echocardiogram shows a slightly decreased LV function from prior echo in 2018. He has a his ejection fraction is 35-40% Objective - Vital Signs Vital signs: Vital Signs Temp 97.4 F L 06/11/22 09:30 Pulse 54 L 06/11/22 09:30 Resp 18 06/11/22 09:30 BP 137/70 06/11/22 09:30 Pulse Ox 98 06/11/22 09:30 FiO2 Intake & Output 06/10/22 06/11/22 06/11/22 18:59 06:59 18:59 Intake Total 180 Output Total 900 Balance -720 Intake: Oral 180 Output: Urine 900 Straight 450 Other: Voiding Method Diaper Diaper Diaper Incontinent Incontinent Incontinent External Catheter External Catheter External Catheter # Voids 1 # Bowel Movements 1 - Exam Thorough physical exam not completed secondary to limited evaluation/examination due to Covid19 - Labs CBC & Chem 7: 06/09/22 08:50 06/10/22 07:31 Labs: Microbiology - Last 24 Hours (Table) 06/08/22 18:50 Blood Culture - Preliminary Blood No Growth after 48 hours 06/08/22 18:35 Blood Culture - Preliminary Blood No Growth after 48 hours Assessment and Plan Assessment: Shortness of breath Covid 19 Acute hypoxic respiratory failure Abnormal troponins, flat, not suggestive of acute coronary syndrome, likely secondary to Covid Paroxysmal atrial fibrillation, not on anticoagulation secondary to history of recurrent falls History of AAA/Aortic coartation repair Hypertension Hyperlipidemia COPD Former nicotine dependence Plan: 2-D echo obtained in reviewed Continue current cardiac medications Continue telemetry monitoring Further recommendations pending patient's course Nurse practitioner note has been reviewed by physician. Signing provider agrees with the documented findings, assessment, and plan of care.
--- NOTE | 2022-06-11 14:04 | P.PN ---
Subjective Progress Note Date: 06/11/22 This is a 82-year-old male patient, poor historian. He has a history of atrial fibrillation, congestive heart failure, aortic aneurysm repair, chronic obstructive pulmonary disease, hyperlipidemia, hypertension, gastroesophageal reflux disease, former smoker, multiple orthopedic surgeries. Skin cancer of the nose with surgery and receiving radiation. He was brought in by his family yesterday with concerns regarding low oxygen levels. He does have home oxygen at 3 L but mostly wearing it at night. He did test positive on 05/30/2022. He was also started on a Z-Ren for cough and congestion. CT angiogram ruled out pulmonary embolism. There is scattered groundglass opacities correlate for typical atypical pneumonia. Cardiomegaly. Trace bilateral effusions. Right lateral ribs 3 and irregularity and left rib 5 subacute fracture anterior posteriorly. White count 5.0. Hemoglobin 10.7. Platelets 91,000. Sodium 140. Potassium 4.9. Bicarb 20. BUN 47. Creatinine 1.12. Glucose 147. He did test positive for coronavirus. C-reactive protein 8.7. LDH 597. Pro- calcitonin 0.20. He's been initiated on Decadron, vitamin supplements, Lovenox. Antibiotics in the form of ceftriaxone. He is seen today in the selective care unit. He is sitting up in bed. Awake and alert. Somewhat disoriented to time and place. Maintaining O2 saturations in the mid 90s on 2 L/m per nasal cannula. He's been afebrile. Hemodynamically stable. Chest x-ray reveals patchy interstitial infiltrates throughout the periphery bilaterally consistent with CoVID pneumonia. The patient has been vaccinated and boosted. The patient is seen today 06/10/2022 in follow-up on the selective care unit. He is currently sitting up in a chair at the bedside. Awake and alert in no acute distress. Still with some confusion. He is maintaining good O2 saturations in the mid 90s on 2 L/m per nasal cannula. He's been afebrile. Hemodynamically stable. Blood cultures reveal no growth to date. Sodium 136. Potassium 4.0. Bicarb 29. BUN 47. Creatinine 1.10. Urinalysis clear. Currently in a -1.1 L balance. He is continued on Decadron, Lovenox, vitamin supplements. He remains on bronchodilators. Remains on antibiotics in the form of ceftriaxone. Initial pro-calcitonin 0.20. The patient is seen today 06/11/2022 in follow-up on the selective care unit. He is currently resting comfortably in bed. Awake and alert in no acute distress. He is maintaining O2 saturations in the mid to upper 90s on 2 L/m per nasal cannula. He's been afebrile. Hemodynamically stable. Blood cultures revealed no growth. No new labs today. He is continued on ceftriaxone. Remains on Decadron, vitamin supplements, Lovenox for DVT prophylaxis. Objective - Vital Signs Vital signs: Vital Signs Temp 97.4 F L 06/11/22 09:30 Pulse 49 L 06/11/22 11:50 Resp 17 06/11/22 11:50 BP 162/73 06/11/22 11:50 Pulse Ox 97 06/11/22 11:50 FiO2 Intake & Output 06/10/22 06/11/22 06/11/22 18:59 06:59 18:59 Intake Total 180 Output Total 900 Balance -720 Intake: Oral 180 Output: Urine 900 Straight 450 Other: Voiding Method Diaper Diaper Diaper Incontinent Incontinent Incontinent External Catheter External Catheter External Catheter # Voids 1 # Bowel Movements 1 - Exam GENERAL EXAM: Alert, poor historian 82-year-old male, resting in bed, on 2 L nasal cannula, comfortable in no apparent distress. HEAD: Normocephalic. EYES: Normal reaction of pupils, equal size. NOSE: Clear with pink turbinates. THROAT: No erythema or exudates. NECK: No masses, no JVD. CHEST: No chest wall deformity. LUNGS: Equal air entry with few scattered rhonchi bilaterally. CVS: S1 and S2 normal with no audible murmur, regular rhythm. ABDOMEN: No hepatosplenomegaly, normal bowel sounds, no guarding or rigidity. SPINE: No scoliosis or deformity SKIN: No rashes CENTRAL NERVOUS SYSTEM: No focal deficits, tone is normal in all 4 extremities. EXTREMITIES: There is no peripheral edema. No clubbing, no cyanosis. Peripheral pulses are intact. - Labs CBC & Chem 7: 06/09/22 08:50 06/10/22 07:31 Labs: Microbiology - Last 24 Hours (Table) 06/08/22 18:50 Blood Culture - Preliminary Blood No Growth after 48 hours 06/08/22 18:35 Blood Culture - Preliminary Blood No Growth after 48 hours Assessment and Plan Assessment: Acute hypoxemic respiratory failure secondary to acute COVID-19 pneumonia with possible underlying bacterial pneumonia. Procalcitoni 0.2. Currently on ceftriaxone. Acute COVID-19 infection, maintained on Lovenox, Decadron, vitamin supplements Mild troponin leak Thrombocytopenia Acute kidney failure Chronic anemia Chronic obstructive pulmonary disease, on oxygen at 2-3 L mainly at night time Hyperlipidemia Hypertension History of atrial fibrillation History of congestive heart failure History of abdominal aortic aneurysm repair Multiple orthopedic surgeries Former smoker Poor historian Poor overall functional performance based on the above-mentioned multiple comorbidities Plan: The patient was seen and evaluated Medications reviewed Continue Decadron, Lovenox, vitamin supplements Continue ceftriaxone Titrate the FiO2 as tolerated Plan is for home with homecare at discharge We will continue to follow I have personally seen and examined the patient, performed the documentation and the assessment and plan as written. Number of minutes spent on the visit: 10.
--- NOTE | 2022-06-11 14:29 | P.PN ---
Subjective Progress Note Date: 06/11/22 this is a pleasant 82 years oldatrial fibrillation not on anticoagulation, COPD, hypertension, hyperlipidemia, chronic kidney disease, GERD, thoracic aortic aneurysm status post repair. Patient presents because of fever and hypoxia, at home oxygen dropped to 82%. Patient looks very weak and poor historian, he is hard of hearing. He is complaining of from dyspnea and worsening coughing He denies chest pain but he complains from mild abdominal pain, no diarrhea or vomiting, no urinary complaints patient currently is saturating 97% on 2 L oxygen via nasal cannula, he is mildly tachypneic, F labs reviewed, patient has leukocytosis 12,000, hemoglobin 11.2, platelet 113. INR is 1.0, d-dimer elevated at 7.8 Creatinine 1.38, close to baseline. Rest of BMP and liver enzymes unremarkable. Mildly elevated troponin0.08 chest x-ray: COPD with chronic changes of interstitial lung disease. No definite acute infiltrate. Vascular changes on the left favor atelectasis of her pneumonia. EKG showing sinus rhythm at [address]-T changes CTA of the chest: No pulmonary embolism, scattered groundglass opacities correlate for atypical pneumonia, possible right lateral rib 3 fracture for irre gularity and left subcutaneous fifth rib fracture anteriorly and posteriorly Patient started on ceftriaxone and Zithromax 1 and emergency room. And dexamethasone Patient is still short of breath and tachypneic and is still coughing a lot He still complaining from right-sided chest pain, worse with coughing, or going to order more pain medication for him like lidocaine patch He has decent appetite and finished more than 50% of his breakfast this morning, no diarrhea. He feels somewhat anxious. Vital signs stable and he is saturating 97% on 2 L, breathing rate around 18 breaths per minute Creatinine stable at 1.1. Ejection fraction showing slight worsening 35-40% compared to 45% on the echo in 2018, also this time he has moderate aortic stenosis. Remains on Zithromax and ceftriaxone and multiple vitamins 06/11 Patient seen and examined. Continues to be on 2 L of oxygen, denies shortness of breath at rest. Case discussed with nursing staff REVIEW OF SYSTEMS: CONSTITUTIONAL: No fever, no malaise,. CARDIOVASCULAR: No chest pain, no palpitations, no syncope. PULMONARY: No shortness of breath, no cough, GASTROINTESTINAL: No diarrhea, no nausea, no vomiting, no abdominal pain. NEUROLOGICAL: No headaches, no weakness, PHYSICAL EXAMINATION: GENERAL: The patient is alert and oriented x3, not in any acute distress. Well developed, well nourished. HEENT: Pupils are round and equally reacting to light. EOMI. No scleral icterus. No conjunctival pallor. Normocephalic, atraumatic. No pharyngeal erythema. No thyromegaly. CARDIOVASCULAR: S1 and S2 present. No murmurs, rubs, or gallops. PULMONARY: Chest is clear to auscultation, no wheezing or crackles. ABDOMEN: Soft, nontender, nondistended, normoactive bowel sounds. No palpable organomegaly. MUSCULOSKELETAL: No joint swelling or deformity. EXTREMITIES: No cyanosis, clubbing, or pedal edema. NEUROLOGICAL: Gross neurological examination did not reveal any focal deficits. SKIN: No rashes. Assessment and plan Assessment: bilateral Covid pneumonia, possibly acute tracheobronchitis Acute hypoxic respiratory failure elevated d-dimer, with no pulmonary embolism on CTA of the chest Moderate aortic stenosis Chronic systolic heart failure ejection fraction 35-40% mildly elevated troponin, most likely secondary to covid infection Increased inflammatory markers chronic kidney disease, stage III with probable mild acute kidney injury left fifth rib fracture chronic Atrial Fibrillation,not on anticoagulation Chronic congestive Heart Failure hyperlipidemia Hypertension Chronic kidney disease History of GERD Plan: Monitor vital signs monitor CBC Monitor CMP Continue with dexamethasone Continue with vitamin C, vitamin D and zinc Follow-up on pulmonary recommendations Follow-up on cardiology Objective - Vital Signs Vital signs: Vital Signs Temp 97.4 F L 06/11/22 09:30 Pulse 49 L 06/11/22 11:50 Resp 17 06/11/22 11:50 BP 162/73 06/11/22 11:50 Pulse Ox 97 06/11/22 11:50 FiO2 Intake & Output 06/10/22 06/11/22 06/11/22 18:59 06:59 18:59 Intake Total 180 Output Total 900 Balance -720 Intake: Oral 180 Output: Urine 900 Straight 450 Other: Voiding Method Diaper Diaper Diaper Incontinent Incontinent Incontinent External Catheter External Catheter External Catheter # Voids 1 # Bowel Movements 1 - Labs CBC & Chem 7: 06/09/22 08:50 06/10/22 07:31 Labs: Microbiology - Last 24 Hours (Table) 06/08/22 18:50 Blood Culture - Preliminary Blood No Growth after 48 hours 06/08/22 18:35 Blood Culture - Preliminary Blood No Growth after 48 hours
[2022-06-11] MEDS: QUEtiapine 25 MG TAB PO SCH (20:14)
[2022-06-12] MEDS: ALBUTEROL HFA INHALER INHALATION SCH ×4 (07:38→19:30)
[2022-06-12] MEDS: FLUTICASONE 110 MCG INHALER INHALATION SCH ×2 (07:38→19:30)
--- NOTE | 2022-06-12 07:39 | XR ---
EXAMINATION TYPE: XR chest 1V portable DATE OF EXAM: 06/12/2022 7:00 AM COMPARISON: Chest radiograph from one day prior. TECHNIQUE: XR chest 1V portable Portable AP radiograph of the chest. CLINICAL INDICATION:Male, 82 years old with history of CoVID pneumonia; FINDINGS: Lungs/Pleura: Similar multifocal airspace opacities. No evidence of pneumothorax or pleural effusion. Pulmonary vascularity: Unremarkable. Heart/mediastinum: Cardiomediastinal silhouette is unremarkable. Musculoskeletal: Degenerative changes of the shoulder joints. surgical clips project over the mediast inum. IMPRESSION: Similar multifocal airspace opacities.
[2022-06-12 08:14] LABS: Basophils % (A) 0 %; Eosinophils % (A) 0 %; HCT 30.5 % (39.0-53.0); HGB 9.9 gm/dL (13.0-17.5); Lymphocytes # (A) 0.4 k/uL (1.0-4.8); Lymphocytes % (A) 7 %; MCHC 32.4 g/dL (31.0-37.0); MCV 104.8 fL (80.0-100.0); Macrocytosis Slight; Mean Platelet Volume 8.7; Monocytes # (A) 0.2 k/uL (0-1.0); Monocytes % (A) 4 %; Neutrophils # (A) 4.7 k/uL (1.3-7.7); Neutrophils % (A) 88 %; RBC 2.91 m/uL (4.30-5.90); RDW 13.3 % (11.5-15.5); WBC 5.4 k/uL (3.8-10.6)
[2022-06-12 08:19] LABS: Albumin 2.5 g/dL (3.5-5.0); Potassium 4.1 mmol/L (3.5-5.1); Total Bilirubin 0.2 mg/dL (0.2-1.3); Total Protein 4.5 g/dL (6.3-8.2)
[2022-06-12 08:32] LABS: Platelet Count 88 k/uL (150-450)
[2022-06-12] MEDS: CHOLECALCIFEROL 25 MCG (1000 IU) TABLET PO SCH (09:29)
[2022-06-12] MEDS: FAMOTIDINE 20 MG TAB PO SCH (09:29)
[2022-06-12] MEDS: ASCORBIC ACID 500 MG TAB PO SCH ×2 (09:29→20:13)
[2022-06-12] MEDS: ATORVASTATIN 20 MG TAB PO SCH (09:29)
[2022-06-12] MEDS: AMIODARONE 100 MG TAB PO SCH (09:29)
[2022-06-12] MEDS: ZINC SULFATE 220 MG CAP PO SCH (09:29)
[2022-06-12] MEDS: DEXAMETHASONE SOD PHOSPHATE 10 MG/ML 1 ML VIAL IVP SCH (09:30)
[2022-06-12] MEDS: ENOXAPARIN 40 MG/0.4 ML SYRINGE SQ SCH (09:30)
--- NOTE | 2022-06-12 12:21 | P.PN ---
Subjective Progress Note Date: 06/12/22 Principal diagnosis: Acute hypoxic respiratory failure secondary to acute COVID-19 pneumonia This is a 82-year-old male patient, poor historian. He has a history of atrial fibrillation, congestive heart failure, aortic aneurysm repair, chronic obstructive pulmonary disease, hyperlipidemia, hypertension, gastroesophageal reflux disease, former smoker, multiple orthopedic surgeries. Skin cancer of the nose with surgery and receiving radiation. He was brought in by his family yesterday with concerns regarding low oxygen levels. He does have home oxygen at 3 L but mostly wearing it at night. He did test positive on 05/30/2022. He was also started on a Z-Ren for cough and congestion. CT angiogram ruled out pulmonary embolism. There is scattered groundglass opacities correlate for typical atypical pneumonia. Cardiomegaly. Trace bilateral effusions. Right lateral ribs 3 and irregularity and left rib 5 subacute fracture anterior posteriorly. White count 5.0. Hemoglobin 10.7. Platelets 91,000. Sodium 140. Potassium 4.9. Bicarb 20. BUN 47. Creatinine 1.12. Glucose 147. He did test positive for coronavirus. C-reactive protein 8.7. LDH 597. Pro-calc itonin 0.20. He's been initiated on Decadron, vitamin supplements, Lovenox. Antibiotics in the form of ceftriaxone. He is seen today in the selective care unit. He is sitting up in bed. Awake and alert. Somewhat disoriented to time and place. Maintaining O2 saturations in the mid 90s on 2 L/m per nasal cannula. He's been afebrile. Hemodynamically stable. Chest x-ray reveals patchy interstitial infiltrates throughout the periphery bilaterally consistent with CoVID pneumonia. The patient has been vaccinated and boosted. The patient is seen today 06/10/2022 in follow-up on the selective care unit. He is currently sitting up in a chair at the bedside. Awake and alert in no acute distress. Still with some confusion. He is maintaining good O2 saturations in the mid 90s on 2 L/m per nasal cannula. He's been afebrile. Hemodynamically stable. Blood cultures reveal no growth to date. Sodium 136. Potassium 4.0. Bicarb 29. BUN 47. Creatinine 1.10. Urinalysis clear. Curren tly in a -1.1 L balance. He is continued on Decadron, Lovenox, vitamin supplements. He remains on bronchodilators. Remains on antibiotics in the form of ceftriaxone. Initial pro-calcitonin 0.20. The patient is seen today 06/11/2022 in follow-up on the selective care unit. He is currently resting comfortably in bed. Awake and alert in no acute distress. He is maintaining O2 saturations in the mid to upper 90s on 2 L/m per nasal cannula. He's been afebrile. Hemodynamically stable. Blood cultures revealed no growth. No new labs today. He is continued on ceftriaxone. Remains on Decadron, vitamin supplements, Lovenox for DVT prophylaxis. Patient was reevaluated today on 06/12/2022, patient is doing well, relatively asymptomatic, he does have intermittent cough, son is at bedside, and according to the son they prefer that he gets eventually discharged home since he has a daughter who lives with him and she works at a [employer], and willing to take time off and spend at least 2-3 weeks with him at home aching care of him. Patient is now on room air, O2 sats is 97%, clinically better, chest x-ray continues to show multifocal airspace disease consistent with COVID-19 pneumonia patient remains on antibiotics also in addition to his COVID-19 cocktail mostly because of his elevated pro calcitonin level. WBC count today is 5.4 hemoglobin is 2.90 *Normal renal profile is normal. Objective - Vital Signs Vital signs: Vital Signs Temp 98.7 F 06/12/22 09:38 Pulse 61 06/12/22 09:38 Resp 16 06/12/22 09:38 BP 114/73 06/12/22 09:38 Pulse Ox 97 06/12/22 09:38 FiO2 Intake & Output 06/11/22 06/12/22 06/12/22 18:59 06:59 18:59 Intake Total 480 1256 Output Total 700 600 Balance -220 -600 1256 Intake: Oral 480 1256 Output: Urine 700 600 Other: Voiding Method Diaper Indwelling Catheter Incontinent External Catheter - Exam GENERAL EXAM: Revealed an 82-year-old white male, in no distress, on room air. HEAD: Normocephalic. EENT: PERRLA, EOMI, anicteric, no neck masses no JVD. CHEST: No chest wall deformity. LUNGS: Relatively clear throughout no crackles or rhonchi or wheezes. CVS: S1 and S2 normal with no audible murmur, regular rhythm. ABDOMEN: No hepatosplenomegaly, normal bowel sounds, no guarding or rigidity. SKIN: No rashes CENTRAL NERVOUS SYSTEM: No focal deficits, tone is normal in all 4 extremities. EXTREMITIES: There is no peripheral edema. No clubbing, no cyanosis. Kristen pheral pulses are intact. - Labs CBC & Chem 7: 06/12/22 07:14 06/12/22 07:14 Labs: Abnormal Lab Results - Last 24 Hours (Table) 06/12/22 06/12/22 Range/Units 07:14 07:14 RBC 2.91 L (4.30-5.90) m/uL Hgb 9.9 L (13.0-17.5) gm/dL Hct 30.5 L (39.0-53.0) % MCV 104.8 H (80.0-100.0) fL Plt Count 88 L (150-450) k/uL Lymphocytes # 0.4 L (1.0-4.8) k/uL Sodium 135 L (137-145) mmol/L Carbon Dioxide 31 H (22-30) mmol/L BUN 37 H (9-20) mg/dL Calcium 8.0 L (8.4-10.2) mg/dL Total Protein 4.5 L (6.3-8.2) g/dL Albumin 2.5 L (3.5-5.0) g/dL Microbiology - Last 24 Hours (Table) 06/08/22 18:35 Blood Culture - Preliminary Blood No Growth after 72 hours 06/08/22 18:50 Blood Culture - Preliminary Blood No Growth after 72 hours Assessment and Plan Assessment: Acute hypoxemic respiratory failure secondary to acute COVID-19 pneumonia with possible underlying bacterial pneumonia. Procalcitoni 0.2. Currently on ceftriaxone. Acute COVID-19 infection, maintained on Lovenox, Decadron, vitamin supplements Mild troponin leak Thrombocytopenia Acute kidney failure Chronic anemia Chronic obstructive pulmonary disease, on oxygen at 2-3 L mainly at night time Hyperlipidemia Hypertension History of atrial fibrillation History of congestive heart failure History of abdominal aortic aneurysm repair Multiple orthopedic surgeries Former smoker Poor historian Poor overall functional performance based on the above-mentioned multiple comorbidities Recommendation: Continue present COVID-19 cocktail including Decadron Lovenox and vitamin supplements Transition patient to oral antibiotics mostly because of his slightly elevated pro calcitonin level, no more than 5 days of antibiotics at home. Consider discharge planning in the next 24 hours. Son would like to have him discharged home if possible mostly because he does have a daughter who works for a [employer], and she is willing to spend time with him. Patient may not need home O2 by tomorrow. Again will clear the patient for discharge in the next 24-48 hours at the most. Chest x-ray was reviewed and his medications were reviewed Time with Patient: Less than 30
--- NOTE | 2022-06-12 12:52 | P.PN ---
Subjective Progress Note Date: 06/12/22 Patient seen today resting comfortably in bed in no signs of acute distress. Patient denies chest pain or chest pressure. Patient reports shortness of breath is better. He is out of Covid precautions. Patient is on room air currently. He does wear nasal cannula at home at night. Blood pressure is st able. He remains sinus rhythm on the monitor. Objective - Vital Signs Vital signs: Vital Signs Temp 98.2 F 06/12/22 12:14 Pulse 66 06/12/22 12:14 Resp 16 06/12/22 12:14 BP 129/70 06/12/22 12:14 Pulse Ox 97 06/12/22 12:14 FiO2 Intake & Output 06/11/22 06/12/22 06/12/22 18:59 06:59 18:59 Intake Total 480 1256 Output Total 700 600 Balance -220 -600 1256 Intake: Oral 480 1256 Output: Urine 700 600 Other: Voiding Method Diaper Indwelling Catheter Incontinent External Catheter - Exam Thorough physical exam not completed secondary to limited evaluation/examination due to Covid19 - Labs CBC & Chem 7: 06/12/22 07:14 06/12/22 07:14 Labs: Abnormal Lab Results - Last 24 Hours (Table) 06/12/22 06/12/22 Range/Units 07:14 07:14 RBC 2.91 L (4.30-5.90) m/uL Hgb 9.9 L (13.0-17.5) gm/dL Hct 30.5 L (39.0-53.0) % MCV 104.8 H (80.0-100.0) fL Plt Count 88 L (150-450) k/uL Lymphocytes # 0.4 L (1.0-4.8) k/uL Sodium 135 L (137-145) mmol/L Carbon Dioxide 31 H (22-30) mmol/L BUN 37 H (9-20) mg/dL Calcium 8.0 L (8.4-10.2) mg/dL Total Protein 4.5 L (6.3-8.2) g/dL Albumin 2.5 L (3.5-5.0) g/dL Microbiology - Last 24 Hours (Table) 06/08/22 18:35 Blood Culture - Preliminary Blood No Growth after 72 hours 06/08/22 18:50 Blood Culture - Preliminary Blood No Growth after 72 hours Assessment and Plan Assessment: Shortness of breath Covid 19 Acute hypoxic respiratory failure Abnormal troponins, flat, not suggestive of acute coronary syndrome, likely secondary to Covid Paroxysmal atrial fibrillation, not on anticoagulation secondary to history of recurrent falls History of AAA/Aortic coartation repair Hypertension Hyperlipidemia COPD Former nicotine dependence Plan: Continue current cardiac medications Continue telemetry monitoring Further recommendations pending patient's course Nurse practitioner note has been reviewed by physician. Signing provider agrees with the documented findings, assessment, and plan of care.
--- NOTE | 2022-06-12 13:02 | P.PN ---
Subjective Progress Note Date: 06/12/22 this is a pleasant 82 years oldatrial fibrillation not on anticoagulation, COPD, hypertension, hyperlipidemia, chronic kidney disease, GERD, thoracic aortic aneurysm status post repair. Patient presents because of fever and hypoxia, at home oxygen dropped to 82%. Patient looks very weak and poor historian, he is hard of hearing. He is complaining of from dyspnea and worsening coughing He denies chest pain but he complains from mild abdominal pain, no diarrhea or vomiting, no urinary complaints patient currently is saturating 97% on 2 L oxygen via nasal cannula, he is mildly tachypneic, F labs reviewed, patient has leukocytosis 12,000, hemoglobin 11.2, platelet 113. INR is 1.0, d-dimer elevated at 7.8 Creatinine 1.38, close to baseline. Rest of BMP and liver enzymes unremarkable. Mildly elevated troponin0.08 chest x-ray: COPD with chronic changes of interstitial lung disease. No definite acute infiltrate. Vascular changes on the left favor atelectasis of her pneumonia. EKG showing sinus rhythm at [address]-T changes CTA of the chest: No pulmonary embolism, scattered groundglass opacities correlate for atypical pneumonia, possible right lateral rib 3 fracture for irre gularity and left subcutaneous fifth rib fracture anteriorly and posteriorly Patient started on ceftriaxone and Zithromax 1 and emergency room. And dexamethasone Patient is still short of breath and tachypneic and is still coughing a lot He still complaining from right-sided chest pain, worse with coughing, or going to order more pain medication for him like lidocaine patch He has decent appetite and finished more than 50% of his breakfast this morning, no diarrhea. He feels somewhat anxious. Vital signs stable and he is saturating 97% on 2 L, breathing rate around 18 breaths per minute Creatinine stable at 1.1. Ejection fraction showing slight worsening 35-40% compared to 45% on the echo in 2018, also this time he has moderate aortic stenosis. Remains on Zithromax and ceftriaxone and multiple vitamins 06/11 Patient seen and examined. Continues to be on 2 L of oxygen, denies shortness of breath at rest. Case discussed with nursing staff 06/12. Patient seen and examined. Son at the bedside. Discussed with them regarding rehab, they wanted to take patient home with homecare. Vital signs stable REVIEW OF SYSTEMS: CONSTITUTIONAL: No fever, no malaise,. CARDIOVASCULAR: No chest pain, no palpitations, no syncope. PULMONARY: Shortness of breath on exertion GASTROINTESTINAL: No diarrhea, no nausea, no vomiting, no abdominal pain. NEUROLOGICAL: No headaches, no weakness, PHYSICAL EXAMINATION: GENERAL: The patient is alert and oriented x3, not in any acute distress. Well developed, well nourished. HEENT: Pupils are round and equally reacting to light. EOMI. No scleral icterus. No conjunctival pallor. Normocephalic, atraumatic. No pharyngeal erythema. No thyromegaly. CARDIOVASCULAR: S1 and S2 present. No murmurs, rubs, or gallops. PULMONARY: Chest is clear to auscultation, no wheezing or crackles. ABDOMEN: Soft, nontender, nondistended, normoactive bowel sounds. No palpable organomegaly. MUSCULOSKELETAL: No joint swelling or deformity. EXTREMITIES: No cyanosis, clubbing, or pedal edema. NEUROLOGICAL: Gross neurological examination did not reveal any focal deficits. SKIN: No rashes. Assessment and plan Assessment: bilateral Covid pneumonia, possibly acute tracheobronchitis Acute hypoxic respiratory failure elevated d-dimer, with no pulmonary embolism on CTA of the chest Moderate aortic stenosis Chronic systolic heart failure ejection fraction 35-40% mildly elevated troponin, most likely secondary to covid infection Increased inflammatory markers chronic kidney disease, stage III with probable mild acute kidney injury left fifth rib fracture chronic Atrial Fibrillation,not on anticoagulation Chronic congestive Heart Failure hyperlipidemia Hypertension Chronic kidney disease History of GERD Plan: Monitor vital signs monitor CBC Monitor CMP Continue with dexamethasone Continue with vitamin C, vitamin D and zinc Follow-up on pulmonary recommendations Follow-up on cardiology recommendations Objective - Vital Signs Vital signs: Vital Signs Temp 98.2 F 06/12/22 12:14 Pulse 66 06/12/22 12:14 Resp 16 06/12/22 12:14 BP 129/70 06/12/22 12:14 Pulse Ox 97 06/12/22 12:14 FiO2 Intake & Output 06/11/22 06/12/22 06/12/22 18:59 06:59 18:59 Intake Total 480 1256 Output Total 700 600 Balance -220 -600 1256 Intake: Oral 480 1256 Output: Urine 700 600 Other: Voiding Method Diaper Indwelling Catheter Incontinent External Catheter - Labs CBC & Chem 7: 06/12/22 07:14 06/12/22 07:14 Labs: Abnormal Lab Results - Last 24 Hours (Table) 06/12/22 06/12/22 Range/Units 07:14 07:14 RBC 2.91 L (4.30-5.90) m/uL Hgb 9.9 L (13.0-17.5) gm/dL Hct 30.5 L (39.0-53.0) % MCV 104.8 H (80.0-100.0) fL Plt Count 88 L (150-450) k/uL Lymphocytes # 0.4 L (1.0-4.8) k/uL Sodium 135 L (137-145) mmol/L Carbon Dioxide 31 H (22-30) mmol/L BUN 37 H (9-20) mg/dL Calcium 8.0 L (8.4-10.2) mg/dL Total Protein 4.5 L (6.3-8.2) g/dL Albumin 2.5 L (3.5-5.0) g/dL Microbiology - Last 24 Hours (Table) 06/08/22 18:35 Blood Culture - Preliminary Blood No Growth after 72 hours 06/08/22 18:50 Blood Culture - Preliminary Blood No Growth after 72 hours
[2022-06-12] MEDS: QUEtiapine 25 MG TAB PO SCH (20:13)
[2022-06-13 04:45] LABS: HCT 30.6 % (39.0-53.0); HGB 10.1 gm/dL (13.0-17.5); MCH 33.7 pg (25.0-35.0); MCV 102.1 fL (80.0-100.0); Macrocytosis Slight; Mean Platelet Volume 8.3; Platelet Count 91 k/uL (150-450); RDW 12.9 % (11.5-15.5); WBC 6.2 k/uL (3.8-10.6)
[2022-06-13 04:56] LABS: ALT 29 U/L (4-49); AST 23 U/L (17-59); African American GFR (CKD) >90 (>60 ml/min/1.73 sqM); Albumin 2.6 g/dL (3.5-5.0); Alkaline Phosphatase 51 U/L (38-126); Anion Gap 1 mmol/L; Blood Urea Nitrogen 45 mg/dL (9-20); Calcium 8.3 mg/dL (8.4-10.2); Carbon Dioxide 31 mmol/L (22-30); Chloride 101 mmol/L (98-107); Glucose 118 mg/dL (74-99); Non-African American GFR(CKD) 80 (>60 ml/min/1.73 sqM); Potassium 4.4 mmol/L (3.5-5.1); Sodium 133 mmol/L (137-145); Total Bilirubin 0.2 mg/dL (0.2-1.3); Total Protein 4.6 g/dL (6.3-8.2)
[2022-06-13 07:22] VITALS: RESP 20; TEMP 97.8
[2022-06-13] MEDS: ZINC SULFATE 220 MG CAP PO SCH (07:39)
[2022-06-13] MEDS: ATORVASTATIN 20 MG TAB PO SCH (07:39)
[2022-06-13] MEDS: ASCORBIC ACID 500 MG TAB PO SCH (07:39)
[2022-06-13] MEDS: ENOXAPARIN 40 MG/0.4 ML SYRINGE SQ SCH (07:39)
[2022-06-13] MEDS: AMIODARONE 100 MG TAB PO SCH (07:39)
[2022-06-13] MEDS: FAMOTIDINE 20 MG TAB PO SCH (07:39)
[2022-06-13] MEDS: ALBUTEROL HFA INHALER INHALATION SCH ×2 (08:02→11:21)
[2022-06-13] MEDS: FLUTICASONE 110 MCG INHALER INHALATION SCH (08:02)
[2022-06-13] MEDS: CHOLECALCIFEROL 25 MCG (1000 IU) TABLET PO SCH (08:34)
[2022-06-13] MEDS: DEXAMETHASONE SOD PHOSPHATE 10 MG/ML 1 ML VIAL IVP SCH (09:08)
--- NOTE | 2022-06-13 09:46 | P.PN ---
Subjective Progress Note Date: 06/13/22 CHIEF COMPLAINT: Shortness of breath HISTORY OF PRESENT ILLNESS: This is a 82-year-old male with a past medical history significant for AAA/Aortic coartation repair, atrial fibrillation, hypertension, hyperlipidemia, COPD, and former nicotine dependence. Patient follows in the office with Dr. Copeland. We have been asked to see the patient in consultation for abnormal troponins. Patient examined at the bedside. Patient presented to the hospital with a chief complaint of shortness of breath. Per ER documentation, the patients pulse ox at home was 82%. The patient was found to be positive for Covid. It is noted that he tested positive sometime earlier this month. The patient denies any chest pain or pressure. He currently reports shortness of breath. He also reports a frequent cough. * EKG reveals sinus mechanism with no signs of acute ischemia * Chest xray COPD with chronic changes of interstitial lung disease. No definite acute infiltrate. * Chest CTA: Negative for pulmonary embolism. Cardiomegaly and trace bilateral pleural effusions present. * Laboratory data: WBC 5.0. Hemoglobin 10.7. Platelet count 91. Sodium 140. Potassium 4.9. BUN 47. Creatinine 1.12. Troponin 0.086. 0.084. 0.079. * Current home cardiac medications include amiodarone 100 mg daily, Lasix 40 mg daily, Lipitor 20 mg daily * Most recent echocardiogram obtained in 2018 revealed ejection fraction 45-50%, mild aortic regurgitation, mild aortic stenosis, mild mitral regurgitation, mild tricuspid regurgitation 06/10/2022 Patient examined this morning to bedside. Patient denies chest pain or pressure. He continues to report shortness of breath. He has a congested cough. Vital signs are stable. 06/13/2022 Patient examined this morning at the bedside. Patient denies chest pain or pressure. He denies shortness of breath. Patient's blood pressure is elevated this point. However his previous readings have been within normal limits. 2-D echo reveals ejection fraction 35-40%, apical hypokinesis, mild TR, moderate aortic stenosis, mild MR PHYSICAL EXAM: Thorough physical exam not completed secondary to limited evaluation/examination due to Covid19 ASSESSMENT: Shortness of breath Covid 19 Acute hypoxic respiratory failure Abnormal troponins, flat, not suggestive of acute coronary syndrome, likely secondary to Covid Paroxysmal atrial fibrillation, not on anticoagulation secondary to history of recurrent falls History of AAA/Aortic coartation repair Hypertension Hyperlipidemia COPD Former nicotine dependence PLAN: Continue current cardiac medications No further inpatient recommendations from a cardiology standpoint We will sign off. Please reconsult if needed. Nurse practitioner note has been reviewed by physician. Signing provider agrees with the documented findings, assessment, and plan of care. Objective - Vital Signs Vital signs: Vital Signs Temp 97.8 F 06/13/22 07:20 Pulse 54 L 06/13/22 07:20 Resp 20 06/13/22 07:20 BP 173/75 06/13/22 07:20 Pulse Ox 97 06/13/22 08:03 FiO2 2 06/13/22 08:03 Intake & Output 06/12/22 06/13/22 06/13/22 18:59 06:59 18:59 Intake Total 1736 Output Total 425 800 Balance 1311 -800 Intake: Oral 1736 Output: Urine 425 800 Other: Voiding Method Indwelling Catheter Indwelling Catheter Indwelling Catheter # Bowel Movements 1 - Labs CBC & Chem 7: 06/13/22 04:20 06/13/22 04:20 Labs: Abnormal Lab Results - Last 24 Hours (Table) 06/13/22 06/13/22 Range/Units 04:20 04:20 RBC 3.00 L (4.30-5.90) m/uL Hgb 10.1 L (13.0-17.5) gm/dL Hct 30.6 L (39.0-53.0) % MCV 102.1 H (80.0-100.0) fL Plt Count 91 L (150-450) k/uL Sodium 133 L (137-145) mmol/L Carbon Dioxide 31 H (22-30) mmol/L BUN 45 H (9-20) mg/dL Glucose 118 H (74-99) mg/dL Calcium 8.3 L (8.4-10.2) mg/dL Total Protein 4.6 L (6.3-8.2) g/dL Albumin 2.6 L (3.5-5.0) g/dL Microbiology - Last 24 Hours (Table) 06/08/22 18:50 Blood Culture - Preliminary Blood No Growth after 96 hours 06/08/22 18:35 Blood Culture - Preliminary Blood No Growth after 96 hours
--- NOTE | 2022-06-13 11:47 | P.PN ---
Subjective Progress Note Date: 06/13/22 Principal diagnosis: Acute hypoxic respiratory failure secondary to acute COVID-19 pneumonia Acute hypoxic respiratory failure secondary to acute COVID-19 pneumonia This is a 82-year-old male patient, poor historian. He has a history of atrial fibrillation, congestive heart failure, aortic aneurysm repair, chronic obstructive pulmonary disease, hyperlipidemia, hypertension, gastroesophageal reflux disease, former smoker, multiple orthopedic surgeries. Skin cancer of the nose with surgery and receiving radiation. He was brought in by his family yesterday with concerns regarding low oxygen levels. He does have home oxygen at 3 L but mostly wearing it at night. He did test positive on 05/30/2022. He was also started on a Z-Ren for cough and congestion. CT angiogram ruled out pulmonary embolism. There is scattered groundglass opacities correlate for typical atypical pneumonia. Cardiomegaly. Trace bilateral effusions. Right lateral ribs 3 and irregularity and left rib 5 subacute fracture anterior posteriorly. White count 5.0. Hemoglobin 10.7. Platelets 91,000. Sodium 140. Potassium 4.9. Bicarb 20. BUN 47. Creatinine 1.12. Glucose 147. He did te st positive for coronavirus. C-reactive protein 8.7. LDH 597. Pro-calcitonin 0.20. He's been initiated on Decadron, vitamin supplements, Lovenox. Antibiotics in the form of ceftriaxone. He is seen today in the selective care unit. He is sitting up in bed. Awake and alert. Somewhat disoriented to time and place. Maintaining O2 saturations in the mid 90s on 2 L/m per nasal cannula. He's been afebrile. Hemodynamically stable. Chest x-ray reveals patchy interstitial infiltrates throughout the periphery bilaterally consistent with CoVID pneumonia. The patient has been vaccinated and boosted. The patient is seen today 06/10/2022 in follow-up on the selective care unit. He is currently sitting up in a chair at the bedside. Awake and alert in no acute distress. Still with some confusion. He is maintaining good O2 saturations in the mid 90s on 2 L/m per nasal cannula. He's been afebrile. Hemodynamically stable. Blood cultures reveal no growth to date. Sodium 136. Potassium 4.0. Bicarb 29. BUN 47. Creatinine 1.10. Urinalysis clear. Currently in a -1.1 L balance. He is continued on Decadron, Lovenox, vitamin supplements. He remains on bronchodilators. Remains on antibiotics in the form of ceftriaxone. Initial pro-calcitonin 0.20. The patient is seen today 06/11/2022 in follow-up on the selective care unit. He is currently resting comfortably in bed. Awake and alert in no acute distress. He is maintaining O2 saturations in the mid to upper 90s on 2 L/m per nasal cannula. He's been afebrile. Hemodynamically stable. Blood cultures revealed no growth. No new labs today. He is continued on ceftriaxone. Remains on Decadron, vitamin supplements, Lovenox for DVT prophylaxis. Patient was reevaluated today on 06/12/2022, patient is doing well, relatively asymptomatic, he does have intermittent cough, son is at bedside, and according to the son they prefer that he gets eventually discharged home since he has a daughter who lives with him and she works at a custodial, and willing to take time off and spend at least 2-3 weeks with him at home aching care of him. Patient is now on room air, O2 sats is 97%, clinically better, chest x-ray con tinues to show multifocal airspace disease consistent with COVID-19 pneumonia patient remains on antibiotics also in addition to his COVID-19 cocktail mostly because of his elevated pro calcitonin level. WBC count today is 5.4 hemoglobin is 2.90 *Normal renal profile is normal. I'm evaluating this patient today on 06/13/2022 in follow-up in general medical floor. Patient is currently resting up in the chair, on 2 L nasal cannula, in no acute distress. patient's most recent chest x-ray from June 12 redemonstrated some similar multifocal airspace opacities. patient's blood cultures continued to show no growth at 96 hours. patient remains afebrile. patient's CBC results from today show a WBC count of 6.2, hemoglobin 10.1, hematocrit 30.6, platelets 91,000. patient's BMP results from today show sodium of 133, potassium 4.4, chloride 101, serum CO2 31, BUN 45, creatinine 0.87, glucose 118. patient is maintained on Ventolin inhalation, Flovent inhaler, Decadron, Lovenox. patient's vital signs remain stable, however, patient has been quite hypertensive this morning, which is being managed by admitting physician. Objective - Vital Signs Vital signs: Vital Signs Temp 97.8 F 06/13/22 07:20 Pulse 54 L 06/13/22 07:20 Resp 20 06/13/22 07:20 BP 173/75 06/13/22 07:20 Pulse Ox 97 06/13/22 08:03 FiO2 2 06/13/22 08:03 Intake & Output 06/12/22 06/13/22 06/13/22 18:59 06:59 18:59 Intake Total 1736 Output Total 425 800 600 Balance 1311 -800 -600 Intake: Oral 1736 Output: Urine 425 800 600 Other: Voiding Method Indwelling Catheter Indwelling Catheter Indwelling Catheter # Bowel Movements 1 - Exam GENERAL EXAM: Alert, active, comfortable in no apparent distress. HEAD: Normocephalic and atraumatic EYES: Normal reaction of pupils, equal size. NOSE: Clear with pink turbinates. THROAT: No erythema or exudates. NECK: No masses, no JVD. CHEST: No chest wall deformity. LUNGS: Equal air entry with mild ronchi throughout. no crackles, wheeze, or dullness. on 2 L nasal cannula. No conversational dyspnea or accessory muscle use. CVS: S1 and S2 normal with harsh systolic murmur grade 4-6, regular rhythm. ABDOMEN: No hepatosplenomegaly, normal bowel sounds, no guarding or rigidity. SPINE: No scoliosis or deformity SKIN: No rashes CENTRAL NERVOUS SYSTEM: No focal deficits, tone is normal in all 4 extremities. EXTREMITIES: There is no peripheral edema, clubbing, or cyanosis. Peripheral p ulses are intact. - Labs CBC & Chem 7: 06/13/22 04:20 06/13/22 04:20 Labs: Abnormal Lab Results - Last 24 Hours (Table) 06/13/22 06/13/22 Range/Units 04:20 04:20 RBC 3.00 L (4.30-5.90) m/uL Hgb 10.1 L (13.0-17.5) gm/dL Hct 30.6 L (39.0-53.0) % MCV 102.1 H (80.0-100.0) fL Plt Count 91 L (150-450) k/uL Sodium 133 L (137-145) mmol/L Carbon Dioxide 31 H (22-30) mmol/L BUN 45 H (9-20) mg/dL Glucose 118 H (74-99) mg/dL Calcium 8.3 L (8.4-10.2) mg/dL Total Protein 4.6 L (6.3-8.2) g/dL Albumin 2.6 L (3.5-5.0) g/dL Microbiology - Last 24 Hours (Table) 06/08/22 18:50 Blood Culture - Preliminary Blood No Growth after 96 hours 06/08/22 18:35 Blood Culture - Preliminary Blood No Growth after 96 hours Assessment and Plan Assessment: Acute on chronic hypoxemic respiratory failure secondary to acute COVID-19 pneumonia. Acute COVID-19 infection, maintained on Lovenox, Decadron, vitamin supplements Mild troponin leak Thrombocytopenia Acute kidney failure. Resolved Chronic anemia Chronic obstructive pulmonary disease, on oxygen at 2-3 L mainly at night time Hyperlipidemia Hypertension History of atrial fibrillation History of congestive heart failure History of abdominal aortic aneurysm repair Multiple orthopedic surgeries Former smoker Poor historian Poor overall functional performance based on the above-mentioned multiple gianna rbidities Plan: patient's medications, labs, x-ray were reviewed continue Ventolin inhalations, Flovent inhaler, Decadron, Lovenox Continue supplemental oxygen to maintain oxygen saturation between 90 and 92% from a pulmonary standpoint patient is cleared for discharge I have personally seen and examined the patient, performed the documentation and the assessment and plan as written. Number of minutes spent on the visit: 10.
--- NOTE | 2022-06-13 13:06 | P.DS ---
Providers Date of admission: 06/08/22 18:07 Expected date of discharge: 06/13/22 Attending physician: Anish Soler MD Consults: 06/08/22 18:07 Consult Physician Urgent Consulting Provider: Rashmi Cruz Consult Reason/Comments: acute/chronic resp insuff, aecopd, acute covid infection Do you want consulting provider notified?: Yes [facility] Course: Discharge diagnoses; bilateral Covid pneumonia, possibly acute tracheobronchitis Acute hypoxic respiratory failure elevated d-dimer, with no pulmonary embolism on CTA of the chest Moderate aortic stenosis Chronic systolic heart failure ejection fraction 35-40% mildly elevated troponin, most likely secondary to covid infection Increased inflammatory markers chronic kidney disease, stage III with probable mild acute kidney injury left fifth rib fracture chronic Atrial Fibrillation,not on anticoagulation Chronic congestive Heart Failure hyperlipidemia Hypertension Chronic kidney disease History of GERD Hospital course; this is a pleasant 82 years oldatrial fibrillation not on anticoagulation, COPD, hypertension, hyperlipidemia, chronic kidney disease, GERD, thoracic aortic aneurysm status post repair. Patient presents because of fever and hypoxia, at home oxygen dropped to 82%. Patient looks very weak and poor historian, he is hard of hearing. He is complaining of from dyspnea and worsening coughing He denies chest pain but he complains from mild abdominal pain, no diarrhea or vomiting, no urinary complaints patient currently is saturating 97% on 2 L oxygen via nasal cannula, he is mildly tachypneic, F labs reviewed, patient has leukocytosis 12,000, hemoglobin 11.2, platelet 113. INR is 1.0, d-dimer elevated at 7.8 Creatinine 1.38, close to baseline. Rest of BMP and liver enzymes unremarkable. Mildly elevated troponin0.08 chest x-ray: COPD with chronic changes of interstitial lung disease. No definite acute infiltrate. Vascular changes on the left favor atelectasis of her pneumonia. EKG showing sinus rhythm at [address]-T changes CTA of the chest: No pulmonary embolism, scattered groundglass opacities correlate for atypical pneumonia, possible right lateral rib 3 fracture for irregularity and left subcutaneous fifth rib fracture anteriorly and posteriorly Patient started on ceftriaxone and Zithromax 1 and emergency room. And dexamet hasone Patient is still short of breath and tachypneic and is still coughing a lot He still complaining from right-sided chest pain, worse with coughing, or going to order more pain medication for him like lidocaine patch He has decent appetite and finished more than 50% of his breakfast this morning, no diarrhea. He feels somewhat anxious. Vital signs stable and he is saturating 97% on 2 L, breathing rate around 18 breaths per minute Creatinine stable at 1.1. Ejection fraction showing slight worsening 35-40% compared to 45% on the echo in 2018, also this time he has moderate aortic stenosis. Remains on Zithromax and ceftriaxone and multiple vitamins 06/11 Patient seen and examined. Continues to be on 2 L of oxygen, denies shortness of breath at rest. Case discussed with nursing staff 06/12. Patient seen and examined. Son at the bedside. Discussed with them regarding rehab, they wanted to take patient home with homecare. Vital signs stable 06/13. Patient seen and examined. Cardiology and pulmonology has cleared the patient for discharge. Blood pressure slightly elevated, continue home meds PHYSICAL EXAMINATION: GENERAL: The patient is alert and oriented x3, not in any acute distress. Well developed, well nourished. HEENT: Pupils are round and equally reacting to light. EOMI. No scleral icterus. No conjunctival pallor. Normocephalic, atraumatic. No pharyngeal erythema. No thyromegaly. CARDIOVASCULAR: S1 and S2 present. No murmurs, rubs, or gallops. PULMONARY: Chest is clear to auscultation, no wheezing or crackles. ABDOMEN: Soft, nontender, nondistended, normoactive bowel sounds. No palpable organomegaly. MUSCULOSKELETAL: No joint swelling or deformity. EXTREMITIES: No cyanosis, clubbing, or pedal edema. NEUROLOGICAL: Gross neurological examination did not reveal any focal deficits. SKIN: No rashes. Patient Condition at Discharge: Stable Plan - Discharge Summary Discharge Rx Participant: Yes New Discharge Prescriptions: Continue HYDROcodone/APAP 5-325MG [Huggins 5-325] 1 tab PO Q6HR PRN PRN Reason: Pain Furosemide [Lasix] 40 mg PO DAILY Tamsulosin HCl [Flomax] 0.4 mg PO DAILY Magnesium Oxide 400 mg PO DAILY Ipratropium-Albuterol Nebulize [Duoneb 0.5 mg-3 mg/3 ml Soln] 3 ml INHALATION RT-QID Meclizine [Antivert] 12.5 mg PO TID PRN #0 tab PRN Reason: Vertigo L.acidoph,Paracasei, B.lactis [Probiotic] 1 cap PO DAILY calcitrioL [Calcitriol] 0.25 mcg PO MOFR Atorvastatin Calcium [Lipitor] 20 mg PO DAILY ALPRAZolam [Xanax] 0.25 mg PO DAILY PRN PRN Reason: Anxiety Budesonide [Pulmicort] 0.5 mg INHALATION RT-BID Ondansetron [Zofran] 4 mg PO BID PRN PRN Reason: Nausea And Vomiting predniSONE 10 mg PO DAILY Folic Acid 1 mg PO DAILY Famotidine [Pepcid] 20 mg PO BID Sennosides/Docusate Sodium [Senna-S 8.6-50 mg Tablet] 2 tab PO HS Potassium Chloride ER [K-Dur 10] 30 meq PO TID Lactulose 20 gm PO DAILY PRN PRN Reason: Constipation Linaclotide [Linzess] 145 mcg PO DAILY FLUoxetine HCL [PROzac] 10 mg PO DAILY Amiodarone HCl [Pacerone] 100 mg PO DAILY Discontinued Midodrine HCl [ProAmatine] 10 mg PO TID Discharge Medication List Furosemide [Lasix] 40 mg PO DAILY 11/29/17 [History] HYDROcodone/APAP 5-325MG [Huggins 5-325] 1 tab PO Q6HR PRN 11/29/17 [History] Ipratropium-Albuterol Nebulize [Duoneb 0.5 mg-3 mg/3 ml Soln] 3 ml INHALATION RT-QID 11/29/17 [History] Magnesium Oxide 400 mg PO DAILY 11/29/17 [History] Tamsulosin HCl [Flomax] 0.4 mg PO DAILY 11/29/17 [History] Meclizine [Antivert] 12.5 mg PO TID PRN #0 tab 12/01/17 [Rx] ALPRAZolam [Xanax] 0.25 mg PO DAILY PRN 06/25/19 [History] Atorvastatin Calcium [Lipitor] 20 mg PO DAILY 06/25/19 [History] L.acidoph,Paracasei, B.lactis [Probiotic] 1 cap PO DAILY 06/25/19 [History] calcitrioL [Calcitriol] 0.25 mcg PO MOFR 06/25/19 [History] Amiodarone HCl [Pacerone] 100 mg PO DAILY 06/08/22 [History] Budesonide [Pulmicort] 0.5 mg INHALATION RT-BID 06/08/22 [History] FLUoxetine HCL [PROzac] 10 mg PO DAILY 06/08/22 [History] Famotidine [Pepcid] 20 mg PO BID 06/08/22 [History] Folic Acid 1 mg PO DAILY 06/08/22 [History] Lactulose 20 gm PO DAILY PRN 06/08/22 [History] Linaclotide [Linzess] 145 mcg PO DAILY 06/08/22 [History] Ondansetron [Zofran] 4 mg PO BID PRN 06/08/22 [History] Potassium Chloride ER [K-Dur 10] 30 meq PO TID 06/08/22 [History] Sennosides/Docusate Sodium [Senna-S 8.6-50 mg Tablet] 2 tab PO HS 06/08/22 [History] predniSONE 10 mg PO DAILY 06/08/22 [History] Follow up Appointment(s)/Referral(s): Cristal Garcia NPC [Primary Care Provider] - 1-2 Days Residential Home,Health [NON-STAFF] - Dustin Copeland MD [STAFF PHYSICIAN] - 2 Weeks Patient Instructions/Handouts: Desai Catheter Placement and Care (DC), COVID-19 (Coronavirus Disease 2019) (DC)
[2022-06-13 13:17] VITALS: BP 126/75; PULSE 71
[2022-06-13 14:54] VITALS: BMI 25.0
== END 2022-06-13 14:54 | disposition home health service (06) | DRG 177 ==
LOC: EC 14:26 → 3SCARD 18:07 → 4SSUR 06-13 01:14
PROVIDERS: ADMIT Internal Medicine; ATTEND Internal Medicine
PROC: [UNRECOGNIZED PROCEDURE] (principal; 2022-06-06)
DX: U07.1 COVID-19 (principal); J12.82 Pneumonia due to coronavirus disease 2019; J96.21 Acute and chronic respiratory failure with hypoxia; S22.32XA Fracture of one rib, left side, initial encounter for closed fracture; I13.0 Hypertensive heart and chronic kidney disease with heart failure and stage 1 through stage 4 chronic kidney disease, or unspecified chronic kidney disease; I50.22 Chronic systolic (congestive) heart failure; N17.9 Acute kidney failure, unspecified; J44.1 Chronic obstructive pulmonary disease with (acute) exacerbation; J44.0 Chronic obstructive pulmonary disease with (acute) lower respiratory infection; J98.11 Atelectasis; C44.301 Unspecified malignant neoplasm of skin of nose; N18.30 Chronic kidney disease, stage 3 unspecified; D63.1 Anemia in chronic kidney disease; Z87.891 Personal history of nicotine dependence; D69.6 Thrombocytopenia, unspecified; K21.9 Gastro-esophageal reflux disease without esophagitis; E78.5 Hyperlipidemia, unspecified; I35.0 Nonrheumatic aortic (valve) stenosis; Z99.81 Dependence on supplemental oxygen; R77.8 Other specified abnormalities of plasma proteins; I48.0 Paroxysmal atrial fibrillation; Z79.899 Other long term (current) drug therapy; Z82.49 Family history of ischemic heart disease and other diseases of the circulatory system; Z86.79 Personal history of other diseases of the circulatory system; Z96.643 Presence of artificial hip joint, bilateral; Z87.442 Personal history of urinary calculi; Z96.653 Presence of artificial knee joint, bilateral; R79.1 Abnormal coagulation profile; Z74.01 Bed confinement status; Z86.14 Personal history of Methicillin resistant Staphylococcus aureus infection; Z88.5 Allergy status to narcotic agent; Z87.01 Personal history of pneumonia (recurrent); Z79.52 Long term (current) use of systemic steroids
CPT/HCPCS: 36415; 71045; 71046; 71275; 77336; 77412; 80048; 80053; 81003; 83605; 83615; 83735; 83880; 84145; 84484; 85025; 85027; 85379; 85610; 85730; 86140; 87040; 87502; 87635; 93005; 93308; 94640; 94760; 96365; 96367; 96375; 99285